=== PATIENT | male | born 1965 | race Caucasian/White ===

== ENCOUNTER 2019-07-04 06:00 | Outpatient (RCR) | payer OTHER, SELFPAY | END 2019-08-03 00:01 | LOC: SPT 06:00 | PROVIDERS: Family Provider Family Medicine; Visit Provider Specialist | DX: M70.72 Other bursitis of hip, left hip (principal); M70.71 Other bursitis of hip, right hip | CPT/HCPCS: 97110 ×2; 97164 ==

== ENCOUNTER 2019-08-04 13:17 | Outpatient (RCR) | payer OTHER, SELFPAY | END 2019-09-03 23:59 | disposition home or self-care (01) | LOC: SPT 13:17 | PROVIDERS: Family Provider Family Medicine; PCP Family Medicine; Visit Provider Specialist | DX: M70.61 Trochanteric bursitis, right hip (principal); M70.62 Trochanteric bursitis, left hip; G35 Multiple sclerosis | CPT/HCPCS: 97110; 97140 ==

== ENCOUNTER 2019-09-04 06:00 | Outpatient (RCR) | payer OTHER, MEDICARE, MEDICAID, SELFPAY | END 2019-10-02 23:59 | disposition home or self-care (01) | LOC: SPT 06:00 | PROVIDERS: Family Provider Family Medicine; PCP Family Medicine; Visit Provider Specialist | DX: M70.61 Trochanteric bursitis, right hip (principal); M70.62 Trochanteric bursitis, left hip; G35 Multiple sclerosis | CPT/HCPCS: 97110; 97530 ==

== ENCOUNTER → 2019-09-06 07:46 | Outpatient (BNVA) | payer OTHER, MEDICARE, SELFPAY | PROVIDERS: Family Provider Family Medicine; PCP Family Medicine; Visit Provider Specialist | DX: G35 Multiple sclerosis (principal) | CPT/HCPCS: 36415; 96374; 96375; 96413; 96415; 99213; J1200; J2350; J2930; J7040 ==

== ENCOUNTER 2019-10-03 06:00 | Outpatient (RCR) | payer OTHER, MEDICARE, MEDICAID, SELFPAY | END 2019-11-02 23:59 | disposition home or self-care (01) | LOC: SPT 06:00 | PROVIDERS: Family Provider Family Medicine; PCP Family Medicine; Visit Provider Specialist | DX: M70.61 Trochanteric bursitis, right hip (principal); M70.62 Trochanteric bursitis, left hip; G35 Multiple sclerosis | CPT/HCPCS: 97110 ==

== ENCOUNTER 2020-02-23 08:13 | Outpatient (CLI) | payer MEDICARE, MEDICAID, SELFPAY ==
[2020-02-23] MEDS: acetaminophen 500 mg Tablet 1000 MG PO (08:30)
[2020-02-23] MEDS: diphenhydrAMINE 50 mg/mL SDV 1mL 25 MG IVP (08:30)
== END 2020-02-23 08:14 | disposition home or self-care (01) ==
LOC: NSACUTE 08:13
PROVIDERS: Family Provider Family Medicine; PCP Family Medicine; Visit Provider Specialist
DX: G35 Multiple sclerosis (principal)
CPT/HCPCS: 96375; 99214; J1200; J2350; J2930; J7040

== ENCOUNTER 2020-05-21 10:05 | Emergency (ER) | payer OTHER, MEDICAID, SELFPAY ==
[2020-05-21 10:20] VITALS: BP 124/83; PULSE 68; RESP 17; TEMP 36.5; O2SAT 99; BMI 24.7
--- NOTE | 2020-05-21 10:53 | W.ED.BACK ---
HPI - Back Pain/Injury General: Chief Complaint: Back Pain/Injury Stated Complaint: Back Pain Time Seen by Provider: 05/21/20 10:43 History of Present Illness: HPI Narrative: Complains of pain that radiates from the center of the spine upper lumbar down to the hip area buttocks of the left side been going on a couple days history of MS denies any injury denies any other problems no problems urinating bowels working fine MD elicited complaint: back pain Pertinent past history: prior back pain Onset (ago): day(s) Timing: constant and progressively worsening Severity: moderate Similar Symptoms Previously: Yes Quality: burning and sharp Location: lumbar spine and left flank Radiation: buttocks Exacerbating factors: movement, sitting upright and walking Relieving factors: immobilization Context: unknown Associated symptoms: Reports no associated symptoms; Deny abdominal pain, chills, fever(s), nausea or vomiting Review of Systems Const: Denies: fever(s), chills or body aches Eyes: Denies: change in vision or blurry vision ENMT: Denies: throat pain or nasal congestion Card: Denies: chest pain or dyspnea on exertion Resp: Denies: dyspnea, productive cough or non-productive cough GI: Denies: abdominal pain, nausea or vomiting : Denies: difficulty urinating Musc: Reports: extremity pain Skin/Breast: Denies: rash Neuro: Denies: headache(s) Psych: Denies: anxiety or depression Joseph/Lymph: Denies: easy bruising PFSH ED PFSH: Family History Father Cancer Colon Brother Cancer Colon Social History Smoking and tobacco status: former smoker History of recent travel: No Physical Exam Const: COMMON NORMALS: no acute distress Chest: COMMONS NORMALS: normal inspection of the chest Resp: COMMON NORMALS: normal respiratory effort Back/Pelvis: LUMBAR SPINE/LOWER BACK: Yes normal to inspection, Yes pain with ROM, Yes paraspinal muscle tenderness, No paraspinal muscle spasm and Yes straight leg raise positive left (Tenderness to left buttock area) Course Vital Signs: Vital signs: Vital Signs Temperature 97.7 F 05/21/20 10:20 Pulse Rate 73 05/21/20 11:09 Respiratory Rate 18 05/21/20 11:09 Blood Pressure 107/80 05/21/20 11:09 Pulse Oximetry 99 05/21/20 11:09 Discharge Plan Discharge Patient Disposition: Home Clinical Impression: Sciatica Qualifiers: Laterality: left Qualified Code(s): M54.32 - Sciatica, left side Condition: Stable Prescriptions: New hydrocodone-acetaminophen 10-325 mg tablet 1 tab PO Q8H PRN (Reason: pain) Qty: 10 RF: 0 prednisone 20 mg tablet 60 mg PO DAILY Qty: 9 RF: 0 No Action zolpidem [Ambien] 10 mg tablet 10 mg PO BEDTIME RF: 0 aspirin [Adult Aspirin Regimen] 81 mg tablet,delayed release (DR/EC) 81 mg PO DAILY RF: 0 hydrocodone-acetaminophen [[place]] 10-325 mg tablet 1 tab PO Q6H PRN (Reason: Pain) RF: 0 Ocrevus 30 mg/mL solution 30 mg IVP Q6M RF: 0 prednisone 10 mg tablet 10 mg PO DAILY PRN (Reason: joint pain) RF: 0 alprazolam [Xanax] 0.25 mg tablet 0.25 mg PO DAILY PRN (Reason: Anxiety) RF: 0 cholecalciferol (vitamin D3) 125 mcg (5,000 unit) capsule 5,000 unit PO DAILY RF: 0 dalfampridine [Ampyra] 10 mg tablet extended release 12 hr 10 mg PO Q12H Qty: 180 RF: 3 baclofen 20 mg tablet 20 mg PO TID 90 Days Qty: 270 RF: 1 famotidine 20 mg tablet 20 mg PO BID RF: 0 Discharge Orders: Discharge Order (Routine); Ordered 05/21/20 Ordered By: Kye Andrade Referrals: Bony Contreras MD [Primary Care Provider] - Discharge Diet: Usual diet Patient Instructions: Sciatica (ED) Activity Restrictions/Additional Instructions: Follow-up with medical provider as directed. Take medications as prescribed. Return to the ER or your medical provider if condition worsens. Please read and understand discharge instructions. If any questions ask please. Follow-up Dr. Momin no significant improvement limit lifting to nothing more than 10 pounds for next 3 to 4 weeks Discharge Date/Time: 05/21/20 11:09 Coding Level of Care Code ED Oracle Reports Developer for Chg Fwd Exam Expanded Problem Focused
[2020-05-21] MEDS: HYDROcodone-acetaminophen 10-325 mg Tablet 1 TAB PO (11:05)
[2020-05-21] MEDS: methylPREDNISolone (DEPO) 80 MG/ML INJ 1 mL IM (11:06)
[2020-05-21 11:09] VITALS: BP 107/80; PULSE 73; RESP 18; O2SAT 99
== END 2020-05-21 11:09 | disposition home or self-care (01) ==
PROVIDERS: Emergency Provider Nurse Practitioner Family; Family Provider Family Medicine; PCP Family Medicine
DX: M54.32 Sciatica, left side (principal); Z79.82 Long term (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 of aspirin; Z87.891 Personal history of nicotine dependence
CPT/HCPCS: 12345; 96372; 99281; 99283; J1040

== ENCOUNTER 2020-06-13 08:19 | Outpatient (CLI) | payer OTHER, SELFPAY ==
--- NOTE | 2020-06-13 08:55 | MR_ITS ---
WS: [id number] MRI LUMBAR SPINE NONCONTRAST TECHNIQUE: Sagittal T1, T2 and STIR imaging. Axial T1 and T2 imaging. CLINICAL INFORMATION: LBP COMPARISON: MRI 7 FINDINGS: Mild lumbar curve. No acute compression. Disc bulging worse at L3-4. No acute compression fractures. No high-grade central canal stenosis. Disc space narrowing L3-4 has progressed since the prior examin ation. L1-L2: Mild annular bulging with slight effacement of the ventral thecal sac. Narrowing of the left s ubarticular recess. Mild facet arthropathy. Foramen are patent. L2-L3: Mild disc bulging with slight narrowing of the left subarticular recess. Mild facet arthropath y. Mild left and no significant right foraminal narrowing. Spinal canal is patent. L3-L4: Slight retrolisthesis L3 on L4. Left subarticular disc protrusion impinges the traversing left L4 nerve root in the subarticular recess. Mild central canal stenosis. Additional smaller right suba rticular protrusion impinges the traversing right L4 nerve root. Mild left greater than right proxima l foraminal narrowing. Moderate facet arthropathy. L4-L5: Mild disc bulging eccentric to the right with moderate right foraminal narrowing. Left foramen and spinal canal are patent. Moderate facet arthropathy. L5-S1: Mild disc bulging with osteophytic ridging eccentric to the right. Mild right and no significa nt left foraminal narrowing. Mild facet arthropathy.. Visualized pelvic bony structures: Normal. Paravertebral soft tissues: Normal. MR/MR lumbar spine wo con* [id number] IMPRESSION: 1. Mild lumbar curve. No acute compression. No high-grade central canal stenos is. 2. Disc space narrowing L3-4 has progressed since 2015. 3. Bilateral left greater than right subarticular disc protrusions L3-4 imping es the traversing left greater than right L4 nerve roots. Mild central canal st enosis. 4. Mild left greater than right L3-4 foraminal narrowing. 5. Mild right L4-5 foraminal narrowing. 6. Mild right L5-S1 foraminal narrowing.
== END 2020-06-13 08:20 | disposition home or self-care (01) ==
LOC: RADWPI 08:23
PROVIDERS: PCP Family Medicine; Visit Provider Emergency Medicine Emergency Medical Services
DX: M51.26 Other intervertebral disc displacement, lumbar region (principal); M48.061 Spinal stenosis, lumbar region without neurogenic claudication
CPT/HCPCS: 72148

== ENCOUNTER 2020-08-23 07:57 | Outpatient (CLI) | payer MEDICARE, MEDICAID, SELFPAY ==
[2020-08-23] MEDS: acetaminophen 500 mg Tablet 1000 MG PO (09:11)
[2020-08-23] MEDS: diphenhydrAMINE 50 mg/mL SDV 1mL 25 MG IVP (11:07)
== END 2020-08-23 07:58 | disposition home or self-care (01) ==
PROVIDERS: PCP Family Medicine; Visit Provider Specialist
DX: G35 Multiple sclerosis (principal); Z87.891 Personal history of nicotine dependence
CPT/HCPCS: 96365; 96366; 96375; 99213; J1200; J2350; J2930; J7040

== ENCOUNTER 2021-02-12 08:00 | Outpatient (CLI) | payer MEDICARE, MEDICAID, SELFPAY ==
[2021-02-12] MEDS: acetaminophen 500 mg Tablet 1000 MG PO (08:53)
[2021-02-12] MEDS: diphenhydrAMINE 50 mg/mL SDV 1mL 25 MG IVP (08:54)
== END 2021-02-12 08:01 | disposition home or self-care (01) ==
LOC: NSACUTE 08:11
PROVIDERS: PCP Family Medicine; Visit Provider Specialist
DX: G35 Multiple sclerosis (principal); R20.0 Anesthesia of skin; R20.2 Paresthesia of skin
CPT/HCPCS: 96365; 96366; 96375; 99214; J1200; J2350; J2930; J7040

== ENCOUNTER → 2021-04-10 12:18 | Outpatient (BNVA) | payer OTHER, SELFPAY | PROVIDERS: PCP Family Medicine; Referring Provider Specialist; Visit Provider Specialist | DX: G35 Multiple sclerosis (principal); M48.061 Spinal stenosis, lumbar region without neurogenic claudication | CPT/HCPCS: 99215 ==

== ENCOUNTER → 2021-04-25 14:56 | Outpatient (BNVA) | payer OTHER, SELFPAY | PROVIDERS: PCP Family Medicine; Referring Provider Specialist; Visit Provider Specialist | DX: G56.21 Lesion of ulnar nerve, right upper limb (principal) | CPT/HCPCS: 95908 ==

== ENCOUNTER 2021-05-11 12:49 | Outpatient (CLI) | payer OTHER, SELFPAY ==
--- NOTE | 2021-05-11 12:55 | MR_ITS ---
WS: [id number] MRI CERVICAL SPINE NONCONTRAST AND CONTRAST TECHNIQUE: Sagittal T1, T2 and STIR imaging. Axial T2, gradient, and fiesta imaging. Post gadolinium imaging was obtained. CLINICAL INFORMATION: G35 - Multiple sclerosis COMPARISON: March 04, 2018 FINDINGS: Straightening with slight reversal the normal cervical lordosis. Chronic demyelinating plaques in the cervical cord at the foramen magnum, and C5-6 unchanged since 2018. No abnormal gadolinium enhanceme nt. No active demyelinating lesions. No significant cord atrophy. C2-C3: Normal. C3-C4: Disc osteophyte complex with endplate ridging. Moderate right and mild left bony foraminal romulo rowing. Mild facet arthropathy. C4-C5: No significant disc bulging. Mild facet arthropathy. Spinal canal and foramen are patent. C5-C6: Mild disc bulging and osteophytic ridging. Mild/moderate left and no significant right foramin al narrowing. Mild facet arthropathy. Spinal canal is patent. C6-C7: Shallow central disc protrusion. Slight effacement of ventral thecal sac. Mild left and no sig nificant right foraminal narrowing. Moderate facet arthropathy. Spinal canal is patent. C7-T1: Grade 1 anterolisthesis with osteophytic ridging. Mild left bony foraminal narrowing. Spinal c anal is patent. Visualized brain stem structures: Normal. Prevertebral soft tissues: Normal. MR/MR cervical spine wo/w [id number] IMPRESSION: 1. Straightening of the normal cervical lordosis. No high-grade central canal stenosis. 2. Chronic demyelinating plaques in the cervical cord at the Foramen Magnum an d eccentric left C5-C6 unchanged since 2017. 3. No abnormal gadolinium enhancement. No enhancing demyelinating plaques. No evidence of active disease. 4. No significant cord atrophy. 5. Mild spondylitic changes described above.
[2021-05-11] MEDS: gadobenate dimeglumine 20 mL vial IV (13:40)
== END 2021-05-11 12:50 | disposition home or self-care (01) ==
LOC: RADSHAW 12:51
PROVIDERS: PCP Family Medicine; Visit Provider Specialist
DX: G35 Multiple sclerosis (principal)
CPT/HCPCS: 72156; A9577

== ENCOUNTER → 2021-05-24 16:00 | Outpatient (BNVA) | payer OTHER, SELFPAY | PROVIDERS: PCP Family Medicine; Referring Provider Nurse Practitioner Family; Visit Provider Orthopaedic Surgery | DX: M48.061 Spinal stenosis, lumbar region without neurogenic claudication (principal); M41.86 Other forms of scoliosis, lumbar region; M43.16 Spondylolisthesis, lumbar region | CPT/HCPCS: 72110 ==

== ENCOUNTER → 2021-05-28 08:55 | Outpatient (BNVA) | payer OTHER, SELFPAY | PROVIDERS: PCP Family Medicine; Visit Provider Specialist | DX: M54.81 Occipital neuralgia (principal); G35 Multiple sclerosis | CPT/HCPCS: 64405; 64450; 99214; J1030; J3490 ==

== ENCOUNTER → 2021-06-18 08:48 | Outpatient (BNVA) | payer OTHER, SELFPAY | PROVIDERS: PCP Family Medicine; Visit Provider Orthopaedic Surgery | DX: Z20.822 Contact with and (suspected) exposure to COVID-19 (principal); M48.061 Spinal stenosis, lumbar region without neurogenic claudication | CPT/HCPCS: 87635 ==

== ENCOUNTER 2021-06-22 05:46 | Day surgery (SDC) | payer OTHER, SELFPAY ==
[2021-06-15 09:53] VITALS: BMI 24.7
--- NOTE | 2021-06-15 10:15 | ANES.PREANE2 ---
Pre-Anesthetic Assessment Pre-Anesthetic Assessment: Height/Weight: Height 1.78 m Weight 78.018 kg Preop Diagnosis: Lumbar stenosis with neurogenic claudication Proposed Procedure: Operation Date: 06/22/21 07:00 Proposed Procedures p Lumbar Spine Decompression L3/4 L4/5 06005 31160 M48.062(Not Applicable) - Tima Choudhary DO Familial anesthetic complications: None Social: Social History: No alcohol and No tobacco Comment: former smoker Exam: Pre-Anes Outpt Exam: alert, oriented x 3, clear to auscultation bilaterally and regular rate & rhythm Airway: Cervical ROM: WNL MP: 1 Dentition: False GI: GI: GERD Neuropsych: Comments: multiple sclerosis (primary slow progressing) - On ocrelizumab Anesthetic Plan: ASA status: 3 Other: patient informed of risk of MS exacerbation w/ anesthesia Risk of > 500 ml blood loss (7ml/kg in children): No PFSH Anesthesia PFSH: Family History Father Cancer Colon Brother Cancer Colon Social History (Updated 06/15/21 @ 09:48 by Cinthia Velez) Smoking and tobacco status: former smoker Alcohol intake: never History of recent travel: No Data Anesthesia Cardiac Studies: No Data to Display
[2021-06-15 10:23] LABS: Basophils # 0.1 10^3/uL (0.0-0.1); Basophils % 0.8 %; Eosinophils # 0.1 10^3/uL (0.0-0.8); Eosinophils % 2.3 %; Hematocrit 42.2 % (42.0-52.0); Hemoglobin 13.7 g/dL (11.7-16.6); Lymphocytes # 1.1 10^3/uL (0.8-4.8); Lymphocytes % 17.7 %; Mean Corpuscular HGB Conc 32.5 g/dL (30.0-36.0); Mean Corpuscular Volume 92.3 fl (80-94); Mean Platelet Volume 9.6 fL (7.4-10.4); Monocytes # 0.5 10^3/uL (0.2-0.9); Monocytes % 7.6 %; Neutrophils # 4.38 10^3/uL (1.8-7.7); Neutrophils % 71.3 %; Nucleated Red Blood Cells % 0 %; Platelet Count 354 10^3/cmm (130-400); Red Blood Count 4.57 10^6/uL (4.1-5.3); Red Cell Distribution Width 13.2 % (12.1-15.1); White Blood Count 6.2 10^3/uL (4.0-10.0)
[2021-06-22] VITALS (11 sets, daily range): BP systolic 111–121; BP diastolic 74–84; PULSE 71–90; RESP 12–18; TEMP 36.2–36.9; O2SAT 95–100
--- NOTE | 2021-06-22 | SCC_ITS ---
Procedure Done: 1. Bilateral L3/4 laminectomy with bilateral partial facetectomy 2. Bilateral L4/5 laminectomy with bilateral partial facetectomy 23.1 seconds of fluoroscopic guidance, for a cumulative dose of 5.37 mGy, was provided to Dr. Choudhary by the radiology department. C-arm images of the lumbar spine were saved for the patient's permanent record. [facility]
--- NOTE | 2021-06-22 | XR_ITS ---
WS: [id number] C-ARM RADIOGRAPHS LUMBAR SPINE; 4 IMAGES HISTORY: decompression COMPARISON: 05/24/2021 Intraoperative imaging during decompression. There are markers at both the L3-4 and L4-5 level. XR/XR lumbar spine 1V [id number] IMPRESSION: Intraoperative imaging during spinal decompression.
[2021-06-22] MEDS: sodium chloride 0.9% 1,000 ML 30 ML IV (06:25)
--- NOTE | 2021-06-22 06:25 | W.PM.OPSUD ---
Surgery/Procedure H&P Update DATE OF PROCEDURE: June 22, 2021 DATE H&P PERFORMED: 05/24/21 H&P UPDATE INFORMATION: I have reviewed H&P completed within last 30 days, I have examined patient prior to procedure and No changes to prior documentation PREOP DIAGNOSIS: Lumbar stenosis with neurogenic claudication PLANNED PROCEDURE: Operation Date: 06/22/21 07:00 Proposed Procedures p Lumbar Spine Decompression L3/4 L4/5 87575 12202 M48.062 TO STAND ON LEFT SIDE(Not Applicable) - Tima Choudhary DO
--- NOTE | 2021-06-22 08:16 | P.ANESUD_ITS ---
Pre-Anesthetic Update Pre-Anesthetic Assessment: Date of Surgery/Procedure: 06/22/21 Preop Deb gnosis: Lumbar stenosis with neurogenic claudication Proposed Procedure: Operation Date: 06/22/21 07:00 Proposed Procedures p Lumbar Spine Decompression L3/4 L4/5 01584 [id number] M48.062 TO STAND ON LEFT SIDE(Not Applicable) - Tima Choudhary, DO Any changes to Pre-Anesthetic Assessment?: No Last Intake: Intake Last Liquid Date 06/21/21 Last Liquid Time 22:00 Last Solid Date 06/21/21 Last Solid Time 22:00 Vitals: Temperature 98.4 F 06/22/21 06:03 Temperature Source Temporal Artery S can 06/22/21 06:03 Pulse Rate 71 06/22/21 06:03 Respiratory Rate 18 06/22/21 06:03 Blood Pressure 111/81 06/22/21 06:03 Blood Pressure Katherine n 91 06/22/21 06:03 Pulse Oximetry 100 06/22/21 06:03 Oxygen Delivery Me thod 06/22/21 06:04 Exam: Pre-Anes Outpt Exam: alert, oriented x 3, clear to auscultation bilaterally and regular rate & rhythm Cardiac Studies: No Data to Display
[2021-06-22] MEDS: fentaNYL 50 mcg/mL INJ 2mL IVP ×2 (08:34→08:41)
--- NOTE | 2021-06-22 08:38 | PM.OP ---
Operative Report Date of procedure: June 22, 2021 Pre-op Diagnosis: Lumbar stenosis with neurogenic claudication Post-op diagnosis: same Procedure Done: 1. Bilateral L3/4 laminectomy with bilateral partial facetectomy 2. Bilateral L4/5 laminectomy with bilateral partial facetectomy Surgeon: Tima Choudhary Anesthesia: General Estimated blood loss (mL): 5 Condition: stable Procedure: 1. Bilateral L3/4 laminectomy with bilateral partial facetectomy 2. Bilateral L4/5 laminectomy with bilateral partial facetectomy Patient is brought to the operative suite. After undergoing anesthesia they are placed in the prone position. All areas of impingement are well padded. Patient is then prepped and draped in the normal sterile fashion. A skin incision is made over the L4/5 level. This is confirmed under c-arm guidance. A series of dilators are passed and the tubular retractor is docked on the L4 lamina. A bovie is used to clear the soft tissue off the lamina and the L 4/5 facet joint. A high speed nadine is then used to perform the laminectomy and take down the medial aspect of the L 4/5 facet joint. A kerrison rongeure was then used to take down the remaining lamina and smooth the edged of the laminectomy up to the point where the ligamentum flavum attaches. Attention was then brought to the medial aspect of the facet joint. The remaining medial aspect of the superior and inferior aspect of the facet joint were taken down with the kerrison from the pedicle of L4 to L 5. The facet joint had significant hypertrophy. Attention was then brought to the Ligamentum Flavum. The ligament was taken down from the lamina of L4 to L5 and out medially to the remaining facet joint. The ligament was thick. The dura was then exposed. The dura was in good repair. The L4 nerve was then traced with a curette out the L4/5 foramen and found to be adequately decompressed. The L5 nerve was traced with a curette around the L5 pedicle. The lateral recess was opened with a kerrison helping to further decompress the L5 nerve. The tubular retractor was then tilted to the contralateral side. The bovie was used to take down the soft tissue on the spinous process. The high speed nadine was used to take down the spinous process and then the contralateral lamina of L4. The kerrison rongeur was used to take down the remaining lamina to the point where the ligamentum flavum attached and the ligamentum flavum was taken down from L4 to L5. The kerrison rongeur was then used to reach across and take down the medial aspect of the contralateral L4/5 facet joint.The currete was used to trace the contralateral L4 nerve out the L4/5 foramen to make sure it was decompressed adequatesly and the L5 was traced around the L5 pedicle. The lateral recess was opened further with the kerrison to ensure the L5 is adequately decompressed. Wound is then irrigated copiously with saline and surgiflo is used to stop any bleeding. The tubular retractor is removed and A skin incision is made over the L3/4 level. This is confirmed under c-arm guidance. A series of dilators are passed and the tubular retractor is docked on the L3 lamina. A bovie is used to clear the soft tissue off the lamina and the L 3/4 facet joint. A high speed nadine is then used to perform the laminectomy and take down the medial aspect of the L 3/4 facet joint. A kerrison rongeure was then used to take down the remaining lamina and smooth the edged of the laminectomy up to the point where the ligamentum flavum attaches. Attention was then brought to the medial aspect of the facet joint. The remaining medial aspect of the superior and inferior aspect of the facet joint were taken down with the kerrison from the pedicle of L3 to L 4. The facet joint had significant hypertrophy. Attention was then brought to the Ligamentum Flavum. The ligament was taken down from the lamina of L3 to L4 and out medially to the remaining facet joint. The ligament was thick. The dura was then exposed. The dura was in good repair. The L3 nerve was then traced with a curette out the L3/4 foramen and found to be adequately decompressed. The L4 nerve was traced with a curette around the L4 pedicle. The lateral recess was opened with a kerrison helping to further decompress the L4 nerve. The tubular retractor was then tilted to the contralateral side. The bovie was used to take down the soft tissue on the spinous process. The high speed nadine was used to take down the spinous process and then the contralateral lamina of L3. The kerrison rongeur was used to take down the remaining lamina to the point where the ligamentum flavum attached and the ligamentum flavum was taken down from L3 to L4. The kerrison rongeur was then used to reach across and take down the medial aspect of the contralateral L3/4 facet joint.The currete was used to trace the contralateral L3 nerve out the L3/4 foramen to make sure it was decompressed adequatesly and the L4 was traced around the L4 pedicle. The lateral recess was opened further with the kerrison to ensure the L4 is adequately decompressed. Wound is then irrigated copiously with saline and surgiflo is used to stop any bleeding. The tubular retractor is removed and the wound is closed with vicryl and monocryl suture. Glue is then used to protect the wound. A sterile dressing is then placed. Patient was then placed in the supine position and transferred to the PACU in stable condition.
--- NOTE | 2021-06-22 08:59 | SUR.PHASEI ---
0857 PT AWAKE ALERT MOVES BILAT TOES TO COMMAND WITH RT FOOT WEAKER, PT STATES THIS IS NORMAL FOR HIM PT C/O OF PAIN AND PRESSURE EARLIER TO LOWER BACK SEE MEDS GIVEN PT STATES PAIN IS BETTER AND WANTS TO CONTINUES WITH PO PAIN MED IN OPS , HANDOFF AT BEDSIDE TO NEGAR MARTINEZ.
[2021-06-22] MEDS: HYDROcodone-acetaminophen 10-325 mg Tablet 1 TAB PO (09:47)
--- NOTE | 2021-06-22 14:03 | ANE.PACU2 ---
Inpatient post-anesthesia follow up: Airway intact: Yes Vital signs: Temperature 98 F Pulse Rate 78 Respiratory Rate 18 Blood Pressure 121/84 Pulse Oximetry 96 Oxygen Delivery Me thod Room Air Oxygen Flow Rate Fraction of Inspir ed Oxygen Hydration adequate: Yes Nausea and vomiting: No Pain level: 2 Mental status: Baseline
== END 2021-06-22 09:55 | disposition home or self-care (01) ==
PROVIDERS: Anesthesiology; PCP Family Medicine; Visit Provider Orthopaedic Surgery
PROC: (CPT 63005; principal; 2021-06-22 07:00)
DX: M48.062 Spinal stenosis, lumbar region with neurogenic claudication (principal); Z87.891 Personal history of nicotine dependence; K21.9 Gastro-esophageal reflux disease without esophagitis; G35 Multiple sclerosis; Z79.82 Long term (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 of aspirin
CPT/HCPCS: 63047; 63048; 72020; 76000; 85025; 96365; J0690; J1100; J2405; J2704; J2710; J3010; J3490; J7030

== ENCOUNTER 2021-06-25 09:32 | Observation (INO) | payer OTHER, MEDICARE, SELFPAY ==
[2021-06-25] VITALS (8 sets, daily range): BP systolic 110–134; BP diastolic 75–95; PULSE 75–104; RESP 16–20; TEMP 36.7–37.1; O2SAT 90–94; BMI 24.8; BMI 24.4
--- NOTE | 2021-06-25 09:41 | W.ED.GENADLT ---
HPI - General Adult General: Chief complaint: Back Pain/Injury Stated complaint: LEFT HIP PAIN POST SPINAL SURGERY 3 DAYS AGO Time Seen by Provider: 06/25/21 09:37 History of Present Illness: HPI narrative: 55-year-old male presents emergency room complaining left hip pain. 3 days ago patient underwent back surgery. Patient had a bilateral L3-4, L4-5 laminectomy with partial cystectomy. Postoperatively he has begun to develop left hip pain. He was having neurogenic claudication prior to surgery. Patient reported pain radiating into both legs bilaterally left worse than the right. Over the last 2 days he has had increasing left hip pain buttock and proximal posterior thigh pain. He also has noted difficulty emptying his bladder. Prior to surgery he would have 1-2 episodes of micturition per night. Now he is feeling like he can empty his bladder a little bit but never gets it fully empty. He denies any dysuria urgency or frequency. He denies any trauma or fall since his surgery. He has been using hydrocodone 10/325 1 p.o. every 6 hours as needed Onset (ago): day(s) (6) Location: chest Radiation: non-radiation Severity: mild Pain Consistency: intermittent Relieving factors: none Exacerbating factors: none Associated symptoms: Deny chest pain, confusion, cough, diaphoresis, decreased appetite, dyspnea, fevers/chills, headache(s), malaise, nausea, rash, palpitations, seizures, short of breath, syncope, vomiting or weakness Review of Systems Const: Denies: malaise or diaphoresis ENMT: Denies: throat pain, ear or mastoid pain, nasal discharge or nasal congestion Card: Denies: chest pain, palpitations or syncope Resp: Denies: dyspnea GI: Denies: nausea or vomiting : Denies: flank pain, dysuria, urinary frequency or urinary urgency Skin/Breast: Denies: rash Neuro: Denies: headache(s) or confusion PFSH ED PFSH: Family History Father Cancer Colon Brother Cancer Colon Social History (Updated 06/15/21 @ 09:48 by Cinthia Velez) Smoking and tobacco status: former smoker Alcohol intake: never History of recent travel: No Physical Exam Const: COMMON NORMALS: no acute distress GENERAL APPEARANCE: cooperative and comfortable ORIENTATION/CONSCIOUSNESS: Yes awake, Yes oriented to person, Yes oriented to place and Yes oriented to time HENMT: COMMON NORMALS: normocephalic, atraumatic and hearing grossly normal bilaterally HEAD & SCALP: normocephalic and atraumatic Neck/C-Spine: COMMON NORMALS: no JVD Resp: COMMON NORMALS: normal respiratory effort, No retractions, No use of accessory muscles and clear to auscultation bilaterally AUSCULTATION: clear to auscultation bilaterally Cardio: COMMON NORMALS: no JVD, regular rate, regular rhythm and No murmurs present (Cardio) RATE: regular rate RHYTHM: regular rhythm GI: COMMON NORMALS: Soft to palpation and No hepatosplenomegaly present AUSCULTATION: Yes normoactive bowel sounds PALPATION: Yes Soft to palpation, No Tenderness to palpation present (GI), No Guarding due to palpation present (GI) and Yes No hepatosplenomegaly present Extremity: COMMON NORMALS: normal to inspection, capillary refill normal, no clubbing, cyanosis or edema, no calf tenderness and no pedal edema OTHER: Deep tendon reflexes +2/4 at the left patellar tendon difficult to elicit on the right however patient states that not unusual he has significant loss of function in the right leg that predated his back issues related to his MS. Neuro: SENSORIUM/ORIENTATION: Yes oriented to person, Yes oriented to place and Yes oriented to time Skin: COMMON NORMALS: no rashes or lesions noted GENERAL SKIN EXAM: no rashes or lesions noted Course Vital Signs: Vital signs: Vital Signs Temperature 98.8 F 06/25/21 09:35 Pulse Rate 75 06/25/21 13:19 Respiratory Rate 16 06/25/21 13:19 Blood Pressure 134/84 06/25/21 13:19 Pulse Oximetry 92 06/25/21 13:19 MDM - General Adult MDM Narrative: Medical decision making narrative: After multiple medications for pain and attempts to try to get the patient ambulated became obvious is not can be able to go home. At this point because of his MS and is previously known loss of function in his right leg along with a severe pain with postlaminectomy syndrome in his left leg. Level of function. In addition that he has acute urinary retention. We will go ahead and put him on observation now discussed with hospitalist. Lab Data: Labs: Lab Results 06/25/21 06/25/21 06/25/21 09:47 09:47 13:20 WBC 8.8 10^3/uL 10^3/ uL (4.0-10.0) RBC 3.81 10^6/uL L 10 ^6/uL (4.1-5.3) Hgb 11.4 g/dL L g/dL (11.7-16.6) Hct 34.3 % L % (42.0-52.0) MCV 90.0 fl fl (80-94) MCH 29.9 pg pg (28.0-34.0) MCHC 33.2 g/dL g/dL (30.0-36.0) RDW 13.2 % % (12.1-15.1) Plt Count 295 10^3/cmm 10^3 /cmm (130-400) MPV 9.9 fL fL (7.4-10.4) Neut % (Auto) 74.1 % % Lymph % (Auto) 13.9 % % [place] % (Auto) 8.9 % % Eos % (Auto) 1.9 % % Baso % (Auto) 0.6 % % Neut # (Auto) 6.50 10^3/uL 10^3 /uL (1.8-7.7) Lymph # (Auto) 1.2 10^3/uL 10^3/ uL (0.8-4.8) Valencia # (Auto) 0.8 10^3/uL 10^3/ uL (0.2-0.9) Eos # (Auto) 0.2 10^3/uL 10^3/ uL (0.0-0.8) Baso # (Auto) 0.1 10^3/uL 10^3/ uL (0.0-0.1) Nucleated RBC % (a uto) 0 % % Nucleated RBCs # 0.0 /100WBC /100W BC Sodium 140 mmol/L mmol/L (136-145) Potassium 4.0 mmol/L mmol/L (3.5-5.1) Chloride 101 mmol/L mmol/L (98-107) Carbon Dioxide 29 mmol/L mmol/L (22-29) Anion Gap 14.0 (5-19) BUN 8 mg/dL mg/dL (6-20) Creatinine 0.8 mg/dL mg/dL (0.7-1.2) GFR Calculation 100.7 mL/min mL/m in (90-130) Glucose 95 mg/dL mg/dL (65-115) Calculated Osmolal ity 288 mOsm/kg mOsm/ kg (285-295) Calcium 8.4 mg/dL L mg/dL (8.5-10.5) Urine Color Straw (Yellow) Urine Appearance Clear (CLEAR) Urine pH 5 (5-7) Ur Specific Gravit y 1.010 (1.005-1.030) Urine Protein Neg (Negative) Urine Glucose (UA) Norm (Normal) Urine Ketones Negative (Negative) Urine Blood 2+ H (Negative) Urine Nitrate Negative (Negative) Urine Bilirubin Neg (Negative) Urine Urobilinogen Norm mg/dL mg/dL (Negative) Ur Leukocyte Raquel ase Negative (Negative) Urine RBC 0-4 /hpf H /hpf (0-2) Urine WBC None /hpf /hpf (0-5) Ur Squamous Epith Cells 5-10 /hpf H /hpf (0-5) Amorphous Sediment Not Reportable Urine Bacteria Trace /hpf /hpf (NONE) Discharge Plan Discharge Patient Disposition: Home Clinical Impression: Post laminectomy syndrome, Multiple sclerosis, Acute urinary retention Condition: Stable Discharge Diet: Usual diet Discharge Activity: Resume usual activity Coding Level of Care Code ED Front Counter Attendant for Valentina Fwd Exam Comprehensive
[2021-06-25] MEDS: fentaNYL 50 mcg/mL INJ 2mL 100 MCG IVP (09:54)
[2021-06-25 10:10] LABS: Basophils # 0.1 10^3/uL (0.0-0.1); Basophils % 0.6 %; Eosinophils # 0.2 10^3/uL (0.0-0.8); Eosinophils % 1.9 %; Hematocrit 34.3 % (42.0-52.0); Hemoglobin 11.4 g/dL (11.7-16.6); Lymphocytes # 1.2 10^3/uL (0.8-4.8); Lymphocytes % 13.9 %; Mean Corpuscular HGB Conc 33.2 g/dL (30.0-36.0); Mean Corpuscular Hemoglobin 29.9 pg (28.0-34.0); Mean Platelet Volume 9.9 fL (7.4-10.4); Monocytes # 0.8 10^3/uL (0.2-0.9); Monocytes % 8.9 %; Neutrophils % 74.1 %; Nucleated Red Blood Cells % 0 %; Platelet Count 295 10^3/cmm (130-400); Red Blood Count 3.81 10^6/uL (4.1-5.3); Red Cell Distribution Width 13.2 % (12.1-15.1); White Blood Count 8.8 10^3/uL (4.0-10.0)
[2021-06-25] MEDS: dexamethasone 10 mg/mL INJ IVP (10:33)
[2021-06-25] MEDS: orphenadrine 30 mg/mL Inj 2 mL 60 MG IVP (10:33)
[2021-06-25 10:46] LABS: Blood Urea Nitrogen 8 mg/dL (6-20); Calcium 8.4 mg/dL (8.5-10.5); Carbon Dioxide 29 mmol/L (22-29); Chloride 101 mmol/L (98-107); Glomerular Filtration Rate 100.7 mL/min (90-130); Glucose 95 mg/dL (65-115); Osmolality Calculated 288 mOsm/kg (285-295); Sodium 140 mmol/L (136-145)
[2021-06-25] MEDS: morphine 4 mg/mL SDV 1 mL IVP ×2 (10:46→13:03)
--- NOTE | 2021-06-25 10:47 | PC.NURSE ---
Pt assisted to standing, but unable to urinate at this time.
--- NOTE | 2021-06-25 11:23 | PC.PHAR ---
pt states he takes care of his own medications-pt states he dced his doxycycline hyclate 100mg bid on 06/18/21 rx filled on 05/28/21 30d/s-pt states he gets a ocrevus injection every 6 months [facility] states they havent filled that for the pt
[2021-06-25 14:00] LABS: Glucose Urine UA Norm (Normal); Ketones Urine Negative (Negative); Protein Urine Neg (Negative); Urine Appearance Clear (CLEAR); Urine Color Straw (Yellow); pH Urine 5 (5-7)
[2021-06-25 14:01] LABS: Add Urine Microscopic? YES; Bilirubin Urine Neg (Negative); Blood Urine 2+ (Negative); Leukocyte Esterase Urine Negative (Negative); Nitrate Urine Negative (Negative); Urobilinogen Urine Norm (Negative)
[2021-06-25 14:02] LABS: Add Urine Culture? No; Bacteria Urine TRACE /hpf; RBC Urine 0-4 /hpf (0-2)
--- NOTE | 2021-06-25 16:00 | P.HP_ITS ---
Providers/Chief Complaint Admitting Physician: Adriana Gasca MD Primary Care Provider: Bony Contreras MD Chief Complaint: LEFT HIP PAIN POST SPINAL SURGERY 3 DAYS AGO History of Present Illness Bharat Arthur is a 55 year old male with history of multiple sclerosis and recent laminectomy L3-L5 with Dr. Choudhary presented to the hospital for pain in his back that is radiating down his left leg after the surgery. He stated that one of his other main complaints is being unable to urinate. At first it was a few hours at a time but lately for the whole day he was unable to urinate and decided to come to the hospital. He states he lives at home with his daughter was 16 years old and having her take care of each other. He denies having any numbness tingling in his legs. He has not lost control of his bowels. He has not had a bowel movement since the surgery. He states that other than this he has no other active medical issues at this time. Denies shortness of breath, abdominal pain, chest pain, diarrhea.He does complain of left hip pain. He states the pain does radiate to both legs but the left is worse than the right. He has been using hydrocodone 10 for pain. He states mainly the pain is controlled but it wears off quickly and is requesting for pain medication at this time. Denies having a fever or cough. ED course: Blood pressure 134/84, respiratory 16, pulse rate 75, temperature 98.8, pulse ox 92%. Patient did get multiple pain medications in the ER namely fentanyl, morphine 4 mg x 2 and the attempt to get him to walk at this evident that the patient cannot be sent home. ER has suspicion of postlaminectomy syndrome. Patient also has acute urinary retention. Vicente catheter was placed. Dr. Choudhary was called for consult. Patient will be admitted to hospital service. Patient did get one-time dose of Decadron 10 mg. Review of Systems General: Reports: 10 or more systems reviewed and unremarkable except in HPI and below Medications/Allergies Home Medications Medication Instructions Recorded Confirmed Last Taken Type alprazolam 0.25 mg tablet 0.25 mg PO BEDTIME PRN 09/06/19 06/25/21 06/25/21 History aspirin 81 mg tablet,delayed 81 mg PO DAILY 09/06/19 06/25/21 06/21/21 History release ocrelizumab 30 mg/mL intravenous 30 mg IV .EVERY 6 MONTHS 09/06/19 06/25/21 06/25/21 History solution prednisone 10 mg tablet 10 mg PO DAILY PRN tab 09/06/19 06/25/21 06/01/21 History zolpidem 10 mg tablet 10 mg PO BEDTIME tab 09/06/19 06/25/21 06/24/21 History cholecalciferol (vitamin D3) 125 5,000 unit PO DAILY 02/23/20 06/25/21 06/21/21 History mcg (5,000 unit) capsule famotidine 20 mg PO BID 05/21/20 06/25/21 06/22/21 History dalfampridine 10 mg 10 mg PO Q12H #180 tab 04/10/21 06/25/21 06/25/21 06:00 Rx tablet,extended release,12 hr baclofen 40 mg PO TID 06/15/21 06/25/21 06/25/21 06:00 History hydrocodone-acetaminophen 1 tab PO Q4H PRN 7 Days #40 tab 06/22/21 06/25/21 Unknown Rx acetaminophen [Tylenol Ex Str 1,000 mg PO Q4H PRN 06/25/21 06/25/21 Unknown History Rapid Release] hydrocodone-acetaminophen 1 tab PO QID PRN 06/25/21 06/25/21 06/25/21 07:00 History ibuprofen [Advil] 600 mg PO Q4H PRN 06/25/21 06/25/21 Unknown History prednisone 20 mg PO BID 7 Days #15 tab 06/25/21 Unknown Rx tamsulosin 0.4 mg PO DAILY #30 cap 06/25/21 Unknown Rx Allergies Allergy/AdvReac Type Severity Reaction Status Date / Time No Known Drug Allergies Allergy Unknown Verified 06/25/21 17:00 PFSH Acute PFSH: Family History Father Cancer Colon Brother Cancer Colon Social History (Updated 06/15/21 @ 09:48 by Cinthia Velez) Smoking and tobacco status: former smoker Alcohol intake: never History of recent travel: No Vitals/I&O/Wt Last Vital Signs Temp 98.8 F 06/25/21 09:35 Pulse 75 06/25/21 13:19 Resp 16 06/25/21 13:19 BP 134/84 06/25/21 13:19 Pulse Ox 92 06/25/21 13:19 Weight last 48 hrs Weight 78.471 kg Physical Exam Narrative: EXAM NARRATIVE: General: Alert oriented x3, patient seen sitting up in bed eating pretzels. HEENT: Normocephalic, atraumatic, EOMI, breathing normally on room air. Normal respiratory effort. Cardio: Regular rate rhythm, normal S1-S2, no murmurs rubs gallops, Respiratory: Good bilateral air entry, no wheezes no rhonchi appreciated GI: Abdomen soft, nontender, nondistended, bowel sounds + Behavior: Appropriate and cooperative Extremities: Pulses 2+, no edema no cyanosis noted lower extremities. Strength decreased in bilateral lower extremities right worse than left. Able to lift left leg off the bed about 2 inches and dropped right down, unable to lift right leg at all. Straight leg raise bilateral lower extremity is positive. Sensation intact 5 out of 5 upper and lower extremities. Upper extremity strength 5 out of 5 bilaterally. Range of motion restricted at the back due to pain. Vicente catheter in place. Gait not tested due to lower extremity weakness. Urinary Catheter Management^: Vicente: Cath Placed During This Visit: yes Urinary Catheter Date of Insertion: 06/25/21 Urinary Catheter Time of Insertion: 13:29 Data : 06/26/21 05:48 06/26/21 05:48 A&P Assessment and plan (1) Post laminectomy syndrome: Status: Acute (2) Acute urinary retention: Status: Acute (3) Lumbar stenosis with neurogenic claudication: Status: Acute (4) Multiple sclerosis: Status: Acute Additional A&P Information Patient is status post L2-L5 laminectomy with Dr. Choudhary 4 days ago. He has developed acute urinary retention. Vicente catheter has been placed. Decadron 10 mg x 1 given in the ER. We will start him on Decadron 4 mg IV every [address] Choudhary. Will await further recommendations. Physical therapy, Occupational Therapy, Case management referral ?We will do pain management and pain control. We will start patient on lactulose for constipation. #Multiple sclerosis: Stable at this time. 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
[2021-06-25] MEDS: enoxaparin 40 mg/0.4 mL Syringe SUBCUT (17:42)
[2021-06-25] MEDS: famotidine 20 mg Tablet PO (17:43)
[2021-06-25] MEDS: dexamethasone 4 mg/mL INJ IVP ×2 (17:43→23:22)
[2021-06-25] MEDS: lactulose oral liq 20 gm/30 mL UDC PO (17:43)
[2021-06-25] MEDS: baclofen 10 mg Tablet 40 MG PO (22:11)
[2021-06-25] MEDS: zolpidem 5 mg Tablet 10 MG PO (22:11)
[2021-06-25] MEDS: morphine 4 mg/mL SDV 1 mL 2 MG IVP (22:19)
[2021-06-26] VITALS (8 sets, daily range): BP systolic 100–123; BP diastolic 68–83; PULSE 76–118; RESP 16–18; TEMP 36.6–37.1; O2SAT 94–99
[2021-06-26] MEDS: morphine 4 mg/mL SDV 1 mL 2 MG IVP ×3 (03:51→19:01)
[2021-06-26] MEDS: dexamethasone 4 mg/mL INJ IVP ×3 (06:13→18:26)
[2021-06-26 06:35] LABS: Basophils % 0.1 %; Hematocrit 36.5 % (42.0-52.0); Hemoglobin 12.1 g/dL (11.7-16.6); Lymphocytes # 0.6 10^3/uL (0.8-4.8); Mean Corpuscular HGB Conc 33.2 g/dL (30.0-36.0); Mean Corpuscular Hemoglobin 29.4 pg (28.0-34.0); Mean Corpuscular Volume 88.8 fl (80-94); Mean Platelet Volume 9.9 fL (7.4-10.4); Monocytes # 0.4 10^3/uL (0.2-0.9); Monocytes % 3.9 %; Neutrophils # 9.85 10^3/uL (1.8-7.7); Neutrophils % 90.4 %; Nucleated Red Blood Cells % 0 %; Platelet Count 356 10^3/cmm (130-400); Red Blood Count 4.11 10^6/uL (4.1-5.3); Red Cell Distribution Width 12.6 % (12.1-15.1); White Blood Count 10.9 10^3/uL (4.0-10.0)
--- NOTE | 2021-06-26 06:46 | XRR_ITS ---
PROCEDURE INFORMATION: Exam: XR Left Hip Exam date and time: 06/26/2021 6:46 AM Age: 55 years old Clinical indication: Hip pain; Left hip; Prior surgery; Patient HX: Had lumbar decompression; Since then has C/O left groin pain, at rest or standing. ; Additional info: Left hip pain TECHNIQUE: Imaging protocol: XR Left hip. Views: 2 or 3 views hip with pelvis when performed. COMPARISON: OT XR lumbar spine 1V [id number] 06/22/2021 8:27 AM FINDINGS: Bones/joints: Limited delineation of the hip joint on the lateral view. No fracture or dislocation. Medial left hip joint space narrowing. Mild sclerosis superior left acetabulum. Soft tissues: Unremarkable. XR/XR hip LT 2-3V wo/w pel* [id number] IMPRESSION: 1. Medial left hip joint space narrowing. 2. Minor degenerative changes superior left acetabulum. Radiation Dose CTDIVOL = (mGy): DLP = (mGy-cm)
[2021-06-26 06:50] LABS: Alanine Aminotransferase 21 U/L (0-41); Albumin Level 3.8 g/dL (3.5-5.2); Alkaline Phosphatase 64 IU/L (40-130); Anion Gap 16.4 (5-19); Aspartate Amino Transferase 29 U/L (0-40); Blood Urea Nitrogen 14 mg/dL (6-20); Calcium 9.4 mg/dL (8.5-10.5); Carbon Dioxide 29 mmol/L (22-29); Chloride 98 mmol/L (98-107); Glomerular Filtration Rate 117.5 mL/min (90-130); Glucose 138 mg/dL (65-115); Magnesium 1.9 mg/dL (1.7-2.3); Osmolality Calculated 291 mOsm/kg (285-295); Phosphorus 3.7 mg/dL (2.5-4.5); Potassium 4.4 mmol/L (3.5-5.1); Sodium 139 mmol/L (136-145); Total Bilirubin 0.2 mg/dL (0.15-1.2); Total Protein 6.8 g/dL (6.6-8.7)
--- NOTE | 2021-06-26 06:56 | PM.CONSULT ---
Documented by User: SOPHIE Gracia 06/26/21 07:04 Providers/Reason For Consult Consulting Physician/Specialty*: Orthopedics Reason for Consult*: Left Hip Pain Attending Physician: Adriana Gasca MD Primary Care Provider: Bony Contreras MD History of Present Illness History of Present Illness Bharat Arthur is a 55 year old male presents presents back to the hospital following an L3-5 decompression. He was discharged home without any problems. Denies any new injuries since he has been home. Although he reports increased left groin pain over the last 24 to 48 hours without any falls or reported injuries. He denies any fever chills drainage from his incisional site in his lumbar region. He has been treated by Dr. Colunga in the past for left greater trochanteric bursitis. Upon evaluation in room 266 with no family present he reports left groin pain. His pain is worse with standing any movement or twisting of the left hip. He has some pain that travels down the thigh but he states this pain is much different than prior to surgery. This pain he did not have prior to surgery. He denies any pain that travels into his left foot is no strength loss in his left leg. Pain is sharp and stabbing when he is standing or going from a sitting to a standing position has no pain when he is at rest. Review of Systems General: Reports: 10 or more systems reviewed and unremarkable except in HPI and below Const: Denies: malaise or diaphoresis ENMT: Denies: throat pain, ear or mastoid pain, nasal discharge or nasal congestion Card: Denies: chest pain, palpitations or syncope Resp: Denies: dyspnea GI: Denies: nausea or vomiting : Denies: flank pain, dysuria, urinary frequency or urinary urgency Skin/Breast: Denies: rash Neuro: Denies: headache(s) or confusion Meds/Allergies Home Medications and Allergies Home Medications Medication Instructions Recorded Confirmed Last Taken Type alprazolam 0.25 mg tablet 0.25 mg PO BEDTIME PRN 09/06/19 06/25/21 06/25/21 History aspirin 81 mg tablet,delayed 81 mg PO DAILY 09/06/19 06/25/21 06/21/21 History release ocrelizumab 30 mg/mL intravenous 30 mg IV .EVERY 6 MONTHS 09/06/19 06/25/21 06/25/21 History solution prednisone 10 mg tablet 10 mg PO DAILY PRN tab 09/06/19 06/25/21 06/01/21 History zolpidem 10 mg tablet 10 mg PO BEDTIME tab 09/06/19 06/25/21 06/24/21 History cholecalciferol (vitamin D3) 125 5,000 unit PO DAILY 02/23/20 06/25/21 06/21/21 History mcg (5,000 unit) capsule famotidine 20 mg PO BID 05/21/20 06/25/21 06/22/21 History dalfampridine 10 mg 10 mg PO Q12H #180 tab 04/10/21 06/25/21 06/25/21 06:00 Rx tablet,extended release,12 hr baclofen 40 mg PO TID 06/15/21 06/25/21 06/25/21 06:00 History hydrocodone-acetaminophen 1 tab PO Q4H PRN 7 Days #40 tab 06/22/21 06/25/21 Unknown Rx acetaminophen [Tylenol Ex Str 1,000 mg PO Q4H PRN 06/25/21 06/25/21 Unknown History Rapid Release] hydrocodone-acetaminophen 1 tab PO QID PRN 06/25/21 06/25/21 06/25/21 07:00 History ibuprofen [Advil] 600 mg PO Q4H PRN 06/25/21 06/25/21 Unknown History prednisone 20 mg PO BID 7 Days #15 tab 06/25/21 Unknown Rx tamsulosin 0.4 mg PO DAILY #30 cap 06/25/21 Unknown Rx Allergies Allergy/AdvReac Type Severity Reaction Status Date / Time No Known Drug Allergies Allergy Unknown Verified 06/25/21 17:00 Current Medications Current Medications Generic Name Dose Route Start Last Admin Trade Name Freq PRN Reason Stop Dose Admin Baclofen 40 mg 06/25/21 21:00 06/25/21 22:11 Baclofen 10 Mg Tablet PO 40 mg QID KEVIN Administration Dexamethasone 4 mg 06/25/21 16:42 06/26/21 06:13 Dexamethasone 4 Mg/Ml Inj IVP 4 mg Q6H KEVIN Administration Enoxaparin Sodium 40 mg 06/25/21 16:42 06/25/21 17:42 Enoxaparin 40 Mg/0.4 Ml Syringe SUBCUT 40 mg Q24H KEVIN Administration Famotidine 20 mg 06/25/21 18:00 06/25/21 17:43 Famotidine 20 Mg Tablet PO 20 mg BID KEVIN Administration Lactulose 20 gm 06/25/21 18:00 06/25/21 17:43 Lactulose Oral Liq 20 Gm/30 Ml Udc PO 20 gm BID KEVIN Administration Protocol Morphine Sulfate 2 mg 06/25/21 16:42 06/26/21 03:51 Morphine 4 Mg/Ml Sdv 1 Ml IVP 2 mg Q4H PRN Administration SEVERE PAIN Non-Formulary Medication 10 mg 06/25/21 16:42 06/26/21 06:13 Dalfampridine [Ampyra] PO 10 mg Q12H KEVIN Administration Zolpidem Tartrate 10 mg 06/25/21 21:00 06/25/21 22:11 Zolpidem 5 Mg Tablet PO 10 mg BEDTIME KEVIN Administration PFSH Acute PFSH: Family History Father Cancer Colon Brother Cancer Colon Social History (Updated 06/15/21 @ 09:48 by Cinthia Velez) Smoking and tobacco status: former smoker Alcohol intake: never History of recent travel: No Dietary Habits: Current diet type/program: regular Vitals/I&O/Wt Last Vital Signs Temp 98.8 F 06/26/21 04:00 Pulse 93 06/26/21 04:00 Resp 18 06/26/21 04:00 BP 116/78 06/26/21 04:00 Pulse Ox 97 06/26/21 04:00 06/25/21 06/25/21 06/26/21 14:59 22:59 06:59 Intake Total 120 / 120 Output Total 525 / 525 Balance 120 / 120 -525 / -405 Weight last 48 hrs Weight 170 lb 8 oz Weight 173 lb Physical Exam Narrative: EXAM NARRATIVE: He is alert oriented x3 has good general appearance normal normal affect. Incision is healing nicely. There is no apparent drainage redness or erythema. He has normal station to light touch down both lower extremities. He has a mildly positive logroll on the left negative on the right. He has no palpable pain over the left greater trochanteric region. Has some mild numbness over the anterior lateral left thigh. He is neurovascular intact in both lower extremities can dorsiflex and plantarflex wiggle all digits pulses are 2+ dorsalis pedis posterior tibial region. He has no calf tenderness bilaterally. Resp: COMMON NORMALS: normal respiratory effort Cardio: COMMON NORMALS: regular rate and regular rhythm RATE: regular rate RHYTHM: regular rhythm GI: COMMON NORMALS: Soft to palpation PALPATION: Yes Soft to palpation : COMMON NORMALS: Yes no CVA tenderness BLADDER/KIDNEY EXAM: Yes no CVA tenderness Back/Pelvis: COMMON NORMALS: no CVA tenderness Psych: COMMON NORMALS: cooperative Urinary Catheter Management^: Vicente: Cath Placed During This Visit: yes Reason for Continuing Indwelling Catheter: Acute Urinary Retention or Obstruction Urinary Catheter Date of Insertion: 06/25/21 Urinary Catheter Time of Insertion: 13:29 A&P Assessment and plan (1) Left hip pain: I will obtain an AP. Continue to mobilize as tolerated with physical therapy.Disscussed with Dr. Choudhary the course of treatment and agreed with above stated plan. 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 Exam Detailed Diagnoses Left hip pain M25.552 Status post lumbar laminectomy Z98.890 Documented by User: Tima Choudhary DO 06/26/21 11:21 Meds/Allergies Home Medications and Allergies Home Medications Medication Instructions Recorded Confirmed Last Taken Type alprazolam 0.25 mg tablet 0.25 mg PO BEDTIME PRN 09/06/19 06/25/21 06/25/21 History aspirin 81 mg tablet,delayed 81 mg PO DAILY 09/06/19 06/25/21 06/21/21 History release ocrelizumab 30 mg/mL intravenous 30 mg IV .EVERY 6 MONTHS 09/06/19 06/25/21 06/25/21 History solution prednisone 10 mg tablet 10 mg PO DAILY PRN tab 09/06/19 06/25/21 06/01/21 History zolpidem 10 mg tablet 10 mg PO BEDTIME tab 09/06/19 06/25/21 06/24/21 History cholecalciferol (vitamin D3) 125 5,000 unit PO DAILY 02/23/20 06/25/21 06/21/21 History mcg (5,000 unit) capsule famotidine 20 mg PO BID 05/21/20 06/25/21 06/22/21 History dalfampridine 10 mg 10 mg PO Q12H #180 tab 04/10/21 06/25/21 06/25/21 06:00 Rx tablet,extended release,12 hr baclofen 40 mg PO TID 06/15/21 06/25/21 06/25/21 06:00 History hydrocodone-acetaminophen 1 tab PO Q4H PRN 7 Days #40 tab 06/22/21 06/25/21 Unknown Rx acetaminophen [Tylenol Ex Str 1,000 mg PO Q4H PRN 06/25/21 06/25/21 Unknown History Rapid Release] hydrocodone-acetaminophen 1 tab PO QID PRN 06/25/21 06/25/21 06/25/21 07:00 History ibuprofen [Advil] 600 mg PO Q4H PRN 06/25/21 06/25/21 Unknown History prednisone 20 mg PO BID 7 Days #15 tab 06/25/21 Unknown Rx tamsulosin 0.4 mg PO DAILY #30 cap 06/25/21 Unknown Rx Allergies Allergy/AdvReac Type Severity Reaction Status Date / Time No Known Drug Allergies Allergy Unknown Verified 06/25/21 17:00 PFSH Acute PFSH: Family History Father Cancer Colon Brother Cancer Colon Social History (Updated 06/15/21 @ 09:48 by Cinthia Velez) Smoking and tobacco status: former smoker Alcohol intake: never History of recent travel: No Physical Exam Urinary Catheter Management^: Vicente: Cath Placed During This Visit: no A&P Assessment and plan (1) Status post lumbar laminectomy: pt has anterior thigh pain. H/o MS, retained urine. pt seen agree with above. 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
[2021-06-26] MEDS: cholecalciferol (vitamin D3) 5,000 unit Tablet 5000 UNIT PO (09:43)
[2021-06-26] MEDS: baclofen 10 mg Tablet 40 MG PO ×4 (09:43→22:37)
[2021-06-26] MEDS: aspirin 81 mg EC Tablet PO (09:43)
[2021-06-26] MEDS: famotidine 20 mg Tablet PO ×2 (09:43→18:26)
[2021-06-26] MEDS: ketorolac 30 mg/mL INJ IVP ×3 (10:34→22:38)
--- NOTE | 2021-06-26 15:14 | P.PN_ITS ---
Subjective Subjective: Interval history: Seen this morning. Patient appears well today. He stated that he was able to get up and go to the bathroom with some assistance. This is an improvement compared to admission. He says his pain is also better controlled with the morphine IV. H he went for hip x-ray this morning. Results are pending. Vitals/I&O/Wt Last Vital Signs Temp 97.8 F 06/26/21 11:02 Pulse 91 06/26/21 11:02 Resp 16 06/26/21 13:01 BP 100/68 06/26/21 11:02 Pulse Ox 94 06/26/21 13:01 06/26/21 06/26/21 06/26/21 06:59 14:59 22:59 Intake Total 480 / 480 Output Total 525 / 525 Balance -525 / -405 480 / 480 Weight last 48 hrs Weight 77.337 kg Weight 78.471 kg Physical Exam Narrative: EXAM NARRATIVE: General: Alert oriented x3, patient seen sitting up in bed appearing comfortable. Cardio: Regular rate rhythm, normal S1-S2, Respiratory: Good bilateral air entry, no wheezes no rhonchi appreciated GI: Abdomen soft, nontender, nondistended, bowel sounds + Behavior: Appropriate and cooperative Extremities: Pulses 2+, no edema no cyanosis noted lower extremities. Strength decreased in bilateral lower extremities right worse than left. Able to lift both legs off the bed today about 2 to 3 inches for a few seconds. This is improved compared to admission. Sensation intact 5 out of 5 upper and lower extremities. Upper extremity strength 5 out of 5 bilaterally. Range of motion restricted at the back due to pain. Vicente catheter in place. Gait not tested due to lower extremity weakness. Urinary Catheter Management^: Vicente: Cath Placed During This Visit: yes Reason for Continuing Indwelling Catheter: Acute Urinary Retention or Obstruction Urinary Catheter Date of Insertion: 06/25/21 Urinary Catheter Time of Insertion: 13:29 Data : 06/26/21 05:48 06/26/21 05:48 A&P Assessment and plan (1) Post laminectomy syndrome: Status: Acute (2) Acute urinary retention: Status: Acute (3) Lumbar stenosis with neurogenic claudication: Status: Acute (4) Multiple sclerosis: Status: Acute Additional A&P Information Patient is status post L2-L5 laminectomy with Dr. Choudhary 4 days ago. He has developed acute urinary retention. Vicente catheter has been placed. Decadron 10 mg x 1 given in the ER. Continue Decadron 4 mg IV every [address] Choudhary. Will await further recommendations. Physical therapy, Occupational Therapy, Case management referral ?We will do pain management and pain control. We will start patient on lactulose for constipation. ?Hip x-ray ordered by orthopedic surgery team. Will await results and coordinate care with their team. Will await recommendations. #Multiple sclerosis: Stable at this time. DVT prophylaxis: Heparin Full code Regular diet Attestations Medical Necessity Statement*: Greater than 24-hour stay. 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
[2021-06-26] MEDS: enoxaparin 40 mg/0.4 mL Syringe SUBCUT (16:48)
--- NOTE | 2021-06-26 17:02 | PC.PT ---
Patient refused PT evaluation, at this time, 1634, states Dr. Bruno wants him to stay in bed, showed the patient Dr. Bruno/Lucille BARRIOS, progress note from today stating to mobilize patient with physical therapy but patient still refuses stating he will talk to Dr. Bruno about this tomorrow. Will hold patient, until patient's discussion with physician.
[2021-06-26] MEDS: zolpidem 5 mg Tablet 10 MG PO (22:37)
[2021-06-27] VITALS (8 sets, daily range): BP systolic 99–121; BP diastolic 64–83; PULSE 66–87; RESP 16–18; TEMP 36.6–36.8; O2SAT 93–98
[2021-06-27] MEDS: morphine 4 mg/mL SDV 1 mL 2 MG IVP ×3 (00:26→11:13)
[2021-06-27] MEDS: ketorolac 30 mg/mL INJ IVP (05:25)
[2021-06-27 06:26] LABS: Basophils % 0.1 %; Eosinophils % 0.1 %; Hematocrit 35.3 % (42.0-52.0); Hemoglobin 11.6 g/dL (11.7-16.6); Lymphocytes # 0.8 10^3/uL (0.8-4.8); Lymphocytes % 5.1 %; Mean Corpuscular HGB Conc 32.9 g/dL (30.0-36.0); Mean Corpuscular Hemoglobin 29.3 pg (28.0-34.0); Mean Corpuscular Volume 89.1 fl (80-94); Mean Platelet Volume 10.2 fL (7.4-10.4); Monocytes # 0.7 10^3/uL (0.2-0.9); Monocytes % 4.7 %; Neutrophils # 13.65 10^3/uL (1.8-7.7); Neutrophils % 89.5 %; Nucleated Red Blood Cells % 0 %; Platelet Count 390 10^3/cmm (130-400); Red Blood Count 3.96 10^6/uL (4.1-5.3); Red Cell Distribution Width 12.8 % (12.1-15.1); White Blood Count 15.2 10^3/uL (4.0-10.0)
--- NOTE | 2021-06-27 06:46 | P.PN_ITS ---
Documented by User: SOPHIE Gracia 06/27/21 06:48 Subjective Subjective: Interval history: Left hip symptoms have improved. Vitals/I&O/Wt Last Vital Signs Temp 97.8 F 06/27/21 04:00 Pulse 70 06/27/21 04:00 Resp 18 06/27/21 04:00 BP 104/68 06/27/21 04:00 Pulse Ox 93 06/27/21 04:00 06/26/21 06/26/21 06/27/21 14:59 22:59 06:59 Intake Total 480 / 480 Output Total 1200 / 1200 Balance 480 / 480 -1200 / -720 Weight last 48 hrs Weight 170 lb 8 oz Weight 173 lb Physical Exam Narrative: EXAM NARRATIVE: Patient presents alert and oriented x3 with a good general appearance normal normal affect. Normal coordination normal stability. Mild tenderness around the incisional site with the incision appear to be healing nicely. No signs of erythema or drainage. No signs of infection. Pat ient denies any fevers or chills. 5/5 motor strength both lower extremities with negative straight leg raise bilaterally. Calves are supple no medial thigh tenderness. Pulses are 2+ at the dorsalis pedis and posterior tibial region. Good capillary refill throughout normal sensation light touch both lower extremities. Urinary Catheter Management^: Vicente: Cath Placed During This Visit: yes Reason for Continuing Indwelling Catheter: Acute Urinary Retention or Obstruction Urinary Catheter Date of Insertion: 06/25/21 Urinary Catheter Time of Insertion: 13:29 Data : 06/27/21 05:45 06/27/21 05:45 A&P Assessment and plan (1) Status post lumbar laminectomy: Okay from orthopedic standpoint to discharge home we will see him back in the office in 1 week's time for wound check and further evaluation. He will continue walking program be cautious with bending lifting or twisting. 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
[2021-06-27 06:48] LABS: Anion Gap 15.1 (5-19); Blood Urea Nitrogen 27 mg/dL (6-20); Calcium 8.9 mg/dL (8.5-10.5); Carbon Dioxide 29 mmol/L (22-29); Chloride 99 mmol/L (98-107); Glomerular Filtration Rate 87.9 mL/min (90-130); Glucose 118 mg/dL (65-115); Magnesium 1.8 mg/dL (1.7-2.3); Osmolality Calculated 294 mOsm/kg (285-295); Potassium 4.1 mmol/L (3.5-5.1); Sodium 139 mmol/L (136-145)
[2021-06-27] MEDS: baclofen 10 mg Tablet 40 MG PO ×2 (07:35→12:16)
[2021-06-27] MEDS: lactulose oral liq 20 gm/30 mL UDC PO (07:35)
[2021-06-27] MEDS: famotidine 20 mg Tablet PO (07:35)
[2021-06-27] MEDS: cholecalciferol (vitamin D3) 5,000 unit Tablet 5000 UNIT PO (07:36)
[2021-06-27] MEDS: aspirin 81 mg EC Tablet PO (07:36)
--- NOTE | 2021-06-27 10:44 | PC.OT ---
PATIENT IS BEING DISCHARGED LATER TODAY, D/C OT EVAL ORDER. SPOKE WITH PHYSICAL THERAPY, PATIENT IS PERFORMING TRANSFERS AND MOBILITY WITH [facility] USING [facility]. PLEASE SEND NEW ORDER IF MEDICAL STATUS CHANGES AND OT ORDER IS APPROPRIATE.
--- NOTE | 2021-06-27 12:29 | PM.DCS ---
Discharge Providers Date of Admission: 06/25/21 15:05 Date of Discharge: June 27, 2021 Attending Provider at Admission: Adriana Gasca MD Attending Provider at Discharge: Adriana Gasca MD Primary Care Provider: Bony Contreras MD Diagnoses at Discharge Discharge Diagnosis (1) Status post lumbar laminectomy: Status: Acute Reason for Visit Reason for Visit: LEFT HIP PAIN POST SPINAL SURGERY 3 DAYS AGO Hospital Course Hospital Course Bharat Arthur is a 55 year old male with history of multiple sclerosis and recent laminectomy L3-L5 with Dr. Choudhary presented to the hospital for pain in his back that is radiating down his left leg after the surgery. He stated that one of his other main complaints is being unable to urinate. At first it was a few hours at a time but lately for the whole day he was unable to urinate and decided to come to the hospital. He states he lives at home with his daughter was 16 years old and having her take care of each other. He denies having any numbness tingling in his legs. He has not lost control of his bowels. He has not had a bowel movement since the surgery. He states that other than this he has no other active medical issues at this time. Denies shortness of breath, abdominal pain, chest pain, diarrhea.He does complain of left hip pain. He states the pain does radiate to both legs but the left is worse than the right. He has been using hydrocodone 10 for pain. He states mainly the pain is controlled but it wears off quickly and is requesting for pain medication at this time. Denies having a fever or cough. ED course: Blood pressure 134/84, respiratory 16, pulse rate 75, temperature 98.8, pulse ox 92%. Patient did get multiple pain medications in the ER namely fentanyl, morphine 4 mg x 2 and the attempt to get him to walk at this evident that the patient cannot be sent home. ER has suspicion of postlaminectomy syndrome. Patient also has acute urinary retention. Vicente catheter was placed. Dr. Choudhary was called for consult. Patient will be admitted to hospital service. Patient did get one-time dose of Decadron 10 mg. Course Patient status post laminectomy. He was given Decadron IV every 6 hours which was later discontinued. He was seen by orthopedic surgery team. No evidence of any hip pathology. Patient's urinary retention has also resolved. Vicente was removed and urine retention has resolved he is able to void on his own. Postvoid residual 100 cc. Patient will follow up with orthopedic surgery outpatient. He was also given a walker and a cane today. Patient would like to go home and feels a lot better. He is able to walk around. Physical Exam Narrative: EXAM NARRATIVE: General: Alert oriented x3, patient seen sitting up in bed appearing comfortable. Cardio: Regular rate rhythm, normal S1-S2, Respiratory: Good bilateral air entry, no wheezes no rhonchi appreciated GI: Abdomen soft, nontender, nondistended, bowel sounds + Behavior: Appropriate and cooperative Extremities: Pulses 2+, no edema no cyanosis noted lower extremities. Strength decreased in bilateral lower extremities but much improved compared to admission. He is able to walk with a walker now with assistance. Sensation intact 5 out of 5 upper and lower extremities. Upper extremity strength 5 out of 5 bilaterally. Urinary Catheter Management^: Vicente: Cath Placed During This Visit: yes, but has since been removed by the nurse Reason for Continuing Indwelling Catheter: Decision to DC Catheter Urinary Catheter Date of Insertion: 06/25/21 Urinary Catheter Time of Insertion: 13:29 Date Urinary Catheter Removed: 06/27/21 Time Urinary Catheter Discontinued: 10:51 Discharge Data Data Completed and Pending: Completed Studies During Hospitalization Category Date Time Status XR hip LT 2-3V wo /w pel* [id number] Rout ine Exams 06/26/21 06:46 Completed Labs from last 24 hours 06/27/21 06/27/21 05:45 05:45 WBC 15.2 H RBC 3.96 L Hgb 11.6 L Hct 35.3 L MCV 89.1 MCH 29.3 MCHC 32.9 RDW 12.8 Plt Count 390 MPV 10.2 Neut % (Auto) 89.5 Lymph % (Auto) 5.1 [place] % (Auto) 4.7 Eos % (Auto) 0.1 Baso % (Auto) 0.1 Neut # (Auto) 13.65 H Lymph # (Auto) 0.8 [place] # (Auto) 0.7 Eos # (Auto) 0.0 Baso # (Auto) 0.0 Nucleated RBC % (a uto) 0 Nucleated RBCs # 0.0 Sodium 139 Potassium 4.1 Chloride 99 Carbon Dioxide 29 Anion Gap 15.1 BUN 27 H Creatinine 0.9 GFR Calculation 87.9 L Glucose 118 H Calculated Osmolal ity 294 Calcium 8.9 Magnesium 1.8 Vitals: Last Vital Signs Temp 98.1 F 06/27/21 11:26 Pulse 69 06/27/21 11:26 Resp 18 06/27/21 11:26 BP 113/78 06/27/21 11:26 Pulse Ox 98 06/27/21 11:26 Discharge Plan Discharge Patient Disposition: Home Condition: Stable Prescriptions: New tamsulosin 0.4 mg capsule 0.4 mg PO DAILY Qty: 30 RF: 0 Continued zolpidem [Ambien] 10 mg tablet 10 mg PO BEDTIME RF: 0 aspirin [Adult Aspirin Regimen] 81 mg tablet,delayed release (DR/EC) 81 mg PO DAILY RF: 0 Ocrevus 30 mg/mL solution 30 mg IV .EVERY 6 MONTHS RF: 0 prednisone 10 mg tablet 10 mg PO DAILY PRN (Reason: joint pain) RF: 0 alprazolam [Xanax] 0.25 mg tablet 0.25 mg PO BEDTIME PRN (Reason: Anxiety) RF: 0 cholecalciferol (vitamin D3) 125 mcg (5,000 unit) capsule 5,000 unit PO DAILY RF: 0 dalfampridine [Ampyra] 10 mg tablet extended release 12 hr 10 mg PO Q12H Qty: 180 RF: 2 baclofen 20 mg tablet 40 mg PO TID RF: 0 hydrocodone-acetaminophen 10-325 mg tablet 1 tab PO Q4H PRN (Reason: pain) 7 Days Qty: 40 RF: 0 famotidine 20 mg tablet 20 mg PO BID RF: 0 hydrocodone-acetaminophen 10-325 mg tablet 1 tab PO QID PRN (Reason: Pain) RF: 0 acetaminophen 500 mg Tablet 1,000 mg PO Q4H PRN (Reason: Pain) RF: 0 Advil 200 mg Tablet 600 mg PO Q4H PRN (Reason: Pain) RF: 0 Discharge Orders: Discharge Order (Routine); Ordered 06/27/21 Ordered By: Adriana Gasca Referrals: Tima Choudhary DO [Physician] - 07/10/21 1:45 pm Rambo Downing MD [Physician] - 1 week (They will contact you to schedule an appointment due to being a new patient.) Bony Contreras MD [Primary Care Provider] - 07/11/21 2:30 pm Discharge Diet: Usual diet Discharge Activity: Resume usual activity Patient Instructions: Tamsulosin (By mouth), Back Pain (GEN), Opioid Safety Activity Restrictions/Additional Instructions: search engine marketing manager will make arrangements for you to follow-up with Dr. Valencia-up with Dr. Choudhary as previously scheduled. Discharge Attestations Time Spent in Discharge Care*: less than 30 min Quality Metrics Clinical Quality Measures During this hospital stay, did patient experience: None Coding Level of Care Code Acute Chg FW DC note Diagnoses Status post lumbar laminectomy Z98.890
--- NOTE | 2021-06-27 15:03 | PC.NURSE ---
PVR was 130cc. Dr. Gasca notified.
== END 2021-06-27 17:25 | disposition home or self-care (01) ==
LOC: ER 15:54 → MEDSURG 16:25
PROVIDERS: Admitting Provider Internal Medicine; Emergency Provider Family Medicine; PCP Family Medicine; Visit Provider Internal Medicine
DX: M96.1 Postlaminectomy syndrome, not elsewhere classified (principal); R33.8 Other retention of urine; M48.062 Spinal stenosis, lumbar region with neurogenic claudication; G35 Multiple sclerosis; Z98.890 Other specified postprocedural states; Z79.82 Long term (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 of aspirin; Z87.891 Personal history of nicotine dependence
CPT/HCPCS: 36415; 51702; 51798; 73502; 80048; 80053; 81001; 83735; 84100; 85025; 96372; 96374; 96375; 96376; 97161; 99285; G0378; J1100; J1650; J1885; J2270; J2360; J3010

== ENCOUNTER 2021-08-07 | Outpatient (CLI) | payer OTHER, SELFPAY | END 2021-08-07 00:01 | disposition home or self-care (01) | LOC: ONCMED 12-12 12:52 | PROVIDERS: PCP Family Medicine; Referring Provider Specialist; Visit Provider Specialist | DX: G35 Multiple sclerosis (principal); Z87.891 Personal history of nicotine dependence | CPT/HCPCS: 99213; 99214 ==

== ENCOUNTER → 2021-08-23 13:20 | Outpatient (BNVA) | payer OTHER, SELFPAY | PROVIDERS: PCP Family Medicine; Visit Provider Urology | DX: R33.9 Retention of urine, unspecified (principal); Z12.5 Encounter for screening for malignant neoplasm of prostate; Z80.42 Family history of malignant neoplasm of prostate | CPT/HCPCS: 81003; G0103 ==

== ENCOUNTER 2021-10-08 10:45 | Emergency (ER) | payer OTHER, MEDICARE, SELFPAY ==
[2021-10-08 11:01] VITALS: PULSE 66; RESP 16; O2SAT 96; BMI 24.4
--- NOTE | 2021-10-08 11:17 | ED_ITS ---
HPI - General Adult General: Chief complaint: General Medical Stated complaint: L side rib pain Time Seen by Provider: 10/08/21 11:07 History of Present Illness: Patient is a 55-year-old male who comes to the ED with left rib pain. For little over 2 weeks now patient has had this left rib pain. He denies any injury or trauma to cause pain. He states the pain has improved some over the last 2 weeks. Pain described as achy and pain worsens with any torso movement, especially when leaning to the left or twisting to the left. He describes occasionally feeling a popping sensation when leaning to the left. Associated symptoms: Deny chest pain, dyspnea, headache(s), nausea, rash, palpitations or vomiting Review of Systems Const: Denies: fever(s), chills or fatigue Eyes: Denies: change in vision or eye discomfort ENMT: Denies: throat pain, odynophagia, nasal discharge or nasal congestion Card: Denies: chest pain, palpitations, edema, swelling of feet/ankles, dyspnea on exertion or orthopnea Resp: Denies: dyspnea, productive cough or non-productive cough GI: Denies: abdominal pain, nausea, vomiting, diarrhea, constipation or hematochezia : Denies: flank pain, difficulty urinating, dysuria or hematuria Musc: Reports: other (left rib pain); Denies: neck pain, back pain or extremity swelling Skin/Breast: Denies: rash or new lesions Neuro: Denies: headache(s), numbness in extremities or weakness in extremities PFS ED PFSH: Medical History Urinary retention Family History Father Cancer Colon Brother Cancer Colon Social History Smoking and tobacco status: former smoker Alcohol intake: never Marital status: Current occupational status: disabled History of recent travel: No Physical Exam Const: COMMON NORMALS: no acute distress, patient oriented x3, healthy appearing and alert GENERAL APPEARANCE: cooperative and comfortable HENMT: COMMON NORMALS: normocephalic HEAD & SCALP: normocephalic MOUTH: Normal oral and palatal mucosa present THROAT: posterior oropharynx normal and uvula midline Neck/C-Spine: COMMON NORMALS: supple GENERAL: Yes normal visual inspection Chest: CHEST: Yes tenderness rib left mid-axillary line involving the 8th rib and involving the 9th rib Resp: COMMON NORMALS: normal respiratory effort, No retractions, No use of accessory muscles and clear to auscultation bilaterally AUSCULTATION: clear to auscultation bilaterally Cardio: COMMON NORMALS: regular rate, regular rhythm, S1 normal heart sound present, S2 normal heart sound present, No gallops present (Cardio), No clicks present (Cardio), No murmurs present (Cardio) and Peripheral pulses 2+ throughout RATE: regular rate RHYTHM: regular rhythm HEART SOUNDS: S1 normal heart sound present and S2 normal heart sound present PERIPHERAL PULSES: Peripheral pulses 2+ throughout GI: COMMON NORMALS: Normal to inspection, nondistended, normoactive bowel sounds present, Soft to palpation, non-tender and no masses PALPATION: Yes Soft to palpation : COMMON NORMALS: Yes no CVA tenderness BLADDER/KIDNEY EXAM: Yes no CVA tenderness Back/Pelvis: COMMON NORMALS: no CVA tenderness Extremity: COMMON NORMALS: normal to inspection Neuro: COMMON NORMALS: patient oriented x3 and moves all extremities SENSORIUM/ORIENTATION: Yes alert Skin: GENERAL SKIN EXAM: dry skin Course Vital Signs: Vital signs: Vital Signs Pulse Rate 66 10/08/21 11:01 Respiratory Rate 16 10/08/21 11:01 Pulse Oximetry 96 10/08/21 11:01 [facility] - General Adult Medical Decision Making Patient is a 55-year-old male that comes to the ED with left rib pain. Patient denies any trauma or injury to cause pain. Rib pain started approximately 2 weeks ago. Vital stable. Exam of patient shows some left lower rib tenderness, rest of exam is benign. X-ray of left ribs showed no acute fractures or findings. Patient diagnosed with left rib pain and discharged home. Patient already has narcotic pain meds at home and is under contract with the provider. Patient told to follow-up with PCP in 7 to 10 days for reevaluation. Return to ED precautions given. Patient understood and agree with plan. Lab Data Radiology Impressions Ribs X-Ray 10/08/21 11:21 IMPRESSION: 1. No acute cardiopulmonary process. 2. No acute osseous pathology. Discharge Plan Discharge Patient Disposition: Home Clinical Impression: Rib pain on left side Condition: Stable Prescriptions: No Action zolpidem [Ambien] 10 mg tablet 10 mg PO BEDTIME 0RF aspirin [Adult Aspirin Regimen] 81 mg tablet,delayed release (DR/EC) 81 mg PO DAILY 0RF prednisone 10 mg tablet 10 mg PO DAILY PRN (Reason: joint pain) 0RF alprazolam [Xanax] 0.25 mg tablet 0.25 mg PO BEDTIME PRN (Reason: Anxiety) 0RF cholecalciferol (vitamin D3) 125 mcg (5,000 unit) capsule 5,000 unit PO DAILY 0RF tamsulosin 0.4 mg capsule 0.4 mg PO DAILY Qty: 30 6RF dalfampridine [Ampyra] 10 mg tablet extended release 12 hr 10 mg PO Q12H Qty: 180 2RF baclofen 20 mg tablet 40 mg PO TID 0RF famotidine 20 mg tablet 20 mg PO BID 0RF hydrocodone-acetaminophen 10-325 mg tablet 1 tab PO QID PRN (Reason: Pain) 0RF acetaminophen 500 mg Tablet 1,000 mg PO Q4H PRN (Reason: Pain) 0RF Advil 200 mg Tablet 600 mg PO Q4H PRN (Reason: Pain) 0RF Discharge Orders: Discharge ED (Routine); Ordered 10/08/21 Ordered By: Abhijit Milton Referrals: Bony Contreras MD [Primary Care Provider] - Discharge Diet: Regular Discharge Activity: Increase activity as tolerated Activity Restrictions/Additional Instructions: Follow-up with medical provider as directed in the next 7 to 10 days for ree valuation. Continue taking all home meds as previously prescribed. Return to the ER or your medical provider if condition worsens. Please read and understand discharge instructions. Thank you for choosing [facility] for your healthcare needs today. Please realize this is an emergency room and that we are providing you with a medical screening exam and this may not be complete and all inclusive of all the testing and or work up that you may need to determine your ailment or severity of your illness. It is very important that you follow up as instructed or that you return to the Emergency Department should you have concerns or if your condition changes or worsens in any way. Coding Level of Care Code ED Driver Service Technician for Valentina Fwd Exam Comprehensive
--- NOTE | 2021-10-08 11:21 | XRR_ITS ---
PROCEDURE INFORMATION: Exam: XR Left Ribs with PA Chest Exam date and time: 10/08/2021 11:21 AM Age: 55 years old Clinical indication: Chest wall pain; Left; Prior surgery; Surgery type: Back; Patient HX: --lt sided posterior rib pedroza x 2 weeks; Additional info: Left rib pain TECHNIQUE: Imaging protocol: XR Left ribs with PA chest. Views: 3 views Total images: 3 COMPARISON: CR Chest 2 views* [id number] 11/05/2014 10:02 AM FINDINGS: Lungs: Benign granulomatous disease of the lung is noted. Pleural spaces: Unremarkable. No pleural effusion. No pneumothorax. Heart/Mediastinum: Unremarkable. No cardiomegaly. Diaphragm: There is nonspecific elevation of the right hemidiaphragm. Bones/joints: No acute fracture nor subluxation. No osseous erosion nor periosteal reaction. XR/XR ribs LT mn 3V w CXR1V [id number] IMPRESSION: 1. No acute cardiopulmonary process. 2. No acute osseous pathology.
== END 2021-10-08 12:28 | disposition home or self-care (01) ==
PROVIDERS: Emergency Provider Physician Assistant; PCP Family Medicine
DX: R07.81 Pleurodynia (principal); Z79.82 Long term (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 of aspirin
CPT/HCPCS: 71101; 99282

== ENCOUNTER 2021-10-31 14:28 | Outpatient (CLI) | payer OTHER, SELFPAY ==
--- NOTE | 2021-10-31 14:44 | CT_ITS ---
WS: [id number] CT CHEST TECHNIQUE: Contrast enhanced CT of the chest with coronal and sagittal reformatted images. CLINICAL INFORMATION: NODULE LEFT LOWER RIB AREA COMPARISON: None. DLP: 816.[address] scans at [facility] use at least one of these dose optimization techniques: automated e xposure control; mA and/or kV adjustment per patient size (includes targeted exams where dose is matc hed to clinical indication); or iterative reconstruction. FINDINGS: Moderate chronic emphysematous changes. No acute pulmonary infiltrates. No focal pneumonia or pleural fluid. A few calcified granulomas. Slight atelectasis RIGHT lower lobe. A few hazy subpleural opacit ies in RIGHT lower lobe the largest measuring 6 mm Normal caliber thoracic aorta. Proximal main pulmonary arteries are normal. No axillary lymphadenopat hy. Adrenal glands are normal. Tiny LEFT renal cyst measuring 6 mm. Small esophageal hiatal hernia. Tiny nondisplaced fracture LEFT 11th rib posteriorly and laterally. Small amount of cortical irregularity. This is likely subacute to chronic. LEFT ribs are otherwise normal in appearance. Normal RIGHT ribs. CT/CT chest w con* [id number] IMPRESSION: 1. No acute pulmonary infiltrates. Mild chronic emphysematous changes. 2. Slight atelectasis in the lung bases with a few small subpleural hazy opaci ties in RIGHT lower lobe likely inflammatory. The largest measures 6 mm. This c an be followed up in 6 months to confirm resolution. 3. No mediastinal or hilar lymphadenopathy. 4. Small esophageal hiatal hernia. 5. Tiny nondisplaced fracture LEFT 11th rib posteriorly and laterally. Small a mount of cortical irregularity. This is likely subacute to chronic. LEFT ribs a re otherwise normal in appearance.
[2021-10-31] MEDS: iohexol 350 mg/mL 100 mL Btl IV (15:17)
== END 2021-10-31 14:29 | disposition home or self-care (01) ==
LOC: RAD 14:30
PROVIDERS: PCP Family Medicine; Visit Provider Emergency Medicine Emergency Medical Services
DX: R91.1 Solitary pulmonary nodule (principal); J98.11 Atelectasis; K44.9 Diaphragmatic hernia without obstruction or gangrene; S22.32XA Fracture of one rib, left side, initial encounter for closed fracture; X58.XXXA Exposure to other specified factors, initial encounter
CPT/HCPCS: 71260

== ENCOUNTER → 2021-12-20 08:27 | Outpatient (BNVA) | payer OTHER, SELFPAY | PROVIDERS: PCP Family Medicine; Referring Provider Emergency Medicine Emergency Medical Services; Visit Provider Podiatrist Foot & Ankle Surgery | DX: L60.0 Ingrowing nail (principal) | CPT/HCPCS: 11750 ==

== ENCOUNTER 2022-01-14 07:30 | Day surgery (SDC) | payer OTHER, SELFPAY ==
[2022-01-10 09:41] VITALS: BMI 25.5
[2022-01-14 07:49] VITALS: BP 117/84; PULSE 97; RESP 18; TEMP 36.4; O2SAT 97
--- NOTE | 2022-01-14 07:55 | P.HP_ITS ---
Same Day Surgery H&P Indication for Procedure/HPI DATE OF PROCEDURE: January 14, 2022 CHIEF COMPLAINT/INDICATIONFOR SURGICAL PROCEDURE: Dysphagia and anemia PREOP DIAGNOSIS: Anemia. Dysphagia. PLANNED PROCEDURE: Operation Date: 01/14/22 09:00 Proposed Procedures p EGD and Colonoscopy [id number],80521,D64.9,R13.10(Not Applicable) - Ramiro Arroyo MD s Colonoscopy(Not Applicable) - Ramiro Arroyo MD Medications/Allergies* Home Medications Medication Instructions Recorded Confirmed Type alprazolam 0.25 mg tablet (Xanax) 0.25 mg PO BEDTIME PRN 09/06/19 01/10/22 History prednisone 10 mg tablet 10 mg PO DAILY PRN tab 09/06/19 01/10/22 History zolpidem 10 mg tablet (Ambien) 10 mg PO BEDTIME tab 09/06/19 01/10/22 History baclofen 20 mg tablet 40 mg PO TID 06/15/21 01/10/22 History acetaminophen 500 mg tablet 1,000 mg PO Q4H PRN 06/25/21 01/10/22 History hydrocodone 10 mg-acetaminophen 1 tab PO QID PRN 06/25/21 01/10/22 History 325 mg tablet ibuprofen 200 mg tablet (Advil) 600 mg PO Q4H PRN 06/25/21 01/10/22 History pantoprazole 40 mg tablet,delayed 40 mg PO DAILY 12/12/21 01/10/22 History release Allergies/Adverse Reactions Allergy/AdvReac Type Severity Reaction Status Date / Time acetaminophen Allergy Unknown ADR-Nausea Verified 01/10/22 09:38 [From Tylenol PM] diphenhydramine Allergy Unknown ADR-Nausea Verified 01/10/22 09:38 [From Tylenol PM] Pertinent History/Comorbid Conditions* Medical History (Updated 12/25/21 @ 15:35 by Ramiro Arroyo MD) Urinary retention Family History (Updated 09/06/19 @ 08:01 by Krystal Duque LPN) Cancer Father Colon Brother Colon Social History Smoking and tobacco status: never smoked Alcohol intake: never Marital status: Current occupational status: disabled History of recent travel: No Pertinent Exam Findings alert, oriented x 3, clear to auscultation bilaterally, regular rate & rhythm, operative site marked and procedure specific exam findings Recommendations Surgery/Procedure today Coding Level of Care Code Acute Florist Helper for Chg Fwd
[2022-01-14] MEDS: sodium chloride 0.9% 1,000 ML 30 ML IV (08:05)
--- NOTE | 2022-01-14 08:34 | ANES.PREANE2 ---
Pre-Anesthetic Assessment Height/Weight: Height 1.78 m Weight 80.739 kg Temp Pulse Resp BP Pulse Ox 97.6 F 97 18 117/84 97 01/14/22 07:49 01/14/22 07:49 01/14/22 07:49 01/14/22 07:49 01/14/22 07:49 Preop Diagnosis: Anemia. Dysphagia. Operation Date: 01/14/22 09:00 Proposed Procedures p EGD and Colonoscopy 41847,75233,D64.9,R13.10(Not Applicable) - Ramiro Arroyo MD s Colonoscopy(Not Applicable) - Ramiro Arroyo MD Familial anesthetic complications: none Was Beta Kim taken within 24 hours: N/A Was Clonidine taken within 24 hours: N/A Last intake: Intake Last Liquid Date 01/13/22 Last Liquid Time 22:00 Last Solid Date 01/13/22 Last Solid Time 01:00 Social No alcohol and No tobacco Exam alert, oriented x 3, clear to auscultation bilaterally and regular rate & rhythm Airway Submandibular: within normal limits Cervical ROM: within normal limits Mallampati: Class II Dentition: false CV/HEM Anemia Metabolic Chronic steroids Neuropsych Neuropathy MS Anesthetic Plan ASA status: 3 Anesthesia: MAC Medications/Allergies Home Medications Medication Instructions Recorded Confirmed Last Taken Type alprazolam 0.25 mg tablet (Xanax) 0.25 mg PO BEDTIME PRN 09/06/19 01/14/22 01/11/22 History prednisone 10 mg tablet 10 mg PO DAILY PRN tab 09/06/19 01/14/22 01/11/22 History zolpidem 10 mg tablet (Ambien) 10 mg PO BEDTIME tab 09/06/19 01/14/22 01/12/22 History dalfampridine 10 mg 10 mg PO Q12H #180 tab 04/10/21 01/14/22 01/13/22 Rx tablet,extended release,12 hr (Ampyra) baclofen 20 mg tablet 40 mg PO TID 06/15/21 01/14/22 01/13/22 History acetaminophen 500 mg tablet 1,000 mg PO Q4H PRN 06/25/21 01/14/22 01/13/22 History hydrocodone 10 mg-acetaminophen 1 tab PO QID PRN 06/25/21 01/14/22 01/13/22 History 325 mg tablet ibuprofen 200 mg tablet (Advil) 600 mg PO Q4H PRN 06/25/21 01/14/22 01/11/22 History pantoprazole 40 mg tablet,delayed 40 mg PO DAILY 12/12/21 01/14/22 01/13/22 History release Allergies Allergy/AdvReac Type Severity Reaction Status Date / Time acetaminophen Allergy Unknown ADR-Nausea Verified 01/10/22 09:38 [From Tylenol PM] diphenhydramine Allergy Unknown ADR-Nausea Verified 01/10/22 09:38 [From Tylenol PM] Current Medications Generic Name Dose Route Start Last Admin Trade Name Freq PRN Reason Stop Dose Admin Sodium Chloride 1,000 mls @ 30 mls/hr 01/14/22 07:45 01/14/22 08:05 Sodium Chloride 0.9% IV 30 mls/hr .Q24H KEVIN Administration PFSH Anesthesia Medical History Urinary retention Family History Father Cancer Colon Brother Cancer Colon Social History Smoking and tobacco status: never smoked Alcohol intake: never Marital status: Current occupational status: disabled History of recent travel: No Data Anesthesia Cardiac Studies: No Data to Display
[2022-01-14 09:49] VITALS: BP 74/74; PULSE 85; RESP 16; TEMP 36.7; O2SAT 93
[2022-01-14 10:04] VITALS: BP 102/76; PULSE 85; RESP 16; O2SAT 96
[2022-01-14 10:10] VITALS: BP 102/79; PULSE 83; RESP 16; O2SAT 100
--- NOTE | 2022-01-14 13:51 | ANE.PACU2 ---
Inpatient post-anesthesia follow up: Airway intact: Yes Vital signs: Temperature 98.1 F Pulse Rate 83 Respiratory Rate 16 Blood Pressure 102/79 Pulse Oximetry 100 Oxygen Delivery Me thod Room Air Oxygen Flow Rate 3 Fraction of Inspir ed Oxygen Hydration adequate: Yes Nausea and vomiting: No Pain level: 1 Mental status: Baseline
[2022-01-15 13:50] LABS: H. Pylori / CLO Test Negative
== END 2022-01-14 10:37 | disposition home or self-care (01) ==
PROVIDERS: PCP Family Medicine; Visit Provider Internal Medicine
PROC: 0DJ08ZZ Inspection of Upper Intestinal Tract, Via Natural or Artificial Opening Endoscopic (ICD-10-PCS; CPT 43235; principal; 2022-01-14 09:00)
PROC: 0DJD8ZZ Inspection of Lower Intestinal Tract, Via Natural or Artificial Opening Endoscopic (ICD-10-PCS; CPT 45378; 2022-01-14 09:00)
DX: D64.9 Anemia, unspecified (principal); R13.10 Dysphagia, unspecified; K44.9 Diaphragmatic hernia without obstruction or gangrene; K29.70 Gastritis, unspecified, without bleeding; Z79.52 Long term (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 of systemic steroids
CPT/HCPCS: 43239; 45380; 87077; J2704; J7030

== ENCOUNTER 2022-02-21 09:06 | Outpatient (CLI) | payer OTHER, SELFPAY ==
[2022-02-21 09:34] VITALS: BP 116/79; PULSE 73; RESP 18; TEMP 36.4; O2SAT 98
--- NOTE | 2022-02-21 09:46 | PC.PHAR ---
Kye Rae discussed allergies/adr's with patient, he said has tried to get others to remove apap and diphen from profile before with limited success. he claims took a tylenol pm one time that resulted in bloating but has success with them since. removed by this pharmacist after having nurse confirm a second time the patients request.
[2022-02-21] MEDS: acetaminophen 500 mg Tablet 1000 MG PO (10:09)
[2022-02-21] MEDS: sodium chloride 0.9% 250 ML 50 ML IV (10:09)
[2022-02-21] MEDS: diphenhydrAMINE 50 mg/mL SDV 1mL 25 MG IVP (10:11)
[2022-02-21 10:48] VITALS: BP 116/82; PULSE 64; RESP 18; TEMP 36.4; O2SAT 99
[2022-02-21 11:21] VITALS: BP 103/72; PULSE 56; RESP 18; TEMP 36.5; O2SAT 97
[2022-02-21 11:49] VITALS: BP 109/72; PULSE 63; RESP 18; TEMP 36.3; O2SAT 99
== END 2022-02-21 09:07 | disposition home or self-care (01) ==
PROVIDERS: PCP Family Medicine; Referring Provider Specialist; Visit Provider Specialist
DX: R51.9 Headache, unspecified (principal); Z86.16 Personal history of COVID-19; G35 Multiple sclerosis
CPT/HCPCS: 96365; 96375; 99213; 99214; J1200; J2350; J2930; J7050

== ENCOUNTER 2022-03-07 09:46 | Outpatient (CLI) | payer OTHER, SELFPAY ==
[2022-03-07 10:15] VITALS: BP 111/76; PULSE 76; RESP 18; TEMP 36.6; O2SAT 99
[2022-03-07] MEDS: sodium chloride 0.9% 250 ML 50 ML IV (10:42)
[2022-03-07] MEDS: acetaminophen 500 mg Tablet 1000 MG PO (10:43)
[2022-03-07] MEDS: diphenhydrAMINE 50 mg/mL SDV 1mL 25 MG IV (10:44)
[2022-03-07 11:32] VITALS: BP 99/63; PULSE 69; RESP 18; TEMP 36.6; O2SAT 98
[2022-03-07 12:13] VITALS: BP 101/70; PULSE 66; RESP 18; TEMP 36.4; O2SAT 99
[2022-03-07 12:28] VITALS: BP 117/82; PULSE 68; RESP 18; TEMP 36.3; O2SAT 99
== END 2022-03-07 09:47 | disposition home or self-care (01) ==
PROVIDERS: PCP Family Medicine; Referring Provider Specialist; Visit Provider Specialist
DX: G35 Multiple sclerosis (principal)
CPT/HCPCS: 96365; 96375; J1200; J2350; J2930; J7050

== ENCOUNTER 2022-04-03 02:33 | Observation (INO) | payer OTHER, MEDICARE, SELFPAY ==
[2022-04-03] VITALS (38 sets, daily range): BP systolic 81–128; BP diastolic 58–76; PULSE 62–136; RESP 12–31; TEMP 36.1–37.6; O2SAT 91–98; BMI 24.7; BMI 24.9
--- NOTE | 2022-04-03 02:41 | ECG_ITS ---
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 Measurements Intervals [place] Rate: 134 P: 44 LA: 165 QRS: 4 QRSD: 97 T: 50 QT: 374 QTc: 560 Interpretive Statements SINUS TACHYCARDIA NONSPECIFIC ST & T-WAVE ABNORMALITY No previous ECG available for comparison Electronically Signed On 04-03-2022 16:22:48 CDT by Natividad Cannon M.D. [id number]
--- NOTE | 2022-04-03 02:41 | XRR_ITS ---
PROCEDURE INFORMATION: Exam: XR Chest Exam date and time: 04/03/2022 2:46 AM Age: 56 years old Clinical indication: Patient HX: Fever with general weakness. History of ms. ; Additional info: Vance TECHNIQUE: Imaging protocol: Radiologic exam of the chest. Views: 1 view. COMPARISON: CT chest w con* [id number] 10/31/2021 3:03 PM FINDINGS: Lungs: Mild nonspecific bilateral pulmonary opacities, right greater than left, most consistent with pneumonia. Pleural spaces: Unremarkable. No pleural effusion. No pneumothorax. Heart/Mediastinum: Unremarkable. No cardiomegaly. Bones/joints: Unremarkable. XR/XR chest 1V portable [id number] IMPRESSION: Mild nonspecific bilateral pulmonary opacities, right greater than left, most consistent with pneumonia.
--- NOTE | 2022-04-03 02:44 | W.ED.GENADLT ---
HPI - General Adult General: Chief complaint: General Medical Stated complaint: MS FLARE UP Time Seen by Provider: 04/03/22 02:35 Source: EMS Mode of arrival: EMS Limitations: no limitations History of Present Illness: 56-year-old male has extensive history of multiple sclerosis states over the last 2 weeks he has been having some increasing weakness he states her last 2 days he has been feeling extremely shaky has been having a hard time walking feels like he has an MS flare. States he has had some body aches as well he does have a low-grade fever here along with tachycardia. He states that tonight when he tried to go to the bathroom he states that he was so shaky unsteady that he could not walk he states he has chronic low back pain that is improved in route with fentanyl with EMS but states he feels very weak. Denies any headache denies any chest pain. he has had a slight cough and dyspnea Associated symptoms: Reports malaise; Deny chest pain, dyspnea, headache(s), nausea, rash or vomiting Review of Systems Const: Reports: fever(s), chills, fatigue and malaise Eyes: Denies: blurry vision or eye discomfort ENMT: Denies: throat pain or dental pain Card: Denies: chest pain Resp: Denies: dyspnea GI: Denies: abdominal pain, nausea, vomiting or diarrhea : Denies: dysuria Musc: Reports: back pain Skin/Breast: Denies: rash Neuro: Denies: headache(s) Psych: Denies: depression Joseph/Lymph: Denies: easy bruising All/Imm: Denies: urticaria PFSH ED PFSH: Medical History Urinary retention Family History Father Cancer Colon Brother Cancer Colon Social History Smoking and tobacco status: never smoked Alcohol intake: never Marital status: Current occupational status: disabled History of recent travel: No Physical Exam Const: COMMON NORMALS: patient oriented x3 GENERAL APPEARANCE: ill appearing HENMT: COMMON NORMALS: normocephalic and atraumatic HEAD & SCALP: normocephalic and atraumatic Eye: COMMON NORMALS: Equal, round and reactive pupils present and EOMs intact bilaterally PUPIL: Yes Equal, round and reactive pupils present Neck/C-Spine: COMMON NORMALS: full ROM and supple Chest: COMMONS NORMALS: normal inspection of the chest and normal palpation of entire chest wall Resp: COMMON NORMALS: normal respiratory effort, No retractions and No use of accessory muscles AUSCULTATION: crackles Cardio: COMMON NORMALS: regular rhythm and No murmurs present (Cardio) RATE: tachycardic RHYTHM: regular rhythm GI: COMMON NORMALS: Normal to inspection, nondistended, normoactive bowel sounds present, Soft to palpation, non-tender and no masses PALPATION: Yes Soft to palpation Extremity: COMMON NORMALS: normal to inspection and full ROM Neuro: COMMON NORMALS: patient oriented x3, moves all extremities and no focal motor deficits Psych: COMMON NORMALS: mental status grossly normal, Normal thought process present and cooperative THOUGHT PROCESS: Normal thought process present Skin: COMMON NORMALS: no rashes or lesions noted and no wounds GENERAL SKIN EXAM: no rashes or lesions noted Course Vital Signs: Vital signs: Vital Signs Temperature 99.7 F H 04/03/22 02:38 Pulse Rate 133 H 04/03/22 03:11 Respiratory Rate 25 H 04/03/22 03:11 Blood Pressure 101/71 04/03/22 03:11 Pulse Oximetry 98 04/03/22 02:38 Oxygen Delivery Me thod 04/03/22 02:38 [facility] - General Adult Medical Decision Making Patient presents here with generalized weakness history of multiple sclerosis he was febrile he does have pneumonia on his x-ray he has tachycardia here is improving with IV fluids patient is not able to walk due to his weakness spoke to hospitalist will admit at this time patient already on IV antibiotics. Lab Data : 04/03/22 02:37 04/03/22 02:37 Radiology Impressions Chest X-Ray 04/03/22 02:41 IMPRESSION: Mild nonspecific bilateral pulmonary opacities, right greater than left, most consistent with pneumonia. Laboratory Results WBC 12.6 10^3/uL (4.0-10.0) H 04/03/22 02:37 RBC 4.27 10^6/uL (4.1-5.3) 04/03/22 02:37 Hgb 13.0 g/dL (11.7-16.6) 04/03/22 02:37 Hct 39.6 % (42.0-52.0) L 04/03/22 02:37 MCV 92.7 fl (80-94) 04/03/22 02:37 MCH 30.4 pg (28.0-34.0) 04/03/22 02:37 MCHC 32.8 g/dL (30.0-36.0) 04/03/22 02:37 RDW 13.2 % (12.1-15.1) 04/03/22 02:37 Plt Count 302 10^3/cmm (130-400) 04/03/22 02:37 MPV 9.5 fL (7.4-10.4) 04/03/22 02:37 Neut % (Auto) 88.7 % 04/03/22 02:37 Lymph % (Auto) 6.9 % 04/03/22 02:37 [place] % (Auto) 2.2 % 04/03/22 02:37 Eos % (Auto) 1.4 % 04/03/22 02:37 Baso % (Auto) 0.5 % 04/03/22 02:37 Neut # (Auto) 11.19 10^3/uL (1.8-7.7) H 04/03/22 02:37 Lymph # (Auto) 0.9 10^3/uL (0.8-4.8) 04/03/22 02:37 [place] # (Auto) 0.3 10^3/uL (0.2-0.9) 04/03/22 02:37 Eos # (Auto) 0.2 10^3/uL (0.0-0.8) 04/03/22 02:37 Baso # (Auto) 0.1 10^3/uL (0.0-0.1) 04/03/22 02:37 Nucleated RBC % (auto) 0 % 04/03/22 02:37 Nucleated RBCs # 0.0 /100WBC 04/03/22 02:37 Sodium 138 mmol/L (136-145) 04/03/22 02:37 Potassium 4.1 mmol/L (3.5-5.1) 04/03/22 02:37 Chloride 99 mmol/L (98-107) 04/03/22 02:37 Carbon Dioxide 28 mmol/L (22-29) 04/03/22 02:37 Anion Gap 15.1 (5-19) 04/03/22 02:37 BUN 17 mg/dL (6-20) 04/03/22 02:37 Creatinine 0.9 mg/dL (0.7-1.2) 04/03/22 02:37 GFR Calculation 87.6 mL/min (90-130) L 04/03/22 02:37 Glucose 100 mg/dL (65-115) 04/03/22 02:37 Calculated Osmolality 288 mOsm/kg (285-295) 04/03/22 02:37 Lactate 1.6 mmol/L (0.5-2.2) 04/03/22 02:37 Calcium 9.3 mg/dL (8.5-10.5) 04/03/22 02:37 Total Bilirubin 0.3 mg/dL (0.15-1.2) 04/03/22 02:37 AST 18 U/L (0-40) 04/03/22 02:37 ALT 15 U/L (0-41) 04/03/22 02:37 Alkaline Phosphatase 76 U/L (40-130) 04/03/22 02:37 Troponin T Baseline 8 ng/L (0-15) 04/03/22 02:37 NT-Pro-B Natriuret Pep 79 pg/mL (0-125) 04/03/22 02:37 Total Protein 6.5 g/dL (6.6-8.7) L 04/03/22 02:37 Albumin 3.9 g/dL (3.5-5.2) 04/03/22 02:37 Globulin 2.6 g/dL (1.3-4.6) 04/03/22 02:37 SARS-CoV-2 Ag (Rapid) Negative (Negative) 04/03/22 02:50 EKG Data EKG 1: I personally reviewed and interpreted this EKG as follows: EKG interpretation date: 04/03/22 EKG interpretation time: 02:48 Interpretation: Sinus tachycardia heart rate [address] or T wave abnormalities QRS 97 QTc 453 Computer generated interpretation: Chest X-Ray 04/03/22 02:41 IMPRESSION: Mild nonspecific bilateral pulmonary opacities, right greater than left, most consistent with pneumonia. Discharge Plan Discharge Patient Disposition: Admitted As Inpatient Admit Provider: Juan Daniel Bridges Clinical Impression: Pneumonia, Weakness, Multiple sclerosis Condition: Stable Coding Level of Care Code ED Wafer Production Lead Worker for Chg Fwd Exam Comprehensive
[2022-04-03] MEDS: acetaminophen 325 mg Tablet 650 MG PO (02:49)
[2022-04-03 02:50] LABS: Basophils # 0.1 10^3/uL (0.0-0.1); Basophils % 0.5 %; Eosinophils # 0.2 10^3/uL (0.0-0.8); Eosinophils % 1.4 %; Hematocrit 39.6 % (42.0-52.0); Lymphocytes # 0.9 10^3/uL (0.8-4.8); Lymphocytes % 6.9 %; Mean Corpuscular HGB Conc 32.8 g/dL (30.0-36.0); Mean Corpuscular Hemoglobin 30.4 pg (28.0-34.0); Mean Corpuscular Volume 92.7 fl (80-94); Mean Platelet Volume 9.5 fL (7.4-10.4); Monocytes # 0.3 10^3/uL (0.2-0.9); Monocytes % 2.2 %; Neutrophils # 11.19 10^3/uL (1.8-7.7); Neutrophils % 88.7 %; Nucleated Red Blood Cells % 0 %; Platelet Count 302 10^3/cmm (130-400); Red Blood Count 4.27 10^6/uL (4.1-5.3); Red Cell Distribution Width 13.2 % (12.1-15.1); White Blood Count 12.6 10^3/uL (4.0-10.0)
[2022-04-03 03:13] LABS: Alanine Aminotransferase 15 U/L (0-41); Albumin Level 3.9 g/dL (3.5-5.2); Alkaline Phosphatase 76 U/L (40-130); Anion Gap 15.1 (5-19); Aspartate Amino Transferase 18 U/L (0-40); Blood Urea Nitrogen 17 mg/dL (6-20); Calcium 9.3 mg/dL (8.5-10.5); Carbon Dioxide 28 mmol/L (22-29); Chloride 99 mmol/L (98-107); Globulin 2.6 g/dL (1.3-4.6); Glomerular Filtration Rate 87.6 mL/min (90-130); Glucose 100 mg/dL (65-115); Lactate (Lactic Acid level) 1.6 mmol/L (0.5-2.2); Osmolality Calculated 288 mOsm/kg (285-295); Potassium 4.1 mmol/L (3.5-5.1); Sodium 138 mmol/L (136-145); Total Bilirubin 0.3 mg/dL (0.15-1.2); Total Protein 6.5 g/dL (6.6-8.7)
[2022-04-03 03:14] LABS: Troponin(5th) Baseline 8 ng/L (0-15)
[2022-04-03 03:15] LABS: SARS Covid-2 Antigen Negative (Negative)
[2022-04-03] MEDS: cefTRIAXone 1,000 MG in sodium chloride 0.9% (plus) 50 ML 100 MG IV (03:20)
[2022-04-03] MEDS: sodium chloride 0.9% 1,000 ML 999 ML IV (03:20)
[2022-04-03 03:45] LABS: NT Pro B Type Natriuretic Pept 79 pg/mL (0-125)
[2022-04-03] MEDS: azithromycin 500 MG in sodium chloride 0.9% 250 ML 250 MG IV (03:50)
--- NOTE | 2022-04-03 04:13 | PC.NURSE ---
Received report from Lizette from ED
--- NOTE | 2022-04-03 04:43 | P.HP_ITS ---
Providers/Chief Complaint Admitting Physician: Juan Daniel Bridges MD Primary Care Provider: Bony Contreras MD Chief Complaint: MS FLARE UP History of Present Illness Bharat Arthur is a 56 year old male who has a history of multiple sclerosis, lives alone, non-smoker, presented to hospital for generalized weakness. Patient is stating that normally he is able to take care of his daily activities on his own but in the last few days especially within 24 hours he has noticed significant weakness of his legs, he has not noticed any strokelike features however because of severe weakness his legs started shaking that is why he decided to come to the hospital today. No recent fever, diarrhea, chest pain. He is endorsing dehydration related to poor p.o. intake no recent vom iting or diarrhea. Does not take steroids on daily basis. For his multiple sclerosis he takes baclofen dalfampridine In the ER he was diagnosed with pneumonia, at this point he is requiring 2 L which is new oxygen requirement He is tachycardic I will request D-dimer Patient is stating that he was diagnosed with a spot on his lungs and physicians have told him that there is nothing to be done at this point, he was diagnosed with left 11th rib fracture CT chest 10/31 IMPRESSION: ? 1.? No acute pulmonary infiltrates. Mild chronic emphysematous changes. 2.? Slight atelectasis in the lung bases with a few small subpleural hazy opacities in RIGHT lower lobe likely inflammatory. The largest measures 6 mm. This can be followed up in 6 months to confirm resolution. 3.? No mediastinal or hilar lymphadenopathy. 4.? Small esophageal hiatal hernia. 5.? Tiny nondisplaced fracture LEFT 11th rib posteriorly and laterally. Small amount of cortical irregularity. This is likely subacute to chronic. LEFT ribs are otherwise normal in appearance. ? Review of Systems Const: Reports: chills, body aches and fatigue Eyes: Denies: change in vision ENMT: Denies: throat pain Card: Denies: chest pain Resp: Denies: dyspnea GI: Denies: abdominal pain : Denies: flank pain Musc: Denies: neck pain Skin/Breast: Denies: rash Neuro: Denies: headache(s) Psych: Reports: anxiety Endo: Denies: polyuria Joseph/Lymph: Denies: easy bruising All/Imm: Denies: urticaria Medications/Allergies Home Medications Medication Instructions Recorded Confirmed Last Taken Type alprazolam 0.25 mg tablet (Xanax) 0.25 mg PO BEDTIME PRN Anxiety 09/06/19 02/21/22 01/11/22 History prednisone 10 mg tablet 10 mg PO DAILY PRN joint pain 09/06/19 02/21/22 01/11/22 History zolpidem 10 mg tablet (Ambien) 10 mg PO BEDTIME 09/06/19 02/21/22 01/12/22 History baclofen 20 mg tablet 40 mg PO TID 06/15/21 02/21/22 01/13/22 History acetaminophen 500 mg tablet 1,000 mg PO Q4H PRN Pain 06/25/21 02/21/22 01/13/22 History hydrocodone 10 mg-acetaminophen 1 tab PO QID PRN Pain 06/25/21 02/21/22 01/13/22 History 325 mg tablet ibuprofen 200 mg tablet (Advil) 600 mg PO Q4H PRN Pain 06/25/21 02/21/22 01/11/22 History pantoprazole 40 mg tablet,delayed 40 mg PO DAILY 12/12/21 02/21/22 01/13/22 History release dalfampridine 10 mg 10 mg PO Q12H #180 tabs 01/21/22 02/21/22 Unknown Rx tablet,extended release,12 hr (Ampyra) Allergies Allergy/AdvReac Type Severity Reaction Status Date / Time No Known Drug Allergies Allergy Unknown Verified 02/21/22 09:50 PFSH Acute PFSH: Medical History Dysphagia Encounter for postoperative care Family history of prostate cancer Father, Arron Lumbar stenosis Multiple sclerosis Occipital neuralgia of right side Onychodystrophy Ulnar neuropathy at elbow of right upper extremity Urinary retention Surgical History S/P matrixectomy of toe Status post lumbar laminectomy Family History Father Cancer Colon Brother Cancer Colon Social History Smoking and tobacco status: never smoked Alcohol intake: never Marital status: Current occupational status: disabled History of recent travel: No Vitals/I&O/Wt Last Vital Signs Temp 99.7 F H 04/03/22 02:38 Pulse 126 H 04/03/22 04:14 Resp 21 H 04/03/22 04:14 BP 103/74 04/03/22 04:14 Pulse Ox 98 04/03/22 02:38 O2 Del Method 04/03/22 02:38 04/02/22 04/02/22 04/03/22 14:59 22:59 06:59 Intake Total 1050 / 1050 Balance 1050 / 1050 Weight last 48 hrs Weight 78.018 kg Physical Exam Narrative: Very pleasant cooperative male EOMI, PERRLA Awake and alert Clinical looks dehydrated Currently on 2 L nasal cannula S1, S2 Lungs are clear to auscultation Abdomen soft EOMI, PERRLA Sitting comfortably in his bed Data : 04/03/22 02:37 04/03/22 02:37 Micro: Microbiology 04/03/22 03:03 Blood Culture - Preliminary Blood SPECIMEN COLLECTED 04/03/22 03:01 Blood Culture - Preliminary Blood SPECIMEN COLLECTED A&P Assessment and plan (1) Pneumonia: Status: Acute (2) Weakness: Status: Acute Plan Community-acquired pneumonia Acute hypoxia Currently on 2 L Hypoxia tachycardia Rule out PE Check D-dimer Will request CTA chest Multiple sclerosis Generalized weakness I do not think we need MRI head at this point I would continue his baclofen No need of steroids Signs of dehydration present Given fluid bolus Start normal saline Patient is full code Cardiac diet DVT prophylaxis on board Patient lives alone Attestations Medical Necessity Statement*: Anticipating discharge within 48 hours will need management evaluation for pneumonia and dehydration Time Spent in Patient Care: 40 Coding Level of Care Code Acute Explosive Operator for Valentina Fwd Diagnoses Pneumonia J18.9 Weakness R53.1
--- NOTE | 2022-04-03 04:48 | ECG_ITS ---
[facility] Test Date: 2022-04-03 Pat Name: Bharat Arthru Department: Room: [facility] Gender: Male Fingerer: : 1965 Requested By: Chicho Jurado Order Number: [id number] Emilie MD: Natividad Cannon M.D. Measurements Intervals [place] Rate: 122 P: 56 SD: 168 QRS: 6 QRSD: 88 T: 52 QT: 304 QTc: 435 Interpretive Statements SINUS TACHYCARDIA POSSIBLE RIGHT VENTRICULAR CONDUCTION DELAY [RSR (QR) IN V1/V2] Compared to ECG 04/03/2022 02:48:09 T-wave abnormality no longer present Electronically Signed On 04-03-2022 16:37:54 CDT by Natividad Cannon M.D. [id number]
[2022-04-03 05:06] LABS: Troponin 5 2HR 10.76 ng/L (0-15)
--- NOTE | 2022-04-03 05:17 | PC.NURSE ---
Patient able to independently sit on side of bed with no support, with minimal assistance he can move both legs out of bed and sit up. Patient currently trying to urinate but unable to provide sample at this time.
--- NOTE | 2022-04-03 05:26 | PC.NURSE ---
Ok to talk to patient's niece, Cece Qiu per patient. Contact [phone].
[2022-04-03 05:40] LABS: Troponin 5 2HR Delta 2.76 ABS# (0-10)
[2022-04-03 05:53] LABS: Adenovirus Not Detected (NOT DETECT); Chlamydia Pneumoniae Not Detected (NOT DETECT); Coronavirus 229E,HKU1,NL63,OC4 Not Detected (NOT DETECT); Human Metapneumovirus Not Detected (NOT DETECT); Human Rhinovirus/Enterovirus Not Detected (NOT DETECT); Influenza A Not Detected (NOT DETECT); Influenza A H1 Not Detected (NOT DETECT); Influenza A H1-2009 Not Detected (NOT DETECT); Influenza A H3 Not Detected (NOT DETECT); Influenza B Not Detected (NOT DETECT); Mycoplasma Pneumoniae Not Detected (NOT DETECT); Parainfluenza Virus Type 1 Not Detected (NOT DETECT); Parainfluenza Virus Type 2 Not Detected (NOT DETECT); Parainfluenza Virus Type 3 Not Detected (NOT DETECT); Parainfluenza Virus Type 4 Not Detected (NOT DETECT); Respiratory Syncytial Virus A Not Detected (NOT DETECT); Respiratory Syncytial Virus B Not Detected (NOT DETECT); SARS-COV-2 Not Detected (NOT DETECT)
--- NOTE | 2022-04-03 06:55 | CT_ITS ---
WS: [id number] CT CHEST ANGIOGRAPHY WITH REFORMATS HISTORY: Hypoxia, tachycardia TECHNIQUE: Contiguous axial images are obtained through the chest during arterial injection of intrav enous contrast. Images are reconstructed to evaluate the pulmonary arteries. MIP imaging also reviewe d. All CT scans at [facility] use at least one of these dose optimization techniques: automat ed exposure control; mA and/or kV adjustment per patient size (includes targeted exams where dose is matched to clinical indication); or iterative reconstruction. CONTRAST: Omnipaque 350; 82 mL IV. DLP: 399.45 mGy.cm COMPARISON: 10/31/2021 Adequate opacification of the pulmonary emboli. No central or proximal filling defects. Pulmonary art karina size is normal. No RIGHT heart strain. Extensive patchy opacifications and groundglass attenuation involving a large portion of the RIGHT mihcel ng. Unilateral process. The LEFT lung is clear. This is probably due to pneumonia/pneumonitis. There is also extensive bronchial wall thickening beginning at the hilum and extending into the proximal br onchovascular tree, greatest in the RIGHT lower lobe. RIGHT hilar enlarged lymph node measures 13 mm. Small amount of peribronchial thickening at the LEFT hilum. No adrenal abnormality. The visualized liver is negative. Normal size heart. Fine no destructive rib lesions. The spine is negative. CT/CT angio chest PE protcl [id number] IMPRESSION: 1. No pulmonary emboli. 2. Extensive patchy opacifications and groundglass attenuation throughout the RIGHT lung. Unilateral process. This is probably pneumonitis and pneumonia. 3. Extensive bronchovascular soft tissue thickening beginning at the RIGHT hil um and extending greatest into the RIGHT lower lobe. Consistent with acute bron chiolitis. 4. No RIGHT heart strain. 5. Reactive RIGHT hilar lymph node at 13 mm.
[2022-04-03 07:22] LABS: Procalcitonin 1.32 ng/mL (0-0.5)
[2022-04-03 07:27] LABS: D Dimer 0.62 ug/mIFEU (0-0.59)
[2022-04-03] MEDS: morphine IR 15 mg Tablet PO ×2 (08:08→14:48)
[2022-04-03] MEDS: baclofen 10 mg Tablet 40 MG PO ×3 (08:08→21:29)
[2022-04-03] MEDS: sennosides-docusate Tablet 1 TAB PO (08:10)
[2022-04-03] MEDS: enoxaparin 40 mg/0.4 mL Syringe SUBCUT (08:10)
[2022-04-03] MEDS: lactated ringers 1,000 ML 999 ML IV (08:11)
--- NOTE | 2022-04-03 08:26 | PC.PHAR ---
pt states he takes care of his own medications-pt states he is no longer taking amitriptyline 25mg hs filled 02/25/22 30d/s or flomax 0.4mg daily filled 10/19/21 90d/s-
[2022-04-03 09:09] LABS: Troponin 5 6HR 9.82 ng/L (0-15)
[2022-04-03 09:17] LABS: Urine Color Yellow (Yellow)
[2022-04-03 09:18] LABS: Add Urine Microscopic? YES; Bilirubin Urine Neg (Negative); Blood Urine 2+ (Negative); Glucose Urine UA Norm (Normal); Ketones Urine Negative (Negative); Leukocyte Esterase Urine Negative (Negative); Nitrate Urine Negative (Negative); Protein Urine Neg (Negative); Specific Gravity, Urine 1.005 (1.005-1.030); Urine Appearance Clear (CLEAR); Urobilinogen Urine Norm (Negative); pH Urine 5 (5-7)
[2022-04-03] MEDS: sodium chloride 0.9% 1,000 ML 75 ML IV (09:23)
--- NOTE | 2022-04-03 09:25 | PC.NURSE ---
Notified Dr. Gasca of patient's c/o headache and request for Excedrin.
[2022-04-03 09:27] LABS: Troponin 5 6HR Delta 1.82 ng/L (0-12)
[2022-04-03 09:30] LABS: Add Urine Culture? No; Squamous Epithelial Cell Urine 0-4 /hpf (0-5)
--- NOTE | 2022-04-03 10:32 | ECG_ITS ---
[facility] Test Date: 2022-04-03 Pat Name: Bharat Arthur Department: Room: ICU01 Gender: Male Communications Professional: : 1965 Requested By: Chicho Jurado Order Number: [id number] Emilie MD: Natividad Cannon M.D. Measurements Intervals [place] Rate: 92 P: 44 PA: 180 QRS: -7 QRSD: 92 T: 21 QT: 324 QTc: 401 Interpretive Statements SINUS RHYTHM POSSIBLE LEFT ATRIAL ENLARGEMENT [-0.1mV P-WAVE IN V1/V2] LOW QRS VOLTAGE IN PRECORDIAL LEADS [QRS DEFLECTION < 1.0 mV IN CHEST LEADS] POSSIBLE RIGHT VENTRICULAR CONDUCTION DELAY [RSR (QR) IN V1/V2] Compared to ECG 04/03/2022 04:48:52 Low QRS voltage now present Sinus tachycardia no longer present Electronically Signed On 04-03-2022 16:31:20 CDT by Natividad Cannon M.D. [id number]
[2022-04-03] MEDS: acetaminophen 500 mg Tablet PO (10:37)
[2022-04-03] MEDS: iohexol 350 mg/mL 100 mL Btl IV (10:58)
[2022-04-03] MEDS: ibuprofen 600 mg Tablet PO (12:34)
--- NOTE | 2022-04-03 20:15 | PC.NURSE ---
Transfer Patient transferred to [place] [address] via wheelchair, all vitals stable at time of transfer. All patient belongings placed bedside, receiving nurse in room. Patient medications placed in medication bin.
[2022-04-03] MEDS: zolpidem 5 mg Tablet 10 MG PO (21:45)
[2022-04-04] VITALS (12 sets, daily range): BP systolic 90–151; BP diastolic 57–97; PULSE 74–103; RESP 15–22; TEMP 36.8–37.1; O2SAT 86–95
--- NOTE | 2022-04-04 | FL_ITS ---
WS: [id number] Exam: FL barium swallow modifd [id number] Date/Time of Exam: 04/04/2022 2:52 PM Reason For Exam: Oropharyngeal dysphagia Fluoroscopy time: 1min [id number] minutes # of spot films: 0 Modified barium swallow is performed in conjunction with the speech therapy department. The patient tolerated thin liquid, nectar consistency, pudding consistency and solid barium mixture f oodstuffs without aspiration or penetration. Swallowing function at the level of the oropharynx was n ormal. The patient ingested a barium pill without difficulty or complication. FL/FL barium swallow modifd [id number] IMPRESSION: 1. Unremarkable modified barium swallow exam. A separate report of findings and recommendations will follow from the speech t herapy service.
[2022-04-04] MEDS: sodium chloride 0.9% 1,000 ML 75 ML IV (02:18)
[2022-04-04] MEDS: cefTRIAXone 1,000 MG in sodium chloride 0.9% (plus) 50 ML 100 MG IV (04:42)
[2022-04-04 04:59] LABS: Basophils % 0.3 %; Eosinophils # 0.2 10^3/uL (0.0-0.8); Eosinophils % 1.5 %; Hematocrit 34.9 % (42.0-52.0); Hemoglobin 11.3 g/dL (11.7-16.6); Lymphocytes # 0.7 10^3/uL (0.8-4.8); Lymphocytes % 6.1 %; Mean Corpuscular HGB Conc 32.4 g/dL (30.0-36.0); Mean Corpuscular Hemoglobin 30.1 pg (28.0-34.0); Mean Corpuscular Volume 92.8 fl (80-94); Mean Platelet Volume 9.7 fL (7.4-10.4); Monocytes # 0.6 10^3/uL (0.2-0.9); Monocytes % 5.1 %; Neutrophils # 10.56 10^3/uL (1.8-7.7); Neutrophils % 86.6 %; Nucleated Red Blood Cells % 0 %; Platelet Count 265 10^3/cmm (130-400); Red Blood Count 3.76 10^6/uL (4.1-5.3); Red Cell Distribution Width 13.4 % (12.1-15.1); White Blood Count 12.2 10^3/uL (4.0-10.0)
[2022-04-04] MEDS: ibuprofen 600 mg Tablet PO ×3 (05:10→15:27)
[2022-04-04] MEDS: morphine IR 15 mg Tablet PO ×2 (05:10→12:03)
[2022-04-04 05:32] LABS: Blood Urea Nitrogen 10 mg/dL (6-20); C Reactive Protein 184.6 mg/L (0.0-4.9); Calcium 8.9 mg/dL (8.5-10.5); Carbon Dioxide 26 mmol/L (22-29); Chloride 102 mmol/L (98-107); Glomerular Filtration Rate 117.1 mL/min (90-130); Glucose 92 mg/dL (65-115); Magnesium 1.7 mg/dL (1.7-2.3); Osmolality Calculated 285 mOsm/kg (285-295); Phosphorus 2.7 mg/dL (2.5-4.5); Sodium 138 mmol/L (136-145)
[2022-04-04 06:03] LABS: Anion Gap 14.2 (5-19); Potassium 4.2 mmol/L (3.5-5.1)
[2022-04-04] MEDS: enoxaparin 40 mg/0.4 mL Syringe SUBCUT (07:37)
[2022-04-04] MEDS: sennosides-docusate Tablet 1 TAB PO (07:38)
[2022-04-04] MEDS: baclofen 10 mg Tablet 40 MG PO ×2 (07:39→15:27)
[2022-04-04] MEDS: azithromycin 250 mg Tablet 500 MG PO (07:39)
--- NOTE | 2022-04-04 07:50 | PM.PN ---
Subjective Subjective: Seen this morning. Patient feels better and back to baseline. He would like to go home today. He is scheduled for barium swallow this afternoon. Vitals/I&O/Wt Last Vital Signs Temp 98.5 F 04/04/22 07:44 Pulse 91 04/04/22 07:48 Resp 16 04/04/22 07:48 BP 92/60 04/04/22 07:44 Pulse Ox 92 04/04/22 07:48 O2 Del Method 04/04/22 07:48 O2 Flow Rate 1 04/03/22 10:34 04/03/22 04/04/22 04/04/22 22:59 06:59 14:59 Intake Total 1680 / 1680 240 / 1920 Output Total 400 / 1450 Balance 1280 / 230 240 / 470 Weight last 48 hrs Weight 78.698 kg Weight 78.018 kg Physical Exam Narrative: Very pleasant cooperative male EOMI, PERRLA Awake and alert Clinical looks dehydrated Currently on 2 L nasal cannula S1, S2 Lungs are clear to auscultation Abdomen soft EOMI, PERRLA Sitting comfortably in his bed Data : 04/04/22 04:45 04/04/22 04:45 Micro: Microbiology 04/03/22 03:03 Blood Culture - Preliminary Blood NEGATIVE TO DATE 04/03/22 03:01 Blood Culture - Preliminary Blood NEGATIVE TO DATE 04/03/22 09:30 MRSA Culture - Final Nose A&P Assessment and plan (1) Pneumonia: Status: Acute (2) Weakness: Status: Acute Plan Community-acquired pneumonia Acute hypoxia Currently on 2 L Hypoxia tachycardia Continue ceftriaxone azithromycin. CT ruled out PE. Multiple sclerosis Generalized weakness I do not think we need MRI head at this point I would continue his baclofen No need of steroids Signs of dehydration present at admission Euvolemic today. Dysphagia Has had EGD and colonoscopy in recent past. Will do modified barium swallow today Patient is full code Cardiac diet DVT prophylaxis on board Patient lives alone Patient may be able to discharge home after barium swallow results today. Home health will be set up for him as well. Attestations Medical Necessity Statement*: Possible discharge today after barium swallow. Coding Level of Care Code Acute Dyeing Machine Feeder for Chg Fwd Diagnoses Pneumonia J18.9 Weakness R53.1
--- NOTE | 2022-04-04 10:50 | PC.CHAP ---
Pastoral Care Encounter/Spiritual Assessment Type of Contact [] Declined brand ambassador promotional model visit [] Patient/Family/Request visit [] Outpatient visit [] Follow-up visit [] Physician referral [] Code/Alert [x] Routine visit [] Staff referral [] Actively dying [] Patient sleeping [] Family support [] [] Out of room [] Palliative care [] [x] Receiving care in room [] Pre-surgical visit [] Trauma [] Long length of stay [] ICU visit [] Other: Relational/Emotional Strength [x] Patient feels connected with others/family/visitors/staff [] Distress [] Loneliness/isolation [] Abandonment Spirituality of Patient [x] Person of Shelia [] Attends Moravian of their Shelia [x] Believes in Prayer [] Reads Bible or Cheondoism materials [] There are Spiritual issues to be addressed Wrapper Sheeter Interventions [x] Prayer [x] Active listening [x] Non-anxious presence [x] Spiritual/emotional support [] Crisis/trauma care [x] Spiritual counseling [] Bereavement support [] Provided bereavement packet [] Provided Bible/devotional materials [] Provided toy/stuffed animal, coloring book to patient or family member [] Provided Communion [] Anointing/[place] [] Salvation [x] Completed spiritual assessment [] Other: Impact on Illness or Injury [] Angry [] Fearful [x] Anxious [] Often cries [] Exhaustion [] Unable to work [] Unable to attend christianity [] Unable to walk/stand [] Unable to read [] Unable to drive [] Unable to eat/drink [] Unable to sleep [] Unable to be with family [] Patient intubated [] Other: Summary punmonia feeling better has a posstive attitude well be going home soon Time spent with patient 10 mins
[2022-04-04] MEDS: acetaminophen 500 mg Tablet PO (12:03)
--- NOTE | 2022-04-04 16:12 | P.DS_ITS ---
Discharge Providers Date of Admission: 04/03/22 06:52 Date of Discharge: April 04, 2022 Attending Provider at Admission: Juan Daniel Bridges MD Attending Provider at Discharge: Adriana Gasca MD Primary Care Provider: Bony Contreras MD Diagnoses at Discharge Discharge Diagnosis (1) Pneumonia: Status: Acute (2) Weakness: Status: Resolved Reason for Visit Reason for Visit: MS FLARE UP Brief History: Bharat Arthur is a 56 year old male who has a history of multiple sclerosis, lives alone, non-smoker, presented to hospital for generalized weakness.? Patient is stating that normally he is able to take care of his daily activities on his own but in the last few days especially within 24 hours he has noticed significant weakness of his legs, he has not noticed any strokelike features however because of severe weakness his legs started shaking that is why he decided to come to the hospital today.? No recent fever, diarrhea, chest pain.? He is endorsing dehydration related to poor p.o. intake no recent vomiting or diarrhea.? Does not take steroids on daily basis. For his multiple sclerosis he takes baclofen dalfampridine In the ER he was diagnosed with pneumonia, at this point he is requiring 2 L which is new oxygen requirement He is tachycardic I will request D-dimer Patient is stating that he was diagnosed with a spot on his lungs and physicians have told him that there is nothing to be done at this point, he was diagnosed w ith left 11th rib fracture CT chest 10/31 IMPRESSION: ? 1.? No acute pulmonary infiltrates. Mild chronic emphysematous changes. 2.? Slight atelectasis in the lung bases with a few small subpleural hazy opacities in RIGHT lower lobe likely inflammatory. The largest measures 6 mm. This can be followed up in 6 months to confirm resolution. 3.? No mediastinal or hilar lymphadenopathy. 4.? Small esophageal hiatal hernia. 5.? Tiny nondisplaced fracture LEFT 11th rib posteriorly and laterally. Small amount of cortical irregularity. This is likely subacute to chronic. LEFT ribs are otherwise normal in appearance. ? Hospital Course Hospital Course Patient was admitted for community-acquired pneumonia. He was on 2 L oxygen. He was placed on ceftriaxone and azithromycin during his hospital stay. Steroids were not added. His lower extremity weakness also improved. Patient did complain of some dysphagia. He had an EGD colonoscopy in recent past. Modified barium swallow did not show any acute pathology. Patient felt really well next day and was discharged home in stable condition on Augmentin for 10 d ays. Urinalysis negative, COVID-negative, troponins negative. D-dimer was slightly elevated CTA was done which was negative for PE. Manager Discovery also reviewed imaging and advised to treat with antibiotics for now. Patient discharged home. Vitals stable. Patient back to baseline. Home health has been set up. Physical Exam Narrative: Very pleasant cooperative male GREGORY TODD Awake and alert Clinical looks dehydrated Currently on 2 L nasal cannula S1, S2 Lungs are clear to auscultation Abdomen soft EOMARIBEL CARPIORLUZ Sitting comfortably in his bed Discharge Data Studies Completed and Pending Completed Studies During Hospitalization Category Date Time Status CTA PE [CT angio chest PE protcl [id number]] Routine Cat Scan 04/03/22 06:55 Completed [place] barium swallow modifd [id number] Routine Exams 04/04/22 Completed XR chest 1V portable [id number] Stat Exams 04/03/22 02:41 Completed Pending at discharge Category Date Time Status Blood Culture Stat Lab 04/03/22 03:03 Results Respiratory Viral Panel PCR Stat Lab 04/03/22 11:35 Received Radiology Impressions Chest X-Ray 04/03/22 02:41 IMPRESSION: Mild nonspecific bilateral pulmonary opacities, right greater than left, most consistent with pneumonia. Chest CTA 04/03/22 06:55 IMPRESSION: 1. No pulmonary emboli. 2. Extensive patchy opacifications and groundglass attenuation throughout the RIGHT lung. Unilateral process. This is probably pneumonitis and pneumonia. 3. Extensive bronchovascular soft tissue thickening beginning at the RIGHT hilum and extending greatest into the RIGHT lower lobe. Consistent with acute bronchiolitis. 4. No RIGHT heart strain. 5. Reactive RIGHT hilar lymph node at 13 mm. Modified Barium Swallow 04/04/22 00:00 IMPRESSION: 1. Unremarkable modified barium swallow exam. A separate report of findings and recommendations will follow from the speech therapy service. Laboratory Results WBC 12.2 10^3/uL (4.0-10.0) H 04/04/22 04:45 RBC 3.76 10^6/uL (4.1-5.3) L 04/04/22 04:45 Hgb 11.3 g/dL (11.7-16.6) L 04/04/22 04:45 Hct 34.9 % (42.0-52.0) L 04/04/22 04:45 MCV 92.8 fl (80-94) 04/04/22 04:45 MCH 30.1 pg (28.0-34.0) 04/04/22 04:45 MCHC 32.4 g/dL (30.0-36.0) 04/04/22 04:45 RDW 13.4 % (12.1-15.1) 04/04/22 04:45 Plt Count 265 10^3/cmm (130-400) 04/04/22 04:45 MPV 9.7 fL (7.4-10.4) 04/04/22 04:45 Neut % (Auto) 86.6 % 04/04/22 04:45 Lymph % (Auto) 6.1 % 04/04/22 04:45 [place] % (Auto) 5.1 % 04/04/22 04:45 Eos % (Auto) 1.5 % 04/04/22 04:45 Baso % (Auto) 0.3 % 04/04/22 04:45 Neut # (Auto) 10.56 10^3/uL (1.8-7.7) H 04/04/22 04:45 Lymph # (Auto) 0.7 10^3/uL (0.8-4.8) L 04/04/22 04:45 [place] # (Auto) 0.6 10^3/uL (0.2-0.9) 04/04/22 04:45 Eos # (Auto) 0.2 10^3/uL (0.0-0.8) 04/04/22 04:45 Baso # (Auto) 0.0 10^3/uL (0.0-0.1) 04/04/22 04:45 Nucleated RBC % (auto) 0 % 04/04/22 04:45 Nucleated RBCs # 0.0 /100WBC 04/04/22 04:45 D-Dimer 0.62 ug/mIFEU (0-0.59) H 04/03/22 02:37 Sodium 138 mmol/L (136-145) 04/04/22 04:45 Potassium 4.2 mmol/L (3.5-5.1) 04/04/22 04:45 Chloride 102 mmol/L (98-107) 04/04/22 04:45 Carbon Dioxide 26 mmol/L (22-29) 04/04/22 04:45 Anion Gap 14.2 (5-19) 04/04/22 04:45 BUN 10 mg/dL (6-20) 04/04/22 04:45 Creatinine 0.7 mg/dL (0.7-1.2) 04/04/22 04:45 GFR Calculation 117.1 mL/min (90-130) 04/04/22 04:45 Glucose 92 mg/dL (65-115) 04/04/22 04:45 Calculated Osmolality 285 mOsm/kg (285-295) 04/04/22 04:45 Lactate 1.6 mmol/L (0.5-2.2) 04/03/22 02:37 Calcium 8.9 mg/dL (8.5-10.5) 04/04/22 04:45 Phosphorus 2.7 mg/dL (2.5-4.5) 04/04/22 04:45 Magnesium 1.7 mg/dL (1.7-2.3) 04/04/22 04:45 Total Bilirubin 0.3 mg/dL (0.15-1.2) 04/03/22 02:37 AST 18 U/L (0-40) 04/03/22 02:37 ALT 15 U/L (0-41) 04/03/22 02:37 Alkaline Phosphatase 76 U/L (40-130) 04/03/22 02:37 Troponin T Baseline 8 ng/L (0-15) 04/03/22 02:37 Troponin T 120 Minute 10.76 ng/L (0-15) 04/03/22 04:39 Delta Troponin T 2.76 ABS# (0-10) 04/03/22 04:39 Troponin T Hi Sens 6Hr 9.82 ng/L (0-15) 04/03/22 08:44 Troponin T Hi Sens 6Hr Delta 1.82 ng/L (0-12) 04/03/22 08:44 C-Reactive Protein 184.6 mg/L (0.0-4.9) H 04/04/22 04:45 NT-Pro-B Natriuret Pep 79 pg/mL (0-125) 04/03/22 02:37 Total Protein 6.5 g/dL (6.6-8.7) L 04/03/22 02:37 Albumin 3.9 g/dL (3.5-5.2) 04/03/22 02:37 Globulin 2.6 g/dL (1.3-4.6) 04/03/22 02:37 Procalcitonin 1.32 ng/mL (0-0.5) H 04/03/22 02:37 Urine Color Yellow (Yellow) 04/03/22 08:35 Urine Appearance Clear (CLEAR) 04/03/22 08:35 Urine pH 5 (5-7) 04/03/22 08:35 Ur Specific [place] 1.005 (1.005-1.030) 04/03/22 08:35 Urine Protein Neg (Negative) 04/03/22 08:35 Urine Glucose (UA) Norm (Normal) 04/03/22 08:35 Urine Ketones Negative (Negative) 04/03/22 08:35 Urine Blood 2+ (Negative) H 04/03/22 08:35 Urine Nitrate Negative (Negative) 04/03/22 08:35 Urine Bilirubin Neg (Negative) 04/03/22 08:35 Urine Urobilinogen Norm mg/dL (Negative) 04/03/22 08:35 Ur Leukocyte Esterase Negative (Negative) 04/03/22 08:35 Urine RBC None /hpf (0-2) 04/03/22 08:35 Urine WBC None /hpf (0-5) 04/03/22 08:35 Ur Squamous Epith Cells 0-4 /hpf (0-5) H 04/03/22 08:35 Amorphous Sediment Not Reportable 04/03/22 08:35 Urine Bacteria None /hpf (NONE) 04/03/22 08:35 Coronavirus 229E (PCR) Not detected (NOT DETECT) 04/03/22 04:07 SARS-CoV-2 (PCR) Not detected (NOT DETECT) 04/03/22 04:07 SARS-CoV-2 Ag (Rapid) Negative (Negative) 04/03/22 02:50 Vitals Last Vital Signs Temp 98.4 F 04/04/22 11:29 Pulse 86 04/04/22 11:29 Resp 16 04/04/22 12:03 BP 90/59 04/04/22 11:29 Pulse Ox 95 04/04/22 11:29 O2 Del Method 04/04/22 11:29 O2 Flow Rate 1 04/04/22 08:00 Discharge Plan Discharge Patient Disposition: Home Health Service Condition: Stable Prescriptions: New amoxicillin-pot clavulanate 875-125 mg tablet 1 tab PO BID 10 Days Qty: 20 0RF Continued zolpidem [Ambien] 10 mg tablet 10 mg PO BEDTIME prednisone 10 mg tablet 10 mg PO DAILY PRN (Reason: joint pain) alprazolam [Xanax] 0.25 mg tablet 0.25 mg PO BID PRN (Reason: Anxiety) pantoprazole 40 mg tablet,delayed release (DR/EC) 40 mg PO QAM dalfampridine [Ampyra] 10 mg tablet extended release 12 hr 10 mg PO Q12H Qty: 180 3RF baclofen 20 mg tablet 40 mg PO TID hydrocodone-acetaminophen 10-325 mg tablet 1 tab PO Q4H MDD 4 tabs PRN (Reason: Pain) acetaminophen 500 mg Tablet 1,000 mg PO Q4H PRN (Reason: Pain) ibuprofen [Advil] 200 mg Tablet 600 mg PO Q4H PRN (Reason: Pain) Vitamin D3 125 mcg (5,000 unit) Tablet See Rx Instructions .ROUTE .COMPLEX Rx Instructions: 5,000 unit orally on mon,tu,wed,,and fri Discharge Orders: Discharge Order (Routine); Ordered 04/04/22 Ordered By: Adriana Gasca Referrals: [facility] [Outside] Bony Contreras MD [Primary Care Provider] - 04/15/22 2:30 pm Discharge Diet: Soft Mechanical Discharge Activity: Resume usual activity and As per PT/OT instructions Patient Instructions: Opioid Safety Activity Restrictions/Additional Instructions: Patient return to the ER if you experience worsening shortness of breath, fever, cough, change in sputum color. Also return if lower extremity weakness has worsened. Discharge Attestations Time Spent in Discharge Care*: less than 30 min Quality Metrics Clinical Quality Measures [ No reported AMI, CVA or VTE this stay] Coding Level of Care Code Acute Chg FW DC note Diagnoses Pneumonia J18.9 Weakness R53.1
[2022-04-10 02:12] LABS: Adenovirus Not Detected (Not Detected); Human Metapneumovirus Not Detected (Not Detected); Human Parainflu Virus 1 Not Detected (Not Detected); Human Parainflu Virus 2 Not Detected (Not Detected); Human Parainflu Virus 3 Not Detected (Not Detected); Human Rsv A Not Detected (Not Detected); Influenza A Not Detected (Not Detected); Influenza B Not Detected (Not Detected); Rhinovirus/Enterovirus Not Detected (Not Detected)
== END 2022-04-04 17:15 | disposition home health service (06) ==
LOC: ER 03:06 → ICU 03:44 → MEDSURG 20:16
PROVIDERS: Admitting Provider Internal Medicine; Emergency Provider Emergency Medicine; PCP Family Medicine; Visit Provider Internal Medicine
DX: J18.9 Pneumonia, unspecified organism (principal); R53.1 Weakness; R09.02 Hypoxemia; R00.0 Tachycardia, unspecified; E86.0 Dehydration; R13.10 Dysphagia, unspecified; G35 Multiple sclerosis
CPT/HCPCS: 36415; 71045; 71275; 74230; 80048; 80053; 81001; 83605; 83735; 83880; 84100; 84145; 84484; 85025; 85378; 86140; 87040; 87426; 87633; 87635; 87641; 92610; 92611; 93005; 96365; 96366; 96367; 96372; 97161; 99285; G0378; J0456; J0696; J1650; J7030; J7050; Q0144; Q9967

== ENCOUNTER 2022-09-05 09:37 | Outpatient (CLI) | payer OTHER, SELFPAY ==
[2022-09-05 09:26] VITALS: BP 111/76; PULSE 77; RESP 18; TEMP 36.8; O2SAT 96
[2022-09-05] MEDS: acetaminophen 500 mg Tablet 1000 MG PO (10:08)
[2022-09-05] MEDS: sodium chloride 0.9% 250 ML 50 ML IV (10:08)
[2022-09-05] MEDS: diphenhydrAMINE 50 mg/mL SDV 1mL 25 MG IVP (10:10)
[2022-09-05 10:48] VITALS: BP 102/69; PULSE 64; RESP 18; TEMP 36.4; O2SAT 96
[2022-09-05 11:20] VITALS: BP 99/68; PULSE 63; RESP 16; TEMP 36.6; O2SAT 95
[2022-09-05 13:08] VITALS: BP 105/70; PULSE 82; RESP 18; TEMP 36.8; O2SAT 97
== END 2022-09-05 09:38 | disposition home or self-care (01) ==
PROVIDERS: PCP Family Medicine; Visit Provider Specialist
DX: G35 Multiple sclerosis (principal); G43.711 Chronic migraine without aura, intractable, with status migrainosus
CPT/HCPCS: 96365; 96366; 96375; 99215; A4222; J1200; J2350; J2930; J7040; J7050

== ENCOUNTER 2022-10-14 08:22 | Outpatient (CLI) | payer OTHER, SELFPAY ==
--- NOTE | 2022-10-14 08:45 | MR_ITS ---
WS: [id number] MRI HEAD WITH CONTRAST TECHNIQUE: Sagittal T1, T2 axial, T2 axial FLAIR, axial susceptibility weighted imaging, axial diffus ion weighted images, and coronal T2 images were obtained. Pre and post-T1 axial and post T1 coronal i mages. ADC and FSPGR images. CLINICAL INFORMATION: G43.711 - Chronic migraine without aura, intractable, wit... COMPARISON: MRI 2018 FINDINGS: No evidence of restricted diffusion to suggest acute ischemia. Ventricular system and basal cisterns are patent. Stable mild patchy T2 hyperintense lesions in the supratentorial white matter in a perica llosal distribution is stable. No evidence of disease progression. No enhancing lesions to indicate a ctive disease. Mild to moderate parenchymal volume loss appears progressed compared to previous. No s ignificant T1 hypointense lesion load. No hemosiderin on susceptibly weighted images. No abnormal gadolinium enhancement. No evidence of enhancing intracranial active disease. Normal dura l venous sinuses. No significant callosal atrophy. MR/MR head wo/w con [id number] IMPRESSION: 1. Stable mild patchy T2 hyperintense lesions in the supratentorial white veto er in a pericallosal distribution. No significant changes compared to previous. 2. No enhancing lesions to indicate active disease. 3. Mild to moderate parenchymal volume loss appears progressed. 4. No significant T1 hypointense lesion load. 5. No significant callosal atrophy. 6. No other significant findings.
--- NOTE | 2022-10-14 09:30 | MR_ITS ---
WS: [id number] MRI CERVICAL SPINE NONCONTRAST AND CONTRAST TECHNIQUE: Sagittal T1, T2 and STIR imaging. Axial T2, gradient, and fiesta imaging. Post contrast im aging was obtained CLINICAL INFORMATION: G35 - Multiple sclerosis COMPARISON: MRI May 11, 2021 FINDINGS: Straightening with slight reversal of the normal cervical lordosis. Chronic demyelinating plaques in the cervical cord at the foramen magnum and C5-6 unchanged since 2017 and 2020. No active demyelinati ng lesions. No significant cord atrophy. Slight retrolisthesis C3 on C4. C2-C3: Normal. C3-C4: Disc osteophyte complex with endplate ridging. Moderate RIGHT and mild LEFT bony foraminal romulo rowing. Mild facet arthropathy. C4-C5: Moderate facet arthropathy. Spinal canal and foramen are patent. C5-C6: Chronic demyelinating plaque in the LEFT eccentric cord unchanged from previous. Mild to moder ate LEFT and mild RIGHT bony foraminal narrowing. Mild facet arthropathy. C6-C7: Shallow central disc protrusion. Slight effacement of ventral thecal sac. Mild bilateral bony foraminal narrowing. C7-T1: Mild LEFT and no significant RIGHT bony foraminal narrowing. Spinal canal is patent. Slight an terolisthesis C7 on T1. This is unchanged since 2020 Visualized brain stem structures: Normal. Prevertebral soft tissues: Normal. MR/MR cervical spine wo/w [id number] IMPRESSION: 1. Chronic demyelinating plaques in the cervical cord at the Foramen Magnum an d eccentric to the left C5- C6 unchanged since 2017 and 2020. 2. No abnormal gadolinium enhancement. No enhancing demyelinating plaques. No evidence of active disease. 3. No significant cord atrophy. 4. Mild spondylitic changes described above.
--- NOTE | 2022-10-14 10:15 | MR_ITS ---
WS: [id number] MRI THORACIC SPINE WITH CONTRAST TECHNIQUE: Sagittal T1, T2 and STIR imaging. Axial T2 imaging. Post gadolinium imaging was obtained. CLINICAL INFORMATION: G35 - Multiple sclerosis COMPARISON: 2007 FINDINGS: Mild thoracic curve. No acute compression. No high-grade central canal stenosis. Cord signal is arnel l. No significant cord atrophy. No suspicious demyelinating lesions in the thoracic cord. No enhancin g lesions to indicate active disease. No other suspicious findings. Adrenal glands are normal. Small esophageal hiatal hernia. MR/MR thoracic spine wo/w [id number] IMPRESSION: 1. No suspicious lesions in the thoracic cord 2. No significant cord atrophy. 3. No significant central canal stenosis. 4. Small esophageal hiatal hernia.
[2022-10-14] MEDS: gadobenate dimeglumine 20 mL vial IV (10:43)
--- NOTE | 2022-10-14 11:00 | MR_ITS ---
WS: [id number] MRI LUMBAR SPINE WITH CONTRAST TECHNIQUE: Sagittal T1, T2 and STIR imaging. Axial T1 and T2 imaging. Post gadolinium imaging was obt ained. CLINICAL INFORMATION: G35 - Multiple sclerosis COMPARISON: MRI 2020 FINDINGS: Mild lumbar curve. No acute compression. No enhancing demyelinating lesions in the lower thoracic cor d. No abnormal gadolinium enhancement. Disc space narrowing L3-L4 has progressed compared to previous . Disc bulging worse at L2-L3 and L3-L4. L1-L2: Mild annular bulging. Narrowing of the LEFT subarticular recess. Mild facet arthropathy. Spina l canal is patent. L2-L3: Mild disc bulging with narrowing of the LEFT subarticular recess. Moderate facet arthropathy. Mild LEFT foraminal narrowing. L3-L4: Mild disc bulging with narrowing of the LEFT greater than RIGHT subarticular recess. This is s imilar to previous. Impingement on traversing LEFT L4 nerve root. Moderate LEFT and mild RIGHT forami nal narrowing. Moderate facet arthropathy. Prior LEFT hemilaminectomy. L4-L5: Mild annular bulging. Mild RIGHT and no significant LEFT foraminal narrowing. Prior LEFT hemil aminectomy. Spinal canal is patent. Moderate facet arthropathy. L5-S1: Mild annular bulging with slight contact of the traversing RIGHT S1 nerve root. Mild RIGHT and no significant LEFT foraminal narrowing. Moderate facet arthropathy. Small RIGHT renal cyst. MR/MR lumbar spine wo/w con [id number] IMPRESSION: 1. Mild lumbar curve. No acute compression. No high-grade central canal stenos is. 2. Progressed disc desiccation L3-L4 with persistent narrowing of the LEFT gre ater than RIGHT subarticular recess. 3. Narrowing of the LEFT subarticular recess L2-L3. 4. Disc bulging L5-S1 slightly contacts the traversing RIGHT S1 nerve root unc hanged. 5. Mild to moderate LEFT L2-L3, LEFT L3-L4, and RIGHT L5-S1 foraminal narrowin g. 6. Moderate facet arthropathy L3-L5.
== END 2022-10-14 08:23 | disposition home or self-care (01) ==
PROVIDERS: PCP Family Medicine; Visit Provider Specialist
DX: G35 Multiple sclerosis (principal); G43.711 Chronic migraine without aura, intractable, with status migrainosus; M47.896 Other spondylosis, lumbar region; N28.1 Cyst of kidney, acquired; M48.061 Spinal stenosis, lumbar region without neurogenic claudication; M48.07 Spinal stenosis, lumbosacral region; M51.27 Other intervertebral disc displacement, lumbosacral region; K44.9 Diaphragmatic hernia without obstruction or gangrene
CPT/HCPCS: 70553; 72156; 72157; 72158; A9577

== ENCOUNTER → 2022-10-17 08:27 | Outpatient (BNVA) | payer OTHER, SELFPAY | PROVIDERS: PCP Emergency Medicine Emergency Medical Services; Referring Provider Anesthesiology Pain Medicine; Visit Provider Orthopaedic Surgery | DX: M47.816 Spondylosis without myelopathy or radiculopathy, lumbar region (principal) | CPT/HCPCS: 72110; 99214 ==

== ENCOUNTER 2022-11-06 09:09 | Day surgery (SDC) | payer OTHER, SELFPAY ==
[2022-10-30 11:03] VITALS: BMI 25.8
--- NOTE | 2022-10-30 13:44 | ANES.PREANE2 ---
Pre-Anesthetic Assessment Height/Weight: Height 1.78 m Weight 81.647 kg Preop Diagnosis: Anemia. Dysphagia. Operation Date: 11/06/22 09:30 Proposed Procedures p Spinal Cord Stimulator Placement: 47245,03953,M54.9(Not Applicable) - Tima Choudhary, Familial anesthetic complications: none Was Beta Kim taken within 24 hours: N/A Was Clonidine taken within 24 hours: N/A Social No alcohol and No tobacco Exam alert, oriented x 3, clear to auscultation bilaterally and regular rate & rhythm Airway Submandibular: within normal limits Cervical ROM: within normal limits Mallampati: Class II Dentition: false CV/HEM Anemia urinary retention GI Gastroesophageal Reflux Disease Musc/skel Lower Back Pain and Osteoarthritis/DJD Neuropsych Anxiety, Depression, Headache and Neuropathy MS Anesthetic Plan ASA status: 3 Anesthesia: General Medications/Allergies Home Medications Medication Instructions Recorded Confirmed Last Taken Type alprazolam 0.25 mg tablet (Xanax) 0.25 mg PO BID PRN Anxiety 09/06/19 10/30/22 10/29/22 20:00 History prednisone 10 mg tablet 10 mg PO DAILY PRN joint pain 09/06/19 10/30/22 10/23/22 History zolpidem 10 mg tablet (Ambien) 10 mg PO BEDTIME 09/06/19 10/30/22 10/29/22 20:00 History acetaminophen 500 mg tablet 1,000 mg PO Q4H PRN Pain 06/25/21 10/30/22 10/30/22 07:00 History hydrocodone 10 mg-acetaminophen 1 tab PO Q4H PRN Pain 06/25/21 10/30/22 10/30/22 History 325 mg tablet ibuprofen 200 mg tablet (Advil) 600 mg PO Q4H PRN Pain 06/25/21 10/30/22 10/29/22 History pantoprazole 40 mg tablet,delayed 40 mg PO QAM 12/12/21 10/30/22 10/30/22 History release cholecalciferol (vitamin D3) 125 See Rx Instructions .Route .COMPLEX 04/03/22 10/30/22 10/30/22 History mcg (5,000 unit) tablet (Vitamin D3) ketoconazole 2 % shampoo 1 applic topical ONCE #120 mL 08/22/22 10/30/22 Unknown Rx ketoconazole 2 % topical cream 1 applic topical BID #30 grams 08/22/22 10/30/22 10/29/22 Rx prochlorperazine maleate 5 mg 5 tab PO DIRECTED PRN Nausea 08/22/22 10/30/22 10/23/22 History tablet baclofen 20 mg tablet See Rx Instructions .Route 09/05/22 10/30/22 10/30/22 Rx .COMPLEX #540 tabs dalfampridine 10 mg 10 mg PO Q12H #180 tabs 09/05/22 10/30/22 10/30/22 Rx tablet,extended release,12 hr (Ampyra) ketoconazole 2 % shampoo 1 applic topical Q14D 09/05/22 10/30/22 10/27/22 History ketoconazole 2 % topical cream 1 applic topical DAILY 09/05/22 10/30/22 10/29/22 History galcanezumab-gnlm 120 mg/mL 120 mg SUBCUT .Monthly Migraine #1 09/17/22 10/30/22 10/02/22 Rx subcutaneous pen injector mL (Emgality Pen) galcanezumab-gnlm 120 mg/mL 240 mg (2 mL) SUBCUT ONCE Migraine 09/17/22 10/30/22 10/02/22 Rx subcutaneous pen injector #2 mL (Emgality Pen) Allergies Allergy/AdvReac Type Severity Reaction Status Date / Time No Known Drug Allergies Allergy Unknown Verified 10/17/22 08:13 [facility] Anesthesia Medical History Dysphagia Encounter for postoperative care Family history of prostate cancer Father, Arron Lumbar stenosis Multiple sclerosis Occipital neuralgia of right side Onychodystrophy Ulnar neuropathy at elbow of right upper extremity Urinary retention Surgical History S/P matrixectomy of toe Status post lumbar laminectomy Family History Father Cancer Colon Brother Cancer Colon Social History Smoking and tobacco status: never smoked Alcohol intake: never Marital status: Current occupational status: disabled Data Anesthesia Cardiac Studies: No Data to Display
[2022-11-06] VITALS (7 sets, daily range): BP systolic 112–127; BP diastolic 74–89; PULSE 73–87; RESP 13–20; TEMP 36.1–36.4; O2SAT 95–100
[2022-11-06] MEDS: sodium chloride 0.9% 1,000 ML 30 ML IV (09:30)
--- NOTE | 2022-11-06 09:58 | P.ANESUD_ITS ---
Pre-Anesthetic Update Pre-Anesthetic Assessment: Date of Surgery/Procedure: 11/06/22 Preop Deb gnosis: Chronic pain syndrome Proposed Procedure: Operation Date: 11/06/22 11:05 Proposed Procedures p Spinal Cord Stimulator Placement: 10725,68038,M54.9(Not Applicable) - Tima Choudhary, DO Any changes to Pre-Anesthetic Assessment?: No Last Intake: Intake Last Liquid Date 11/05/22 Last Liquid Time 06:00 Last Solid Date 11/05/22 Last Solid Time 22:00 Vitals: Temperature 97.5 F L 11/06/22 09:26 Temperature Source Temporal Artery S can 11/06/22 09:26 Pulse Rate 73 11/06/22 09:26 Pulse Rhythm 11/06/22 09:46 Pulse Strength 3+ Normal 11/06/22 09:46 Respiratory Rate 18 11/06/22 09:26 Blood Pressure 127/81 11/06/22 09:26 Blood Pressure Katherine n 96 11/06/22 09:26 Pulse Oximetry 99 11/06/22 09:26 Oxygen Delivery Me thod 11/06/22 09:46 Exam: Pre-Anes Outpt Exam: alert, oriented x 3, clear to auscultation bilaterally and regular rate & rhythm Cardiac Studies: No Data to Display
[2022-11-06] MEDS: HYDROmorphone 1 mg/mL INJ 1 mL 0.5 MG IVP ×2 (10:50→13:52)
--- NOTE | 2022-11-06 11:17 | W.PM.OPSUD ---
Surgery/Procedure H&P Update DATE OF PROCEDURE: November 06, 2022 DATE H&P PERFORMED: 10/17/22 H&P UPDATE INFORMATION: I have reviewed H&P completed within last 30 days, I have examined patient prior to procedure and No changes to prior documentation PREOP DIAGNOSIS: Chronic pain syndrome PLANNED PROCEDURE: Operation Date: 11/06/22 11:05 Proposed Procedures p Spinal Cord Stimulator Placement: [id number],57546,M54.9(Not Applicable) - Tima Choudhary DO
[2022-11-06] MEDS: ceFAZolin 2,000 MG in sodium chloride 0.9% (plus) 50 ML 100 MG IV (11:45)
[2022-11-06] MEDS: vancomycin 1,000 MG SDV 1000 MG XX (12:32)
[2022-11-06] MEDS: lidocaine-epi 1% 20 mL INJ INJECTION (12:32)
--- NOTE | 2022-11-06 12:55 | XR_ITS ---
WS: [id number] XR lumbar spine 1V [id number] REASON FOR EXAM: or pics FINDINGS: Dorsal column stimulator placed in the posteriorly in the midline of the thoracic spinal canal at T11 /T10. Terminal electrode appears in proper position. XR/XR lumbar spine 1V [id number] IMPRESSION: Dorsal column stimulator placement as above.
--- NOTE | 2022-11-06 13:28 | PM.OP ---
Operative Report Date of procedure: November 06, 2022 Pre-op diagnosis: Preop Diagnosis Chronic pain syndrome Post-op diagnosis: same Procedure done: 1. placement of Neurostimulator 2. Placement of battery generator for neurostimulator Surgeon: Tima Choudhary Byproducts Pump Operator: Oscar Adkins Byproducts Pump Operator: The surgical scheduler, Oscar Adkins, RONNIE was needed for his expertise under the microscope. He was important and necessary throughout the procedure to complete in a safe and timely manner. He assisted with patient positioning prepping and draping tissue retraction suctioning of the operative field protection of the dural sac and tissue closure Estimated blood loss (mL): 25 Procedure: 1. placement of Neurostimulator 2. Placement of battery generator for neurostimulator Patient was brought to the operative suite after undergoing anesthesia was placed in prone position. All areas impingement well-padded. Patient was prepped and draped in a sterile fashion. Skin incision was made over the T10-11 level. Retractors placed subperiosteal dissection was made out to the transverse processes of T10 and T11. Laminectomy was performed at T10-11 space. The high-speed bur was used to drill down on the lamina and the rongeur was used to take down part of the spinous process and curved curettes and Kerrisons were used to remove part laminectomy. The ligament plate was removed from T10-T11. The dura was identified. The trial plastic was slid up unhindered. And then the paddle was slid up to the T9-10 disc space the tip of the paddle stopped at T9. This confirmed on C arm in both AP and lateral fluoroscopy. The wires were then sutured to the spinous process of T11. Next tension was brought to placing the battery. Skin incision made over the left flank. The Bovie was used to undermine skin and the fat to make a pocket for the battery. The trial battery was inserted felt to be good then the wire passer was passed from the battery pouch to the location of the previous laminectomy at T10-11 the wires were passed from the T10-11 down under the skin to the battery pouch. The battery was brought in and wires were put into the battery battery was placed in the wound and trialed felt to be that all wires were working 100%. The wire was coiled up and the battery was placed onto the pocket and onto the wires. Wounds were then closed with 0 Vicryl 2-0 Vicryl and Monocryl suture. Sterile dressings were applied and patient was transferred to the PACU in stable condition.
--- NOTE | 2022-11-06 13:57 | ANE.PACU2 ---
Inpatient post-anesthesia follow up: Airway intact: Yes Vital signs: Temperature 97.0 F Pulse Rate 85 Respiratory Rate 13 Blood Pressure 126/83 Pulse Oximetry 97 Oxygen Delivery Me thod Room Air Oxygen Flow Rate 6 Fraction of Inspir ed Oxygen Hydration adequate: Yes Nausea and vomiting: No Pain level: 1 Mental status: Baseline
[2022-11-06] MEDS: HYDROcodone-acetaminophen 10-325 mg Tablet 2 TAB PO (14:09)
[2022-11-06] MEDS: ketorolac 30 mg/mL INJ IVP (14:09)
[2022-11-06] MEDS: baclofen 10 mg Tablet 40 MG PO (14:10)
[2022-11-06] MEDS: cyclobenzaprine 10 mg Tablet PO (15:10)
--- NOTE | 2022-11-06 15:28 | PC.NURSE ---
PTs pain clinic requested that he did not recieve any more norco due to the amount of tylenol he is currently taking. I spoke with Dr. Choudhary and he said he would send over an order for Oxycodone in the morning as he was already out of the facility. He also gave the verbal order to call in a short term dose of flexeril for the patient due to his muscle spasms from the surgery. Pt's pain clinic has been notified of this.
== END 2022-11-06 15:23 | disposition home or self-care (01) ==
PROVIDERS: PCP Emergency Medicine Emergency Medical Services; Visit Provider Orthopaedic Surgery
PROC: (CPT 63685; principal; 2022-11-06 10:55)
DX: M54.9 Dorsalgia, unspecified (principal); G89.29 Other chronic pain; D64.9 Anemia, unspecified; K21.9 Gastro-esophageal reflux disease without esophagitis; R33.9 Retention of urine, unspecified; G35 Multiple sclerosis; R51.9 Headache, unspecified; G62.9 Polyneuropathy, unspecified; Z79.891 Long term (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 of 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
CPT/HCPCS: 63655; 63685; 72020; 76000; C1778; C1820; J0690; J1100; J1170; J1885; J2250; J2405; J2704; J3010; J3370; J3490; J7030

== ENCOUNTER → 2022-11-21 10:36 | Outpatient (BNVA) | payer OTHER, SELFPAY | PROVIDERS: PCP Emergency Medicine Emergency Medical Services; Visit Provider Physician Assistant | DX: Z98.890 Other specified postprocedural states (principal) | CPT/HCPCS: 99024 ==

== ENCOUNTER → 2022-12-16 07:52 | Outpatient (BNVA) | payer OTHER, SELFPAY | PROVIDERS: PCP Emergency Medicine Emergency Medical Services; Visit Provider Specialist | DX: G43.711 Chronic migraine without aura, intractable, with status migrainosus (principal); G35 Multiple sclerosis; Z96.82 Presence of neurostimulator | CPT/HCPCS: 99215 ==

== ENCOUNTER → 2023-02-17 08:04 | Outpatient (BNVA) | payer OTHER, SELFPAY | PROVIDERS: PCP Emergency Medicine Emergency Medical Services; Visit Provider Nurse Practitioner Family | DX: L21.8 Other seborrheic dermatitis (principal); L57.8 Other skin changes due to chronic exposure to nonionizing radiation; L82.1 Other seborrheic keratosis | CPT/HCPCS: 99214 ==

== ENCOUNTER 2023-03-06 09:26 | Oncology outpatient (recurring) (ONCR) | payer OTHER, SELFPAY ==
[2023-03-06] MEDS: sodium chloride 0.9% 250 ML 35 ML IV (09:25)
[2023-03-06] MEDS: acetaminophen 500 mg Tablet 1000 MG PO (09:27)
[2023-03-06] MEDS: diphenhydrAMINE 50 mg/mL SDV 1mL 25 MG IVP (09:28)
--- OUTSIDE RECORDS SUMMARY | 2023-03-06 09:28 | XMS_ITS | Patient Health Record ---
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 Role Phone Bony Contreras MD Primary Care Provider Santosh Bender MD, Yogesh Unavailable [phone] [place] Unavailable Unavailable ALLERGIES Allergen (clinical drug ingredient) Drug/Non Drug Allergy documented on EMR Reaction Allergy Type Onset Date Status acetaminophen / diphenhydramine Tylenol PM bloating Drug Allergy Active RESULTS Component Value Reference Range Notes Urine tox screen / MS if ind icated Reviewed date:02/13/2023 11:52:50 AM Interpretation:Consistent Performing Lab: Notes/Report: Consistent Urine tox screen / MS if ind icated Reviewed date:06/25/2022 01:27:04 PM Interpretation: Performing Lab: Notes/Report: REASON FOR REFERRAL Diagnosis 1 Vertebrogenic low ba ck pain (M54.51) Referring Provider First Name [place] Wilberto ff Referring Provider Last Name ME Referred Organization [facility] Referred Provider Yogesh Bender Referred Address [address] [place], [place],[id number] Referred Provider Specialty Pain Managem ent Referral Priority Routine Reason Evaluation for possi ble placement of DCS / IPG system Diagnosis 1 Spinal stenosis, lum bar region with neurogenic claudication (M48.062) Referral Organization [facility] Referring Provider First Name Yogesh Referring Provider Last Name Yulia Referring Provider Speciality Pain Manag ement Referred Provider Tima Choudhary Referred Provider Specialty Orthopedic S urgery General Notes Jessica Healy, SENIOR JAVA PROGRAMMER 0 10/01/2022 01:11:26 PM > RFS completed for signature.Jm Allison M 10/01/2022 01:45:17 PM > RFS faxed to ME for approval. , Luz Maria Sharp 10/07/2022 09:52:50 AM > Referral faxed with Aron BARNES Brenda 10/22/2022 03:03:40 PM > Spke with Yasmin at Dr. Choudhary's office - patient was seen on 10/17/22, Jessica Healy FNP 01/18/2023 02:02:27 PM > Request for Health Information-Referral Follow-up faxed. Referral Priority Urgent Referral Appointment Date 10/17/2022 Diagnosis 1 Spinal stenosis, lum bar region with neurogenic claudication (M48.062) Referring Provider First Name David ritter Referring Provider Last Name ME Referred Organization [facility] Referred Provider Yogesh Bender Referred Address [address] [place] [id number], Referred Provider Specialty Pain Managem ent Referral Priority Routine MEDICATIONS Medication SIG (Take, Route, Frequency, Duration) Notes Start Date End Date Status ondansetron 4 mg 1 tab(s) orally ever y 8 hours 04/15/2022 Active acetaminophen-hydrocodon e 325 mg-10 mg 1-2 tabs po orally Q4-6H prn pain (max 6/day; hold within 4H of planned sleep) for 30 day(s) Do not fill prior to 03/23/23. ICD-10: G89.29 02/13/2023 Active cyclobenzaprine 10 mg 1 tab orally every 8 hours Active dalfampridine 10 mg 1 tab orally every 1 2 hours Active ketoconazole topical 2% 1 earlene applied topically once a day for 14 day(s) Active fluocinonide topical 0.05% 1 earlene applied topically 3 times a day, as needed Active baclofen 20 mg 2 tabs orally 3 time s a day Active acetaminophen-hydrocodon e 325 mg-10 mg 1-2 tabs po orally Q4-6H prn pain (max 6/day; hold within 4H of planned sleep) for 30 day(s) Do not fill prior to 02/21/23. ICD-10: G89.29 02/13/2023 Active cetirizine 10 mg 1 tab orally once a day as needed Active Aspercreme with Lidocaine 4% 1 earlene applied topically 3 times a day, as needed Active Vitamin D3 5000 intl units as directed orally once a day Active aspirin 81 mg 1 tab orally once a day Active zolpidem 10 mg 1 tab orally once a day (at bedtime) Active tamsulosin 0.4 mg 1 cap(s) orally once a day for 30 day(s) Active sulfacetamide sodium-sulfur topical 10%-5% 1 earlene applied topically 2 times a day for 30 day(s) Active ALPRAZolam 0.25 mg 1 tab orally twice a day Active terbinafine 250 mg 1 tab orally once a day Active prochlorperazine 5 mg 1 tab(s) orally 3 times a day Active Ocrevus 300 mg/10 mL as directed intravenously every 6 months Active pantoprazole 40 mg 1 tab orally once a day Active predniSONE 10 mg 1 tab orally once a day as needed for facial eczema Active acetaminophen-hydrocodon e 325 mg-10 mg 1-2 tabs po orally Q4-6H prn pain (max 6/day; hold within 4H of planned sleep) for 30 day(s) Do not fill prior to 04/22/23. ICD-10: G89.29 02/13/2023 Active nystatin topical 910617 units/g 1 earlene applied topically 3 times a day, as needed Active SOCIAL HISTORY Tobacco Use: Social History Observation Description Date Details (start date - stop date) Former Smoker NA - NA Sex Assigned At : Social History Observation Description Sex Assigned At Male alcohol Question Answer Notes Did you have a drink contain ing alcohol in the past year? Yes How often did you have a dri nk containing alcohol in the past year? Monthly or less (1 point) How many drinks did you have on a typical day when you were drinking in the past year? 1 or 2 (0 points) How often did you have six o r more drinks on one occasion in the past year? Never (0 points) Points 1 Interpretation Negative Tobacco use: Question Answer Notes : former smoker When did you stop smoking? 2013 PROBLEMS Problem Type ICD Code Onset Dates Problem Status W/U Status Risk SNOMED Code Notes Problem Sacroiliitis, not elsewhere classified (M46.1) Active confirmed Solitary sacroiliitis (317709966) Problem Low back pain (M54.5) Active confirmed Low back pain (779821506) Problem Spondylosis without myelopathy or radiculopathy, lumbar region (M47.816) Active confirmed Lumbosacral spondylosis without myelopathy (29983370) six lumbar-appear ing vertebrae have been appreciated via fluoroscopy (for TRANSCRIPT CLERK and [employer]PSC nomenclature purposes for block and RFA procedures, the inferior most is designated as L5). 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) Active confirmed High risk drug monitoring status (550099941) Problem Other specified anxiety disorders (F41.8) Active confirmed Anxiety disorde r (947389166) Problem Hypersomnia, unspecified (G47.10) Active confirmed Hypersomnia (80342109) Problem Other sleep disorders (G47.8) Active confirmed Sleep disorder (28672856) Problem Other chronic pain (G89.29) Active confirmed Chronic pain (39051960) Problem Pain in unspecified hip (M25.559) Active confirmed Arthralgia of t he pelvic region and thigh (869570150) Problem Spondylolisthesi s, lumbar region (M43.16) Active confirmed Acquired spondylolisthesis (524169133) Problem Intervertebral disc disorders with radiculopathy, lumbar region (M51.16) Active confirmed Radiculopathy d ue to lumbar intervertebral disc disorder (279268589116482) Problem Postlaminectomy syndrome, not elsewhere classified (M96.1) Active confirmed Post-laminectom y syndrome (62257700) Problem Other penitentiary (current) drug therapy (Z79.899) Active confirmed Long-term curre nt use of drug therapy (826257840) Problem Spinal stenosis, lumbar region with neurogenic claudication (M48.062) Active confirmed Neurogenic claudication (511234439) Problem Vertebrogenic low back pain (M54.51) Active confirmed Pain in lumbar spine (813024559) Encounters Encounter Location Date Provider Diagnosis [facility] [address] [place], [place] [id number] 03/12/2022 Yogesh Bender Sacroiliitis, not elsewhere classified M46.1 ; Other specified anxiety disorders F41.8 ; Spondylosis without myelopathy or radiculopathy, lumbar region M47.816 ; Spinal stenosis, lumbar region with neurogenic claudication M48.062 ; Vertebrogenic low back pain M54.51 ; Pain in unspecified hip M25.559 ; Intervertebral disc disorders with radiculopathy, lumbar region M51.16 ; Spondylolisthesis, lumbar region M43.16 ; Hypersomnia, unspecified G47.10 and [facility] (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 of 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 Z79.891 [facility] [address] [place] [id number] 03/13/2022 Yogesh Bender Sacroiliitis, not elsewhere classified M46.1 and Other specified anxiety disorders F41.8 [facility] [address] [place], [place] [id number] 03/27/2022 Yogesh Bender [facility] [address] [place], [place] [id number] 04/15/2022 Yogesh Bender Sacroiliitis, not elsewhere classified M46.1 ; Other specified anxiety disorders F41.8 ; Spondylosis without myelopathy or radiculopathy, lumbar region M47.816 ; Spinal stenosis, lumbar region with neurogenic claudication M48.062 ; Vertebrogenic low back pain M54.51 ; Pain in unspecified hip M25.559 ; Intervertebral disc disorders with radiculopathy, lumbar region M51.16 ; Spondylolisthesis, lumbar region M43.16 ; Hypersomnia, unspecified G47.10 and M[facility] (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 of 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 Z79.891 [facility] [address] [place] [phone] 04/22/2022 Yogesh Bender Spondylosis without myelopathy or radiculopathy, lumbar region M47.816 ; Sacroiliitis, not elsewhere classified M46.1 and Other specified anxiety disorders F41.8 [facility] [address] [place], [place] [id number] 05/06/2022 Yogesh Bender Other specified anxi ety disorders F41.8 ; Spondylosis without myelopathy or radiculopathy, lumbar region M47.816 ; Sacroiliitis, not elsewhere classified M46.1 ; Spinal stenosis, lumbar region with neurogenic claudication M48.062 ; Vertebrogenic low back pain M54.51 ; Pain in unspecified hip M25.559 ; Intervertebral disc disorders with radiculopathy, lumbar region M51.16 ; Spondylolisthesis, lumbar region M43.16 ; Hypersomnia, unspecified G47.10 and 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 Z79.891 [facility] [address] [place] [id number] 05/15/2022 Yogesh Bender Spondylosis without myelopathy or radiculopathy, lumbar region M47.816 and Other specified anxiety disorders F41.8 [facility] [address] [place], [place] [id number] 05/16/2022 Yogesh Bender Other specified anxi ety disorders F41.8 and Spondylosis without myelopathy or radiculopathy, lumbar region M47.816 [facility] [address] [place] [id number] 05/20/2022 Yogesh Bender Spondylosis without myelopathy or radiculopathy, lumbar region M47.816 and Other specified anxiety disorders F41.8 [facility] [address] [place], [place] [id number] 06/03/2022 Yogesh Bender [facility] [address] [place] [id number] 06/25/2022 Yogesh Bender Spinal stenosis, lum bar region with neurogenic claudication M48.062 ; Spondylosis without myelopathy or radiculopathy, lumbar region M47.816 ; Sacroiliitis, not elsewhere classified M46.1 ; Vertebrogenic low back pain M54.51 ; Pain in unspecified hip M25.559 ; Intervertebral disc disorders with radiculopathy, lumbar region M51.16 ; Spondylolisthesis, lumbar region M43.16 ; Hypersomnia, unspecified G47.10 and 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 Z79.891 [facility] [address] [place], [place] [id number] 07/22/2022 Yogesh Bender [facility] [address] [place], [place] [id number] 08/06/2022 Yogesh Bender [facility] [address] [place], [place] [id number] 08/15/2022 Yogesh Bender Spondylosis without myelopathy or radiculopathy, lumbar region M47.816 ; Vertebrogenic low back pain M54.51 ; Sacroiliitis, not elsewhere classified M46.1 ; Spinal stenosis, lumbar region with neurogenic claudication M48.062 ; Pain in unspecified hip M25.559 ; Intervertebral disc disorders with radiculopathy, lumbar region M51.16 ; Spondylolisthesis, lumbar region M43.16 ; Hypersomnia, unspecified G47.10 and M[facility] (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 of 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 Z79.891 [facility] [address] [place], [place] [id number] 08/22/2022 Yogesh Bender [facility] [address] [place], [place] [id number] 09/04/2022 Yogesh Bender Spinal stenosis, lum bar region with neurogenic claudication M48.062 ; Other specified anxiety disorders F41.8 ; Postlaminectomy syndrome, not elsewhere classified M96.1 ; Vertebrogenic low back pain M54.51 ; Spondylosis without myelopathy or radiculopathy, lumbar region M47.816 ; Sacroiliitis, not elsewhere classified M46.1 ; Pain in unspecified hip M25.559 ; Intervertebral disc disorders with radiculopathy, lumbar region M51.16 ; Spondylolisthesis, lumbar region M43.16 ; Hypersomnia, unspecified G47.10 and MCC (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 of 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 Z79.891 [facility] [address] [address] 09/16/2022 Yogesh Bender Spinal stenosis, lum bar region with neurogenic claudication M48.062 ; Other specified anxiety disorders F41.8 ; Postlaminectomy syndrome, not elsewhere classified M96.1 ; Vertebrogenic low back pain M54.51 ; Spondylosis without myelopathy or radiculopathy, lumbar region M47.816 ; Sacroiliitis, not elsewhere classified M46.1 ; Pain in unspecified hip M25.559 ; Intervertebral disc disorders with radiculopathy, lumbar region M51.16 and Spondylolisthesis, lumbar region M43.16 [facility] [address] [place], [place] [id number] 09/19/2022 Yogesh Bender Spinal stenosis, lum bar region with neurogenic claudication M48.062 ; Postlaminectomy syndrome, not elsewhere classified M96.1 ; Vertebrogenic low back pain M54.51 ; Spondylosis without myelopathy or radiculopathy, lumbar region M47.816 ; Sacroiliitis, not elsewhere classified M46.1 ; Pain in unspecified hip M25.559 ; Intervertebral disc disorders with radiculopathy, lumbar region M51.16 ; Spondylolisthesis, lumbar region M43.16 ; Hypersomnia, unspecified G47.10 and MCC (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 of 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 Z79.891 [facility] [address] [id number] 11/06/2022 Yogesh Bender [facility] [address] [id number] 11/21/2022 Yogesh Bender Spinal stenosis, lum bar region with neurogenic claudication M48.062 ; Postlaminectomy syndrome, not elsewhere classified M96.1 ; Vertebrogenic low back pain M54.51 ; Spondylosis without myelopathy or radiculopathy, lumbar region M47.816 ; Sacroiliitis, not elsewhere classified M46.1 ; Pain in unspecified hip M25.559 ; Intervertebral disc disorders with radiculopathy, lumbar region M51.16 ; Spondylolisthesis, lumbar region M43.16 ; Hypersomnia, unspecified G47.10 and 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 Z79.891 [facility] [address] [id number] 02/13/2023 Yogesh Bender Spondylosis without myelopathy or radiculopathy, lumbar region M47.816 ; Other specified anxiety disorders F41.8 ; Other chronic pain G89.29 ; Spinal stenosis, lumbar region with neurogenic claudication M48.062 ; Vertebrogenic low back pain M54.51 ; Sacroiliitis, not elsewhere classified M46.1 and MCC (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 of 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 Z79.891 ASSESSMENTS Encounter Date Diagnosis Assessment Notes Treatment Notes Treatment Clinical Notes 05/06/2022 Spondylosis without myelopathy or radiculopathy, lumbar region (ICD-10 - M47.816) six lumbar-appearing vertebrae have been appreciated via fluoroscopy (for TRANSCRIPT CLERK and [employer]PSC nomenclature purposes for block and RFA procedures, the inferior most is designated as L5). Lumbar RFA procedures with history of efficacy appreciated by patient. The most recent, right low to mid lumbar, resulted in good benefit for ~ 6 months and that benefit has now waned. Patient had experienced left low lumbar axial pain improvement postoperatively and patient reported that benefit has waned. Plan bilateral L4 medial branch, bilateral L5 dorsal ramus diagnostic blocks; possible RFA if diagnostic blocks appreciated. Risks, benefits, and alternatives reviewed with patient. Questions answered to the patient's reported satisfaction. Preparation for procedure reviewed with patient; printed instructions declined 05/06/2022 Other specified anxiety disorders (ICD-10 - F41.8) Plan moderate IV sedation as needed with midazolam and / or fentanyl 11/21/2022 Postlaminectomy syndrome, not elsewhere classified (ICD-10 - M96.1) 11/21/2022 Spinal stenosis, lumbar region with neurogenic claudication (ICD-10 - M48.062) Referral back to Dr. Choudhary resulted in DCS system (with IPG) placement. Patient to start programming options in the coming days 02/13/2023 Other specified anxiety disorders (ICD-10 - F41.8) Plan moderate IV sedation as needed wtih midazolam and / or fentanyl 02/13/2023 Spondylosis without myelopathy or radiculopathy, lumbar region (ICD-10 - M47.816) six lumbar-appearing vertebrae have been appreciated via fluoroscopy (for TRANSCRIPT CLERK and WPSC nomenclature purposes for block and RFA procedures, the inferior most is designated as L5). Lumbar RFA procedures with history of repeated efficacy appreciated by patient. The benefit from the most recent procedure had since waned. Plan bilateral L4 medial branch, bilateral L5 dorsal ramus diagnostic blocks; possible RFA if diagnostic blocks appreciated. Risks, benefits, and alternatives reviewed with patient. Questions answered to the patient's reported satisfaction. Preparation for procedure reviewed with patient; printed instructions declined 09/19/2022 Postlaminectomy syndrome, not elsewhere classified (ICD-10 - M96.1) 09/19/2022 Spinal stenosis, lumbar region with neurogenic claudication (ICD-10 - M48.062) Written and AV information regarding DCS trial / placement given to patient at 04/05/21 visit and again at the 10/01/21 visit. Patient had reviewed the information. Patient underwent lumbar spine surgery by Dr. Choudhary on 06/22/21. Post-operative follow up completed per prior patient report. Patient had stated that he received some minimal improvement following the surgery. Patient previously stated that Dr. Choudhary had approved resumption of minimally invasive interventional spine treatment post the surgery that he had performed. Had previously recommended patient follow up with Dr. Choudhary regarding the pain above the surgical site as well as in relation to possible DCS therapy. DCS trial with efficacy appreciated by patient. Plan referral back to Dr. Choudhary for evaluation for possible DCS system (with IPG) placement. Patient has been counseled on the signs and symptoms of a potential DCS trial related infection. Patient has verbalized understanding to urgently seek treatment if such an infection were to be suspected. 09/16/2022 Other specified anxiety disorders (ICD-10 - F41.8) Plan monitored anesthesia care 09/16/2022 Spinal stenosis, lumbar region with neurogenic claudication (ICD-10 - M48.062) Written and AV information regarding DCS trial / placement given to patient at 04/05/21 visit and again at the 10/01/21 visit. Patient has reviewed the information. Patient underwent lumbar spine surgery by Dr. Choudhary on 06/22/21. Post-operative follow up completed per prior patient report. Patient has stated that he received some minimal improvement following the surgery. Patient previously stated that Dr. Choudhary has approved resumption of minimally invasive interventional spine treatment post the surgery that he had performed. Have previously recommended patient follow up with Dr. Choudhary regarding the pain above the surgical site as well as in relation to possible DCS therapy. Patient decided at 09/04/22 visit that he would like to trial the DCS technology. Plan DCS trial. Risks, benefits, and alternatives previously reviewed with patient. Questions answered to the patient's reported satisfaction. Preparation for procedure noted to be adequate 09/04/2022 Other specified anxiety disorders (ICD-10 - F41.8) Plan monitored anesthesia care 09/04/2022 Spinal stenosis, lumbar region with neurogenic claudication (ICD-10 - M48.062) Written and AV information regarding DCS trial / placement given to patient at 04/05/21 visit and again at the 10/01/21 visit. Patient has reviewed the information. Patient underwent lumbar spine surgery by Dr. Choudhary on 06/22/21. Post-operative follow up completed per prior patient report. Patient has stated that he received some minimal improvement following the surgery. Patient previously stated that Dr. Choudhary has approved resumption of minimally invasive interventional spine treatment post the surgery that he had performed. Have previously recommended patient follow up with Dr. Choudhary regarding the pain above the surgical site as well as in relation to possible DCS therapy. Patient decided at today's visit (09/04/22) that he would like to trial the DCS technology. Plan DCS trial. Risks, benefits, and alternatives reviewed with patient. Questions answered to the patient's reported satisfaction. Preparation for procedure reviewed with patient; printed instructions declined 08/15/2022 Spondylosis without myelopathy or radiculopathy, lumbar region (ICD-10 - M47.816) six lumbar-appearing vertebrae have been appreciated via fluoroscopy (for TRANSCRIPT CLERK and WPSC nomenclature purposes for block and RFA procedures, the inferior most is designated as L5). Lumbar RFA procedures with history of efficacy appreciated by patient. 08/15/2022 Vertebrogenic low back pain (ICD-10 - M54.51) Chronic axial lumbosacral spine pain. Chronic lower extremity pain consistent with neuropathic pain / radiculopathy. Prior conservative treatment by patient as noted, below. Prior surgical treatment as noted, below. Prion minimally invasive interventional spine treatment via this provider as noted, below. Oral opioid medication use with history of benefit. Plan to continue medication management 06/25/2022 Spinal stenosis, lumbar region with neurogenic claudication (ICD-10 - M48.062) Written and AV information regarding DCS trial / placement given to patient at 04/05/21 visit and again at the 10/01/21 visit. Patient underwent lumbar spine surgery by Dr. Choudhary on 06/22/21. Post-operative follow up completed per patient report. Patient has stated that Dr. Choudhary has approved resumption of minimally invasive interventional spine treatment post the surgery that he performed. Have recommended patient follow up with Dr. Choudhary regarding the pain above the surgical site as well as in relation to possible DCS therapy 05/20/2022 Spondylosis without myelopathy or radiculopathy, lumbar region (ICD-10 - M47.816) Plan bilateral lumbar RFA of L4 medial branch and L5 dorsal ramus 05/16/2022 Other specified anxiety disorders (ICD-10 - F41.8) Plan monitored anesthesia care 05/15/2022 Spondylosis without myelopathy or radiculopathy, lumbar region (ICD-10 - M47.816) Plan lumbar diagnostic blocks: bilateral L4 medial branch, bilateral L5 dorsal ramus 05/15/2022 Other specified anxiety disorders (ICD-10 - F41.8) Plan moderate IV sedation with midazolam and/or fentanyl 04/22/2022 Sacroiliitis, not elsewhere classified (ICD-10 - M46.1) 04/22/2022 Spondylosis without myelopathy or radiculopathy, lumbar region (ICD-10 - M47.816) Plan bilateral sacral denervation with radiofrequency lesioning of the lateral branches of S1, S2, and S3, plus the bilateral L5 dorsal rami 04/15/2022 Sacroiliitis, not elsewhere classified (ICD-10 - M46.1) Bilateral SI joint injections with diagnostic efficacy appreciated, however no steroid benefit reported by patient. Plan bilateral lateral branch RFAs of S1, S2, and S3. Prior bilateral low lumbar RFAs completed > 6 months ago with efficacy appreciated that has now waned. Will need to also address the bilateral L5 dorsal rami contributions to the sacral denervation procedure. Risks, benefits, and alternatives reviewed with patient. Questions answered to the patient's reported satisfaction. Preparation for procedure reviewed with patient; printed instructions declined 04/15/2022 Other specified anxiety disorders (ICD-10 - F41.8) Plan monitored anesthesia care 03/13/2022 Sacroiliitis, not elsewhere classified (ICD-10 - M46.1) Plan bilateral SI joint local anesthetic / steroid injection 03/13/2022 Other specified anxiety disorders (ICD-10 - F41.8) Plan moderate IV sedation with midazolam and/or fentanyl 03/12/2022 Sacroiliitis, not elsewhere classified (ICD-10 - M46.1) Plan bilateral SI joint steroid / local anesthetic injection. Consider sacral denervation procedure via RFA if diagnostic block without lasting steroid efficacy noted. Risks, benefits, and alternatives reviewed with patient. Questions answered to the patient's reported satisfaction. 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 Lumbar RFA procedures with history of efficacy appreciated by patient. The most recent, right low to mid lumbar, resulted in good benefit. Patient had experienced left low lumbar axial pain improvement postoperatively 04/15/2022 Spondylosis without myelopathy or radiculopathy, lumbar region (ICD-10 - M47.816) six lumbar-appearing vertebrae have been appreciated via fluoroscopy (for TRANSCRIPT CLERK and [employer] nomenclature purposes for block and RFA procedures, the inferior most is designated as L5). Lumbar RFA procedures with history of efficacy appreciated by patient. The most recent, right low to mid lumbar, resulted in good benefit. Patient had experienced left low lumbar axial pain improvement postoperatively and patient has intimated that this benefit is waning 04/22/2022 Other specified anxiety disorders (ICD-10 - F41.8) Plan monitored anesthesia care 05/20/2022 Other specified anxiety disorders (ICD-10 - F41.8) Plan monitored anesthesia care 05/16/2022 Spondylosis without myelopathy or radiculopathy, lumbar region (ICD-10 - M47.816) six lumbar-appearing vertebrae have been appreciated via fluoroscopy (for TRANSCRIPT CLERK and [employer] nomenclature purposes for block and RFA procedures, the inferior most is designated as L5). Bilateral L4 medial branch, bilateral L5 dorsal ramus diagnostic blocks completed with a 100% reduction in pain noted. Plan RFA since diagnostic blocks appreciated. Risks, benefits, and alternatives reviewed with patient at prior office visit. Questions answered to the patient's reported satisfaction. Preparation for procedure reviewed with patient by phone 06/25/2022 Sacroiliitis, not elsewhere classified (ICD-10 - M46.1) Bilateral SI joint injections with history of diagnostic efficacy appreciated, however, no steroid benefit was reported by patient. Subsequent bilateral sacral RFA procedure with efficacy appreciated for sacral axial pain, however, no benefit for low lumbar pain noted 06/25/2022 Spondylosis without myelopathy or radiculopathy, lumbar region (ICD-10 - M47.816) six lumbar-appearing vertebrae have been appreciated via fluoroscopy (for TRANSCRIPT CLERK and [employer] nomenclature purposes for block and RFA procedures, the inferior most is designated as L5). Lumbar RFA procedures with history of efficacy appreciated by patient. 09/04/2022 Postlaminectomy syndrome, not elsewhere classified (ICD-10 - M96.1) 08/15/2022 Sacroiliitis, not elsewhere classified (ICD-10 - M46.1) Bilateral SI joint injections with history of diagnostic efficacy appreciated, however, no steroid benefit was reported by patient. Subsequent bilateral sacral RFA procedure with efficacy appreciated for sacral axial pain, however, no benefit for low lumbar pain or lower extremity pain noted 09/16/2022 Postlaminectomy syndrome, not elsewhere classified (ICD-10 - M96.1) 09/19/2022 Vertebrogenic low back pain (ICD-10 - M54.51) Chronic axial lumbosacral spine pain. History of lower extremity pain consistent with neuropathic pain / radiculopathy. Patient has recently complained of rare episodic bilateral posterior lower exteremity pain (he mentioned two episdoes of severe posterior lower extremity pain in the recent past). He has complained of lower extremity weakness. Prior surgery may have improved the radicular pain. Prior conservative treatment by patient as noted, below. Prior surgical treatment as noted. Prion minimally invasive interventional spine treatment via this provider as noted, below. Oral opioid medication use with history of benefit. Plan to continue medication management 02/13/2023 Other chronic pain (ICD-10 - G89.29) Patient reports that taking his pain medication allows him to care for family members. Plan to continue oral opioid medication management 11/21/2022 Vertebrogenic low back pain (ICD-10 - M54.51) Chronic axial lumbosacral spine pain. History of lower extremity pain consistent with neuropathic pain / radiculopathy. Patient has recently complained of rare episodic bilateral posterior lower exteremity pain (he mentioned two episdoes of severe posterior lower extremity pain in the recent past). He has complained of lower extremity weakness. Prior surgery may have improved the radicular pain. Prior conservative treatment by patient as noted, below. Prior surgical treatment as noted. Prion minimally invasive interventional spine treatment via this provider as noted, below. Oral opioid medication use with history of benefit. Plan to continue medication management 05/06/2022 Sacroiliitis, not elsewhere classified (ICD-10 - M46.1) Bilateral SI joint injections with history of diagnostic efficacy appreciated, however, no steroid benefit was reported by patient. Subsequent bilateral sacral RFA procedure with efficacy appreciated for sacral axial pain, however, no benefit for low lumbar pain noted 05/06/2022 Spinal stenosis, lumbar region with neurogenic claudication (ICD-10 - M48.062) Written and AV information regarding DCS trial / placement given to patient at 04/05/21 visit and again at the 10/01/21 visit. Patient underwent lumbar spine surgery by Dr. Choudhary on 06/22/21. Post-operative follow up completed per patient report. Patient has stated that Dr. Choudhary has approved resumption of minimally invasive interventional spine treatment post the surgery that he performed. Have recommended patient follow up with Dr. Choudhary regarding the pain above the surgical site as well as in relation to possible DCS therapy 11/21/2022 Spondylosis without myelopathy or radiculopathy, lumbar region (ICD-10 - M47.816) six lumbar-appearing vertebrae have been appreciated via fluoroscopy (for TRANSCRIPT CLERK and [employer] nomenclature purposes for block and RFA procedures, the inferior most is designated as L5). Lumbar RFA procedures with history of repeated efficacy appreciated by patient. The benefit from the most recent procedure had waned 02/13/2023 Spinal stenosis, lumbar region with neurogenic claudication (ICD-10 - M48.062) Patient reports some benefit with use of DCS system. Most recent programming ~ 5 weeks ago; two programming sessions since implanted. 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 Lumbar RFA procedures with history of repeated efficacy appreciated by patient. The benefit from the most recent procedure had waned 09/16/2022 Vertebrogenic low back pain (ICD-10 - M54.51) Chronic axial lumbosacral spine pain. History of lower extremity pain consistent with neuropathic pain / radiculopathy. Patient has recently complained of rare episodic bilateral posterior lower exteremity pain (he mentioned two episdoes of severe posterior lower extremity pain in the recent past). He has complained of lower extremity weakness. Prior surgery may have improved the radicular pain. Prior conservative treatment by patient as noted, below. Prior surgical treatment as noted, below. Prion minimally invasive interventional spine treatment via this provider as noted, below. Oral opioid medication use with history of benefit. Plan to continue medication management 09/04/2022 Vertebrogenic low back pain (ICD-10 - M54.51) Chronic axial lumbosacral spine pain. History of lower extremity pain consistent with neuropathic pain / radiculopathy. Patient has recently complained of rare episodic bilateral posterior lower exteremity pain (he mentioned two episdoes of severe posterior lower extremity pain in the recent past). He has complained of lower extremity weakness. Prior surgery may have improved the radicular pain. Prior conservative treatment by patient as noted, below. Prior surgical treatment as noted, below. Prion minimally invasive interventional spine treatment via this provider as noted, below. Oral opioid medication use with history of benefit. Plan to continue medication management 06/25/2022 Vertebrogenic low back pain (ICD-10 - M54.51) 08/15/2022 Spinal stenosis, lumbar region with neurogenic claudication (ICD-10 - M48.062) Written and AV information regarding DCS trial / placement given to patient at 04/05/21 visit and again at the 10/01/21 visit. Patient underwent lumbar spine surgery by Dr. Choudhary on 06/22/21. Post-operative follow up completed per prior patient report. Patient previously stated that Dr. Choudhary has approved resumption of minimally invasive interventional spine treatment post the surgery that he performed. Have recommended patient follow up with Dr. Choudhary regarding the pain above the surgical site as well as in relation to possible DCS therapy 04/15/2022 Spinal stenosis, lumbar region with neurogenic claudication (ICD-10 - M48.062) Written and AV information regarding DCS trial / placement given to patient at 04/05/21 visit and again at the 10/01/21 visit. Patient underwent lumbar spine surgery by Dr. Choudhary on 06/22/21. Post-operative follow up completed per patient report. Patient has stated that Dr. Choudhary has approved resumption of minimally invasive interventional spine treatment post the surgery that he performed. Have recommended patient follow up with Dr. Choudhary regarding the pain above the surgical site as well as in relation to possible DCS therapy 03/12/2022 Spinal stenosis, lumbar region with neurogenic claudication (ICD-10 - M48.062) Written and AV information regarding DCS trial / placement given to patient at 04/05/21 visit and again at the 10/01/21 visit. Patient underwent lumbar spine surgery by Dr. Choudhary on 06/22/21. Post-operative follow up completed per patient report. Patient has stated that Dr. Choudhary has approved resumption of minimally invasive interventional spine treatment post the surgery that he performed. Have recommended patient follow up with Dr. Choudhary regarding the pain above the surgical site as well as in relation to possible DCS therapy 03/12/2022 Vertebrogenic low back pain (ICD-10 - M54.51) 04/15/2022 Vertebrogenic low back pain (ICD-10 - M54.51) 06/25/2022 Pain in unspecified hip (ICD-10 - M25.559) 11/02/18 x-ray report revealed normal hips. Patient has reported of bursitis diagnosis via Dr. Larkin. Hip steroid injections via Dr. Larkin with history of no efficacy as per patient report. Hip pain may be component of iliopsoas myofascial pain syndrome that may be secondary to lumbosacral spondylosis (improvement of this condition may occur post a succesful RFA procedure) 08/15/2022 Pain in unspecified hip (ICD-10 - M25.559) 11/02/18 x-ray report revealed normal hips. Patient has reported of bursitis diagnosis via Dr. Larkin. Hip steroid injections via Dr. Larkin with history of no efficacy as per patient report. Hip pain may be component of iliopsoas myofascial pain syndrome that may be secondary to lumbosacral spondylosis (improvement of this condition may occur post a succesful RFA procedure) 09/04/2022 Spondylosis without myelopathy or radiculopathy, lumbar region (ICD-10 - M47.816) six lumbar-appearing vertebrae have been appreciated via fluoroscopy (for TRANSCRIPT CLERK and [employer] nomenclature purposes for block and RFA procedures, the inferior most is designated as L5). Lumbar RFA procedures with history of efficacy appreciated by patient. The benefit from the most recent procedure is waning 09/16/2022 Spondylosis without myelopathy or radiculopathy, lumbar region (ICD-10 - M47.816) six lumbar-appearing vertebrae have been appreciated via fluoroscopy (for TRANSCRIPT CLERK and [employer] nomenclature purposes for block and RFA procedures, the inferior most is designated as L5). Lumbar RFA procedures with history of efficacy appreciated by patient. The benefit from the most recent procedure has waned 02/13/2023 Vertebrogenic low back pain (ICD-10 - M54.51) Chronic axial lumbosacral spine pain 09/19/2022 Sacroiliitis, not elsewhere classified (ICD-10 - M46.1) Bilateral SI joint injections with history of diagnostic efficacy appreciated, however, no steroid benefit was reported by patient. Subsequent bilateral sacral RFA procedure with efficacy appreciated for sacral axial pain, however, no benefit for low lumbar pain or lower extremity pain noted. The sacral benefits had since waned 05/06/2022 Vertebrogenic low back pain (ICD-10 - M54.51) 11/21/2022 Sacroiliitis, not elsewhere classified (ICD-10 - M46.1) Bilateral SI joint injections with history of diagnostic efficacy appreciated, however, no steroid benefit was reported by patient. Subsequent bilateral sacral RFA procedure with efficacy appreciated for sacral axial pain, however, no benefit for low lumbar pain or lower extremity pain noted. The sacral benefits had since waned 11/21/2022 Pain in unspecified hip (ICD-10 - M25.559) 11/02/18 x-ray report revealed normal hips. Patient has reported of bursitis diagnosis via Dr. Larkin. Hip steroid injections via Dr. Larkin with history of no efficacy as per patient report. Hip pain may be component of iliopsoas myofascial pain syndrome that may be secondary to lumbosacral spondylosis 05/06/2022 Pain in unspecified hip (ICD-10 - M25.559) 11/02/18 x-ray report revealed normal hips. Patient has reported of bursitis diagnosis via Dr. Larkin. Hip steroid injections via Dr. Larkin with history of no efficacy as per patient report. Hip pain may be component of iliopsoas myofascial pain syndrome that may be secondary to lumbosacral spondylosis (improvement of this condition may occur post a succesful RFA procedure) 02/13/2023 Sacroiliitis, not elsewhere classified (ICD-10 - M46.1) Bilateral SI joint injections with history of diagnostic efficacy appreciated, however, no steroid benefit was reported by patient. Subsequent bilateral sacral RFA procedure with efficacy appreciated for sacral axial pain, however, no benefit for low lumbar pain or lower extremity pain noted. The sacral benefits had reportedly since waned, however, no sacral tenderness noted on 02/13/23 exam 09/19/2022 Pain in unspecified hip (ICD-10 - M25.559) 11/02/18 x-ray report revealed normal hips. Patient has reported of bursitis diagnosis via Dr. Larkin. Hip steroid injections via Dr. Larkin with history of no efficacy as per patient report. Hip pain may be component of iliopsoas myofascial pain syndrome that may be secondary to lumbosacral spondylosis 09/16/2022 Sacroiliitis, not elsewhere classified (ICD-10 - M46.1) Bilateral SI joint injections with history of diagnostic efficacy appreciated, however, no steroid benefit was reported by patient. Subsequent bilateral sacral RFA procedure with efficacy appreciated for sacral axial pain, however, no benefit for low lumbar pain or lower extremity pain noted. The sacral benefits have since waned 09/04/2022 Sacroiliitis, not elsewhere classified (ICD-10 - M46.1) Bilateral SI joint injections with history of diagnostic efficacy appreciated, however, no steroid benefit was reported by patient. Subsequent bilateral sacral RFA procedure with efficacy appreciated for sacral axial pain, however, no benefit for low lumbar pain or lower extremity pain noted. The sacral benefits have started to wane (more so on the right) 08/15/2022 Intervertebral disc disorders with radiculopathy, lumbar region (ICD-10 - M51.16) Remote L5-S1 OSKAR (in 2007) with history of uncertain efficacy (patient was lost to follow up) 04/15/2022 Pain in unspecified hip (ICD-10 - M25.559) 11/02/18 x-ray report revealed normal hips. Patient has reported of bursitis diagnosis via Dr. Larkin. Hip steroid injections via Dr. Larkin with history of no efficacy as per patient report. Hip pain may be component of iliopsoas myofascial pain syndrome that may be secondary to lumbosacral spondylosis (improvement of this condition may occur post a succesful RFA procedure) 06/25/2022 Intervertebral disc disorders with radiculopathy, lumbar region (ICD-10 - M51.16) L5-S1 OSKAR in 2007 with uncertain efficacy (patient was lost to follow up) 03/12/2022 Pain in unspecified hip (ICD-10 - M25.559) 11/02/18 x-ray report revealed normal hips. Patient has reported of bursitis diagnosis via Dr. Larkin. Hip steroid injections via Dr. Larkin with history of no efficacy as per patient report. Hip pain may be component of iliopsoas myofascial pain syndrome that may be secondary to lumbosacral spondylosis (improvement of this condition may occur post a succesful RFA procedure) 03/12/2022 Intervertebral disc disorders with radiculopathy, lumbar region (ICD-10 - M51.16) L5-S1 OSKAR in 2007 with uncertain efficacy (patient was lost to follow up) 04/15/2022 Intervertebral disc disorders with radiculopathy, lumbar region (ICD-10 - M51.16) L5-S1 OSKAR in 2007 with uncertain efficacy (patient was lost to follow up) 06/25/2022 Spondylolisthesis, lumbar region (ICD-10 - M43.16) Noted at the L3-L4 level on the 06/13/20 MRI report. Mild retrolisthesis L2 on L3 and L3 on L4 as per 07/05/20 x-ray report 08/15/2022 Spondylolisthesis, lumbar region (ICD-10 - M43.16) Noted at the L3-L4 level on the 06/13/20 MRI report. Mild retrolisthesis L2 on L3 and L3 on L4 as per 07/05/20 x-ray report 09/04/2022 Pain in unspecified hip (ICD-10 - M25.559) 11/02/18 x-ray report revealed normal hips. Patient has reported of bursitis diagnosis via Dr. Larkin. Hip steroid injections via Dr. Larkin with history of no efficacy as per patient report. Hip pain may be component of iliopsoas myofascial pain syndrome that may be secondary to lumbosacral spondylosis (improvement of this condition may occur post a succesful RFA procedure) 09/16/2022 Pain in unspecified hip (ICD-10 - M25.559) 11/02/18 x-ray report revealed normal hips. Patient has reported of bursitis diagnosis via Dr. Larkin. Hip steroid injections via Dr. Larkin with history of no efficacy as per patient report. 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) Plan urine toxicology screen today to monitor compliance regarding use of prescribed hydrocodone and for the presence of any unprescribed or illicit drugs 05/06/2022 Intervertebral disc disorders with radiculopathy, lumbar region (ICD-10 - M51.16) L5-S1 OSKAR in 2007 with uncertain efficacy (patient was lost to follow up) 11/21/2022 Intervertebral disc disorders with radiculopathy, lumbar region (ICD-10 - M51.16) Remote L5-S1 OSKAR (in 2007) with history of uncertain efficacy (patient was lost to follow up) 11/21/2022 Spondylolisthesis, lumbar region (ICD-10 - M43.16) Noted at the L3-L4 level on the 06/13/20 MRI report. Mild retrolisthesis L2 on L3 and L3 on L4 as per 07/05/20 x-ray report 05/06/2022 Spondylolisthesis, lumbar region (ICD-10 - M43.16) Noted at the L3-L4 level on the 06/13/20 MRI report. Mild retrolisthesis L2 on L3 and L3 on L4 as per 07/05/20 x-ray report 09/19/2022 Spondylolisthesis, lumbar region (ICD-10 - M43.16) Noted at the L3-L4 level on the 06/13/20 MRI report. Mild retrolisthesis L2 on L3 and L3 on L4 as per 07/05/20 x-ray report 09/16/2022 Intervertebral disc disorders with radiculopathy, lumbar region (ICD-10 - M51.16) Remote L5-S1 OSKAR (in 2007) with history of uncertain efficacy (patient was lost to follow up) 08/15/2022 Hypersomnia, unspecified (ICD-10 - G47.10) Had recommended and planned a sleep [facility] ([facility] however, patient has since deferred on getting the study. Will be happy to order the study if / when it is desired by patient. Plan to restrict opioid usage in relation to sleep: patient has verbalized understanding of reasoning to hold short-acting opioids within four hours of planned sleep - he has intimated that he may utilize medication at bedtime despite the risks. Patient has been counseled on the risks of sleep apnea (if present), with or without opioid and / or other sedative usage and the patient verbalized understanding and acceptance of the increased risk (sleep apnea, respiratory depression, ) with opioid and / or sedative substance usage. Patient has been counseled that synergistic risk occurs with concomitant opioid (such as hydrocodone) and sedative (such as alprazolam and Ambien) usage (see CDC recommendations, below). Patient has been counseled to hold opioid and / or sedative substances prior to planned sleep or dangerous activities and patient verbalized understanding that noncompliance would be at patient's increased risk 09/04/2022 Intervertebral disc disorders with radiculopathy, lumbar region (ICD-10 - M51.16) Remote L5-S1 OSKAR (in 2007) with history of uncertain efficacy (patient was lost to follow up) 06/25/2022 Hypersomnia, unspecified (ICD-10 - G47.10) Had recommended and planned a sleep study (was [facility]), however, patient has since deferred on getting the study. Will be happy to order the study if / when it is desired by patient. Plan to restrict opioid usage in relation to sleep: patient has verbalized understanding of reasoning to hold short-acting opioids within four hours of planned sleep - he has intimated that he may utilize medication at bedtime despite the risks. Patient has been counseled on the risks of sleep apnea (if present), with or without opioid and / or other sedative usage and the patient verbalized understanding and acceptance of the increased risk (sleep apnea, respiratory depression, ) with opioid and / or sedative substance usage. Patient has been counseled that synergistic risk occurs with concomitant opioid (such as hydrocodone) and sedative (such as alprazolam and Ambien) usage (see CDC recommendations, below). Patient has been counseled to hold opioid and / or sedative substances prior to planned sleep or dangerous activities and patient verbalized understanding that noncompliance would be at patient's increased risk 04/15/2022 Spondylolisthesis, lumbar region (ICD-10 - M43.16) Noted at the L3-L4 level on the 06/13/20 MRI report. Mild retrolisthesis L2 on L3 and L3 on L4 as per 07/05/20 x-ray report 03/12/2022 Spondylolisthesis, lumbar region (ICD-10 - M43.16) Noted at the L3-L4 level on the 06/13/20 MRI report. Mild retrolisthesis L2 on L3 and L3 on L4 as per 07/05/20 x-ray report 03/12/2022 Hypersomnia, unspecified (ICD-10 - G47.10) Had recommended and planned a sleep study (was [facility]), however, patient has since deferred on getting the study. Will be happy to order the study if / when it is desired by patient. Plan to restrict opioid usage in relation to sleep: patient has verbalized understanding of reasoning to hold short-acting opioids within four hours of planned sleep - he has intimated that he may utilize medication at bedtime despite the risks. Patient has been counseled on the risks of sleep apnea (if present), with or without opioid and / or other sedative usage and the patient verbalized understanding and acceptance of the increased risk (sleep apnea, respiratory depression, ) with opioid and / or sedative substance usage. Patient has been counseled that synergistic risk occurs with concomitant opioid (such as hydrocodone) and sedative (such as alprazolam and Ambien) usage (see CDC recommendations, below). Patient has been counseled to hold opioid and / or sedative substances prior to planned sleep or dangerous activities and patient verbalized understanding that noncompliance would be at patient's increased risk 04/15/2022 Hypersomnia, unspecified (ICD-10 - G47.10) Had recommended and planned a [facility] however, patient has since deferred on getting the study. Will be happy to order the study if / when it is desired by patient. Plan to restrict opioid usage in relation to sleep: patient has verbalized understanding of reasoning to hold short-acting opioids within four hours of planned sleep - he has intimated that he may utilize medication at bedtime despite the risks. Patient has been counseled on the risks of sleep apnea (if present), with or without opioid and / or other sedative usage and the patient verbalized understanding and acceptance of the increased risk (sleep apnea, respiratory depression, ) with opioid and / or sedative substance usage. Patient has been counseled that synergistic risk occurs with concomitant opioid (such as hydrocodone) and sedative (such as alprazolam and Ambien) usage (see CDC recommendations, below). Patient has been counseled to hold opioid and / or sedative substances prior to planned sleep or dangerous activities and patient verbalized understanding that noncompliance would be at patient's increased risk 08/15/2022 [facility] (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 of 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 (ICD-10 - Z79.891) Patient has a total daily MED of 50. This places the patient in the [facility] moderate risk category for total daily opioid usage (not to be confused with the separate potential significant risk in regards to possible sleep apnea, above). Have recommended patient taper daily doses to the lowest number of daily doses that provide effective analgesia. Patient has received the Opioid Analgesic [facility] Patient Counseling Guide. Patient has had opportunity to read the Guide and ask questions pertaining to the Guide. Patient has received information regarding CDC recommendations related to concomitant opioid and sedative usage. Recommended patient taper off of alprazolam and discontinue Ambien. Patient has been advised on 07/11/20 that due to the Federal Government concerns and actions, any suspected patient misuse, abuse, or diversion of controlled substances (i.e. opioids/narcotics/pa in killers) WILL result in dissolution of treatment from this clinic. Patients adhering to the concepts contained within the patient's Treatment Agreement will be protected from such termination of care. Patient was given a copy of the Treatment Agreement, signed by patient on 07/04/20. Patient signed an opioid consent form on 07/11/20. Patient has refused offer of a Narcan nasal spray prescription. 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 This places the patient in the [facility] moderate risk category for total daily opioid usage (not to be confused with the separate potential significant risk in regards to possible sleep apnea, above). Have recommended patient taper daily doses to the lowest number of daily doses that provide effective analgesia. Patient has received the Opioid Analgesic [facility] Patient Counseling Guide. Patient has had opportunity to read the Guide and ask questions pertaining to the Guide. Patient has received information regarding CDC recommendations related to concomitant opioid and sedative usage. Recommended patient taper off of alprazolam and discontinue Ambien. Patient has been advised on 07/11/20 that due to the Federal Government concerns and actions, any suspected patient misuse, abuse, or diversion of controlled substances (i.e. opioids/narcotics/pa in killers) WILL result in dissolution of treatment from this clinic. Patients adhering to the concepts contained within the patient's Treatment Agreement will be protected from such termination of care. Patient was given a copy of the Treatment Agreement, signed by patient on 07/04/20. Patient signed an opioid consent form on 07/11/20. Patient has refused offer of a Narcan nasal spray prescription. Opioid Risk Tool score is 4 - moderate risk. Urine Tox screen today; random screens per protocol 09/16/2022 Spondylolisthesis, lumbar region (ICD-10 - M43.16) Noted at the L3-L4 level on the 06/13/20 MRI report. Mild retrolisthesis L2 on L3 and L3 on L4 as per 07/05/20 x-ray report 09/04/2022 Spondylolisthesis, lumbar region (ICD-10 - M43.16) Noted at the L3-L4 level on the 06/13/20 MRI report. Mild retrolisthesis L2 on L3 and L3 on L4 as per 07/05/20 x-ray report 09/19/2022 Hypersomnia, unspecified (ICD-10 - G47.10) Had recommended and planned a sleep study ([facility] however, patient had since deferred on getting the study. Will be happy to order the study if / when it is desired by patient. Plan to restrict opioid usage in relation to sleep: patient has verbalized understanding of reasoning to hold short-acting opioids within four hours of planned sleep - he has intimated that he may utilize medication at bedtime despite the risks. Patient has been counseled on the risks of sleep apnea (if present), with or without opioid and / or other sedative usage and the patient verbalized understanding and acceptance of the increased risk (sleep apnea, respiratory depression, ) with opioid and / or sedative substance usage. Patient has been counseled that synergistic risk occurs with concomitant opioid (such as hydrocodone) and sedative (such as alprazolam and Ambien) usage (see CDC recommendations, below). Patient has been counseled to hold opioid and / or sedative substances prior to planned sleep or dangerous activities and patient verbalized understanding that noncompliance would be at patient's increased risk 05/06/2022 Hypersomnia, unspecified (ICD-10 - G47.10) Had recommended and planned a sleep study ([facility]), however, patient has since deferred on getting the study. Will be happy to order the study if / when it is desired by patient. Plan to restrict opioid usage in relation to sleep: patient has verbalized understanding of reasoning to hold short-acting opioids within four hours of planned sleep - he has intimated that he may utilize medication at bedtime despite the risks. Patient has been counseled on the risks of sleep apnea (if present), with or without opioid and / or other sedative usage and the patient verbalized understanding and acceptance of the increased risk (sleep apnea, respiratory depression, ) with opioid and / or sedative substance usage. Patient has been counseled that synergistic risk occurs with concomitant opioid (such as hydrocodone) and sedative (such as alprazolam and Ambien) usage (see CDC recommendations, below). Patient has been counseled to hold opioid and / or sedative substances prior to planned sleep or dangerous activities and patient verbalized understanding that noncompliance would be at patient's increased risk 11/21/2022 Hypersomnia, unspecified (ICD-10 - G47.10) Had recommended and planned a sleep study (was approved by the [place]), however, patient had since deferred on getting the study. Will be happy to order the study if / when it is desired by patient. Plan to restrict opioid usage in relation to sleep: patient has verbalized understanding of reasoning to hold short-acting opioids within four hours of planned sleep - he has intimated that he may utilize medication at bedtime despite the risks. Patient has been counseled on the risks of sleep apnea (if present), with or without opioid and / or other sedative usage and the patient verbalized understanding and acceptance of the increased risk (sleep apnea, respiratory depression, ) with opioid and / or sedative substance usage. Patient has been counseled that synergistic risk occurs with concomitant opioid (such as hydrocodone) and sedative (such as alprazolam and Ambien) usage (see CDC recommendations, below). 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 This places the patient in the [facility] moderate risk category for total daily opioid usage (not to be confused with the separate potential significant risk in regards to possible sleep apnea, above). Have recommended patient taper daily doses to the lowest number of daily doses that provide effective analgesia. Patient has received the Opioid Analgesic [facility] Patient Counseling Guide. Patient has had opportunity to read the Guide and ask questions pertaining to the Guide. Patient has received information regarding CDC recommendations related to concomitant opioid and sedative usage. Recommended patient taper off of alprazolam and discontinue Ambien. Patient has been advised on 07/11/20 that due to the Federal Government concerns and actions, any suspected patient misuse, abuse, or diversion of controlled substances (i.e. opioids/narcotics/pa in killers) WILL result in dissolution of treatment from this clinic. Patients adhering to the concepts contained within the patient's Treatment Agreement will be protected from such termination of care. Patient was given a copy of the Treatment Agreement, signed by patient on 07/04/20. Patient signed an opioid consent form on 07/11/20. Patient has refused offer of a Narcan nasal spray prescription. Opioid Risk Tool score is 4 - moderate risk 05/06/2022 [facility] (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 of 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 (ICD-10 - Z79.891) Patient has a total daily MED of 40. This places the patient in the [facility] moderate risk category for total daily opioid usage (not to be confused with the separate potential significant risk in regards to possible sleep apnea, above). Have recommended patient taper daily doses to the lowest number of daily doses that provide effective analgesia. Patient has received the Opioid Analgesic [facility] Patient Counseling Guide. Patient has had opportunity to read the Guide and ask questions pertaining to the Guide. Patient has received information regarding CDC recommendations related to concomitant opioid and sedative usage. Recommended patient taper off of alprazolam and discontinue Ambien. Patient has been advised on 07/11/20 that due to the Federal Government concerns and actions, any suspected patient misuse, abuse, or diversion of controlled substances (i.e. opioids/narcotics/pa in killers) WILL result in dissolution of treatment from this clinic. Patients adhering to the concepts contained within the patient's Treatment Agreement will be protected from such termination of care. Patient was given a copy of the Treatment Agreement, signed by patient on 07/04/20. Patient signed an opioid consent form on 07/11/20. Patient has refused offer of a Narcan nasal spray prescription. Opioid Risk Tool score is 4 - moderate risk 09/19/2022 [facility] (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 of 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 (ICD-10 - Z79.891) Patient has a total daily MED of 60. This places the patient in the [facility] moderate risk category for total daily opioid usage (not to be confused with the separate potential significant risk in regards to possible sleep apnea, above). Have recommended patient taper daily doses to the lowest number of daily doses that provide effective analgesia. Patient has received the Opioid Analgesic [facility]S Patient Counseling Guide. Patient has had opportunity to read the Guide and ask questions pertaining to the Guide. Patient has received information regarding CDC recommendations related to concomitant opioid and sedative usage. Recommended patient taper off of alprazolam and discontinue Ambien. Patient has been advised on 07/11/20 that due to the [facility] concerns and actions, any suspected patient misuse, abuse, or diversion of controlled substances (i.e. opioids/narcotics/pa in killers) WILL result in dissolution of treatment from this clinic. Patients adhering to the concepts contained within the patient's Treatment Agreement will be protected from such termination of care. Patient was given a copy of the Treatment Agreement, signed by patient on 07/04/20. Patient signed an opioid consent form on 07/11/20. Patient has refused offer of a Narcan nasal spray prescription. Opioid Risk Tool score is 4 - moderate risk 09/04/2022 Hypersomnia, unspecified (ICD-10 - G47.10) Had recommended and planned a [facility] however, patient has since deferred on getting the study. Will be happy to order the study if / when it is desired by patient. Plan to restrict opioid usage in relation to sleep: patient has verbalized understanding of reasoning to hold short-acting opioids within four hours of planned sleep - he has intimated that he may utilize medication at bedtime despite the risks. Patient has been counseled on the risks of sleep apnea (if present), with or without opioid and / or other sedative usage and the patient verbalized understanding and acceptance of the increased risk (sleep apnea, respiratory depression, ) with opioid and / or sedative substance usage. Patient has been counseled that synergistic risk occurs with concomitant opioid (such as hydrocodone) and sedative (such as alprazolam and Ambien) usage (see CDC recommendations, below). Patient has been counseled to hold opioid and / or sedative substances prior to planned sleep or dangerous activities and patient verbalized understanding that noncompliance would be at patient's increased risk 04/15/2022 [facility] (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 of 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 (ICD-10 - Z79.891) Patient has a total daily MED of 40. This places the patient in the [facility] moderate risk category for total daily opioid usage (not to be confused with the separate potential significant risk in regards to possible sleep apnea, above). Have recommended patient taper daily doses to the lowest number of daily doses that provide effective analgesia. Patient has received the Opioid Analgesic REMS Patient Counseling Guide. Patient has had opportunity to read the Guide and ask questions pertaining to the Guide. Patient has received information regarding CDC recommendations related to concomitant opioid and sedative usage. Recommended patient taper off of alprazolam and discontinue Ambien. Patient has been advised on 07/11/20 that due to the Federal Government concerns and actions, any suspected patient misuse, abuse, or diversion of controlled substances (i.e. opioids/narcotics/pa in killers) WILL result in dissolution of treatment from this clinic. Patients adhering to the concepts contained within the patient's Treatment Agreement will be protected from such termination of care. Patient was given a copy of the Treatment Agreement, signed by patient on 07/04/20. Patient signed an opioid consent form on 07/11/20. Patient has refused offer of a Narcan nasal spray prescription. Opioid Risk Tool score is 4 - moderate risk 03/12/2022 [facility] (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 of 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 (ICD-10 - Z79.891) Patient has a total daily MED of 40. This places the patient in the [facility] moderate risk category for total daily opioid usage (not to be confused with the separate potential significant risk in regards to possible sleep apnea, above). Have recommended patient taper daily doses to the lowest number of daily doses that provide effective analgesia. Patient has received the Opioid Analgesic REMS Patient Counseling Guide. Patient has had opportunity to read the Guide and ask questions pertaining to the Guide. Patient has received information regarding CDC recommendations related to concomitant opioid and sedative usage. Recommended patient taper off of alprazolam and discontinue Ambien. Patient has been advised on 07/11/20 that due to the [facility] concerns and actions, any suspected patient misuse, abuse, or diversion of controlled substances (i.e. opioids/narcotics/pa in killers) WILL result in dissolution of treatment from this clinic. Patients adhering to the concepts contained within the patient's Treatment Agreement will be protected from such termination of care. Patient was given a copy of the Treatment Agreement, signed by patient on 07/04/20. Patient signed an opioid consent form on 07/11/20. Patient has refused offer of a Narcan nasal spray prescription. Opioid Risk Tool score is 4 - moderate risk 09/04/2022 [facility] (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 of 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 (ICD-10 - Z79.891) Patient has a total daily MED of 60. This places the patient in the [facility] moderate risk category for total daily opioid usage (not to be confused with the separate potential significant risk in regards to possible sleep apnea, above). Have recommended patient taper daily doses to the lowest number of daily doses that provide effective analgesia. Patient has received the Opioid Analgesic REMS Patient Counseling Guide. Patient has had opportunity to read the Guide and ask questions pertaining to the Guide. Patient has received information regarding CDC recommendations related to concomitant opioid and sedative usage. Recommended patient taper off of alprazolam and discontinue Ambien. Patient has been advised on 07/11/20 that due to the [facility] concerns and actions, any suspected patient misuse, abuse, or diversion of controlled substances (i.e. opioids/narcotics/pa in killers) WILL result in dissolution of treatment from this clinic. Patients adhering to the concepts contained within the patient's Treatment Agreement will be protected from such termination of care. Patient was given a copy of the Treatment Agreement, signed by patient on 07/04/20. Patient signed an opioid consent form on 07/11/20. Patient has refused offer of a Narcan nasal spray prescription. Opioid Risk Tool score is 4 - moderate risk 09/16/2022 Other Start cefazolin (per weight based guidelines), IV x 1 prior to procedure 09/19/2022 Other 04/15/2022 Other 05/06/2022 Other 09/04/2022 Other 06/25/2022 Other Plan gabapentin trial to assist with BLE symptoms 11/21/2022 Other 08/15/2022 Other Continue Zonegr an trial to assist with BLE symptoms 03/12/2022 Other 02/13/2023 Other 05/16/2022 Other PLAN OF TREATMENT Next Appt Details Provider Name:Yogesh odonnell, 03/10/2023 07:50:00 AM, [address] , [place], [address], Provider Name:Yogesh odonnell, 03/11/2023 01:00:00 PM, [address] [facility] [place], [place], [id number], Provider Name:Yogesh odonnell, 03/13/2023 01:00:00 PM, [address] [place], [place], [id number], Provider Name:Yogesh odonnell, 03/24/2023 12:00:00 PM, [address] [place], [address], Provider Name:Yogesh odonnell, 05/15/2023 09:10:00 AM, [address] [place], [place], [id number], Insurance Providers Payer Name Payer Address Payer Phone Subscriber Number Group Number Insured Name Patient Relationship to Insured Coverage Start Date Coverage End Date [employer] [address] [place] [address] [id number] Cooper espositoBharat Self - patient is the insured MEDICAL (GENERAL) HISTORY Medical History History ICD Code Chronic pain Low back pain Lumbar spondylosis, disc disease and pos t-laminectomy syndrome Radicular low back pain Sciatica Sacroiliitis Pain in bilateral hips, bursitis Multiple sclerosis Anxiety GERD Presumed anemia ('low RBC count') Surgical History Surgery Date(Month/Year) Colonoscopy (tubular adenoma), performed by Dr. Dimas, 01/29/19 L3-4, L4-5 laminectomies, performed at [facility] by Dr. Choudhary, 06/22/21 Removal of ingrown toenail, performed by Dr. Reyes, 12/20/21 Dorsal column / spinal cord stimulator system placement, performed at [facility] by Dr. Tima Choudhary 11/2022 Hospitalization History Reason Date(Month/Year) Pain control after lumbar spine surgery, treated at [facility], 06/25/21 - 06/27/21 Pneumonia, treated at [facility], 04/10/22- 04/25
[2023-03-06] MEDS: methylPREDNISolone sod succ 125 mg SDV IVP (09:31)
[2023-03-06] MEDS: ocrelizumab 600 MG in sodium chloride 0.9% 500 ML 100 MG IV (09:36)
[2023-03-06 09:57] VITALS: BP 103/69; PULSE 69; RESP 18; TEMP 36.6; O2SAT 95
[2023-03-06 10:05] VITALS: BP 103/69; PULSE 69; RESP 18; TEMP 36.6; O2SAT 95
[2023-03-06 10:13] VITALS: BP 107/69; PULSE 62; RESP 18; TEMP 36.6; O2SAT 95
[2023-03-06 10:28] VITALS: BP 106/70; PULSE 62; RESP 18; TEMP 36.1; O2SAT 97
[2023-03-06 11:35] VITALS: BP 130/73; PULSE 68; RESP 18; TEMP 36.7; O2SAT 98
[2023-03-06 11:45] VITALS: BP 130/73; PULSE 68; RESP 18; TEMP 36.7; O2SAT 98
== END 2023-03-06 23:59 | disposition home or self-care (01) ==
PROVIDERS: PCP Emergency Medicine Emergency Medical Services; Visit Provider Specialist
DX: G35 Multiple sclerosis (principal)
CPT/HCPCS: 96375; 96413; 96415; 99214; J1200; J2350; J2930; J7040; J7050

== ENCOUNTER → 2023-04-15 08:19 | Outpatient (BNVA) | payer OTHER, SELFPAY | PROVIDERS: PCP Emergency Medicine Emergency Medical Services; Referring Provider Emergency Medicine Emergency Medical Services; Visit Provider Physician Assistant | DX: G56.23 Lesion of ulnar nerve, bilateral upper limbs (principal); M21.371 Foot drop, right foot; M47.819 Spondylosis without myelopathy or radiculopathy, site unspecified; M54.2 Cervicalgia | CPT/HCPCS: 72050; 99214 ==

== ENCOUNTER → 2023-06-03 07:22 | Outpatient (BNVA) | payer OTHER, SELFPAY | PROVIDERS: PCP Emergency Medicine Emergency Medical Services; Referring Provider Physician Assistant; Visit Provider Specialist | DX: G56.23 Lesion of ulnar nerve, bilateral upper limbs (principal); G35 Multiple sclerosis; G43.711 Chronic migraine without aura, intractable, with status migrainosus | CPT/HCPCS: 95885; 95912; 95913; 99213; 99214 ==

== ENCOUNTER → 2023-07-03 13:43 | Outpatient (BNVA) | payer OTHER, SELFPAY | PROVIDERS: PCP Emergency Medicine Emergency Medical Services; Visit Provider Orthopaedic Surgery | DX: M48.061 Spinal stenosis, lumbar region without neurogenic claudication (principal); M54.9 Dorsalgia, unspecified | CPT/HCPCS: 72072; 72100; 99214 ==

== ENCOUNTER → 2023-07-07 13:50 | Outpatient (BNVA) | payer OTHER, SELFPAY | PROVIDERS: PCP Emergency Medicine Emergency Medical Services; Visit Provider Podiatrist Foot & Ankle Surgery | DX: M72.2 Plantar fascial fibromatosis | CPT/HCPCS: 73630; 99213 ==

== ENCOUNTER → 2023-07-18 10:45 | Outpatient (BNVA) | payer OTHER, SELFPAY | PROVIDERS: PCP Emergency Medicine Emergency Medical Services; Visit Provider Family Medicine | DX: Z01.818 Encounter for other preprocedural examination (principal) | CPT/HCPCS: 80053; 85025 ==

== ENCOUNTER → 2023-07-24 08:25 | Outpatient (BNVA) | payer OTHER, SELFPAY | PROVIDERS: PCP Emergency Medicine Emergency Medical Services; Visit Provider Specialist | DX: G43.711 Chronic migraine without aura, intractable, with status migrainosus (principal); G56.22 Lesion of ulnar nerve, left upper limb; G35 Multiple sclerosis | CPT/HCPCS: 64615; 95911; 99212; J0585 ==

== ENCOUNTER 2023-07-25 09:14 | Day surgery (SDC) | payer OTHER, SELFPAY ==
[2023-07-25] VITALS (11 sets, daily range): BP systolic 101–124; BP diastolic 64–83; PULSE 78–112; RESP 10–18; TEMP 36.1–36.6; O2SAT 94–100
--- NOTE | 2023-07-25 | XR_ITS ---
WS: [id number] RADIOGRAPHS SPINE; 5 IMAGES HISTORY: SCS removal , OR pic COMPARISON: None available. Intraoperative imaging during spinal cord stimulator removal. On the imaging submitted no spinal cord stimulator wires are identified. IMPRESSION: Intraoperative imaging during spinal cord stimulator removal.
[2023-07-25] MEDS: sodium chloride 0.9% 1,000 ML 30 ML IV (09:37)
--- NOTE | 2023-07-25 09:40 | W.PM.OPSUD ---
Surgery/Procedure H&P Update DATE OF PROCEDURE: July 25, 2023 DATE H&P PERFORMED: 07/18/23 H&P UPDATE INFORMATION: I have reviewed H&P completed within last 30 days, I have examined patient prior to procedure and No changes to prior documentation PREOP DIAGNOSIS: Failed Spinal Cord Stimulator PLANNED PROCEDURE: Operation Date: 07/25/23 11:45 Proposed Procedures p Stimulator Removal Neuro Stimulator Removal/ and paddles(Not Applicable) - Tima Choudhary DO
[2023-07-25] MEDS: HYDROmorphone 1 mg/mL INJ 1 mL 0.5 MG IVP (10:45)
--- NOTE | 2023-07-25 10:45 | ANES.PREANE2 ---
Pre-Anesthetic Assessment Height/Weight: Height 1.78 m Weight 80.286 kg Temp Pulse Resp BP Pulse Ox O2 Del Method 97.7 F 78 18 113/75 98 Room Air 07/25/23 09:18 07/25/23 09:18 07/25/23 09:18 07/25/23 09:18 07/25/23 09:18 07/25/23 09:33 Preop Diagnosis: Failed Spinal Cord Stimulator Operation Date: 07/25/23 11:45 Proposed Procedures p Stimulator Removal Neuro Stimulator Removal/ and paddles(Not Applicable) - Tima Choudhary DO Last intake: Intake Last Liquid Date 07/24/23 Last Liquid Time 22:30 Last Solid Date 07/24/23 Last Solid Time 22:30 Last Intake: 23:00 Social quit 10 yrs ago pack(s) per day Exam alert, oriented x 3, clear to auscultation bilaterally and regular rate & rhythm Airway Submandibular: within normal limits Cervical ROM: within normal limits Mallampati: Class I Dentition: full History/ROS No significant history except as noted Pulmonary None reported CV/HEM None reported None reported Hepatic None reported GI None reported Metabolic None reported Musc/skel Lower Back Pain Neuropsych None reported Anesthetic Plan ASA status: 2 Anesthesia: Anesthesia Evaluation and General Risk of > 500 ml blood loss (7ml/kg in children): No Medications/Allergies Home Medications Medication Instructions Recorded Confirmed Last Taken Type alprazolam 0.25 mg tablet (Xanax) 0.25 mg PO BID PRN Anxiety 09/06/19 07/24/23 07/25/23 History prednisone 10 mg tablet 10 mg PO DAILY PRN joint pain 09/06/19 07/24/23 07/10/23 History zolpidem 10 mg tablet (Ambien) 10 mg PO BEDTIME 09/06/19 07/24/23 07/24/23 History hydrocodone 10 mg-acetaminophen 1 tab PO Q4H PRN Pain 06/25/21 07/24/23 07/25/23 History 325 mg tablet ibuprofen 200 mg tablet (Advil) 600 mg PO Q4H PRN Pain 06/25/21 07/24/23 11/03/22 History pantoprazole 40 mg tablet,delayed 40 mg PO QAM 12/12/21 07/24/23 07/25/23 History release cholecalciferol (vitamin D3) 125 See Rx Instructions .Route .COMPLEX 04/03/22 07/24/23 07/20/23 History mcg (5,000 unit) tablet (Vitamin D3) ketoconazole 2 % topical cream 1 applic topical BID #30 grams 08/22/22 07/25/23 07/24/23 Rx prochlorperazine maleate 5 mg 5 tab PO DIRECTED PRN Nausea 08/22/22 07/24/23 07/25/23 History tablet dalfampridine 10 mg 10 mg PO Q12H #180 tabs 09/05/22 07/24/23 07/25/23 Rx tablet,extended release,12 hr (Ampyra) ketoconazole 2 % shampoo 1 applic topical Q14D 09/05/22 07/24/23 07/17/23 History ketoconazole 2 % topical cream 1 applic topical DAILY 09/05/22 07/24/23 07/24/23 History galcanezumab-gnlm 120 mg/mL See Rx Instructions .Route 06/23/23 07/24/23 06/13/23 Rx subcutaneous pen injector .COMPLEX #3 mL (Emgality Pen) baclofen 20 mg tablet 40 mg PO TID 07/24/23 07/24/23 07/25/23 History Allergies Allergy/AdvReac Type Severity Reaction Status Date / Time No Known Drug Allergies Allergy Unknown Verified 07/25/23 09:21 Current Medications Generic Name Dose Route Start Last Admin Trade Name Freq PRN Reason Stop Dose Admin Hydromorphone HCl 0.5 mg 07/25/23 09:18 07/25/23 10:45 Hydromorphone 1 Mg/Ml Inj 1 Ml IVP 0.5 mg ONCE PRN Administration For preop pain/anxiety Sodium Chloride 1,000 mls @ 30 mls/hr 07/25/23 09:30 07/25/23 09:37 Sodium Chloride 0.9% IV 07/26/23 09:29 30 mls/hr .Q24H KEVIN Administration PFSH Anesthesia Medical History Dysphagia Encounter for postoperative care Family history of prostate cancer Father, Arron Urinary retention Occipital neuralgia of right side Ulnar neuropathy at elbow of right upper extremity Lumbar stenosis Onychodystrophy Multiple sclerosis Surgical History Status post lumbar laminectomy S/P matrixectomy of toe Family History Father Cancer Colon Brother Cancer Colon Social History Smoking and tobacco/nicotine status: never used tobacco/nicotine Alcohol intake: never Substance/Drug Use: never Marital status: Current occupational status: disabled Data Anesthesia Cardiac Studies: No Data to Display
[2023-07-25] MEDS: ceFAZolin 2,000 MG in sodium chloride 0.9% (plus) 50 ML 100 MG IV (12:02)
[2023-07-25] MEDS: lidocaine-epi 2% 20 mL INJ INJECTION (12:40)
[2023-07-25] MEDS: vancomycin 1,000 MG SDV 1000 MG XX (12:42)
--- NOTE | 2023-07-25 13:08 | PM.OP ---
Operative Report Date of procedure: July 25, 2023 Pre-op diagnosis: Malfunctioning neurostimulator Post-op diagnosis: same Procedure done: 1. Removal of battery for neurostimulator 2. Removal of neurostimulator paddle Surgeon: Tima Choudhary DO Historical Records Administrator: Oscar Adkins Historical Records Administrator: The operating room surgical technologist, Oscar Adkins, RONNIE was needed for his expertise under the microscope. He was important and necessary throughout the procedure to complete in a safe and timely manner. He assisted with patient positioning prepping and draping tissue retraction suctioning of the operative field protection of the dural sac and tissue closure Estimated blood loss (mL): 20 Procedure: 1. Removal of battery for neurostimulator 2. Removal of neurostimulator paddle Please read the operative suite after undergoing anesthesia is placed in the prone position. All his impingement well-padded. Patient is prepped draped muscle fashion. Skin incision is made over the battery. The battery was identified dissected out along the wires and removed. Next tension was brought to the neurostimulator paddle skin incision made using previous skin incision. Dissection was down midline found the wires then traced the wires down to the laminectomy defect that was used to place the paddle. Curved curettes and Kerrison rongeurs used to free up scar tissue and bone and then the neurostimulator paddle was then removed. Wounds were then irrigated and closed with Vicryl and Monocryl suture. Sterile dressings were applied patient transferred the PACU in stable condition.
[2023-07-25] MEDS: oxyCODONE 5 mg IR Tab/Cap 10 MG PO (13:34)
--- NOTE | 2023-07-25 14:03 | ANE.PACU2 ---
Inpatient post-anesthesia follow up: Airway intact: Yes Vital signs: Temperature 97.5 F Pulse Rate 99 Respiratory Rate 16 Blood Pressure 123/79 Pulse Oximetry 95 Oxygen Delivery Me thod Room Air Oxygen Flow Rate 6 Fraction of Inspir ed Oxygen Hydration adequate: Yes Nausea and vomiting: No Pain level: 2 Mental status: Baseline
== END 2023-07-25 14:01 | disposition home or self-care (01) ==
PROVIDERS: Family Provider Family Medicine; PCP Emergency Medicine Emergency Medical Services; Visit Provider Orthopaedic Surgery
PROC: (CPT 63662; principal; 2023-07-25 11:45)
DX: T85.113A Breakdown (mechanical) of implanted electronic neurostimulator, generator, initial encounter (principal); T85.112A Breakdown (mechanical) of implanted electronic neurostimulator of spinal cord electrode (lead), initial encounter; Z87.891 Personal history of nicotine dependence; G35 Multiple sclerosis; Y82.8 Other medical devices associated with adverse incidents
CPT/HCPCS: 63662; 63688; 72020; 76000; J0690; J1100; J1170; J2250; J2371; J2405; J2704; J2710; J3010; J3370; J3490; J7030

== ENCOUNTER 2023-08-02 09:24 | Inpatient (IN) | payer OTHER, SELFPAY ==
[2023-08-02 09:25] VITALS: BP 100/74; PULSE 121; RESP 16; TEMP 37; O2SAT 95
--- NOTE | 2023-08-02 09:40 | ED_ITS ---
HPI - Weakness 2 General: Chief complaint: Weakness Stated complaint: WEAKNESS Time Seen by Provider: 08/02/23 09:40 Source: patient Mode of arrival: EMS History of Present Illness: 57-year-old male presents to the emergen cy room with complaints of generalized weakness. He had a neurostimulator removed recently and he has some back pain as well he has a known history of multiple sclerosis. He has been having some diarrhea shortness of breath myalgias he took a COVID test at home it was out of date. It was positive at home. Complaint: generalized weakness Onset (ago): day(s) Duration: constant Location: generalized Relieving factors: none Exacerbating factors: none Associated symptoms: Denies chest pain, chills, confusion, melena, decreased appetite, diaphoresis, dysuria, easy bruising, fever(s), headache(s), myalgias, nausea, rash, short of breath, syncope or vomiting Review of Systems 2 Const: Denies: fever(s), chills or diaphoresis Card: Denies: chest pain or syncope Resp: Denies: dyspnea GI: Denies: abdominal pain, nausea, vomiting or melena : Denies: dysuria, urinary frequency or urinary urgency Musc: Denies: neck pain or back pain Skin/Breast: Denies: rash Neuro: Denies: headache(s) or confusion Joseph/Lymph: Denies: easy bruising PFSH ED 2 PFSH: Medical History Dysphagia Encounter for postoperative care Family history of prostate cancer Father, Arron Urinary retention Occipital neuralgia of right side Ulnar neuropathy at elbow of right upper extremity Lumbar stenosis Onychodystrophy Multiple sclerosis Surgical History Status post lumbar laminectomy S/P matrixectomy of toe Family History Father Cancer Colon Brother Cancer Colon Social History Smoking and tobacco/nicotine status: never used tobacco/nicotine Alcohol intake: never Substance/Drug Use: never Marital status: Current occupational status: disabled Physical Exam 2 Const: GENERAL APPEARANCE: cooperative and comfortable O RIENTATION/CONSCIOUSNESS: Yes awake, Yes oriented to person, Yes oriented to place and Yes oriented to time HENMT: COMMON NORMALS: normocephalic, atraumatic and hearing grossly normal bilaterally HEAD & SCALP: normocephalic and atraumatic Resp: COMMON NORMALS: normal respiratory effort, No retractions and No use of accessory muscles AUSCULTATION: crackles and wheezes Cardio: COMMON NORMALS: regular rhythm and No murmurs present (Cardio) R ATE: tachycardic RHYTHM: regular rhythm GI: COMMON NORMALS: Soft to palpation and No hepatosplenomegaly present A USCULTATION: Yes normoactive bowel sounds PALPATION: Yes Soft to palpation, No Tenderness to palpation present (GI), No Guarding due to palpation present (GI) and Yes No hepatosplenomegaly present Extremity: COMMON NORMALS: normal to inspection, capillary refill normal, no clubbing, cyanosis or edema, no calf tenderness and no pedal edema Neuro: SENSORIUM/ORIENTATION: Yes oriented to person, Yes oriented to place and Yes oriented to time Skin: COMMON NORMALS: no rashes or lesions noted GENERAL SKIN EXAM: no rashes or lesions noted Course 2 Vital Signs: Vital signs: Vital Signs Temperature 98.6 F 08/02/23 09:25 Pulse Rate 121 H 08/02/23 09:25 Respiratory Rate 18 08/02/23 11:03 Blood Pressure 100/74 08/02/23 09:25 Pulse Oximetry 95 08/02/23 09:25 Oxygen Delivery Me thod Room Air 08/02/23 09:25 MDM - Weakness Medical Decision Making CT of the back shows a seroma but no signs of infection white count markedly elevated COVID is positive. Start dexamethasone and remdesivir concerned because of his underlying MS already showing signs of exacerbation he may have a more difficult cord discussed with hospitalist will admit Medical Records I reviewed the patient's medical records. Lab Data I reviewed the patient's lab results. 08/02/23 09:47 08/02/23 09:47 Radiology Impressions Chest X-Ray 08/02/23 09:41 IMPRESSION: No acute findings. Lumbar Spine CT 08/02/23 10:04 IMPRESSION: 1. No sign of discitis or osteomyelitis. 2. Mixed density subcutaneous fluid collection in the lower left flank. Probable seroma or resolving hematoma related to explantation of neurostimulator. Abscess cannot be excluded. 3. Partially imaged fluid collection surrounding the T11 spinous process. Possible seroma or abscess. 4. Bilateral nonobstructive nephrolithiasis. Chest CTA 08/02/23 11:51 IMPRESSION: No evidence of pulmonary embolism. Multifocal ground-glass opacities likely infectious/inflammatory. Small hiatal hernia with severe gastroesophageal reflux. Laboratory Results WBC 19.36 10^3/uL (3.29-11.43) H 08/02/23 09:47 RBC 4.60 10^6/uL (3.85-5.65) 08/02/23 09:47 Hgb 13.40 g/dL (11.27-16.99) 08/02/23 09:47 Hct 41.7 % (37-53) 08/02/23 09:47 MCV 90.7 fl (82-101) 08/02/23 09:47 MCH 29.1 pg (27-33) 08/02/23 09:47 MCHC 32.1 g/dL (30-55) 08/02/23 09:47 RDW 13.6 % (12.1-15.1) 08/02/23 09:47 Plt Count 329 10^3/cmm (157-399) 08/02/23 09:47 MPV 9.4 fL (7.4-10.4) 08/02/23 09:47 Neut % (Auto) 91.4 % 08/02/23 09:47 Lymph % (Auto) 2.2 % 08/02/23 09:47 Simpson % (Auto) 5.2 % 08/02/23 09:47 Eos % (Auto) 0.1 % 08/02/23 09:47 Baso % (Auto) 0.4 % 08/02/23 09:47 Neut # (Auto) 17.70 10^3/uL (1.8-7.7) H 08/02/23 09:47 Lymph # (Auto) 0.4 10^3/uL (0.8-4.8) L 08/02/23 09:47 Simpson # (Auto) 1.0 10^3/uL (0.2-0.9) H 08/02/23 09:47 Eos # (Auto) 0.0 10^3/uL (0.0-0.8) 08/02/23 09:47 Baso # (Auto) 0.1 10^3/uL (0.0-0.1) 08/02/23 09:47 Nucleated RBC % (auto) 0 % 08/02/23 09:47 Nucleated RBCs # 0.0 /100WBC 08/02/23 09:47 D-Dimer 0.83 ug/mLFEU (0-0.59) H 08/02/23 09:47 Sodium 137 mmol/L (136-145) 08/02/23 09:47 Potassium 3.9 mmol/L (3.5-5.1) 08/02/23 09:47 Chloride 101 mmol/L (98-107) 08/02/23 09:47 Carbon Dioxide 25 mmol/L (22-29) 08/02/23 09:47 Anion Gap 14.9 (5-19) 08/02/23 09:47 BUN 12 mg/dL (6-20) 08/02/23 09:47 Creatinine 0.9 mg/dL (0.7-1.2) 08/02/23 09:47 GFR Calculation 87.3 mL/min (90-130) L 08/02/23 09:47 Glucose 119 mg/dL (65-115) H 08/02/23 09:47 Calculated Osmolality 285 mOsm/kg (285-295) 08/02/23 09:47 Lactic Acid 1.6 mmol/L (0.5-2.2) 08/02/23 09:47 Calcium 8.8 mg/dL (8.5-10.5) 08/02/23 09:47 Total Bilirubin 0.3 mg/dL (0.15-1.2) 08/02/23 09:47 AST 45 U/L (0-40) H 08/02/23 09:47 ALT 20 U/L (0-41) 08/02/23 09:47 Alkaline Phosphatase 85 U/L (40-130) 08/02/23 09:47 Troponin T Baseline 7 ng/L (0-15) 08/02/23 09:47 C-Reactive Protein 25.7 mg/L (0.0-4.9) H 08/02/23 09:47 Total Protein 6.7 g/dL (6.6-8.7) 08/02/23 09:47 Albumin 3.7 g/dL (3.5-5.2) 08/02/23 09:47 Globulin 3.0 g/dL (1.3-4.6) 08/02/23 09:47 Procalcitonin 2.77 ng/mL (0-0.5) H 08/02/23 09:47 Urine Color Yellow (Yellow) 08/02/23 10:12 Urine Appearance Clear (CLEAR) 08/02/23 10:12 Urine pH 5 (5-7) 08/02/23 10:12 Ur Specific [place] 1.015 (1.005-1.030) 08/02/23 10:12 Urine Protein Neg (Negative) 08/02/23 10:12 Urine Glucose (UA) Norm (Normal) 08/02/23 10:12 Urine Ketones Negative (Negative) 08/02/23 10:12 Urine Blood 2+ (Negative) H 08/02/23 10:12 Urine Nitrate Negative (Negative) 08/02/23 10:12 Urine Bilirubin Neg (Negative) 08/02/23 10:12 Urine Urobilinogen Norm mg/dL (Negative) 08/02/23 10:12 Ur Leukocyte Esterase Negative (Negative) 08/02/23 10:12 Urine RBC 5-10 /hpf (0-2) H 08/02/23 10:12 Urine WBC Rare /hpf (0-5) 08/02/23 10:12 Ur Squamous Epith Cells None /hpf (0-5) 08/02/23 10:12 Amorphous Sediment Not Reportable 08/02/23 10:12 Urine Bacteria 1+ /hpf (NONE) H 08/02/23 10:12 Urine Mucus 1+ /hpf 08/02/23 10:12 Coronavirus 229E (PCR) Not detected (NOT DETECT) 08/02/23 09:26 Influenza Type A Ag negative (Negative) 08/02/23 09:26 Influenza Type B Ag negative (Negative) 08/02/23 09:26 SARS-CoV-2 (PCR) Detected (NOT DETECT) A 08/02/23 09:26 All radiology interpretation(s) finalized by discharge Discharge Plan Discharge Patient Disposition: Admitted As Inpatient Admit Provider: Gucci Pisano Clinical Impression: COVID-19, Multiple sclerosis exacerbation Condition: Stable Coding Level of Care Code ED 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
--- NOTE | 2023-08-02 09:41 | ECG_ITS ---
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 Measurements Intervals [place] Rate: 120 P: 43 NM: 161 QRS: -10 QRSD: 90 T: -12 QT: 338 QTc: 479 Interpretive Statements SINUS TACHYCARDIA MINIMAL ST DEPRESSION [0.025+ mV ST DEPRESSION] Compared to ECG 04/03/2022 10:32:02 ST (T wave) deviation now present Sinus rhythm no longer present Electronically Signed On 08-02-2023 13:31:28 CHILD SPECIALIST by Hal Winston M.D. [id number]
--- NOTE | 2023-08-02 09:41 | XRR_ITS ---
PROCEDURE INFORMATION: Exam: XR Chest Exam date and time: 08/02/2023 10:09 AM Age: 57 years old Clinical indication: Dyspnea; Additional info: Dyspnea/cough TECHNIQUE: Imaging protocol: Radiologic exam of the chest. Views: 1 view. COMPARISON: CT angio chest PE protcl [id number] 04/03/2022 10:52 AM FINDINGS: Lungs: There is no consolidation. There is a calcified granuloma in the right lower lobe. Pleural spaces: There is no pleural effusion or pneumothorax. Heart/Mediastinum: Cardiomediastinal contours are unremarkable. Bones/joints: Healed right mid clavicle fracture. XR/XR chest 1V portable [id number] IMPRESSION: No acute findings.
[2023-08-02 09:55] LABS: Basophils # 0.1 10^3/uL (0.0-0.1); Basophils % 0.4 %; Eosinophils % 0.1 %; Hematocrit 41.7 % (37-53); Lymphocytes # 0.4 10^3/uL (0.8-4.8); Lymphocytes % 2.2 %; Mean Corpuscular HGB Conc 32.1 g/dL (30-55); Mean Corpuscular Hemoglobin 29.1 pg (27-33); Mean Corpuscular Volume 90.7 fl (82-101); Mean Platelet Volume 9.4 fL (7.4-10.4); Monocytes % 5.2 %; Neutrophils % 91.4 %; Nucleated Red Blood Cells % 0 %; Platelet Count 329 10^3/cmm (157-399); Red Cell Distribution Width 13.6 % (12.1-15.1); White Blood Count 19.36 10^3/uL (3.29-11.43)
--- NOTE | 2023-08-02 10:04 | CTR_ITS ---
PROCEDURE INFORMATION: Exam: CT Lumbar Spine With Contrast Exam date and time: 08/02/2023 10:38 AM Age: 57 years old Clinical indication: Low back pain; Prior surgery; Surgery date: Post-operative (0-2 days); Surgery type: Surgery 07/25 for simulator removal, ; additional info: Recent surgery - possible infection TECHNIQUE: Imaging protocol: Computed tomography of the lumbar spine with contrast. Radiation optimization: All CT scans at this facility use at least one of these dose optimization techniques: automated exposure control; mA and/or kV adjustment per patient size (includes targeted exams where dose is matched to clinical indication); or iterative reconstruction. Contrast material: OMNI 350; Contrast volume: 100 ml; Contrast route: INTRAVENOUS (IV); REPORTING DATA: Count of CT and Cardiac NM exams in prior 12 months: This patient has received 0 known CTs and 0 known cardiac nuclear medicine studies in the 12 months prior to the current study. COMPARISON: MR lumbar spine wo/w con [id number] 10/14/2022 9:01 AM RADIATION DOSE METRICS: Total DLP (mGy-cm): 765.93 FINDINGS: Bones/joints: Spinal alignment is normal. Vertebral body height is maintained. [id number] multilevel disc degeneration, greatest at L3-L4. Mild lower lumbar facet spondylosis. No acute fracture. No spinal canal stenosis. No bone erosion or destruction. The visible portion of the pelvis and sacrum is intact. Visible portions of the ribs are intact. Spinal cord: No pathologic enhancement of the distal spinal cord or nerve roots. Kidneys and ureters: Nonobstructive stones are seen in both kidneys. No hydronephrosis or dilation of the visible portions of the ureters. Vasculature: There is mild aortic atherosclerotic disease. Soft tissues: There is a partially imaged intermediate density fluid collection measuring approximately 2.4 x 1.5 cm surrounding the T11 spinous process. There is a 4.5 x 1.6 cm heterogeneous density thick-walled subcutaneous fluid collection in the lower left posterior paraspinous region. No edema in the anterior paraspinous soft tissues. CT/CT lumbar spine w con [id number] IMPRESSION: 1. No sign of discitis or osteomyelitis. 2. Mixed density subcutaneous fluid collection in the lower left flank. Probable seroma or resolving hematoma related to explantation of neurostimulator. Abscess cannot be excluded. 3. Partially imaged fluid collection surrounding the T11 spinous process. Possible seroma or abscess. 4. Bilateral nonobstructive nephrolithiasis.
[2023-08-02 10:19] LABS: Alanine Aminotransferase 20 U/L (0-41); Albumin Level 3.7 g/dL (3.5-5.2); Alkaline Phosphatase 85 U/L (40-130); Blood Urea Nitrogen 12 mg/dL (6-20); Calcium 8.8 mg/dL (8.5-10.5); Carbon Dioxide 25 mmol/L (22-29); Chloride 101 mmol/L (98-107); Glomerular Filtration Rate 87.3 mL/min (90-130); Glucose 119 mg/dL (65-115); Osmolality Calculated 285 mOsm/kg (285-295); Sodium 137 mmol/L (136-145); Total Bilirubin 0.3 mg/dL (0.15-1.2); Total Protein 6.7 g/dL (6.6-8.7)
[2023-08-02 10:32] LABS: Anion Gap 14.9 (5-19); Aspartate Amino Transferase 45 U/L (0-40); Potassium 3.9 mmol/L (3.5-5.1)
[2023-08-02 10:35] LABS: Add Urine Microscopic? YES; Bacteria Urine 1+ /hpf; Bilirubin Urine Neg (Negative); Blood Urine 2+ (Negative); Glucose Urine UA Norm (Normal); Ketones Urine Negative (Negative); Leukocyte Esterase Urine Negative (Negative); Mucus Urine 1+ /hpf; Nitrate Urine Negative (Negative); Protein Urine Neg (Negative); Specific Gravity, Urine 1.015 (1.005-1.030); Urine Appearance Clear (CLEAR); Urine Color Yellow (Yellow); Urobilinogen Urine Norm (Negative); WBC Urine RARE /hpf (0-5); pH Urine 5 (5-7)
[2023-08-02 10:36] LABS: Add Urine Culture? No
[2023-08-02] MEDS: iohexol 350 mg/mL 500 mL Btl (per mL) IV ×2 (10:47→13:11)
[2023-08-02 11:03] VITALS: RESP 18
[2023-08-02] MEDS: morphine 4 mg/mL SDV 1 mL IVP (11:03)
--- NOTE | 2023-08-02 11:51 | CTR_ITS ---
PROCEDURE INFORMATION: Exam: CTA Chest With Contrast Exam date and time: 08/02/2023 12:51 PM Age: 57 years old Clinical indication: Dyspnea; Prior surgery; Surgery date: Post-operative (0-2 days); Surgery type: Back; Additional info: Dyspnea tachycardia TECHNIQUE: Imaging protocol: Computed tomographic angiography of the chest with contrast. Exam focused on the arteries. 3D rendering (Not supervised by radiologist): MIP and/or 3D reconstructed images were created by the technologist. Radiation optimization: All CT scans at this facility use at least one of these dose optimization techniques: automated exposure control; mA and/or kV adjustment per patient size (includes targeted exams where dose is matched to clinical indication); or iterative reconstruction. Contrast material: OMNI 350; Contrast volume: 64 ml; Contrast route: INTRAVENOUS (IV); REPORTING DATA: Count of CT and Cardiac NM exams in prior 12 months: This patient has received 0 known CTs and 0 known cardiac nuclear medicine studies in the 12 months prior to the current study. COMPARISON: CT angio chest PE protcl [id number] 04/03/2022 10:52 AM RADIATION DOSE METRICS: Total DLP (mGy-cm): 388.92 FINDINGS: Pulmonary arteries: Suboptimal contrast bolus/timing. No central or proximal segmental pulmonary emboli. Aorta: No aortic aneurysm or dissection. Lungs: Multifocal ground-glass opacities worse in the right upper lobe. Pleural spaces: No pneumothorax. No pleural effusion. Heart: No pericardial effusion. Lymph nodes: No enlarged lymph nodes. Bones/joints: No acute findings. Soft tissues: Small hiatal hernia and severe gastroesophageal reflux. CT/CT angio chest PE protcl [id number] IMPRESSION: No evidence of pulmonary embolism. Multifocal ground-glass opacities likely infectious/inflammatory. Small hiatal hernia with severe gastroesophageal reflux.
[2023-08-02 12:12] LABS: Influenza A by IFA negative (Negative); Influenza B by IFA negative (Negative)
[2023-08-02 14:46] LABS: Adenovirus Not Detected (NOT DETECT); Chlamydia Pneumoniae Not Detected (NOT DETECT); Coronavirus 229E,HKU1,NL63,OC4 Not Detected (NOT DETECT); Human Metapneumovirus Not Detected (NOT DETECT); Human Rhinovirus/Enterovirus Not Detected (NOT DETECT); Influenza A Not Detected (NOT DETECT); Influenza A H1 Not Detected (NOT DETECT); Influenza A H1-2009 Not Detected (NOT DETECT); Influenza A H3 Not Detected (NOT DETECT); Influenza B Not Detected (NOT DETECT); Mycoplasma Pneumoniae Not Detected (NOT DETECT); Parainfluenza Virus Type 1 Not Detected (NOT DETECT); Parainfluenza Virus Type 2 Not Detected (NOT DETECT); Parainfluenza Virus Type 3 Not Detected (NOT DETECT); Parainfluenza Virus Type 4 Not Detected (NOT DETECT); Respiratory Syncytial Virus A Not Detected (NOT DETECT); Respiratory Syncytial Virus B Not Detected (NOT DETECT)
[2023-08-02 14:51] LABS: SARS-COV-2 Detected (NOT DETECT)
[2023-08-02] MEDS: dexamethasone 10 mg/mL INJ IVP (15:37)
--- NOTE | 2023-08-02 15:43 | P.HP_ITS ---
Providers/Chief Complaint 2 Primary Care Provider: Yogesh Crespo DO Chief Complaint: WEAKNESS History of Present Illness Bharat Arthur is a 57 year old male with a past medical history of multiple sclerosis, who presents [facility] due to fatigue, malaise, chills, shortness of breath. Patient tells me that with his MS, he has trouble with ambulating at baseline, but recently and for the last few days, he has been feeling increasingly weak, fatigued, malaise, body aches, chills, he did a couple home COVID test which were positive, no fevers, no cough, does have a sore throat, no diarrhea, recently had surgery for removal of battery of neurostimulator and removal of neurostimulator paddle Review of Systems 2 Const: Reports: chills, body aches, fatigue and malaise; Denies: fever(s) Eyes: Denies: change in vision Card: Denies: chest pain Resp: Reports: dyspnea; Denies: non-productive cough GI: Denies: abdominal pain, nausea, vomiting or diarrhea : Denies: flank pain or difficulty urinating Musc: Reports: muscle weakness Skin/Breast: Denies: rash Neuro: Denies: headache(s) Medications/Allergies Home Medications Medication Instructions Recorded Confirmed Last Taken Type alprazolam 0.25 mg tablet (Xanax) 0.25 mg PO BID PRN Anxiety 09/06/19 08/02/23 07/25/23 History zolpidem 10 mg tablet (Ambien) 10 mg PO BEDTIME 09/06/19 08/02/23 08/01/23 History hydrocodone 10 mg-acetaminophen 1 tab PO Q4H PRN Pain 06/25/21 08/02/23 07/25/23 History 325 mg tablet ibuprofen 200 mg tablet (Advil) 600 mg PO Q4H PRN Pain 06/25/21 08/02/23 11/03/22 History pantoprazole 40 mg tablet,delayed 40 mg PO BID 12/12/21 08/02/23 08/02/23 History release cholecalciferol (vitamin D3) 125 See Rx Instructions .Route .COMPLEX 04/03/22 08/02/23 08/02/23 History mcg (5,000 unit) tablet (Vitamin D3) prochlorperazine maleate 5 mg 5 tab PO DIRECTED PRN Nausea 08/22/22 08/02/23 07/25/23 History tablet dalfampridine 10 mg 10 mg PO Q12H #180 tabs 09/05/22 08/02/23 08/02/23 Rx tablet,extended release,12 hr (Ampyra) ketoconazole 2 % shampoo 1 applic topical Q14D 09/05/22 08/02/23 07/17/23 History ketoconazole 2 % topical cream 1 applic topical DAILY 09/05/22 08/02/23 07/24/23 History galcanezumab-gnlm 120 mg/mL See Rx Instructions .Route 06/23/23 08/02/23 06/13/23 Rx subcutaneous pen injector .COMPLEX #3 mL (Emgality Pen) baclofen 20 mg tablet 40 mg PO TID 07/24/23 08/02/23 08/02/23 History oxycodone 10 mg tablet 10 mg PO Q4H PRN Pain 08/02/23 08/02/23 Unknown History Allergies Allergy/AdvReac Type Severity Reaction Status Date / Time No Known Drug Allergies Allergy Unknown Verified 08/02/23 09:31 PFSH Acute 2 PFSH: Medical History Dysphagia Encounter for postoperative care Family history of prostate cancer Father, Arron Urinary retention Occipital neuralgia of right side Ulnar neuropathy at elbow of right upper extremity Lumbar stenosis Onychodystrophy Multiple sclerosis Surgical History Status post lumbar laminectomy S/P matrixectomy of toe Family History Father Cancer Colon Brother Cancer Colon Social History Smoking and tobacco/nicotine status: never used tobacco/nicotine Alcohol intake: never Substance/Drug Use: never Marital status: Current occupational status: disabled Vitals/I&O/Wt Last Vital Signs Temp 98.6 F 08/02/23 09:25 Pulse 121 H 08/02/23 09:25 Resp 18 08/02/23 11:03 BP 100/74 08/02/23 09:25 Pulse Ox 95 08/02/23 09:25 O2 Del Method Room Air 08/02/23 09:25 Weight last 48 hrs Weight 80.286 kg Physical Exam 2 Const: COMMON NORMALS: no acute distress and patient oriented x3 HENMT: COMMON NORMALS: normocephalic HEAD & SCALP: normocephalic Eye: COMMON NORMALS: Equal, round and reactive pupils present and EOMs intact bilaterally Neck/C-Spine: COMMON NORMALS: no JVD Lymph: LYMPHATIC: no lymphadenopathy noted Resp: COMMON NORMALS: normal respiratory effort, No retractions and No use of accessory muscles AUSCULTATION: wheezes Cardio: COMMON NORMALS: no JVD, regular rate, regular rhythm, S1 normal heart sound present and S2 normal heart sound present RATE: regular rate RHYTHM: regular rhythm HEART SOUNDS: S1 normal heart sound present and S2 normal heart sound present GI: COMMON NORMALS: Normal to inspection, nondistended, normoactive bowel sounds present, Soft to palpation and non-tender PALPATION: Yes Soft to palpation and Yes No hepatosplenomegaly present Extremity: COMMON NORMALS: no pedal edema NARRATIVE EXTREMITY EXAM: bilateral calf tenderness Neuro: COMMON NORMALS: patient oriented x3, CN's II-XII intact bilaterally and moves all extremities Psych: COMMON NORMALS: mental status grossly normal Data 08/02/23 09:47 08/02/23 09:47 A&P Assessment and plan (1) Pneumonia due to COVID-19 virus: (2) Pneumonia: Plan COVID-19 pneumonia, ? Plan, ? Decadron 6 mg IV push every 24 hours, ? Remdesivir 200 mg once, followed by 100 mg once daily, ? Doxycycline 100 mg IV push every 12 hours, ? DuoNeb?respiratory therapy eval, ? Monitor respiratory status closely? ? PT OT ? CT angiogram negative for PE, ? D-dimer, troponin series, ? Complaints of bilateral calf pain, venous ultrasound ?full code code ? Lovenox for DVT prophylaxis Attestations 2 Medical Necessity Statement*: Patient requires hospitalization, inpatient, greater than 2 midnights, for COVID-19 pneumonia Diagnoses Pneumonia due to COVID-19 virus U07.1; J12.82 Pneumonia J18.9
--- NOTE | 2023-08-02 15:43 | USR_ITS ---
PROCEDURE INFORMATION: Exam: US Duplex Lower Extremity Veins, Bilateral Exam date and time: 08/02/2023 6:15 PM Age: 57 years old Clinical indication: Edema, localized; Lower extremity, bilateral; Additional info: Swelling TECHNIQUE: Imaging protocol: Real-time duplex ultrasound of the bilateral extremities with 2-D gutierrez scale, color Doppler flow and spectral waveform analysis including responses to compression and other maneuvers (when performed) with image documentation. Complete exam focused on the lower extremity veins. COMPARISON: CR XR foot RT min 3V* [id number] 07/07/2023 1:54 PM FINDINGS: Veins: Patent without thrombus. Normal Doppler waveforms. Normal compressibility and/or augmentation response. US/[place] [id number] IMPRESSION: No evidence of deep vein thrombosis.
[2023-08-02 16:01] LABS: D Dimer 0.83 ug/mLFEU (0-0.59)
--- NOTE | 2023-08-02 16:08 | ECG_ITS ---
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 Measurements Intervals [place] Rate: 97 P: 52 [place]: 171 QRS: 0 QRSD: 93 T: 35 QT: 336 QTc: 428 Interpretive Statements SINUS RHYTHM POSSIBLE LEFT ATRIAL ENLARGEMENT [-0.1mV P-WAVE IN V1/V2] NONSPECIFIC T-WAVE ABNORMALITY Compared to ECG 08/02/2023 10:02:08 T-wave abnormality now present Sinus tachycardia no longer present ST (T wave) deviation no longer present Electronically Signed On 08-03-2023 10:21:08 [employer] by Hal Winston M.D. [email or web address]
[2023-08-02 16:16] LABS: Troponin(5th) Baseline 7 ng/L (0-15)
[2023-08-02 16:17] LABS: C Reactive Protein 25.7 mg/L (0.0-4.9); Lactic Sepsis W/Reflex 1.6 mmol/L (0.5-2.2)
[2023-08-02 16:25] LABS: Procalcitonin 2.77 ng/mL (0-0.5)
[2023-08-02] MEDS: remdesivir 200 MG in sodium chloride 0.9% (100 ml) 60 ML 100 MG IV (17:11)
[2023-08-02 18:25] LABS: Erythrocyte Sedimentation Rate 18 mm/hr (0-10)
[2023-08-02] MEDS: sodium chloride 0.9% 1,000 ML 75 ML IV (18:30)
[2023-08-02] MEDS: doxycycline 100 MG in sodium chloride 0.9% (plus) 100 ML IV (18:30)
[2023-08-02] MEDS: pantoprazole DR 40 mg Tablet PO (18:31)
[2023-08-02] MEDS: enoxaparin 40 mg/0.4 mL Syringe SUBCUT (18:31)
[2023-08-02 18:43] LABS: Thyroid Stimulating Hormone 0.93 uIU/mL (0.27-4.20)
[2023-08-02 19:28] VITALS: BP 103/71; PULSE 90; RESP 16; TEMP 37.1; O2SAT 92
[2023-08-02] MEDS: baclofen 10 mg Tablet 40 MG PO (20:45)
[2023-08-02] MEDS: HYDROcodone-acetaminophen 10-325 mg Tablet 1 TAB PO (20:47)
[2023-08-02 22:00] VITALS: PULSE 87
[2023-08-02] MEDS: zolpidem 5 mg Tablet 10 MG PO (22:00)
[2023-08-02 23:18] VITALS: PULSE 87; RESP 16; O2SAT 95
[2023-08-03] VITALS (12 sets, daily range): BP systolic 105–125; BP diastolic 64–77; PULSE 64–93; RESP 14–18; TEMP 36.6–36.9; O2SAT 93–97
[2023-08-03] MEDS: ALPRAZolam 0.5 mg Tablet 0.25 MG PO ×2 (00:22→22:36)
[2023-08-03 00:23] LABS: Troponin 5 2HR 7.32 ng/L (0-15)
[2023-08-03 00:45] LABS: Troponin 5 2HR Delta 0.32 ABS# (0-10)
[2023-08-03 03:00] LABS: Basophils % 0.1 %; Eosinophils % 0.1 %; Hematocrit 41.8 % (37-53); Lymphocytes # 0.4 10^3/uL (0.8-4.8); Mean Corpuscular HGB Conc 32.8 g/dL (30-55); Mean Corpuscular Hemoglobin 29.3 pg (27-33); Mean Corpuscular Volume 89.5 fl (82-101); Mean Platelet Volume 9.5 fL (7.4-10.4); Monocytes # 0.2 10^3/uL (0.2-0.9); Monocytes % 0.7 %; Neutrophils # 21.04 10^3/uL (1.8-7.7); Neutrophils % 96.1 %; Nucleated Red Blood Cells % 0 %; Platelet Count 354 10^3/cmm (157-399); Red Blood Count 4.67 10^6/uL (3.85-5.65); Red Cell Distribution Width 13.9 % (12.1-15.1)
[2023-08-03 03:21] LABS: Alanine Aminotransferase 24 U/L (0-41); Albumin Level 3.8 g/dL (3.5-5.2); Alkaline Phosphatase 90 U/L (40-130); Anion Gap 14.2 (5-19); Aspartate Amino Transferase 43 U/L (0-40); Blood Urea Nitrogen 14 mg/dL (6-20); Calcium 9.3 mg/dL (8.5-10.5); Carbon Dioxide 25 mmol/L (22-29); Chloride 101 mmol/L (98-107); Creatinine Clr Calc Pharmacy 111.5024; Globulin 3.2 g/dL (1.3-4.6); Glucose 140 mg/dL (65-115); Magnesium 1.9 mg/dL (1.7-2.3); Osmolality Calculated 285 mOsm/kg (285-295); Phosphorus 2.5 mg/dL (2.5-4.5); Potassium 4.2 mmol/L (3.5-5.1); Sodium 136 mmol/L (136-145); Total Bilirubin 0.3 mg/dL (0.15-1.2)
[2023-08-03 05:58] LABS: Troponin 5 6HR 6.66 ng/L (0-15)
[2023-08-03 06:02] LABS: Troponin 5 6HR Delta 0.34 ng/L (0-12)
[2023-08-03] MEDS: doxycycline 100 MG in sodium chloride 0.9% (plus) 100 ML IV ×2 (06:31→18:21)
[2023-08-03] MEDS: HYDROcodone-acetaminophen 10-325 mg Tablet 1 TAB PO (06:32)
[2023-08-03] MEDS: sodium chloride 0.9% 1,000 ML 75 ML IV (06:32)
--- OUTSIDE RECORDS SUMMARY | 2023-08-03 07:35 | XMS_ITS | Patient Health Record ---
Author Name Unknown Organization [facility] Address [address], [place] [id number] Care Team Providers Care Police Captain Name Role Phone Ben DUFF, Bony Primary Care Provider Santosh Bender MD, Yogesh Unavailable [phone] [place], Van Unavailable Unavailable Jessica Weinstein Unavailable [phone] ALLERGIES Allergen (clinical drug ingredient) Drug/Non Drug Allergy documented on EMR Reaction Allergy Type Onset Date Status acetaminophen / diphenhydramine Tylenol PM bloating Drug Allergy Active RESULTS Component Value Reference Range Notes Urine tox screen / MS if ind icated Reviewed date:02/13/2023 11:52:50 AM Interpretation:Consistent Performing Lab: Notes/Report: Consistent REASON FOR REFERRAL Reason Evaluation for possi ble placement of DCS / IPG system Diagnosis 1 Spinal stenosis, lum bar region with neurogenic claudication (M48.062) Referral Organization [facility] Referring Provider First Name Yogesh Referring Provider Last Name Yulia Referring Provider Speciality Pain Manag ement Referred Provider Tima Choudhary Referred Provider Specialty Orthopedic S urgery General Notes Jessica Healy FNP 0 10/01/2022 01:11:26 PM > RFS completed for signature., Fany Oneal 10/01/2022 01:45:17 PM > [facility] Aron Brenda 10/07/2022 09:52:50 AM > Referral faxed with Aron BARNES Brenda 10/22/2022 03:03:40 PM > Spke with Yasmin at Dr. Choudhary's office - patient was seen on 10/17/22, Jessica Healy, CHIEF PROJECTIONIST 01/18/2023 02:02:27 PM > Request for Health Information-Referral Follow-up faxed. Referral Priority Urgent Referral Appointment Date 10/17/2022 Diagnosis 1 Spinal stenosis, lum bar region with neurogenic claudication (M48.062) Referring Provider First Name Woodman Wilberto ff Referring Provider Last Name [place] Referred Organization [facility] Referred Provider Yogesh Bender Referred Address [address] [facility],[place], [place],[id number],[place] Referred Provider Specialty Pain Managem ent Referral Priority Routine Reason Evaluation for possi ble surgical intervention Diagnosis 1 Pain in left forearm (M79.632) Referral Organization [facility] Referring Provider First Name Yogesh Referring Provider Last Name Yulia Referring Provider Speciality Pain Manag ement Referred Provider Tima Choudhary Referred Provider Specialty Orthopedic S urgery General Notes Jessica Healy, CHIEF PROJECTIONIST 0 03/17/2023 03:36:18 PM > RFS completed for [email or web address] Allison M 03/18/2023 04:14:37 PM > faxed RFS to VTAron Brenda 04/08/2023 04:31:49 PM > referral faxedAron Brenda 04/28/2023 10:23:18 AM >Left message for someone to return my call at [facility] Aron Brenda 05/05/2023 02:36:13 PM > Patient had appt with Dr. Choudhary on 04/15/23 Referral Priority Routine Referral Appointment Date 04/15/2023 Diagnosis 1 Spinal stenosis, lum bar region with neurogenic claudication (M48.062) Referring Provider First Name Woodman Wilberto ff Referring Provider Last Name [place] Referred Organization [facility] Referred Provider Yogesh Bender Referred Address [address],[place], [id number],[place] Referred Provider Specialty Pain Managem ent Referral Priority Routine Reason Evaluation for possi ble removal of DSC/IPG system Diagnosis 1 Spinal stenosis, lum bar region with neurogenic claudication (M48.062) Referral Organization [facility], [facility] Referring Provider First Name Jessica Referring Provider Last Name Niraj Referring Provider Speciality Nurse Prac titioner Referred Provider Tima Choudhary Referred Provider Specialty Orthopedic S urgery General Notes Jessica Healy FNP 1 08/05/2022 05:21:40 PM > RFS completed; printed for signature.Aron Brenda 06/16/2023 11:43:02 AM > faxed referral, Luz Maria Sharp 06/23/2023 09:43:20 AM > Received fax stating that patient is having So1 work with [employer] and will call if he wants to schedule appoitnment with Dr. Choudhary - he is established patient. Referral Priority Routine Reason Evaluation of right foot (RLE weakness related to MS) Diagnosis 1 Weakness (R53.1) Referral Organization [facility] Referring Provider First Name Jessica Referring Provider Last Name Niraj Referring Provider Speciality Nurse Prac titioner Referred Provider Ryan Reyes Referred Provider Specialty Podiatry General Notes Jessica Healy FNP 1 08/05/2022 05:21:55 PM > RFS completed; printed for signature., Luz Maria Sharp 06/16/2023 11:41:22 AM > faxed referral to Dr. Reyes, Luz Maria Sharp 07/07/2023 10:27:49 AM > left message with Kandace with [facility] to see if patient has been scheduled, Luz Maria Sharp 07/07/2023 03:19:01 PM > Spoke with Prachi in [facility] Podiatry - patient was seen today. She will fax over notes when they are signed off on. Referral Priority Routine Referral Appointment Date 07/07/2023 MEDICATIONS Medication SIG (Take, Route, Frequency, Duration) Notes Start Date End Date Status terbinafine 250 mg 1 tab orally once a day Active Vitamin D3 5000 intl units as directed o rally once a day Active sulfacetamide sodium-sulfur topical 10%-5% 1 earlene applied topically 2 times a day for 30 day(s) Active tamsulosin 0.4 mg 1 cap(s) orally once a day for 30 day(s) Active zolpidem 10 mg 1 tab orally once a day (at bedtime) Active acetaminophen-hydrocodone 325 mg-10 mg 1-2 tabs orally Q4-6H prn pain (max 7/day; hold within 4H of planned sleep) Active Acetaminophen-Hydrocodone Bitartrate 325 mg-7.5 mg 1-2 tabs orally Q4-6H prn pain (max 9/day; hold within 4H of planned sleep) for 30 day(s) 04/29/2023 Active acetaminophen-hydrocodone 325 mg-10 mg 1-2 tabs orally Q4-6H prn pain (max 7/day; hold within 4H of planned sleep) Active ALPRAZolam 0.25 mg 1 tab orally twice a day Active acetaminophen-hydrocodone 325 mg-10 mg 1-2 tabs orally Q4-6H prn pain (max 7/day; hold within 4H of planned sleep) Active baclofen 20 mg 2 tabs orally 3 time s a day Active predniSONE 10 mg 1 tab orally once a day as needed for facial eczema Active prochlorperazine 5 mg 1 tab(s) orally 3 times a day Active Aspercreme with Lidocaine 4% 1 earlene appli ed topically 3 times a day, as needed Active aspirin 81 mg 1 tab orally once a day Active pantoprazole 40 mg 1 tab orally once a day Active fluocinonide topical 0.05% 1 earlene applied topically 3 times a day, as needed Active ketoconazole topical 2% 1 earlene applied to pically once a day for 14 day(s) Active dalfampridine 10 mg 1 tab orally every 1 2 hours Active fluconazole 200 mg 1 tab(s) orally once a day for 14 day(s) Active Ocrevus 300 mg/10 mL as directed intravenously every 6 months Active ondansetron 4 mg 1 tab(s) orally ever y 8 hours 04/15/2022 Active Narcan 4 mg/0.1 mL as directed intranas ally once 03/18/2023 Active nystatin topical 123322 units/g 1 earlene applied topically 3 times a day, as needed Active cetirizine 10 mg 1 tab orally once a day as needed Active SOCIAL HISTORY Tobacco Use: [...] former smoker When did you stop smoking? 2014 PROBLEMS Problem Type ICD Code Onset Dates Problem Status W/U Status Risk SNOMED Code Notes Problem Sacroiliitis, not elsewhere classified (M46.1) Active confirmed Solitary sacroiliitis (905809365) Problem Low back pain (M54.5) Active confirmed Low back pain (713055442) Problem Spondylosis without myelopathy or radiculopathy, lumbar region (M47.816) Active confirmed Lumbosacral spondylosis without myelopathy (80020091) six lumbar-appear ing vertebrae have been appreciated via fluoroscopy (for 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) Active confirmed High risk drug monitoring status (433235211) Problem Other specified anxiety disorders (F41.8) Active confirmed Anxiety disorde r (965933922) Problem Hypersomnia, unspecified (G47.10) Active confirmed Hypersomnia (23948163) Problem Other sleep disorders (G47.8) Active confirmed Sleep disorder (37618704) Problem Other chronic pain (G89.29) Active confirmed Chronic pain (05558144) Problem Pain in unspecified hip (M25.559) Active confirmed Arthralgia of t he pelvic region and thigh (287281331) Problem Spondylolisthesi s, lumbar region (M43.16) Active confirmed Acquired spondylolisthesis (443985520) Problem Intervertebral disc disorders with radiculopathy, lumbar region (M51.16) Active confirmed Radiculopathy d ue to lumbar intervertebral disc disorder (819643260102704) Problem Pain in left forearm (M79.632) Active confirmed Pain in limb (56225547) Problem Postlaminectomy syndrome, not elsewhere classified (M96.1) Active confirmed Post-laminectom y syndrome (03775733) Problem Weakness (R53.1) Active confirmed Weakn ess (60105938) 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) Active confirmed Long-term curre nt use of drug therapy (210309800) Problem Spinal stenosis, lumbar region with neurogenic claudication (M48.062) Active confirmed Neurogenic claudication (762307873) Problem Vertebrogenic low back pain (M54.51) Active confirmed Pain in lumbar spine (942195331) VITAL SIGNS Temperature 97.7 degrees Fahrenheit 06/05/2023 Blood pressure diastolic 79 mm Hg 11/21/2022 Oximetry 98 % 06/05/2023 Height 71 in 06/05/2023 Blood pressure systolic 127 mm Hg 11/21/2022 Weight 179.8 lbs 06/05/2023 BMI 25.07 kg/m2 06/05/2023 Encounters Encounter Location Date Provider Diagnosis [facility], [address] [id number] 08/06/2022 Yogesh Bender [facility], [address] [id number] 08/15/2022 Yogesh Bender Spondylosis without myelopathy or radiculopathy, lumbar region M47.816 ; Vertebrogenic low back pain M54.51 ; Sacroiliitis, not elsewhere classified M46.1 ; Spinal stenosis, lumbar region with neurogenic claudication M48.062 ; Pain in unspecified hip M25.559 ; Intervertebral disc disorders with radiculopathy, lumbar region M51.16 ; Spondylolisthesis, lumbar region M43.16 ; Hypersomnia, unspecified G47.10 and 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 Z79.891 [facility], [address] [id number] 08/22/2022 Yogesh Bender [facility], [address] [id number] 09/04/2022 Yogesh Bender Spinal stenosis, lum bar [...] region M43.16 ; Hypersomnia, unspecified G47.10 and 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 Z79.891 [facility] [address] [place] [address] 09/16/2022 Yogesh Bender Spinal stenosis, lum bar [...] Spondylolisthesis, lumbar region M43.16 [facility] [address] [place] [id number] 09/19/2022 Yogesh Bender Spinal stenosis, lum bar [...] region M43.16 ; Hypersomnia, unspecified G47.10 and 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 Z79.891 [facility] [address], [place] [id number] 11/06/2022 Yogesh Bender [facility], [address] [id number] 11/21/2022 Yogesh Bender Spinal stenosis, lum bar [...] region M43.16 ; Hypersomnia, unspecified G47.10 and 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 Z79.891 [facility] [address], [place] [id number] 02/13/2023 Yogesh Reeceradha Spondylosis without myelopathy or radiculopathy, lumbar region M47.816 ; Other specified anxiety disorders F41.8 ; Other chronic pain G89.29 ; Spinal stenosis, lumbar region with neurogenic claudication M48.062 ; Vertebrogenic low back pain M54.51 ; Sacroiliitis, not elsewhere classified M46.1 and 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 Z79.891 [facility] [address] [place] [id number] 03/10/2023 Yogesh Bender Spondylosis without myelopathy or radiculopathy, lumbar region M47.816 and Other specified anxiety disorders F41.8 [facility] [address], [place] [id number] 03/13/2023 Yogesh Bender Spondylosis without myelopathy or radiculopathy, lumbar region M47.816 ; Other specified anxiety disorders F41.8 ; Pain in left forearm M79.632 ; Other chronic pain G89.29 ; Spinal stenosis, lumbar region with neurogenic claudication M48.062 ; Vertebrogenic low back pain M54.51 and Sacroiliitis, not elsewhere classified M46.1 [facility] [address], [place] [id number] 03/17/2023 Yogesh Bender [facility] [address], [place] [id number] 03/24/2023 Yogesh Bender [facility] [address] [place] [id number] 03/31/2023 Yogesh Bender Spondylosis without myelopathy or radiculopathy, lumbar region M47.816 and Other specified anxiety disorders F41.8 [facility] [address], [place] [id number] 04/09/2023 Jessica Healy Other chronic pain G89.29 ; Vertebrogenic low back pain M54.51 ; Spondylosis without myelopathy or radiculopathy, lumbar region M47.816 ; Pain in left forearm M79.632 and Spinal stenosis, lumbar region with neurogenic claudication M48.062 [facility] [address] [place] [id number] 04/29/2023 Yogesh Bender Other chronic pain G89.29 ; Vertebrogenic low back pain M54.51 ; Spondylosis without myelopathy or radiculopathy, lumbar region M47.816 ; Pain in left forearm M79.632 and Spinal stenosis, lumbar region with neurogenic claudication M48.062 [facility] [address] [place] [id number] 05/13/2023 Yogesh Bender [facility] [address] [place] [id number] 05/27/2023 Jessica Healy Other chronic pain G89.29 ; Vertebrogenic low back pain M54.51 ; Spinal stenosis, lumbar region with neurogenic claudication M48.062 ; Weakness R53.1 ; Spondylosis without myelopathy or radiculopathy, lumbar region M47.816 and Pain in left forearm M79.632 [facility] [address], [place] [id number] 06/05/2023 Yogesh Bender Other chronic pain G89.29 ; Vertebrogenic low back pain M54.51 ; Spinal stenosis, lumbar region with neurogenic claudication M48.062 ; Weakness R53.1 ; Spondylosis without myelopathy or radiculopathy, lumbar region M47.816 and Pain in left forearm M79.632 [facility], [address] [id number] 07/09/2023 Yogesh Bender ASSESSMENTS Encounter Date Diagnosis Assessment Notes Treatment Notes Treatment Clinical Notes 08/15/2022 Spondylosis without myelopathy or radiculopathy, lumbar region (ICD-10 - M47.816) six lumbar-appearing vertebrae have been appreciated via fluoroscopy (for 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 Plan to continue medication management 09/04/2022 Other specified anxiety disorders (ICD-10 - [...] procedure reviewed with patient; printed instructions declined 09/16/2022 Other specified anxiety disorders (ICD-10 - [...] Preparation for procedure noted to be adequate 09/19/2022 Postlaminectomy syndrome, not elsewhere classified (ICD-10 [...] such an infection were to be suspected. 11/21/2022 Postlaminectomy syndrome, not elsewhere classified (ICD-10 - M96.1) 11/21/2022 Spinal stenosis, lumbar region with neurogenic claudication (ICD-10 - M48.062) Referral back to Dr. Choudhary resulted in DCS system (with IPG) placement. 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 and [employer] nomenclature purposes for block and [...] procedure reviewed with patient; printed instructions declined 02/13/2023 Other specified anxiety disorders (ICD-10 - F41.8) Plan moderate IV sedation as needed wtih midazolam and / or fentanyl 03/10/2023 Spondylosis without myelopathy or radiculopathy, lumbar region (ICD-10 - M47.816) Plan lumbar diagnostic blocks: bilateral L4 medial branch, bilateral L5 dorsal ramus 03/10/2023 Other specified anxiety disorders (ICD-10 - F41.8) Plan moderate IV sedation with midazolam and/or fentanyl 03/13/2023 Spondylosis without myelopathy or radiculopathy, lumbar region (ICD-10 - M47.816) six lumbar-appearing vertebrae have been appreciated via fluoroscopy (for 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 Lumbar RFA procedures with history of repeated efficacy appreciated by patient. The benefit from the most recent procedure had since waned. Bilateral L4 medial branch, bilateral L5 dorsal ramus diagnostic blocks completed with a 100% reduction in pain noted. Plan RFA since diagnostic blocks appreciated. Risks, benefits, and alternatives reviewed with patient. Questions answered to the patient's reported satisfaction. Preparation for procedure reviewed with patient; printed instructions declined 03/13/2023 Other specified anxiety disorders (ICD-10 - F41.8) Plan monitored anesthesia care 03/31/2023 Spondylosis without myelopathy or radiculopathy, lumbar region (ICD-10 - M47.816) Plan bilateral lumbar RFA of L4 medial branch and L5 dorsal ramus 04/09/2023 Other chronic pain (ICD-10 - G89.29) Patient reports that taking his pain medication allows him to be more active, however, he reports minimal benefit noted in his BLE symptoms. Plan to continue oral opioid medication management with opioid rotation 04/09/2023 Vertebrogenic low back pain (ICD-10 - M54.51) Chronic axial lumbosacral spine pain 04/29/2023 Other chronic pain (ICD-10 - G89.29) Patient reports that taking pain medication allows him to be more active, however, he reports minimal benefit with the morphine. Plan to continue oral opioid medication management with opioid rotation back to hydrocodone per patient preference ( shortage in this treatment area). 04/29/2023 Vertebrogenic low back pain (ICD-10 - M54.51) Chronic axial lumbosacral spine pain. 05/27/2023 Other chronic pain (ICD-10 - G89.29) Patient reports that taking pain medication allows him to care for his great niece and nephew 4 days a week. Plan to continue oral opioid medication management. 05/27/2023 Vertebrogenic low back pain (ICD-10 - M54.51) Chronic axial lumbosacral spine pain. 06/05/2023 Other chronic pain (ICD-10 - G89.29) Patient reports that taking pain medication allows him to better function. Plan to continue oral opioid medication management. 06/05/2023 Vertebrogenic low back pain (ICD-10 - M54.51) Chronic axial lumbosacral spine pain. Complete return of low lumbar pain noted post most recent low lumbar RFA procedure. Also noted is bilateral SI joint pain. History of benefit from prior sacral RFA procedure noted. Patient has been informed that he may pursue bilateral SI loint injections and possible repeat sacral RFA procedure. Sacral pain relief from such a procedure likely wound not help adjacent low lumbar pain. 06/05/2023 Spinal stenosis, lumbar region with neurogenic claudication (ICD-10 - M48.062) Patient has reported no benefit with use of DCS system. He has stated that he turned the device off. He reports contacting Jono with the [employer] and has a re-programming appointment scheduled in [address] Choudhary had recommended right transforaminal ESIs (see scanned office visit notes). Previoulsy encouraged patient to contact that office for referral to possibly the [facility] pain clinic. Patient informed that this provider is not willing to provide such a service. Patient states that [facility] 05/27/2023 Spinal stenosis, lumbar region with neurogenic claudication (ICD-10 - M48.062) Patient reports no benefit with use of DCS system. He stated that it is now not even on . He reports several attempts to contact the [employer] with no response from them. Patient would like a referral to have the system removed. Patient was seen at Dr. Choudhary's office and they recommended right transforaminal ESIs (see scanned office visit notes). Encouraged patient to contact that office for referral to possibly the [facility] pain clinic. Patient informed that this provider is not willing to provide such a service. 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 Bilateral L4 medial branch, bilateral L5 dorsal ramus RFA with some efficacy appreciated by patient thus far. 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 Bilateral L4 medial branch, bilateral L5 dorsal ramus RFA 9 days ago with no efficacy appreciated by patient thus far. Plan 2 week phone follow up as scheduled 03/13/2023 Pain in left forearm (ICD-10 - M79.632) Patient reports pain in the medial left forearm and continuous left 5th digit numbness for one month. Patient denies current neck pain. Patient desires referral to Dr. Choudhary for surgical opinion and possible treatment as Dr. Momin previously discussed such a referral with the patient. Plan referral to Dr. Choudhary 02/13/2023 Other chronic pain (ICD-10 - G89.29) [...] of benefit. Plan to continue medication management 09/19/2022 Vertebrogenic low back pain (ICD-10 - [...] of benefit. Plan to continue medication management 09/16/2022 Postlaminectomy syndrome, not elsewhere classified (ICD-10 - M96.1) 09/04/2022 Postlaminectomy syndrome, not elsewhere classified (ICD-10 - M96.1) 08/15/2022 Sacroiliitis, not elsewhere classified (ICD-10 - M46.1) Bilateral SI joint injections with history of diagnostic efficacy appreciated, however, no steroid benefit was reported by patient. Subsequent bilateral sacral RFA procedure with efficacy appreciated for sacral axial pain, however, no benefit for low lumbar pain or lower extremity pain noted 09/04/2022 Vertebrogenic low back pain (ICD-10 - [...] of benefit. Plan to continue medication management 08/15/2022 Spinal stenosis, lumbar region with neurogenic [...] as in relation to possible DCS therapy 09/16/2022 Vertebrogenic low back pain (ICD-10 - [...] of benefit. 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 Lumbar RFA procedures with history of repeated efficacy appreciated by patient. 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 Plan to continue oral opioid medication management 04/09/2023 Pain in left forearm (ICD-10 - M79.632) At prior office visit, patient reported pain in the medial left forearm and continuous left 5th digit numbness for one month. Patient denied current neck pain. Patient desired referral to Dr. Choudhary for surgical opinion and possible treatment as Dr. Momin previously discussed such a referral with the patient. Referral to Dr. Choudhary completed with visit scheduled for 04/15/23 04/29/2023 Pain in left forearm (ICD-10 - M79.632) At prior office visit, patient reported pain in the medial left forearm and continuous left 5th digit numbness. Patient denied neck pain. Patient desired referral to Dr. Choudhary for surgical opinion and possible treatment as Dr. Momin previously discussed such a referral with the patient. Referral to Dr. Choudhary completed. Patient reports of an order for NCS via Dr. Momin. Patient is going to go to that office to arrange the NCS 05/27/2023 Weakness (ICD-10 - R53.1) Patient requests a referral to Dr. Reyes regarding the effects of his MS (RLE weakness) on his right foot. 06/05/2023 Weakness (ICD-10 - R53.1) Patient reports an upcoming referral appointment with Dr. Reyes regarding his right foot. Patient states that he has a painful knot on the top of his right foot. Patient is also interested in Dr. Reyes's opinion on patient's right foot weakness. 06/05/2023 Spondylosis without myelopathy or radiculopathy, lumbar region (ICD-10 - M47.816) six lumbar-appearing vertebrae have been appreciated via fluoroscopy (for 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 Most recent bilateral L4 medial branch, bilateral L5 dorsal ramus RFA procedure with history of minimal benefit for several months as appreciated by patient and that benefit has now waned. Multiple prior lower lumbar RFA procedures with history of benefit as noted under Interventional treatment, below. 04/29/2023 Spinal stenosis, lumbar region with neurogenic claudication (ICD-10 - M48.062) Patient has reported some benefit with use of DCS system. Patient was seen at Dr. Choudhary's office and they recommended right transforaminal ESIs (see scanned office visit notes). Encouraged patient to contact that office for referral to possibly the [facility] pain clinic. Patient informed that this provider is not willing to provide such a service 05/27/2023 Spondylosis without myelopathy or radiculopathy, lumbar region (ICD-10 - M47.816) six lumbar-appearing vertebrae have been appreciated via fluoroscopy (for 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 Bilateral L4 medial branch, bilateral L5 dorsal ramus RFA procedure with history of minimal benefit appreciated by patient that benefit has been maintained as of 05/27/23. 04/09/2023 Spinal stenosis, lumbar region with neurogenic claudication (ICD-10 - M48.062) Patient has reported some benefit with use of DCS system. Reprogramming completed last month with plans for a second attempt if needed later this month 03/13/2023 Spinal stenosis, lumbar region with neurogenic claudication (ICD-10 - M48.062) Patient has reported some benefit with use of DCS system. Patient has appointment Friday with the company's regional management supervisor for reprogramming of the device 02/13/2023 Vertebrogenic low back pain (ICD-10 - [...] The sacral benefits had since waned 11/21/2022 Sacroiliitis, not elsewhere classified (ICD-10 - M46.1) Bilateral SI joint injections with history of diagnostic efficacy appreciated, however, no steroid benefit was reported by patient. Subsequent bilateral sacral RFA procedure with efficacy appreciated for sacral axial pain, however, no benefit for low lumbar pain or lower extremity pain noted. The sacral benefits had since waned 09/16/2022 Spondylosis without myelopathy or radiculopathy, lumbar region (ICD-10 - M47.816) six lumbar-appearing vertebrae have been appreciated via fluoroscopy (for 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 Lumbar RFA procedures with history of efficacy appreciated by patient. The benefit from the most recent procedure has waned 09/04/2022 Spondylosis without myelopathy or radiculopathy, lumbar region (ICD-10 - M47.816) six lumbar-appearing vertebrae have been appreciated via fluoroscopy (for 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 Lumbar RFA procedures with history of efficacy appreciated by patient. The benefit from the most recent procedure is waning 08/15/2022 Pain in unspecified hip (ICD-10 - [...] occur post a succesful RFA procedure) 09/04/2022 Sacroiliitis, not elsewhere classified (ICD-10 - [...] efficacy (patient was lost to follow up) 09/16/2022 Sacroiliitis, not elsewhere classified (ICD-10 - M46.1) Bilateral SI joint injections with history of diagnostic efficacy appreciated, however, no steroid benefit was reported by patient. Subsequent bilateral sacral RFA procedure with efficacy appreciated for sacral axial pain, however, no benefit for low lumbar pain or lower extremity pain noted. The sacral benefits have since waned 09/19/2022 Pain in unspecified hip (ICD-10 - M25.559) 11/02/18 x-ray report revealed normal hips. Patient has reported of bursitis diagnosis via Dr. Larkin. Hip steroid injections via Dr. Larkin with history of no efficacy as per patient report. Hip pain may be component of iliopsoas myofascial pain syndrome that may be secondary to lumbosacral spondylosis 11/21/2022 Pain in unspecified hip (ICD-10 - M25.559) 11/02/18 x-ray report revealed normal hips. Patient has reported of bursitis diagnosis via Dr. Larkin. Hip steroid injections via Dr. Larkin with history of no efficacy as per patient report. Hip pain may be component of iliopsoas myofascial pain syndrome that may be secondary to lumbosacral spondylosis 02/13/2023 Sacroiliitis, not elsewhere classified (ICD-10 - [...] no sacral tenderness noted on 02/13/23 exam 03/13/2023 Vertebrogenic low back pain (ICD-10 - M54.51) Chronic axial lumbosacral spine pain 06/05/2023 Pain in left forearm (ICD-10 - M79.632) At prior office visit, patient reported pain in the medial left forearm and continuous left 5th digit numbness. Patient denied neck pain. Patient desired referral to Dr. Choudhary for surgical opinion and possible treatment as Dr. Momin previously discussed such a referral with the patient in the past. Referral to Dr. Choudhary completed. Patient had reported of an order from Dr. Choudhary for NCS via Dr. Momin. Patient had stated plan to go to that office to arrange the NCS. Patient reports on 06/05/23 completion of nerve conduction studies and what sounded like EMG studies. Patient stated that Dr. Momin thinks the left upper extremity symptoms are due to left ulnar neuropathy at the elbow and right upper extremity symptoms are coming from the neck. 05/27/2023 Pain in left forearm (ICD-10 - M79.632) At prior office visit, patient reported pain in the medial left forearm and continuous left 5th digit numbness. Patient denied neck pain. Patient desired referral to Dr. Choudhary for surgical opinion and possible treatment as Dr. Momin previously discussed such a referral with the patient. Referral to Dr. Choudhary completed. Patient has reported of an order from Dr. Choudhary for NCS via Dr. Momin. Patient has stated plan to go to that office to arrange the NCS. 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) Plan urine toxicology screen today to monitor compliance regarding use of prescribed hydrocodone and for the presence of any unprescribed or illicit drugs 11/21/2022 Intervertebral disc disorders with radiculopathy, lumbar region (ICD-10 - M51.16) Remote L5-S1 OSKAR (in 2007) with history of uncertain efficacy (patient was lost to follow up) 09/19/2022 Intervertebral disc disorders with radiculopathy, lumbar region (ICD-10 - M51.16) Remote L5-S1 OSKAR (in 2007) with history of uncertain efficacy (patient was lost to follow up) 09/16/2022 Pain in unspecified hip (ICD-10 - [...] occur post a succesful RFA procedure) 09/04/2022 Pain in unspecified hip (ICD-10 - [...] occur post a succesful RFA procedure) 08/15/2022 Spondylolisthesis, lumbar region (ICD-10 - M43.16) Noted at the L3-L4 level on the 06/13/20 MRI report. Mild retrolisthesis L2 on L3 and L3 on L4 as per 07/05/20 x-ray report 09/04/2022 Intervertebral disc disorders with radiculopathy, lumbar [...] noncompliance would be at patient's increased risk 09/16/2022 Intervertebral disc disorders with radiculopathy, lumbar region (ICD-10 - M51.16) Remote L5-S1 OSKAR (in 2007) with history of uncertain efficacy (patient was lost to follow up) 09/19/2022 Spondylolisthesis, lumbar region (ICD-10 - M43.16) Noted at the L3-L4 level on the 06/13/20 MRI report. Mild retrolisthesis L2 on L3 and L3 on L4 as per 07/05/20 x-ray report 11/21/2022 Spondylolisthesis, lumbar region (ICD-10 - M43.16) Noted at the L3-L4 level on the 06/13/20 MRI report. Mild retrolisthesis L2 on L3 and L3 on L4 as per 07/05/20 x-ray report 11/21/2022 Hypersomnia, unspecified (ICD-10 - G47.10) Had [...] noncompliance would be at patient's increased risk 09/19/2022 Hypersomnia, unspecified (ICD-10 - G47.10) Had [...] noncompliance would be at patient's increased risk 09/16/2022 Spondylolisthesis, lumbar region (ICD-10 - M43.16) Noted at the L3-L4 level on the 06/13/20 MRI report. Mild retrolisthesis L2 on L3 and L3 on L4 as per 07/05/20 x-ray report 09/04/2022 Spondylolisthesis, lumbar region (ICD-10 - M43.16) Noted at the L3-L4 level on the 06/13/20 MRI report. 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 Patient has received information regarding 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 (ICD-10 - [...] on 07/11/20 that due to the [facility] [employer] concerns and actions, any suspected patient misuse, [...] x 1 prior to procedure 09/19/2022 Other 09/04/2022 Other 04/29/2023 Other 03/13/2023 Other 06/05/2023 Other 11/21/2022 Other 08/15/2022 Other Continue Zonegr an trial to assist with BLE symptoms 04/09/2023 Other 05/27/2023 Other 02/13/2023 Other PLAN OF TREATMENT Next Appt Details Provider Name:Yogesh Haji son, 08/19/2023 02:50:00 PM, [address], [place], [phone], Insurance Providers Payer Name Payer Address Payer Phone Subscriber Number Group Number Insured Name Patient Relationship to Insured Coverage Start Date Coverage End Date [employer] [address] [place] [address] [id number] Cooper vaibhavBharat Self - patient is the insured MEDICAL [...] [place], 01/29/19 L3-4, L4-5 laminectomies, performed at [facility] by Dr. Choudhary, 06/22/21 Removal of ingrown toenail, performed by Dr. Reyes, 12/20/21 Dorsal column / spinal cord stimulator system placement, performed at [facility] by Dr. Tima Choudhary, 11/2022 Hospitalization History Reason Date(Month/Year) Pain control after lumbar spine surgery, treated at [facility], 06/25/21 - 06/27/21 Pneumonia, treated at [facility], 04/10/22- 04/25
[2023-08-03] MEDS: baclofen 10 mg Tablet 40 MG PO ×3 (08:37→20:16)
[2023-08-03] MEDS: pantoprazole DR 40 mg Tablet PO ×2 (08:38→18:22)
[2023-08-03] MEDS: dexamethasone 10 mg/mL INJ 6 MG IVP (09:02)
[2023-08-03] MEDS: ondansetron 2 mg/ML SDV 2 mL 4 MG IVP (09:04)
[2023-08-03] MEDS: HYDROcodone-acetaminophen 10-325 mg Tablet PO ×3 (10:37→19:50)
--- NOTE | 2023-08-03 13:54 | P.PN_ITS ---
Subjective 2 Subjective: Patient was seen this morning, afebrile overnight, he tells me his weakness is improving, no fevers, chills, we discussed his lumbar CT scan findings, he had 2 areas of seroma versus abscess of his lumbar spine, and thoracic spine, he recently had a spinal stimulator removed, denies any back pain no headache, blurry vision, we discussed monitoring, discussing with Dr. Choudhary, but the ESR is within normal limits, likely favorable to be postoperative seroma after spinal stimulator removal but nonetheless we will discuss with Dr. Choudhary, monitor his symptoms closely, denies any urinary or bowel incontinence, no saddle apparent anesthesia Vitals/I&O/Wt Last Vital Signs Temp 98.0 F 08/03/23 12:00 Pulse 69 08/03/23 12:00 Resp 18 08/03/23 12:00 BP 125/76 08/03/23 12:00 Pulse Ox 93 08/03/23 12:00 O2 Del Method Room Air 08/03/23 12:00 08/02/23 08/03/23 08/03/23 22:59 06:59 14:59 Intake Total 200 / 200 902.5 / 1102.5 220 / 220 Output Total 1300 / 1300 500 / 1800 500 / 500 Balance -1100 / -1100 402.5 / -697.5 -280 / -280 Weight last 48 hrs Weight 83.489 kg Weight 81.647 kg Weight 80.286 kg Physical Exam 2 Const: COMMON NORMALS: no acute distress and patient oriented x3 Resp: COMMON NORMALS: normal respiratory effort, No retractions, No use of accessory muscles and clear to auscultation bilaterally AUSCULTATION: clear to auscultation bilaterally Cardio: COMMON NORMALS: regular rate, regular rhythm, S1 normal heart sound present and S2 normal heart sound present RATE: regular rate RHYTHM: r egular rhythm HEART SOUNDS: S1 normal heart sound present and S2 normal heart sound present GI: COMMON NORMALS: Normal to inspection, nondistended, normoactive bowel sounds present and non-tender Extremity: COMMON NORMALS: no pedal edema Neuro: COMMON NORMALS: patient oriented x3 Psych: COMMON NORMALS: mental status grossly normal Data 08/03/23 02:32 08/03/23 02:32 Micro: Microbiology 08/02/23 10:12 Bacterial Antigens - Final Urine,Voided A&P Assessment and plan (1) Pneumonia due to COVID-19 virus: (2) Pneumonia: Plan COVID-19 pneumonia, -CT angiogram showing multifocal groundglass opacities likely infectious/inflammatory ? Plan, ? Decadron 6 mg IV push every 24 hours, ? Remdesivir 200 mg once, followed by 100 mg once daily, ? Doxycycline 100 mg IV push every 12 hours, ? DuoNeb?respiratory therapy eval, ? Monitor respiratory status closely? ? PT OT ? CT angiogram negative for PE, ? Complaints of bilateral calf pain, venous ultrasound negative for DVT ?full code code ? Lovenox for DVT prophylaxis Recent history of spinal stimulator removal CT lumbar spine 1. No sign of discitis or osteomyelitis. 2. Mixed density subcutaneous fluid collection in the lower left flank. Probable seroma or resolving hematoma related to explantation of neurostimulator. Abscess cannot be excluded. 3. Partially imaged fluid collection surrounding the T11 spinous process. Possible seroma or abscess. -ESR 18 ? No urine incontinence, no bowel incontinence, no saddle or perianal anesthesia -Will discuss findings with Dr. Choudhary Attestations 2 Medical Necessity Statement*: Patient requires hospitalization for COVID-19 pneumonia Diagnoses Pneumonia due to COVID-19 virus U07.1; J12.82 Pneumonia J18.9
[2023-08-03] MEDS: remdesivir 100 MG in sodium chloride 0.9% (100 ml) 80 ML IV (17:05)
[2023-08-03] MEDS: HYDROmorphone 1 mg/mL INJ 1 mL 0.5 MG IVP (18:16)
[2023-08-03] MEDS: enoxaparin 40 mg/0.4 mL Syringe SUBCUT (18:21)
[2023-08-03] MEDS: zolpidem 5 mg Tablet 10 MG PO (22:36)
[2023-08-04] VITALS (12 sets, daily range): BP systolic 95–111; BP diastolic 66–75; PULSE 69–86; RESP 14–18; TEMP 36.4–36.7; O2SAT 91–96
[2023-08-04] MEDS: HYDROmorphone 1 mg/mL INJ 1 mL 0.5 MG IVP ×3 (02:34→23:10)
[2023-08-04 03:05] LABS: Basophils % 0.1 %; Eosinophils % 0.1 %; Hematocrit 35.1 % (37-53); Lymphocytes # 0.7 10^3/uL (0.8-4.8); Lymphocytes % 3.2 %; Mean Corpuscular HGB Conc 32.8 g/dL (30-55); Mean Corpuscular Hemoglobin 29.4 pg (27-33); Mean Corpuscular Volume 89.8 fl (82-101); Mean Platelet Volume 10.2 fL (7.4-10.4); Monocytes # 0.7 10^3/uL (0.2-0.9); Monocytes % 3.3 %; Neutrophils # 19.53 10^3/uL (1.8-7.7); Neutrophils % 92.5 %; Nucleated Red Blood Cells % 0 %; Platelet Count 266 10^3/cmm (157-399); Red Blood Count 3.91 10^6/uL (3.85-5.65); Red Cell Distribution Width 14.2 % (12.1-15.1); White Blood Count 21.12 10^3/uL (3.29-11.43)
[2023-08-04 03:23] LABS: Alanine Aminotransferase 16 U/L (0-41); Albumin Level 3.4 g/dL (3.5-5.2); Alkaline Phosphatase 73 U/L (40-130); Anion Gap 14.1 (5-19); Aspartate Amino Transferase 27 U/L (0-40); Blood Urea Nitrogen 16 mg/dL (6-20); Carbon Dioxide 25 mmol/L (22-29); Chloride 104 mmol/L (98-107); Globulin 2.7 g/dL (1.3-4.6); Glucose 132 mg/dL (65-115); Magnesium 1.7 mg/dL (1.7-2.3); Osmolality Calculated 291 mOsm/kg (285-295); Phosphorus 2.6 mg/dL (2.5-4.5); Potassium 4.1 mmol/L (3.5-5.1); Sodium 139 mmol/L (136-145); Total Bilirubin 0.2 mg/dL (0.15-1.2); Total Protein 6.1 g/dL (6.6-8.7)
[2023-08-04] MEDS: HYDROcodone-acetaminophen 10-325 mg Tablet PO ×2 (03:38→08:13)
[2023-08-04] MEDS: ALPRAZolam 0.5 mg Tablet 0.25 MG PO ×2 (03:39→22:25)
[2023-08-04] MEDS: doxycycline 100 MG in sodium chloride 0.9% (plus) 100 ML IV ×2 (07:15→18:13)
[2023-08-04] MEDS: baclofen 10 mg Tablet 40 MG PO ×3 (08:13→22:24)
[2023-08-04] MEDS: pantoprazole DR 40 mg Tablet PO ×2 (08:13→17:04)
[2023-08-04] MEDS: dexamethasone 10 mg/mL INJ 6 MG IVP (08:14)
--- NOTE | 2023-08-04 09:53 | PC.OT ---
Patient declined Occupational therapy. He pleasantly declines OT intervention. He stated that he has had 5-6 of these episodes with his MS and he recovers his independence without intervention. He appears to know his abilities and history of recovery. Occupational therapy evaluation witll not be attempted again unless further orders are received.
--- NOTE | 2023-08-04 10:56 | PC.SOCIAL ---
IMM Update Pg. 2 of IMM updated and reviewed with patient who verbalized understanding. Copy provided. Copy placed in chart.
--- NOTE | 2023-08-04 11:12 | PC.OT ---
Nursing notified OT that patient had changed his mind. Stated that he wanted a custodian blood bank.
[2023-08-04] MEDS: oxyCODONE 5 mg IR Tab/Cap 10 MG PO ×3 (12:19→22:25)
--- NOTE | 2023-08-04 14:12 | P.PN_ITS ---
Subjective 2 Subjective: Patient was seen this morning, denies any back pain, he tells me that his strength in bilateral lower extremities is improving, no fevers, no cough, he does tell me that the hydrocodone is not helping with his pain, he tells me he does a bit better with oxycodone Vitals/I&O/Wt Last Vital Signs Temp 98.0 F 08/04/23 11:41 Pulse 70 08/04/23 11:41 Resp 18 08/04/23 12:19 BP 111/75 08/04/23 11:41 Pulse Ox 95 08/04/23 11:41 O2 Del Method Room Air 08/04/23 11:41 08/03/23 08/04/23 08/04/23 22:59 06:59 14:59 Intake Total 1320 / 1660 280 / 280 Output Total 1625 / 2125 850 / 2975 Balance -305 / -465 -850 / -1315 280 / 280 Weight last 48 hrs Weight 83.489 kg Weight 81.647 kg Physical Exam 2 Const: COMMON NORMALS: no acute distress and patient oriented x3 Resp: COMMON NORMALS: normal respiratory effort, No retractions, No use of accessory muscles and clear to auscultation bilaterally AUSCULTATION: clear to auscultation bilaterally Cardio: COMMON NORMALS: regular rate, regular rhythm, S1 normal heart sound present and S2 normal heart sound present RATE: regular rate RHYTHM: r egular rhythm HEART SOUNDS: S1 normal heart sound present and S2 normal heart sound present GI: COMMON NORMALS: Normal to inspection, nondistended, normoactive bowel sounds present and non-tender Extremity: COMMON NORMALS: no pedal edema Neuro: COMMON NORMALS: patient oriented x3 Psych: COMMON NORMALS: mental status grossly normal Urinary Catheter Management: Vicente: Cath Placed During This Visit: yes, but has since been removed by the nurse Reason for Continuing Indwelling Catheter: Acute Urinary Retention or Obstruction Date Urinary Catheter Removed: 08/04/23 Time Urinary Catheter Discontinued: 10:01 Data 08/04/23 02:32 08/04/23 02:32 A&P Assessment and plan (1) Pneumonia due to COVID-19 virus: (2) Pneumonia: Plan COVID-19 pneumonia, -CT angiogram showing multifocal groundglass opacities likely infectious/inflammatory ? Plan, ? Decadron 6 mg IV push every 24 hours, ? Remdesivir 200 mg once, followed by 100 mg once daily, ? Doxycycline 100 mg IV push every 12 hours, ? DuoNeb?respiratory therapy eval, ? Monitor respiratory status closely? ? PT OT ? CT angiogram negative for PE, ? Complaints of bilateral calf pain, venous ultrasound negative for DVT ? Intractable pain, stop hydrocodone and switch to oxycodone ?full code code ? Lovenox for DVT prophylaxis Recent history of spinal stimulator removal of battery of neurostimulator, removal of neurostimulator paddle CT lumbar spine 1. No sign of discitis or osteomyelitis. 2. Mixed density subcutaneous fluid collection in the lower left flank. Probable seroma or resolving hematoma related to explantation of neurostimulator. Abscess cannot be excluded. 3. Partially imaged fluid collection surrounding the T11 spinous process. Possible seroma or abscess. -ESR 18 ? Awaiting blood cultures ? No urine incontinence, no bowel incontinence, no saddle or perianal anesthesia -Will discuss findings with Dr. Choudhary Attestations 2 Medical Necessity Statement*: Patient requires hospitalization for COVID-19 pneumonia, intractable pain Diagnoses Pneumonia due to COVID-19 virus U07.1; J12.82 Pneumonia J18.9
[2023-08-04] MEDS: remdesivir 100 MG in sodium chloride 0.9% (100 ml) 80 ML IV (17:04)
[2023-08-04] MEDS: enoxaparin 40 mg/0.4 mL Syringe SUBCUT (18:14)
[2023-08-04] MEDS: acetaminophen 325 mg Tablet 650 MG PO (22:24)
--- NOTE | 2023-08-04 22:56 | PC.NURSE ---
over the last several nights of care of patient, he has requested his bedtime meds be given after the scheduled time, sometimes to line up with pain medication availability and other nights simply d/t not being ready for bed. patient currently is not wanting his ambien at this time until iv access is obtained and iv dilaudid is administered before bed. other bedtime medications were given late as well per patient to be given with oral pain medication.
[2023-08-04] MEDS: zolpidem 5 mg Tablet 10 MG PO (23:13)
[2023-08-05 04:00] VITALS: BP 120/77; PULSE 78; RESP 17; TEMP 36.7; O2SAT 97
[2023-08-05] MEDS: doxycycline 100 MG in sodium chloride 0.9% (plus) 100 ML IV (06:34)
[2023-08-05 06:35] VITALS: RESP 17; O2SAT 97
[2023-08-05] MEDS: oxyCODONE 5 mg IR Tab/Cap 10 MG PO ×2 (06:35→12:29)
[2023-08-05] MEDS: acetaminophen 325 mg Tablet 650 MG PO (06:35)
[2023-08-05 07:00] LABS: Basophils % 0.1 %; Hematocrit 37.2 % (37-53); Lymphocytes # 1.3 10^3/uL (0.8-4.8); Lymphocytes % 7.9 %; Mean Corpuscular HGB Conc 33.1 g/dL (30-55); Mean Corpuscular Hemoglobin 29.8 pg (27-33); Mean Corpuscular Volume 90.1 fl (82-101); Monocytes # 0.7 10^3/uL (0.2-0.9); Monocytes % 4.6 %; Neutrophils # 13.98 10^3/uL (1.8-7.7); Neutrophils % 86.8 %; Nucleated Red Blood Cells % 0 %; Platelet Count 294 10^3/cmm (157-399); Red Blood Count 4.13 10^6/uL (3.85-5.65); White Blood Count 16.11 10^3/uL (3.29-11.43)
--- NOTE | 2023-08-05 07:00 | MR_ITS ---
WS: [id number] MRI THORACIC SPINE WITHOUT CONTRAST TECHNIQUE: Sagittal T1, T2 and STIR imaging. Axial T2 imaging. Noncontrast imaging obtained. CLINICAL INFORMATION: abscess vs seroma COMPARISON: MRI 10/14/2022 FINDINGS: Mild thoracic curve. Mild thoracic kyphosis. No acute compression fractures. Cord signal is normal. N o evidence of epidural abscess. Disc space heights and vertebral body heights are well-preserved. Adr enal glands are normal. Small to moderate esophageal hiatal hernia. Normal caliber descending thoraci c aorta. Recent postoperative changes in the lower thoracic spine posteriorly. IMPRESSION: No acute thoracic spine findings.
--- NOTE | 2023-08-05 07:00 | MR_ITS ---
WS: [id number] MRI LUMBAR SPINE NONCONTRAST TECHNIQUE: Sagittal T1, T2 and STIR imaging. Axial T1 and T2 imaging. CLINICAL INFORMATION: spinal abscess or seroma COMPARISON: MRI 10/14/2022 FINDINGS: Mild lumbar curve. No acute compression. Slight retrolisthesis L2 on L3 and L3 on L4. Disc space narr owing worse at L3-4. L1-L2: Mild annular bulging. Spinal canal and foramen are patent. L2-L3: Slight retrolisthesis. Mild annular bulging. Narrowing of the subarticular recess bilaterally LEFT greater than RIGHT. Mild facet arthropathy. Mild LEFT and no significant RIGHT foraminal narrowi ng. L3-L4: Slight retrolisthesis. Mild annular bulging with slight effacement of the ventral thecal sac. LEFT foraminal protrusion with mild to moderate LEFT and no significant RIGHT foraminal narrowing. Mi ld facet arthropathy. L4-L5: Mild annular bulging. Mild facet arthropathy. Mild RIGHT and no significant LEFT foraminal romulo rowing. Mild facet arthropathy. L5-S1: Mild annular bulging with slight impingement on the traversing RIGHT S1 nerve root. Mild RIGHT and no significant LEFT foraminal narrowing. Mild facet arthropathy. Visualized pelvic bony structures: Normal. Paravertebral soft tissues: Normal. Small bilateral renal cysts. IMPRESSION: 1. No evidence of spinal or epidural abscess. 2. No high-grade central canal stenosis. 3. Mild to moderate LEFT L3-4 foraminal narrowing with impingement of the exiting LEFT L3 nerve root appears unchanged. 4. No other significant changes compared to previous.
[2023-08-05 07:17] LABS: Alanine Aminotransferase 15 U/L (0-41); Albumin Level 3.5 g/dL (3.5-5.2); Alkaline Phosphatase 83 U/L (40-130); Aspartate Amino Transferase 21 U/L (0-40); Blood Urea Nitrogen 20 mg/dL (6-20); Calcium 9.4 mg/dL (8.5-10.5); Carbon Dioxide 28 mmol/L (22-29); Chloride 102 mmol/L (98-107); Globulin 2.7 g/dL (1.3-4.6); Glucose 99 mg/dL (65-115); Magnesium 1.8 mg/dL (1.7-2.3); Osmolality Calculated 293 mOsm/kg (285-295); Phosphorus 3.8 mg/dL (2.5-4.5); Sodium 140 mmol/L (136-145); Total Bilirubin 0.2 mg/dL (0.15-1.2); Total Protein 6.2 g/dL (6.6-8.7)
[2023-08-05 07:47] VITALS: BP 108/75; PULSE 72; RESP 15; TEMP 36.8; O2SAT 94
[2023-08-05 08:39] VITALS: PULSE 71; RESP 18; O2SAT 96
[2023-08-05 10:16] VITALS: RESP 18
[2023-08-05] MEDS: HYDROmorphone 1 mg/mL INJ 1 mL IVP (10:16)
--- NOTE | 2023-08-05 10:17 | PC.NURSE ---
pt request prn dilaudid pain, this nurse pulled dilaudid from pyxis. While in room Dr. Cárdenas was at bedside, whom gave verbal order to give 1mg dilaudid x1 dose before MRI. One time order was placed, medication administered per order. Called and spoke with Mikal, inpatient pharmacist. 0.5mg was already wasted in the pyxis so the one time order for dilaudid couldn't be returned to the PRN order. Dr. Christensenod in the room while 1mg dilaudid was adminstered. Puja Murphy RN witnessed waste of 0.5 mg left from original dose as well as pull and return of 2nd dose on new order.
[2023-08-05] MEDS: pantoprazole DR 40 mg Tablet PO (12:29)
[2023-08-05] MEDS: dexamethasone 10 mg/mL INJ 6 MG IVP (12:29)
[2023-08-05] MEDS: ALPRAZolam 0.5 mg Tablet 0.25 MG PO (12:30)
--- NOTE | 2023-08-05 12:31 | PM.DCS ---
Discharge Providers Date of Admission: 08/02/23 15:19 Date of Discharge: August 05, 2023 Attending Provider at Admission: Gucci Pisano MD Attending Provider at Discharge: Gucci Pisano MD Primary Care Provider: Yogesh Cerspo DO Diagnoses at Discharge Discharge Diagnosis (1) Pneumonia due to COVID-19 virus: Status: Acute (2) Pneumonia: Status: Acute Reason for Visit Reason for Visit: WEAKNESS Hospital Course Hospital Course Bharat Arthur is a 57 year old male with a past medical history of multiple sclerosis, who presents [facility] due to fatigue, malaise, chills, shortness of breath. Patient tells me that with his MS, he has trouble with ambulating at baseline, but recently and for the last few days, he has been feeling increasingly weak, fatigued, malaise, body aches, chills, he did a couple home COVID test which were positive, no fevers, no cough, does have a sore throat, no diarrhea, recently had surgery for removal of battery of neurostimulator and removal of neurostimulator paddle Patient was admitted [facility] for COVID-19 pneumonia, CT angiogram showed multifocal groundglass opacities, received Decadron, remdesivir, doxycycline, ultrasound negative for DVT, overall clinically proved to remain on room air, discharge instructions to continue to self isolate, social distance, facemask, hand wash completed treatment as inpatient Patient had a CT scan of his lumbar spine Recent history of spinal stimulator removal of battery of neurostimulator, removal of neurostimulator paddle CT lumbar spine 1. No sign of discitis or osteomyelitis. 2. Mixed density subcutaneous fluid collection in the lower left flank. Probable seroma or resolving hematoma related to explantation of neurostimulator. Abscess cannot be excluded. 3. Partially imaged fluid collection surrounding the T11 spinous process. Possible seroma or abscess. -ESR 18 mri spine ordered IMPRESSION: 1. No evidence of spinal or epidural abscess. 2. No high-grade central canal stenosis. 3. Mild to moderate LEFT L3-4 foraminal narrowing with impingement of the exiting LEFT L3 nerve root appears unchanged. 4. No other significant changes compared to previous. thoracic mri IMPRESSION: No acute thoracic spine findings -ambulating without significant symptomatolgy, no urine incontinence, no bowel continence, no saddle paresthesia, follow-up with Dr. Choudhary as outpatient Physical Exam Const: COMMON NORMALS: no acute distress and patient oriented x3 Resp: COMMON NORMALS: normal respiratory effort, No retractions, No use of accessory muscles and clear to auscultation bilaterally AUSCULTATION: clear to auscultation bilaterally Cardio: COMMON NORMALS: regular rate, regular rhythm, S1 normal heart sound present and S2 normal heart sound present RATE: regular rate RHYTHM: regular rhythm HEART SOUNDS: S1 normal heart sound present and S2 normal heart sound present GI: COMMON NORMALS: Normal to inspection, nondistended, normoactive bowel sounds present and non-tender Extremity: COMMON NORMALS: no pedal edema Neuro: COMMON NORMALS: patient oriented x3 Psych: COMMON NORMALS: mental status grossly normal Urinary Catheter Management: Vicente: Cath Placed During This Visit: yes, but has since been removed by the nurse Reason for Continuing Indwelling Catheter: Acute Urinary Retention or Obstruction Date Urinary Catheter Removed: 08/04/23 Time Urinary Catheter Discontinued: 10:01 Discharge Data Studies Completed and Pending Completed Studies During Hospitalization Category Date Time Status CT angio chest PE protcl [id number] Stat Cat Scan 08/02/23 11:[address] lumbar spine w con [id number] Stat Cat Scan 08/02/23 10:04 Completed XR chest 1V portable [id number] Stat Exams 08/02/23 09:41 Completed MR lumbar spine wo con* [id number] Routine MRI 08/05/23 07:00 Completed MR thoracic spin wo con* [id number] Routine MRI 08/05/23 07:00 [place] [id number] Stat Ultrasound 08/02/23 15:43 Completed Pending at discharge Category Date Time Status Blood Cultures ([facility]) Routine Lab 08/02/23 16:33 Received Blood Cultures ([facility]) Routine Lab 08/02/23 16:43 Received Radiology Impressions Chest X-Ray 08/02/23 09:41 IMPRESSION: No acute findings. Lumbar Spine CT 08/02/23 10:04 IMPRESSION: 1. No sign of discitis or osteomyelitis. 2. Mixed density subcutaneous fluid collection in the lower left flank. Probable seroma or resolving hematoma related to explantation of neurostimulator. Abscess cannot be excluded. 3. Partially imaged fluid collection surrounding the T11 spinous process. Possible seroma or abscess. 4. Bilateral nonobstructive nephrolithiasis. Chest CTA 08/02/23 11:51 IMPRESSION: No evidence of pulmonary embolism. Multifocal ground-glass opacities likely infectious/inflammatory. Small hiatal hernia with severe gastroesophageal reflux. Venous Duplex 08/02/23 15:43 IMPRESSION: No evidence of deep vein thrombosis. Laboratory Results WBC 16.11 10^3/uL (3.29-11.43) H 08/05/23 06:22 RBC 4.13 10^6/uL (3.85-5.65) 08/05/23 06:22 Hgb 12.30 g/dL (11.27-16.99) 08/05/23 06:22 Hct 37.2 % (37-53) 08/05/23 06:22 MCV 90.1 fl (82-101) 08/05/23 06:22 MCH 29.8 pg (27-33) 08/05/23 06:22 MCHC 33.1 g/dL (30-55) 08/05/23 06:22 RDW 14.0 % (12.1-15.1) 08/05/23 06:22 Plt Count 294 10^3/cmm (157-399) 08/05/23 06:22 MPV 10.0 fL (7.4-10.4) 08/05/23 06:22 Neut % (Auto) 86.8 % 08/05/23 06:22 Lymph % (Auto) 7.9 % 08/05/23 06:22 [place] % (Auto) 4.6 % 08/05/23 06:22 Eos % (Auto) 0.0 % 08/05/23 06:22 Baso % (Auto) 0.1 % 08/05/23 06:22 Neut # (Auto) 13.98 10^3/uL (1.8-7.7) H 08/05/23 06:22 Lymph # (Auto) 1.3 10^3/uL (0.8-4.8) 08/05/23 06:22 [place] # (Auto) 0.7 10^3/uL (0.2-0.9) 08/05/23 06:22 Eos # (Auto) 0.0 10^3/uL (0.0-0.8) 08/05/23 06:22 Baso # (Auto) 0.0 10^3/uL (0.0-0.1) 08/05/23 06:22 Nucleated RBC % (auto) 0 % 08/05/23 06:22 Nucleated RBCs # 0.0 /100WBC 08/05/23 06:22 ESR 18 mm/hr (0-10) H 08/02/23 09:47 D-Dimer 0.83 ug/mLFEU (0-0.59) H 08/02/23 09:47 Sodium 140 mmol/L (136-145) 08/05/23 06:22 Potassium 4.0 mmol/L (3.5-5.1) 08/05/23 06:22 Chloride 102 mmol/L (98-107) 08/05/23 06:22 Carbon Dioxide 28 mmol/L (22-29) 08/05/23 06:22 Anion Gap 14.0 (5-19) 08/05/23 06:22 BUN 20 mg/dL (6-20) 08/05/23 06:22 Creatinine 0.8 mg/dL (0.7-1.2) 08/05/23 06:22 GFR Calculation 100.0 mL/min (90-130) 08/05/23 06:22 Glucose 99 mg/dL (65-115) 08/05/23 06:22 Calculated Osmolality 293 mOsm/kg (285-295) 08/05/23 06:22 Lactic Acid 1.6 mmol/L (0.5-2.2) 08/02/23 09:47 Calcium 9.4 mg/dL (8.5-10.5) 08/05/23 06:22 Phosphorus 3.8 mg/dL (2.5-4.5) 08/05/23 06:22 Magnesium 1.8 mg/dL (1.7-2.3) 08/05/23 06:22 Total Bilirubin 0.2 mg/dL (0.15-1.2) 08/05/23 06:22 AST 21 U/L (0-40) 08/05/23 06:22 ALT 15 U/L (0-41) 08/05/23 06:22 Alkaline Phosphatase 83 U/L (40-130) 08/05/23 06:22 Troponin T Baseline 7 ng/L (0-15) 08/02/23 09:47 Troponin T 120 Minute 7.32 ng/L (0-15) 08/02/23 17:57 Delta Troponin T 0.32 ABS# (0-10) 08/02/23 17:57 Troponin T Hi Sens 6Hr 6.66 ng/L (0-15) 08/03/23 02:32 Troponin T Hi Sens 6Hr Delta 0.34 ng/L (0-12) 08/03/23 02:32 C-Reactive Protein 25.7 mg/L (0.0-4.9) H 08/02/23 09:47 Total Protein 6.2 g/dL (6.6-8.7) L 08/05/23 06:22 Albumin 3.5 g/dL (3.5-5.2) 08/05/23 06:22 Globulin 2.7 g/dL (1.3-4.6) 08/05/23 06:22 Procalcitonin 2.77 ng/mL (0-0.5) H 08/02/23 09:47 TSH 0.93 uIU/mL (0.27-4.20) 08/02/23 09:47 Urine Color Yellow (Yellow) 08/02/23 10:12 Urine Appearance Clear (CLEAR) 08/02/23 10:12 Urine pH 5 (5-7) 08/02/23 10:12 Ur Specific [place] 1.015 (1.005-1.030) 08/02/23 10:12 Urine Protein Neg (Negative) 08/02/23 10:12 Urine Glucose (UA) Norm (Normal) 08/02/23 10:12 Urine Ketones Negative (Negative) 08/02/23 10:12 Urine Blood 2+ (Negative) H 08/02/23 10:12 Urine Nitrate Negative (Negative) 08/02/23 10:12 Urine Bilirubin Neg (Negative) 08/02/23 10:12 Urine Urobilinogen Norm mg/dL (Negative) 08/02/23 10:12 Ur Leukocyte Esterase Negative (Negative) 08/02/23 10:12 Urine RBC 5-10 /hpf (0-2) H 08/02/23 10:12 Urine WBC Rare /hpf (0-5) 08/02/23 10:12 Ur Squamous Epith Cells None /hpf (0-5) 08/02/23 10:12 Amorphous Sediment Not Reportable 08/02/23 10:12 Urine Bacteria 1+ /hpf (NONE) H 08/02/23 10:12 Urine Mucus 1+ /hpf 08/02/23 10:12 Coronavirus 229E (PCR) Not detected (NOT DETECT) 08/02/23 09:26 Influenza Type A Ag negative (Negative) 08/02/23 09:26 Influenza Type B Ag negative (Negative) 08/02/23 09:26 SARS-CoV-2 (PCR) Detected (NOT DETECT) A 08/02/23 09:26 Vitals Last Vital Signs Temp 98.3 F 08/05/23 07:47 Pulse 71 08/05/23 08:39 Resp 18 08/05/23 10:16 BP 108/75 08/05/23 07:47 Pulse Ox 96 08/05/23 08:39 O2 Del Method Room Air 08/05/23 08:39 Discharge Plan Discharge Patient Disposition: Home Condition: Stable Prescriptions: New doxycycline hyclate 100 mg tablet 100 mg PO BID 3 Days Qty: 6 0RF Continued zolpidem [Ambien] 10 mg tablet 10 mg PO BEDTIME alprazolam [Xanax] 0.25 mg tablet 0.25 mg PO BID PRN (Reason: Anxiety) ketoconazole 2 % shampoo 1 applic topical Q14D ketoconazole 2 % cream 1 applic topical DAILY dalfampridine [Ampyra] 10 mg tablet extended release 12 hr 10 mg PO Q12H Qty: 180 3RF prochlorperazine maleate 5 mg tablet 5 tab PO DIRECTED PRN (Reason: Nausea) pantoprazole 40 mg tablet,delayed release (DR/EC) 40 mg PO BID Emgality Pen 120 mg/mL pen injector See Rx Instructions .ROUTE .COMPLEX Qty: 3 10RF Dose Instruction: INJECT THE CONTENTS OF 1 PEN UNDER THE SKIN ONE TIME MONTHLY FOR MIGRAINE DIRECTED Rx Instructions: INJECT THE CONTENTS OF 1 PEN UNDER THE SKIN ONE TIME MONTHLY FOR MIGRAINE DIRECTED hydrocodone-acetaminophen 10-325 mg tablet 1 tab PO Q4H MDD 7 tabs PRN (Reason: Pain) baclofen 20 mg tablet 40 mg PO TID oxycodone 10 mg tablet 10 mg PO Q4H PRN (Reason: Pain) cholecalciferol (vitamin D3) [Vitamin D3] 125 mcg (5,000 unit) Tablet See Rx Instructions .ROUTE .COMPLEX Rx Instructions: 5,000 unit orally on Sat and Sun Discontinued ibuprofen [Advil] 200 mg Tablet 600 mg PO Q4H PRN (Reason: Pain) Discharge Orders: Discharge Order (Routine); Ordered 08/05/23 Ordered By: Gucci Pisano Referrals: Yogesh Crespo DO [Primary Care Provider] - Discharge Diet: Cardiac Discharge Activity: Resume usual activity Patient Instructions: Opioid Safety Discharge Attestations Time Spent in Discharge Care*: greater than 30 min Quality Metrics Clinical Quality Measures [ No reported AMI, CVA or VTE this stay] Coding Level of Care Code 13387 Total time (in minutes) for Discharge: 45 Diagnoses Pneumonia due to COVID-19 virus U07.1; J12.82 Pneumonia J18.9
--- NOTE | 2023-08-05 13:44 | PC.NURSE ---
patient verbalized understanding of discharge instructions, home medications, and follow up appointments.
[2023-08-05 14:10] VITALS: RESP 18
== END 2023-08-05 14:12 | disposition home or self-care (01) | DRG 177 ==
LOC: ER 09:44 → MEDSURG 16:58
PROVIDERS: Admitting Provider Family Medicine; Emergency Provider Family Medicine; PCP Emergency Medicine Emergency Medical Services; Visit Provider Family Medicine
DX: U07.1 COVID-19 (principal); J12.82 Pneumonia due to coronavirus disease 2019; M96.842 Postprocedural seroma of a musculoskeletal structure following a musculoskeletal system procedure; G35 Multiple sclerosis; B95.8 Unspecified staphylococcus as the cause of diseases classified elsewhere
CPT/HCPCS: 36415; 51798; 71045; 71275; 72132; 72146; 72148; 80053; 81001; 83605; 83735; 84100; 84145; 84443; 84484; 85025; 85378; 85651; 86140; 86403; 87040; 87635; 87804; 92610; 93005; 93970; 96365; 96372; 96375; 97161; 97166; 99285; A9281; J0248; J1100; J1170; J1650; J2270; J2405; J3490; J7030; Q9967

== ENCOUNTER → 2023-08-07 08:43 | Outpatient (BNVA) | payer OTHER, SELFPAY | PROVIDERS: PCP Emergency Medicine Emergency Medical Services; Visit Provider Physician Assistant | DX: T85.192D Other mechanical complication of implanted electronic neurostimulator of spinal cord electrode (lead), subsequent encounter (principal); Y75.8 Miscellaneous neurological devices associated with adverse incidents, not elsewhere classified | CPT/HCPCS: 99024 ==

== ENCOUNTER 2023-08-08 15:23 | Inpatient (IN) | payer OTHER, SELFPAY ==
[2023-08-08] VITALS (10 sets, daily range): BP systolic 101–121; BP diastolic 71–89; PULSE 73–108; RESP 16–17; TEMP 36.6–36.9; O2SAT 93–97; BMI 24.3
--- NOTE | 2023-08-08 15:50 | XRR_ITS ---
PROCEDURE INFORMATION: Exam: XR Chest Exam date and time: 08/08/2023 4:01 PM Age: 57 years old Clinical indication: Cough and dyspnea; Additional info: Dyspnea/cough TECHNIQUE: Imaging protocol: Radiologic exam of the chest. Views: 1 view. COMPARISON: CT angio chest PE protcl [id number] 08/02/2023 12:51 PM FINDINGS: Lungs: Calcified granulomas right lung. Otherwise, unremarkable. Pleural spaces: Unremarkable. No pleural effusion. No pneumothorax. Heart/Mediastinum: Unremarkable. No cardiomegaly. Diaphragm: Mild elevation right hemidiaphragm. Bones/joints: Mild scoliosis with mild multilevel spondylosis. Old healed right clavicular fracture. XR/XR chest 1V portable [id number] IMPRESSION: No acute disease.
--- NOTE | 2023-08-08 15:59 | ED_ITS ---
HPI - General Adult 2 General: Chief complaint: General Medical Stated complaint: dr called to come back in Time Seen by Provider: 08/08/23 15:49 Source: patient Mode of arrival: ambulatory History of Present Illness: 57[facility]. Patient on August 02 and was admitted postop after spinal cord stimulator been removed there is a question of a seroma versus a possible abscess. Cultures were done 2 of 4 cultures came back with adam porras. Dr. Duvall to take care of the patient while he was an inpatient called the patient to have him return to the emergency room. He states he is feeling fine has not had any fever sweats or chills. Onset (ago): minute(s) Associated symptoms: Deny chest pain, confusion, cough, diaphoresis, decreased appetite, dyspnea, fevers/chills, headache(s), malaise, nausea, rash, palpitations, seizures, short of breath, syncope, vomiting or weakness Review of Systems 2 Const: Denies: fever(s), chills, malaise or diaphoresis Card: Denies: chest pain, palpitations or syncope Resp: Denies: dyspnea GI: Denies: abdominal pain, nausea or vomiting : Denies: dysuria, urinary frequency or urinary urgency Musc: Denies: neck pain or back pain Skin/Breast: Denies: rash Neuro: Denies: headache(s) or confusion PFSH ED 2 PFSH: Medical History Dysphagia Encounter for postoperative care Family history of prostate cancer Father, Arron Urinary retention Occipital neuralgia of right side Ulnar neuropathy at elbow of right upper extremity Lumbar stenosis Onychodystrophy Multiple sclerosis Surgical History Status post lumbar laminectomy S/P matrixectomy of toe Family History Father Cancer Colon Brother Cancer Colon Social History Smoking and tobacco/nicotine status: never used tobacco/nicotine Alcohol intake: never Substance/Drug Use: never Marital status: Current occupational status: disabled Physical Exam 2 Const: COMMON NORMALS: no acute distress GENERAL APPEARANCE: cooperative and comfortable ORIENTATION/CONSCIOUSNESS: Yes awake, Yes oriented to person, Yes oriented to place and Yes oriented to time HENMT: COMMON NORMALS: normocephalic, atraumatic and hearing grossly normal bilaterally HEAD & SCALP: normocephalic and atraumatic Resp: COMMON NORMALS: normal respiratory effort, No retractions, No use of accessory muscles and clear to auscultation bilaterally AUSCULTATION: clear to auscultation bilaterally Cardio: COMMON NORMALS: regular rate, regular rhythm and No murmurs present (Cardio) RATE: regular rate RHYTHM: regular rhythm GI: COMMON NORMALS: Soft to palpation and No hepatosplenomegaly present A USCULTATION: Yes normoactive bowel sounds PALPATION: Yes Soft to palpation, No Tenderness to palpation present (GI), No Guarding due to palpation present (GI) and Yes No hepatosplenomegaly present Extremity: COMMON NORMALS: normal to inspection, capillary refill normal, no clubbing, cyanosis or edema, no calf tenderness and no pedal edema Neuro: SENSORIUM/ORIENTATION: Yes oriented to person, Yes oriented to place and Yes oriented to time Skin: COMMON NORMALS: no rashes or lesions noted GENERAL SKIN EXAM: no rashes or lesions noted Course 2 Vital Signs: Vital signs: Vital Signs Temperature 97.8 F 08/08/23 15:36 Pulse Rate 85 08/08/23 16:47 Respiratory Rate 17 08/08/23 15:36 Blood Pressure 101/71 08/08/23 16:47 Pulse Oximetry 95 08/08/23 16:47 Oxygen Delivery Me thod Room Air 08/08/23 16:47 [facility] - General Adult Medical Decision Making Dr. Castañeda did contact the patient to return. He has seen the patient emergency room and will admit orders written. He started IV vancomycin. Medical Records I reviewed the patient's medical records. Lab Data I reviewed the patient's lab results. 08/08/23 16:14 08/08/23 16:14 Radiology Impressions Chest X-Ray 08/08/23 15:50 IMPRESSION: No acute disease. Laboratory Results WBC 8.56 10^3/uL (3.29-11.43) 08/08/23 16:14 RBC 4.56 10^6/uL (3.85-5.65) 08/08/23 16:14 Hgb 13.30 g/dL (11.27-16.99) 08/08/23 16:14 Hct 40.7 % (37-53) 08/08/23 16:14 MCV 89.3 fl (82-101) 08/08/23 16:14 MCH 29.2 pg (27-33) 08/08/23 16:14 MCHC 32.7 g/dL (30-55) 08/08/23 16:14 RDW 13.6 % (12.1-15.1) 08/08/23 16:14 Plt Count 337 10^3/cmm (157-399) 08/08/23 16:14 MPV 9.5 fL (7.4-10.4) 08/08/23 16:14 Neut % (Auto) 85.1 % 08/08/23 16:14 Lymph % (Auto) 5.0 % 08/08/23 16:14 [place] % (Auto) 5.8 % 08/08/23 16:14 Eos % (Auto) 0.1 % 08/08/23 16:14 Baso % (Auto) 0.4 % 08/08/23 16:14 Neut # (Auto) 7.28 10^3/uL (1.8-7.7) 08/08/23 16:14 Lymph # (Auto) 0.4 10^3/uL (0.8-4.8) L 08/08/23 16:14 [place] # (Auto) 0.5 10^3/uL (0.2-0.9) 08/08/23 16:14 Eos # (Auto) 0.0 10^3/uL (0.0-0.8) 08/08/23 16:14 Baso # (Auto) 0.0 10^3/uL (0.0-0.1) 08/08/23 16:14 Nucleated RBC % (auto) 0 % 08/08/23 16:14 Nucleated RBCs # 0.0 /100WBC 08/08/23 16:14 Sodium 137 mmol/L (136-145) 08/08/23 16:14 Potassium 4.0 mmol/L (3.5-5.1) 08/08/23 16:14 Chloride 100 mmol/L (98-107) 08/08/23 16:14 Carbon Dioxide 26 mmol/L (22-29) 08/08/23 16:14 Anion Gap 15.0 (5-19) 08/08/23 16:14 BUN 17 mg/dL (6-20) 08/08/23 16:14 Creatinine 0.9 mg/dL (0.7-1.2) 08/08/23 16:14 GFR Calculation 87.3 mL/min (90-130) L 08/08/23 16:14 Glucose 143 mg/dL (65-115) H 08/08/23 16:14 Calculated Osmolality 288 mOsm/kg (285-295) 08/08/23 16:14 Lactic Acid 3.1 mmol/L (0.5-2.2) H 08/08/23 16:14 Calcium 9.1 mg/dL (8.5-10.5) 08/08/23 16:14 Magnesium 2.0 mg/dL (1.7-2.3) 08/08/23 16:14 Total Bilirubin 0.3 mg/dL (0.15-1.2) 08/08/23 16:14 AST 19 U/L (0-40) 08/08/23 16:14 ALT 22 U/L (0-41) 08/08/23 16:14 Alkaline Phosphatase 82 U/L (40-130) 08/08/23 16:14 Total Protein 6.7 g/dL (6.6-8.7) 08/08/23 16:14 Albumin 3.8 g/dL (3.5-5.2) 08/08/23 16:14 Globulin 2.9 g/dL (1.3-4.6) 08/08/23 16:14 All radiology interpretation(s) finalized by discharge Discharge Plan Discharge Patient Disposition: Admitted As Inpatient Clinical Impression: Blood bacterial culture positive, Failed spinal cord stimulator, Staphylococcus epidermidis bacteremia Condition: Stable Prescriptions: No Action zolpidem [Ambien] 10 mg tablet 10 mg PO BEDTIME alprazolam [Xanax] 0.25 mg tablet 0.25 mg PO BID PRN (Reason: Anxiety) ketoconazole 2 % shampoo 1 applic topical Q14D ketoconazole 2 % cream 1 applic topical DAILY dalfampridine [Ampyra] 10 mg tablet extended release 12 hr 10 mg PO Q12H Qty: 180 3RF prochlorperazine maleate 5 mg tablet 5 tab PO DIRECTED PRN (Reason: Nausea) pantoprazole 40 mg tablet,delayed release (DR/EC) 40 mg PO BID Emgality Pen 120 mg/mL pen injector See Rx Instructions .ROUTE .COMPLEX Qty: 3 10RF Dose Instruction: INJECT THE CONTENTS OF 1 PEN UNDER THE SKIN ONE TIME MONTHLY FOR MIGRAINE DIRECTED Rx Instructions: INJECT THE CONTENTS OF 1 PEN UNDER THE SKIN ONE TIME MONTHLY FOR MIGRAINE DIRECTED hydrocodone-acetaminophen 10-325 mg tablet 1 tab PO Q4H MDD 7 tabs PRN (Reason: Pain) baclofen 20 mg tablet 40 mg PO TID oxycodone 10 mg tablet 10 mg PO Q4H PRN (Reason: Pain) cholecalciferol (vitamin D3) [Vitamin D3] 125 mcg (5,000 unit) Tablet See Rx Instructions .ROUTE .COMPLEX Rx Instructions: 5,000 unit orally on Sat and Sun Referrals: Yogesh Crespo DO [Primary Care Provider] - Coding Level of Care Code ED Terminal Operations Manager for Valentina Guevara
[2023-08-08 16:47] LABS: Basophils % 0.4 %; Eosinophils % 0.1 %; Hematocrit 40.7 % (37-53); Lymphocytes # 0.4 10^3/uL (0.8-4.8); Mean Corpuscular HGB Conc 32.7 g/dL (30-55); Mean Corpuscular Hemoglobin 29.2 pg (27-33); Mean Corpuscular Volume 89.3 fl (82-101); Mean Platelet Volume 9.5 fL (7.4-10.4); Monocytes # 0.5 10^3/uL (0.2-0.9); Monocytes % 5.8 %; Neutrophils # 7.28 10^3/uL (1.8-7.7); Neutrophils % 85.1 %; Nucleated Red Blood Cells % 0 %; Platelet Count 337 10^3/cmm (157-399); Red Blood Count 4.56 10^6/uL (3.85-5.65); Red Cell Distribution Width 13.6 % (12.1-15.1); White Blood Count 8.56 10^3/uL (3.29-11.43)
[2023-08-08 17:05] LABS: Lactic Sepsis W/Reflex 3.1 mmol/L (0.5-2.2)
[2023-08-08 17:06] LABS: Alanine Aminotransferase 22 U/L (0-41); Albumin Level 3.8 g/dL (3.5-5.2); Alkaline Phosphatase 82 U/L (40-130); Aspartate Amino Transferase 19 U/L (0-40); Blood Urea Nitrogen 17 mg/dL (6-20); Calcium 9.1 mg/dL (8.5-10.5); Carbon Dioxide 26 mmol/L (22-29); Chloride 100 mmol/L (98-107); Globulin 2.9 g/dL (1.3-4.6); Glomerular Filtration Rate 87.3 mL/min (90-130); Glucose 143 mg/dL (65-115); Osmolality Calculated 288 mOsm/kg (285-295); Sodium 137 mmol/L (136-145); Total Bilirubin 0.3 mg/dL (0.15-1.2); Total Protein 6.7 g/dL (6.6-8.7)
--- NOTE | 2023-08-08 17:11 | P.HP_ITS ---
Providers/Chief Complaint 2 Primary Care Provider: Yogesh Crespo DO Chief Complaint: dr called to come back in History of Present Illness Bhraat Arthur is a 57 year old male with a past medical history of multiple sclerosis, recent history of removal of neurostimulator and removal of neurostimulator paddle by Dr. Choudhary, recent history and admission for generalized weakness associate with COVID-19 pneumonia, requiring hospitalization remdesivir, who is called back to [facility] due to 2 out of 4 blood cultures positive for Staph epidermidis. Patient tells me that since getting home his weakness has improved but he continues to feel unwell no fevers, chills, no cough no neck pain, he has chronic lower extremity weakness but it is not slightly worse, he denies any other artificial heart rate he has had back surgery but no other artificial hardware in his body. Denies any dysuria, hematuria no episodes of fevers. Review of Systems 2 Const: Reports: fatigue and malaise; Denies: fever(s) or chills Card: Denies: chest pain GI: Denies: abdominal pain : Denies: flank pain Medications/Allergies Home Medications Medication Instructions Recorded Confirmed Last Taken Type alprazolam 0.25 mg tablet (Xanax) 0.25 mg PO BID PRN Anxiety 09/06/19 08/07/23 07/25/23 History zolpidem 10 mg tablet (Ambien) 10 mg PO BEDTIME 09/06/19 08/07/23 08/01/23 History hydrocodone 10 mg-acetaminophen 1 tab PO Q4H PRN Pain 06/25/21 08/07/23 07/25/23 History 325 mg tablet pantoprazole 40 mg tablet,delayed 40 mg PO BID 12/12/21 08/07/23 08/02/23 History release cholecalciferol (vitamin D3) 125 See Rx Instructions .Route .COMPLEX 04/03/22 08/07/23 08/02/23 History mcg (5,000 unit) tablet (Vitamin D3) prochlorperazine maleate 5 mg 5 tab PO DIRECTED PRN Nausea 08/22/22 08/07/23 07/25/23 History tablet dalfampridine 10 mg 10 mg PO Q12H #180 tabs 09/05/22 08/07/23 08/02/23 Rx tablet,extended release,12 hr (Ampyra) ketoconazole 2 % shampoo 1 applic topical Q14D 09/05/22 08/07/23 07/17/23 History ketoconazole 2 % topical cream 1 applic topical DAILY 09/05/22 08/07/23 07/24/23 History galcanezumab-gnlm 120 mg/mL See Rx Instructions .Route 06/23/23 08/07/23 06/13/23 Rx subcutaneous pen injector .COMPLEX #3 mL (Emgality Pen) baclofen 20 mg tablet 40 mg PO TID 07/24/23 08/07/23 08/02/23 History oxycodone 10 mg tablet 10 mg PO Q4H PRN Pain 08/02/23 08/07/23 Unknown History Allergies Allergy/AdvReac Type Severity Reaction Status Date / Time No Known Drug Allergies Allergy Unknown Verified 08/07/23 11:08 PFSH Acute 2 PFSH: Medical History Dysphagia Encounter for postoperative care Family history of prostate cancer Father, Arron Urinary retention Occipital neuralgia of right side Ulnar neuropathy at elbow of right upper extremity Lumbar stenosis Onychodystrophy Multiple sclerosis Surgical History Status post lumbar laminectomy S/P matrixectomy of toe Family History Father Cancer Colon Brother Cancer Colon Social History Smoking and tobacco/nicotine status: never used tobacco/nicotine Alcohol intake: never Substance/Drug Use: never Marital status: Current occupational status: disabled Vitals/I&O/Wt Last Vital Signs Temp 97.8 F 08/08/23 15:36 Pulse 85 08/08/23 16:47 Resp 17 08/08/23 15:36 BP 101/71 08/08/23 16:47 Pulse Ox 95 08/08/23 16:47 O2 Del Method Room Air 08/08/23 16:47 Weight last 48 hrs Weight 80.286 kg Physical Exam 2 Const: COMMON NORMALS: no acute distress and patient oriented x3 HENMT: COMMON NORMALS: normocephalic HEAD & SCALP: normocephalic Eye: COMMON NORMALS: Equal, round and reactive pupils present and EOMs intact bilaterally Neck/C-Spine: COMMON NORMALS: no JVD Lymph: LYMPHATIC: no lymphadenopathy noted Resp: COMMON NORMALS: normal respiratory effort, No retractions, No use of accessory muscles and clear to auscultation bilaterally AUSCULTATION: clear to auscultation bilaterally Cardio: COMMON NORMALS: regular rate, regular rhythm, S1 normal heart sound present and S2 normal heart sound present RATE: regular rate RHYTHM: r egular rhythm HEART SOUNDS: S1 normal heart sound present and S2 normal heart sound present GI: COMMON NORMALS: Normal to inspection, nondistended, normoactive bowel sounds present, Soft to palpation and non-tender Extremity: COMMON NORMALS: no pedal edema Neuro: COMMON NORMALS: patient oriented x3, CN's II-XII intact bilaterally, moves all extremities and no focal motor deficits Psych: COMMON NORMALS: mental status grossly normal Data 08/08/23 16:14 08/08/23 16:14 A&P Assessment and plan (1) Staphylococcus epidermidis bacteremia: (2) Failed spinal cord stimulator: Qualifiers: Encounter type: subsequent encounter Qualified Code(s): T85.192D - Other mechanical complication of implanted electronic neurostimulator of spinal cord electrode (lead), subsequent encounter Plan Staphylococcus epidermidis bacteremia ? Concerns for possible real infection versus contamination, next?2 out of 4 blood cultures positive, etc. sensitive to vancomycin, ? Patient did recently have a removval neurostimulator battery and removal of neurostimulator paddle -Lumbar spinal CT CT lumbar spine 1. No sign of discitis or osteomyelitis. 2. Mixed density subcutaneous fluid collection in the lower left flank. Probable seroma or resolving hematoma related to explantation of neurostimulator. Abscess cannot be excluded. 3. Partially imaged fluid collection surrounding the T11 spinous process. Possible seroma or abscess. -ESR 18 -mri spine ordered IMPRESSION: 1. No evidence of spinal or epidural abscess. 2. No high-grade central canal stenosis. 3. Mild to moderate LEFT L3-4 foraminal narrowing with impingement of the exiting LEFT L3 nerve root appears unchanged. 4. No other significant changes compared to previous. thoracic mri IMPRESSION: No acute thoracic spine findings ? Patient is immunocompromised with multiple sclerosis is on galcanezumab Plan -Admit to general medical floors -Repeat blood cultures -ESR, CRP, Pro-Anjel -Cardiac echo, ? Start vancomycin, -resume homed mediaction -will consider yemi based on clinical progress ?follow cultures -lovenox for dvt ppx -full code Attestations 2 Medical Necessity Statement*: Patient requires hospitalization, inpatient, greater than 2 minutes for Staph epidermidis bacteremia Diagnoses Staphylococcus epidermidis bacteremia R78.81; B95.7 Failure of spinal cord stimulator, subsequent encounter T85.192D Encounter type: subsequent encounter
[2023-08-08 17:45] LABS: Erythrocyte Sedimentation Rate 21 mm/hr (0-10)
[2023-08-08 18:23] LABS: Reflex Lactate Order REFLEX LACTIC ORDERD
[2023-08-08 19:43] LABS: Lactic Acid level (Lactate) 1.7 mmol/L (0.5-2.2)
--- OUTSIDE RECORDS SUMMARY | 2023-08-08 19:46 | XMS_ITS | Patient Health Record ---
Author Name Unknown Organization [facility] [employer] [employer] Address [address] [place], [place] [id number] Care Team Providers Care Trial Consultant Name Role Phone Ben DUFF, Bony Primary Care Provider Santosh Bender MD, Yogesh Unavailable [phone] [place], [place] Unavailable Unavailable Jessica Weinstein Unavailable [phone] ALLERGIES Allergen (clinical drug ingredient) Drug/Non Drug [...] neurogenic claudication (M48.062) Referral Organization [facility] Referring Provider First Name Yogesh Referring Provider [...] patient was seen on 10/17/22, Jessica Healy, [employer] COMPONENTS INSPECTOR 01/18/2023 02:02:27 PM > Request for Health Information-Referral Follow-up faxed. Referral Priority Urgent Referral Appointment Date 10/17/2022 Diagnosis 1 Spinal stenosis, lum bar region with neurogenic claudication (M48.062) Referring Provider First Name Closter Wilberto ff Referring Provider Last Name [place] Referred Organization [facility] Referred Provider Yogesh Bender Referred Address [address] [facility],[place], [place],[id number],[place] Referred Provider Specialty Pain Managem ent Referral Priority Routine Reason Evaluation for possi ble surgical intervention Diagnosis 1 Pain in left forearm (M79.632) Referral Organization [facility] Referring Provider First Name Yogesh Referring Provider Last Name Yulia Referring Provider Speciality Pain Manag ement Referred Provider Tima Choudhary Referred Provider Specialty Orthopedic S urgery General Notes Jessica Healy, AMM[employer]ITION COMPONENTS INSPECTOR 0 03/17/2023 03:36:18 PM > RFS completed for [email or web address] Allison M 03/18/2023 04:14:37 PM > faxed RFS to [place]Aron Brenda 04/08/2023 04:31:49 PM > referral faxedAron Brenda 04/28/2023 10:23:18 AM >Left message for someone to return my call at [facility] Aron Brenda 05/05/2023 02:36:13 PM > Patient had appt with Dr. Choudhary on 04/15/23 Referral Priority Routine Referral Appointment Date 04/15/2023 Diagnosis 1 Spinal stenosis, lum bar region with neurogenic claudication (M48.062) Referring Provider First Name Closter Wilberto ff Referring Provider Last Name [place] Referred Organization [facility] Referred Provider Yogesh Bender Referred Address [address],[place], [id number],[place] Referred Provider Specialty Pain Managem ent Referral Priority Routine Reason Evaluation for possi ble removal of DSC/IPG system Diagnosis 1 Spinal stenosis, lum bar region with neurogenic claudication (M48.062) Referral Organization [facility] [employer] Referring Provider First Name Jessica Referring Provider Last Name Niraj Referring Provider Speciality Nurse Prac titioner Referred Provider Tima Choudhary Referred Provider Specialty Orthopedic S urgery General Notes Jessica Healy FNP 1 08/05/2022 05:21:40 PM > RFS completed; printed for signature.Aron Brenda 06/16/2023 11:43:02 AM > faxed referral, Luz Maria Sharp 06/23/2023 09:43:20 AM > Received fax stating that patient is having [employer] work with [facility] and will call if he wants to schedule appoitnment with Dr. Choudhary - he is established patient. Referral Priority Routine Reason Evaluation of right foot (RLE weakness related to MS) Diagnosis 1 Weakness (R53.1) Referral Organization [facility] [facility] Referring Provider First Name Jessica Referring Provider Last Name Niraj Referring Provider Speciality Nurse Prac titioner Referred Provider Ryan Reyes Referred Provider Specialty Podiatry General Notes Jessica Healy FNP 1 08/05/2022 05:21:55 PM > RFS completed; printed for signature., Luz Maria Sharp 06/16/2023 11:41:22 AM > faxed referral to Dr. Reyes, Luz Maria Sharp 07/07/2023 10:27:49 AM > left message with Kandace with [facility] to see if patient has been scheduled, Luz Maria Sharp 07/07/2023 03:19:01 PM > Spoke with Prachi in [facility] Podiatry - patient was seen today. She [...] intranas ally once 03/18/2023 Active nystatin topical 225206 units/g 1 earlene applied topically 3 times [...] elsewhere classified (M46.1) Active confirmed Solitary sacroiliitis (100377045) Problem Low back pain (M54.5) Active confirmed Low back pain (907232994) Problem Spondylosis without myelopathy or radiculopathy, lumbar region (M47.816) Active confirmed Lumbosacral spondylosis without myelopathy (85135932) six lumbar-appear ing vertebrae have been appreciated via fluoroscopy (for SAW MAKER and WPSC nomenclature purposes for block and RFA procedures, the inferior most is designated as L5). Problem director of neurology (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 of 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 (Z79.891) Active confirmed High risk drug monitoring status (616916174) Problem Other specified anxiety disorders (F41.8) Active confirmed Anxiety disorde r (536662006) Problem Hypersomnia, unspecified (G47.10) Active confirmed Hypersomnia (19682011) Problem Other sleep disorders (G47.8) Active confirmed Sleep disorder (36466657) Problem Other chronic pain (G89.29) Active confirmed Chronic pain (01285263) Problem Pain in unspecified hip (M25.559) Active confirmed Arthralgia of t he pelvic region and thigh (622421837) Problem Spondylolisthesi s, lumbar region (M43.16) Active confirmed Acquired spondylolisthesis (377244290) Problem Intervertebral disc disorders with radiculopathy, lumbar region (M51.16) Active confirmed Radiculopathy d ue to lumbar intervertebral disc disorder (883342341241546) Problem Pain in left forearm (M79.632) Active confirmed Pain in limb (59614242) Problem Postlaminectomy syndrome, not elsewhere classified (M96.1) Active confirmed Post-laminectom y syndrome (15196140) Problem Weakness (R53.1) Active confirmed Weakn ess (22810452) Problem Other jail (current) drug therapy (Z79.899) Active confirmed Long-term curre nt use of drug therapy (138183519) Problem Spinal stenosis, lumbar region with neurogenic claudication (M48.062) Active confirmed Neurogenic claudication (640435324) Problem Vertebrogenic low back pain (M54.51) Active confirmed Pain in lumbar spine (243010355) VITAL SIGNS Temperature 97.7 degrees Fahrenheit 06/05/2023 Blood pressure diastolic 79 mm Hg 11/21/2022 Oximetry 98 % 06/05/2023 Height 71 in 06/05/2023 Blood pressure systolic 127 mm Hg 11/21/2022 Weight 179.8 lbs 06/05/2023 BMI 25.07 kg/m2 06/05/2023 Encounters Encounter Location Date Provider Diagnosis [facility] [address] [place] [id number] 08/15/2022 Yogesh Bender Spondylosis without myelopathy or radiculopathy, lumbar region M47.816 ; Vertebrogenic low back pain M54.51 ; Sacroiliitis, not elsewhere classified M46.1 ; Spinal stenosis, lumbar region with neurogenic claudication M48.062 ; Pain in unspecified hip M25.559 ; Intervertebral disc disorders with radiculopathy, lumbar region M51.16 ; Spondylolisthesis, lumbar region M43.16 ; Hypersomnia, unspecified G47.10 and director of neurology (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 of 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 Z79.891 [facility] [address] [place], [place] [id number] 08/22/2022 Yogesh Bender [facility] [address] [place] [id number] 09/04/2022 Yogesh Bender Spinal stenosis, lum bar [...] region M43.16 ; Hypersomnia, unspecified G47.10 and director of neurology (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 of 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 Z79.891 [facility] [address] [place] [address] 09/16/2022 Yogesh Bender Spinal stenosis, lum bar [...] Spondylolisthesis, lumbar region M43.16 [facility] [address] [place], [place] [id number] 09/19/2022 Yogesh Bender Spinal stenosis, lum bar [...] region M43.16 ; Hypersomnia, unspecified G47.10 and director of neurology (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 of 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 Z79.891 [facility] [address] [place], [place] [id number] 11/06/2022 Yogesh Bender [facility] [address] [place] [id number] 11/21/2022 Yogesh Bender Spinal stenosis, lum bar [...] region M43.16 ; Hypersomnia, unspecified G47.10 and snf (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 of 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 Z79.891 [facility] [address] [place], [place] [id number] 02/13/2023 Yogesh Bender Spondylosis without myelopathy or radiculopathy, lumbar region M47.816 ; Other specified anxiety disorders F41.8 ; Other chronic pain G89.29 ; Spinal stenosis, lumbar region with neurogenic claudication M48.062 ; Vertebrogenic low back pain M54.51 ; Sacroiliitis, not elsewhere classified M46.1 and director of neurology (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 of 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 Z79.891 [facility] [address] [place] [id number] 03/10/2023 Yogesh Bender Spondylosis without myelopathy or radiculopathy, lumbar region M47.816 and Other specified anxiety disorders F41.8 [facility] [address] [place], [place] [id number] 03/13/2023 Yogesh Bender Spondylosis without myelopathy or radiculopathy, lumbar region M47.816 ; Other specified anxiety disorders F41.8 ; Pain in left forearm M79.632 ; Other chronic pain G89.29 ; Spinal stenosis, lumbar region with neurogenic claudication M48.062 ; Vertebrogenic low back pain M54.51 and Sacroiliitis, not elsewhere classified M46.1 [facility] [address] [place], [place] [id number] 03/17/2023 Yogesh Bender [facility] [address] [place] [id number] 03/24/[address] [facility] [address] [place] [phone] 03/31/2023 Yogesh Bender Spondylosis without myelopathy or radiculopathy, lumbar region M47.816 and Other specified anxiety disorders F41.8 [facility] [address] [place] [id number] 04/09/2023 Jessica Healy Other chronic pain G89.29 ; Vertebrogenic low back pain M54.51 ; Spondylosis without myelopathy or radiculopathy, lumbar region M47.816 ; Pain in left forearm M79.632 and Spinal stenosis, lumbar region with neurogenic claudication M48.062 [facility] [address] [place], [place] [id number] 04/29/2023 Yogesh Bender Other chronic pain G89.29 ; Vertebrogenic low back pain M54.51 ; Spondylosis without myelopathy or radiculopathy, lumbar region M47.816 ; Pain in left forearm M79.632 and Spinal stenosis, lumbar region with neurogenic claudication M48.062 [facility] [address] [place] [id number] 05/13/2023 Yogesh Bender [facility] [address] [place] [id number] 05/27/2023 Jessica Healy Other chronic pain G89.29 ; Vertebrogenic low back pain M54.51 ; Spinal stenosis, lumbar region with neurogenic claudication M48.062 ; Weakness R53.1 ; Spondylosis without myelopathy or radiculopathy, lumbar region M47.816 and Pain in left forearm M79.632 [facility] [address] [place] [id number] 06/05/2023 Yogesh Bender Other chronic pain G89.29 ; Vertebrogenic low back pain M54.51 ; Spinal stenosis, lumbar region with neurogenic claudication M48.062 ; Weakness R53.1 ; Spondylosis without myelopathy or radiculopathy, lumbar region M47.816 and Pain in left forearm M79.632 [facility] [address] [place] [id number] 07/09/2023 Yogesh Bender [facility], [address] [id number] 08/05/2023 Yogesh Bender ASSESSMENTS Encounter Date Diagnosis Assessment Notes Treatment Notes Treatment Clinical Notes 08/15/2022 Spondylosis without myelopathy or radiculopathy, lumbar region (ICD-10 - M47.816) six lumbar-appearing vertebrae have been appreciated via fluoroscopy (for SAW MAKER and WPSC nomenclature purposes for block and [...] vertebrae have been appreciated via fluoroscopy (for SAW MAKER and WPSC nomenclature purposes for block and [...] vertebrae have been appreciated via fluoroscopy (for SAW MAKER and WPSC nomenclature purposes for block and [...] off. He reports contacting Jono with the [employer] and has a re-programming appointment scheduled in [address] Choudhary had recommended right transforaminal ESIs (see scanned office visit notes). Previoulsy encouraged patient to contact that office for referral to possibly the [facility] pain clinic. Patient informed that this provider [...] He reports several attempts to contact the [employer] Steel Analyst with no response from them. Patient would like a referral to have the system removed. Patient was seen at Dr. Choudhary's office and they recommended right transforaminal ESIs (see scanned office visit notes). Encouraged patient to contact that office for referral to possibly the [facility] pain clinic. Patient informed that this provider is not willing to provide such a service. 04/29/2023 Spondylosis without myelopathy or radiculopathy, lumbar region (ICD-10 - M47.816) six lumbar-appearing vertebrae have been appreciated via fluoroscopy (for SAW MAKER and WPSC nomenclature purposes for block and [...] vertebrae have been appreciated via fluoroscopy (for SAW MAKER and WPSC nomenclature purposes for block and [...] vertebrae have been appreciated via fluoroscopy (for SAW MAKER and WPSC nomenclature purposes for block and RFA procedures, the inferior most is designated as L5). Lumbar RFA procedures with history of repeated efficacy appreciated by patient. The benefit from the most recent procedure had waned 11/21/2022 Spondylosis without myelopathy or radiculopathy, lumbar region (ICD-10 - M47.816) six lumbar-appearing vertebrae have been appreciated via fluoroscopy (for SAW [employer]KER and WPSC nomenclature purposes for block and [...] recommended patient discuss with the company's regional warehouse supervisor 03/13/2023 Other chronic pain (ICD-10 - [...] vertebrae have been appreciated via fluoroscopy (for SAW MAKER and WPSC nomenclature purposes for block and [...] that office for referral to possibly the [facility] pain clinic. Patient informed that this provider is not willing to provide such a service 05/27/2023 Spondylosis without myelopathy or radiculopathy, lumbar region (ICD-10 - M47.816) six lumbar-appearing vertebrae have been appreciated via fluoroscopy (for SAW MAKER and WPSC nomenclature purposes for block and [...] has appointment Friday with the company's regional warehouse supervisor for reprogramming of the device 02/13/2023 [...] vertebrae have been appreciated via fluoroscopy (for SAW MAKER and WPSC nomenclature purposes for block and RFA procedures, the inferior most is designated as L5). Lumbar RFA procedures with history of efficacy appreciated by patient. The benefit from the most recent procedure has waned 09/04/2022 Spondylosis without myelopathy or radiculopathy, lumbar region (ICD-10 - M47.816) six lumbar-appearing vertebrae have been appreciated via fluoroscopy (for SAW MAKER and WPSC nomenclature purposes for block and [...] patient in the past. Referral to Dr. Choudahry completed. Patient had reported of an order [...] sacral tenderness noted on 02/13/23 exam 02/13/2023 director of neurology (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 of 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 (ICD-10 - [...] L4 as per 07/05/20 x-ray report 08/15/2022 director of neurology (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 of 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 (ICD-10 - [...] the Guide. Patient has received information regarding [facility] recommendations related to concomitant opioid and sedative [...] would be at patient's increased risk 09/19/2022 director of neurology (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 of 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 (ICD-10 - [...] score is 4 - moderate risk 11/21/2022 director of neurology (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 of 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 (ICD-10 - [...] on 07/11/20 that due to the [facility] Government concerns and actions, any suspected [...] score is 4 - moderate risk 09/04/2022 snf (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 of 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 (ICD-10 - [...] on 07/11/20 that due to the [facility] [employer] concerns and actions, any suspected patient misuse, [...] Appt Details Provider Name:Yogesh Haji son, 08/19/2023 10:00:00 AM, [address] [place], [place], [phone], Insurance Providers Payer Name Payer Address Payer Phone Subscriber Number Group Number Insured Name Patient Relationship to Insured Coverage Start Date Coverage End Date [employer] [address] [place] [address] [id number] Cooper [id number] Self - patient is the [...] [place], 01/29/19 L3-4, L4-5 laminectomies, performed at [facility] by Dr. Choudhary, 06/22/21 Removal of ingrown toenail, performed by Dr. Reyes, 12/20/21 Dorsal column / spinal cord stimulator system placement, performed at [facility] by Dr. Tima Choudhary, 11/2022 Hospitalization History Reason Date(Month/Year) Pain control after lumbar spine surgery, treated at [facility], 06/25/21 - 06/27/21 Pneumonia, treated at [facility], 04/10/22- 04/25
[2023-08-08] MEDS: pantoprazole 40 mg SDV IVP (20:51)
[2023-08-08 21:17] LABS: Thyroid Stimulating Hormone 0.95 uIU/mL (0.27-4.20)
[2023-08-08] MEDS: vancomycin 1,750 MG/350 ML PIGGYBACK 200 MG IV (21:45)
[2023-08-08] MEDS: baclofen 10 mg Tablet 40 MG PO (21:55)
[2023-08-08] MEDS: HYDROcodone-acetaminophen 10-325 mg Tablet 2 TAB PO (21:55)
[2023-08-08 22:15] LABS: Adenovirus Not Detected (NOT DETECT); Chlamydia Pneumoniae Not Detected (NOT DETECT); Coronavirus 229E,HKU1,NL63,OC4 Not Detected (NOT DETECT); Human Metapneumovirus Not Detected (NOT DETECT); Human Rhinovirus/Enterovirus Not Detected (NOT DETECT); Influenza A Not Detected (NOT DETECT); Influenza A H1 Not Detected (NOT DETECT); Influenza A H1-2009 Not Detected (NOT DETECT); Influenza A H3 Not Detected (NOT DETECT); Influenza B Not Detected (NOT DETECT); Mycoplasma Pneumoniae Not Detected (NOT DETECT); Parainfluenza Virus Type 1 Not Detected (NOT DETECT); Parainfluenza Virus Type 2 Not Detected (NOT DETECT); Parainfluenza Virus Type 3 Not Detected (NOT DETECT); Parainfluenza Virus Type 4 Not Detected (NOT DETECT); Respiratory Syncytial Virus A Not Detected (NOT DETECT); Respiratory Syncytial Virus B Not Detected (NOT DETECT)
[2023-08-08 22:32] LABS: Add Urine Microscopic? YES; Bilirubin Urine Neg (Negative); Blood Urine 2+ (Negative); Glucose Urine UA Norm (Normal); Ketones Urine Negative (Negative); Leukocyte Esterase Urine Negative (Negative); Nitrate Urine Negative (Negative); Protein Urine Trace (Negative); Specific Gravity, Urine 1.015 (1.005-1.030); Urine Appearance Clear (CLEAR); Urine Color Yellow (Yellow); Urobilinogen Urine Norm (Negative); pH Urine 6.5 (5-7)
[2023-08-08 22:33] LABS: WBC Urine 0-4 /hpf (0-5)
[2023-08-08 22:34] LABS: Bacteria Urine TRACE /hpf; RBC Urine 0-4 /hpf (0-2); Squamous Epithelial Cell Urine 0-4 /hpf (0-5)
[2023-08-08 22:44] LABS: SARS-COV-2 Detected (NOT DETECT)
[2023-08-08] MEDS: zolpidem 5 mg Tablet 10 MG PO (22:48)
[2023-08-08] MEDS: ALPRAZolam 0.5 mg Tablet 0.25 MG PO (22:49)
[2023-08-09 03:27] VITALS: BP 99/66; PULSE 72; RESP 17; TEMP 37.3; O2SAT 97
[2023-08-09 05:34] VITALS: BMI 24.2
[2023-08-09 05:40] LABS: Basophils % 0.3 %; Eosinophils # 0.2 10^3/uL (0.0-0.8); Eosinophils % 1.9 %; Hematocrit 36.2 % (37-53); Lymphocytes # 1.5 10^3/uL (0.8-4.8); Mean Corpuscular Hemoglobin 29.4 pg (27-33); Mean Corpuscular Volume 86.6 fl (82-101); Mean Platelet Volume 9.6 fL (7.4-10.4); Monocytes # 0.9 10^3/uL (0.2-0.9); Monocytes % 10.8 %; Neutrophils # 5.13 10^3/uL (1.8-7.7); Neutrophils % 65.3 %; Nucleated Red Blood Cells % 0 %; Platelet Count 376 10^3/cmm (157-399); Red Blood Count 4.18 10^6/uL (3.85-5.65); Red Cell Distribution Width 13.6 % (12.1-15.1); White Blood Count 7.85 10^3/uL (3.29-11.43)
[2023-08-09 06:05] LABS: Alanine Aminotransferase 16 U/L (0-41); Albumin Level 3.4 g/dL (3.5-5.2); Alkaline Phosphatase 69 U/L (40-130); Anion Gap 16.8 (5-19); Aspartate Amino Transferase 14 U/L (0-40); Blood Urea Nitrogen 16 mg/dL (6-20); Calcium 8.8 mg/dL (8.5-10.5); Carbon Dioxide 25 mmol/L (22-29); Chloride 102 mmol/L (98-107); Globulin 2.4 g/dL (1.3-4.6); Glomerular Filtration Rate 116.7 mL/min (90-130); Glucose 87 mg/dL (65-115); Osmolality Calculated 291 mOsm/kg (285-295); Phosphorus 3.2 mg/dL (2.5-4.5); Potassium 3.8 mmol/L (3.5-5.1); Sodium 140 mmol/L (136-145); Total Bilirubin 0.4 mg/dL (0.15-1.2); Total Protein 5.8 g/dL (6.6-8.7)
[2023-08-09 07:33] VITALS: BP 106/74
--- NOTE | 2023-08-09 08:00 | USCV_ITS ---
ZackBharat dykes Age: 57 Gender: M : 1965 Exam Date: 08/09/2023 15:04 Ordering Phys: Gucci Pisano MD Technologist: Osmani Beck Exam Location: [facility] [place] Indication: eval for veg BP: 99 / 66 HR: 75 Rhythm: Sinus Technical Quality: Adequate MEASUREMENTS (Male / Female) Normal Values 2D ECHO LVOT Diameter 2.1 cm LV Ejection Fraction MOD 2C 63.1 % LV Ejection Fraction 2C AL 66.2 % LA Diameter 3.8 cm LA Width 2.9 cm LA Height 3.5 cm RA Width 2.6 cm RA Height 3.7 cm Aorta at Sinotubular Diameter 2.9 cm IVC Diameter 1.5 cm M-MODE Aortic Annulus Diameter 3.4 cm LA Ao Ratio MM 1.3 MV E Point Septal Separation 0.4 cm DOPPLER AV Peak Velocity 128.0 cm/s LVOT Peak Velocity 123.0 cm/s AV Area Cont Eq vti 3.0 cm squared AV Area Cont Eq pk 3.2 cm squared MV Peak Velocity 86.0 cm/s MV Area PHT 4.0 cm squared Mitral E to A Ratio 1.1 MV E' Velocity 43.0 cm/s Mitral E to MV E' Ratio 10.1 Mitral E to LV E' Lateral Ratio 9.5 Mitral E to LV E' Septal Ratio 11.0 TR Peak Velocity 279.2 cm/s TR Peak Gradient 31.2 mmHg TR Mean Velocity 234.5 cm/s TR Mean Gradient 22.6 mmHg TR Velocity Time Integral 69.5 cm Right Atrial Pressure 3.0 mmHg Pulmonary Artery Systolic Pressu 34.2 mmHg PV Peak Velocity 135.7 cm/s RV Acceleration Time 0.1 s RV Ejection Time 0.3 s RV AcT/ET 0.2 FINDINGS Left Ventricle Left ventricle is normal in size. LV systolic function is normal with EF of 60 to 65%. No regional wall motion abnormalities are seen. Right Ventricle Normal in size and function Right Atrium Normal in size Left Atrium Normal in size Mitral Valve Structurally normal mitral valve. Mild mitral regurgitation. Aortic Valve Structurally normal aortic valve. No significant stenosis or regurgitation. Tricuspid Valve Mild tricuspid regurgitation. Pulmonary artery systolic pressure is normal. Pulmonic Valve Trace pulmonic regurgitation Pericardium Normal Aorta Normal in size IVC Appears to be normal CONCLUSIONS LV systolic function is normal with EF of 60 to 65%. Mild mitral regurgitation. Mild tricuspid regurgitation Trace pulmonic regurgitation No comparison studies are available. Hal Winston MD (Electronically Signed) Final Date: 09 August 2023 16:49 S
[2023-08-09] MEDS: baclofen 10 mg Tablet 40 MG PO ×3 (09:25→21:51)
[2023-08-09] MEDS: pantoprazole 40 mg SDV IVP ×2 (09:25→21:56)
[2023-08-09] MEDS: HYDROcodone-acetaminophen 10-325 mg Tablet 2 TAB PO ×3 (09:25→20:50)
--- NOTE | 2023-08-09 09:25 | PC.NURSE ---
explained to patient that ampyra medication is in a bottle with an expiration date of 2019, and that we can not administer the medication, becuase there is no way for us to determine that the medication is or is not . patient stated that he puts his new medication into the bottle when he gets a refill, and the medication is not . explained that this is not best practice and to keep medications in the bottles that they come in. medication returned to patient per patient request. patient directed not to take any medications that are not administered by nursing staff while in the hospital.
[2023-08-09] MEDS: vancomycin 1,500 MG/300 ML PIGGYBACK 200 MG IV ×2 (09:30→21:52)
[2023-08-09 11:12] VITALS: BP 101/69; PULSE 74; RESP 17; O2SAT 95
--- NOTE | 2023-08-09 15:34 | P.PN_ITS ---
Subjective 2 Subjective: Patient was seen this morning, he has no complaints, no fevers, chills, no cough Vitals/I&O/Wt Last Vital Signs Temp 99.1 F 08/09/23 03:27 Pulse 74 08/09/23 11:12 Resp 17 08/09/23 11:12 BP 101/69 08/09/23 11:12 Pulse Ox 95 08/09/23 11:12 O2 Del Method Room Air 08/09/23 11:12 08/09/23 08/09/23 08/09/23 06:59 14:59 22:59 Intake Total 350 / 350 780 / 780 Balance 350 / 350 780 / 780 Weight last 48 hrs Weight 76.566 kg Weight 76.799 kg Weight 80.286 kg Physical Exam 2 Const: COMMON NORMALS: no acute distress and patient oriented x3 Resp: COMMON NORMALS: normal respiratory effort, No retractions, No use of accessory muscles and clear to auscultation bilaterally AUSCULTATION: clear to auscultation bilaterally Cardio: COMMON NORMALS: regular rate, regular rhythm, S1 normal heart sound present and S2 normal heart sound present RATE: regular rate RHYTHM: r egular rhythm HEART SOUNDS: S1 normal heart sound present and S2 normal heart sound present GI: COMMON NORMALS: Normal to inspection, nondistended, normoactive bowel sounds present and non-tender Extremity: COMMON NORMALS: no pedal edema Neuro: COMMON NORMALS: patient oriented x3 Psych: COMMON NORMALS: mental status grossly normal Data 08/09/23 04:23 08/09/23 04:23 A&P Assessment and plan (1) Staphylococcus epidermidis bacteremia: (2) Failed spinal cord stimulator: Qualifiers: Encounter type: subsequent encounter Qualified Code(s): T85.192D - Other mechanical complication of implanted electronic neurostimulator of spinal cord electrode (lead), subsequent encounter Plan Staphylococcus epidermidis bacteremia ? Concerns for possible real infection versus contamination, next?2 out of 4 blood cultures positive, etc. sensitive to vancomycin, ? Patient did recently have a removval neurostimulator battery and removal of neurostimulator paddle -Lumbar spinal CT CT lumbar spine 1. No sign of discitis or osteomyelitis. 2. Mixed density subcutaneous fluid collection in the lower left flank. Probable seroma or resolving hematoma related to explantation of neurostimulator. Abscess cannot be excluded. 3. Partially imaged fluid collection surrounding the T11 spinous process. Possible seroma or abscess. -ESR 18 -mri spine ordered IMPRESSION: 1. No evidence of spinal or epidural abscess. 2. No high-grade central canal stenosis. 3. Mild to moderate LEFT L3-4 foraminal narrowing with impingement of the exiting LEFT L3 nerve root appears unchanged. 4. No other significant changes compared to previous. thoracic mri IMPRESSION: No acute thoracic spine findings ? Patient is immunocompromised with multiple sclerosis is on galcanezumab Plan -Admit to general medical floors -Repeat blood cultures -Cardiac echo, ? vancomycin, -resume homed mediaction -will consider yemi based on clinical progress ?follow cultures ? Is 6 days into COVID isolation, completed treatment during last hospitalization -lovenox for dvt ppx -full code Attestations 2 Medical Necessity Statement*: Patient requires hospitalization due to Staph epidermidis bacteremia requiring IV vancomycin, monitoring blood cultures Diagnoses Staphylococcus epidermidis bacteremia R78.81; B95.7 Failure of spinal cord stimulator, subsequent encounter T85.192D Encounter type: subsequent encounter
--- NOTE | 2023-08-09 15:48 | PC.CHAP ---
covid not allowed to enter
[2023-08-09 16:00] VITALS: BP 104/2; PULSE 68; RESP 16; TEMP 36.7; O2SAT 96
[2023-08-09 20:00] VITALS: BP 114/79; PULSE 72; RESP 16; TEMP 36.8; O2SAT 98
[2023-08-09] MEDS: zolpidem 5 mg Tablet 10 MG PO (21:52)
[2023-08-09] MEDS: ALPRAZolam 0.5 mg Tablet 0.25 MG PO (21:53)
[2023-08-09 23:31] VITALS: BP 103/70; PULSE 70; RESP 17; TEMP 36.8; O2SAT 94
[2023-08-10] VITALS (7 sets, daily range): BP systolic 96–108; BP diastolic 59–74; PULSE 63–95; RESP 16–20; TEMP 36.2–37; O2SAT 94–98; BMI 24.1
[2023-08-10] MEDS: oxyCODONE 5 mg IR Tab/Cap 10 MG PO (01:37)
[2023-08-10 05:05] LABS: Basophils % 0.6 %; Eosinophils # 0.3 10^3/uL (0.0-0.8); Eosinophils % 3.8 %; Hematocrit 37.4 % (37-53); Lymphocytes # 1.4 10^3/uL (0.8-4.8); Lymphocytes % 21.5 %; Mean Corpuscular HGB Conc 33.2 g/dL (30-55); Mean Corpuscular Hemoglobin 29.4 pg (27-33); Mean Corpuscular Volume 88.6 fl (82-101); Mean Platelet Volume 9.5 fL (7.4-10.4); Monocytes # 0.7 10^3/uL (0.2-0.9); Monocytes % 11.2 %; Neutrophils # 3.98 10^3/uL (1.8-7.7); Neutrophils % 61.1 %; Nucleated Red Blood Cells % 0 %; Platelet Count 385 10^3/cmm (157-399); Red Blood Count 4.22 10^6/uL (3.85-5.65); Red Cell Distribution Width 13.8 % (12.1-15.1); White Blood Count 6.52 10^3/uL (3.29-11.43)
[2023-08-10 05:31] LABS: Alanine Aminotransferase 15 U/L (0-41); Albumin Level 3.4 g/dL (3.5-5.2); Alkaline Phosphatase 67 U/L (40-130); Anion Gap 14.8 (5-19); Aspartate Amino Transferase 14 U/L (0-40); Blood Urea Nitrogen 12 mg/dL (6-20); Calcium 8.7 mg/dL (8.5-10.5); Carbon Dioxide 24 mmol/L (22-29); Chloride 103 mmol/L (98-107); Globulin 2.4 g/dL (1.3-4.6); Glomerular Filtration Rate 116.7 mL/min (90-130); Glucose 93 mg/dL (65-115); Magnesium 1.9 mg/dL (1.7-2.3); Osmolality Calculated 285 mOsm/kg (285-295); Phosphorus 3.3 mg/dL (2.5-4.5); Potassium 3.8 mmol/L (3.5-5.1); Sodium 138 mmol/L (136-145); Total Bilirubin 0.3 mg/dL (0.15-1.2); Total Protein 5.8 g/dL (6.6-8.7)
[2023-08-10] MEDS: baclofen 10 mg Tablet 40 MG PO ×3 (08:16→21:41)
[2023-08-10] MEDS: pantoprazole 40 mg SDV IVP ×2 (08:17→21:42)
[2023-08-10] MEDS: HYDROcodone-acetaminophen 10-325 mg Tablet 2 TAB PO ×3 (08:17→19:34)
[2023-08-10 08:35] LABS: Vancomycin Trough 20.2 ug/mL (10-15)
[2023-08-10] MEDS: vancomycin 1,500 MG/300 ML PIGGYBACK 200 MG IV (09:07)
[2023-08-10] MEDS: acetaminophen 325 mg Tablet 650 MG PO (11:39)
--- NOTE | 2023-08-10 16:16 | P.PN_ITS ---
Subjective 2 Subjective: Patient was seen this morning, he has no complaints, no fevers, no chills, no cough, no abdominal pain Vitals/I&O/Wt Last Vital Signs Temp 97.8 F 08/10/23 12:15 Pulse 66 08/10/23 12:15 Resp 19 H 08/10/23 12:15 BP 96/59 08/10/23 12:15 Pulse Ox 96 08/10/23 12:15 O2 Del Method Room Air 08/10/23 12:15 08/10/23 08/10/23 08/10/23 06:59 14:59 22:59 Intake Total 300 / 1080 1140 / 1140 Balance 300 / 1080 1140 / 1140 Weight last 48 hrs Weight 76.385 kg Weight 76.566 kg Weight 76.799 kg Physical Exam 2 Const: COMMON NORMALS: no acute distress and patient oriented x3 Resp: COMMON NORMALS: normal respiratory effort, No retractions, No use of accessory muscles and clear to auscultation bilaterally AUSCULTATION: clear to auscultation bilaterally Cardio: COMMON NORMALS: regular rate, regular rhythm, S1 normal heart sound present and S2 normal heart sound present RATE: regular rate RHYTHM: r egular rhythm HEART SOUNDS: S1 normal heart sound present and S2 normal heart sound present GI: COMMON NORMALS: Normal to inspection, nondistended, normoactive bowel sounds present and non-tender Extremity: COMMON NORMALS: no pedal edema Neuro: COMMON NORMALS: patient oriented x3 Psych: COMMON NORMALS: mental status grossly normal Data 08/10/23 04:26 08/10/23 04:26 Micro: Microbiology 08/08/23 22:00 Urine Culture - Final Urine Catheterized A&P Assessment and plan (1) Staphylococcus epidermidis bacteremia: (2) Failed spinal cord stimulator: Qualifiers: Encounter type: subsequent encounter Qualified Code(s): T85.192D - Other mechanical complication of implanted electronic neurostimulator of spinal cord electrode (lead), subsequent encounter Plan Staphylococcus epidermidis bacteremia ? Concerns for possible real infection versus contamination ?2 out of 4 blood cultures positive, sensitive to vancomycin, ? Patient did recently have a removval neurostimulator battery and removal of neurostimulator paddle -Lumbar spinal CT CT lumbar spine 1. No sign of discitis or osteomyelitis. 2. Mixed density subcutaneous fluid collection in the lower left flank. Probable seroma or resolving hematoma related to explantation of neurostimulator. Abscess cannot be excluded. 3. Partially imaged fluid collection surrounding the T11 spinous process. Possible seroma or abscess. -ESR 18 -mri spine ordered IMPRESSION: 1. No evidence of spinal or epidural abscess. 2. No high-grade central canal stenosis. 3. Mild to moderate LEFT L3-4 foraminal narrowing with impingement of the exiting LEFT L3 nerve root appears unchanged. 4. No other significant changes compared to previous. thoracic mri IMPRESSION: No acute thoracic spine findings ? Patient is immunocompromised with multiple sclerosis is on galcanezumab Plan -Admit to general medical floors -Repeat blood cultures -Cardiac echo, ? vancomycin, -resume homed mediaction -will consider yemi based on clinical progress ?follow cultures ? Is 6 days into COVID isolation, completed treatment during last hospitalization -lovenox for dvt ppx -full code Attestations 2 Medical Necessity Statement*: Patient requires hospitalization for IV antibiotics, Staph epidermidis bacteremia, awaiting cultures Diagnoses Staphylococcus epidermidis bacteremia R78.81; B95.7 Failure of spinal cord stimulator, subsequent encounter T85.192D Encounter type: subsequent encounter
[2023-08-10] MEDS: ALPRAZolam 0.5 mg Tablet PO (21:41)
[2023-08-10] MEDS: zolpidem 5 mg Tablet 10 MG PO (21:41)
[2023-08-10] MEDS: vancomycin 1,250 MG/250 ML PIGGYBACK 200 MG IV (23:18)
[2023-08-11 04:00] VITALS: BP 102/70; PULSE 74; RESP 17; TEMP 37.2; O2SAT 93
[2023-08-11 04:15] VITALS: BMI 24.2
[2023-08-11 05:06] LABS: Basophils % 0.5 %; Eosinophils # 0.3 10^3/uL (0.0-0.8); Eosinophils % 5.1 %; Hematocrit 40.8 % (37-53); Lymphocytes # 1.7 10^3/uL (0.8-4.8); Lymphocytes % 27.7 %; Mean Corpuscular HGB Conc 32.4 g/dL (30-55); Mean Corpuscular Hemoglobin 29.3 pg (27-33); Mean Corpuscular Volume 90.7 fl (82-101); Mean Platelet Volume 9.6 fL (7.4-10.4); Monocytes # 0.7 10^3/uL (0.2-0.9); Monocytes % 10.7 %; Neutrophils # 3.32 10^3/uL (1.8-7.7); Neutrophils % 54.7 %; Nucleated Red Blood Cells % 0 %; Platelet Count 386 10^3/cmm (157-399); Red Cell Distribution Width 13.6 % (12.1-15.1); White Blood Count 6.07 10^3/uL (3.29-11.43)
[2023-08-11 05:25] LABS: Alanine Aminotransferase 16 U/L (0-41); Albumin Level 3.8 g/dL (3.5-5.2); Alkaline Phosphatase 75 U/L (40-130); Aspartate Amino Transferase 18 U/L (0-40); Blood Urea Nitrogen 12 mg/dL (6-20); Calcium 9.1 mg/dL (8.5-10.5); Carbon Dioxide 24 mmol/L (22-29); Chloride 103 mmol/L (98-107); Globulin 2.2 g/dL (1.3-4.6); Glomerular Filtration Rate 116.7 mL/min (90-130); Glucose 95 mg/dL (65-115); Osmolality Calculated 286 mOsm/kg (285-295); Phosphorus 3.5 mg/dL (2.5-4.5); Sodium 138 mmol/L (136-145); Total Bilirubin 0.4 mg/dL (0.15-1.2)
[2023-08-11 05:27] LABS: Anion Gap 15.6 (5-19); Potassium 4.6 mmol/L (3.5-5.1)
[2023-08-11] MEDS: HYDROcodone-acetaminophen 10-325 mg Tablet 2 TAB PO ×2 (07:08→14:21)
[2023-08-11 07:17] VITALS: BP 85/61; PULSE 67; RESP 17; TEMP 36.4; O2SAT 93
[2023-08-11] MEDS: pantoprazole DR 40 mg Tablet PO (10:03)
[2023-08-11] MEDS: baclofen 10 mg Tablet 40 MG PO ×2 (10:03→14:18)
[2023-08-11 11:11] VITALS: BP 95/64; PULSE 74; RESP 20; TEMP 36.5; O2SAT 96
--- NOTE | 2023-08-11 11:13 | PC.SOCIAL ---
Pg 2 IMM Explained to pt Pg 2 IMM. No questions voiced. Provided pt a copy. Initialed, dated, & timed a copy & placed in chart.
[2023-08-11] MEDS: vancomycin 1,250 MG/250 ML PIGGYBACK 200 MG IV (12:12)
--- NOTE | 2023-08-11 14:03 | PM.DCS ---
Discharge Providers Date of Admission: 08/08/23 18:50 Date of Discharge: August 11, 2023 Attending Provider at Admission: Gucci Pisano MD Attending Provider at Discharge: Gucci Pisano MD Primary Care Provider: Yogesh Crespo DO Diagnoses at Discharge Discharge Diagnosis (1) Staphylococcus epidermidis bacteremia: Status: Acute (2) Failed spinal cord stimulator: Status: Acute Qualifiers: Encounter type: subsequent encounter Qualified Code(s): T85.192D - Other mechanical complication of implanted electronic neurostimulator of spinal cord electrode (lead), subsequent encounter Reason for Visit Reason for Visit: dr called to come back in Hospital Course Hospital Course Bharat Arthur is a 57 year old male with a past medical history of multiple sclerosis, recent history of removal of neurostimulator and removal of neurostimulator paddle by Dr. Choudhary, recent history and admission for generalized weakness associate with COVID-19 pneumonia, requiring hospitalization remdesjovan, who is called back to [facility] due to 2 out of 4 blood cultures positive for Staph epidermidis. Patient tells me that since getting home his weakness has improved but he continues to feel unwell no fevers, chills, no cough no neck pain, he has chronic lower extremity weakness but it is not slightly worse, he denies any other artificial heart rate he has had back surgery but no other artificial hardware in his body. Denies any dysuria, hematuria no episodes of fevers. Staphylococcus epidermidis bacteremia ? Concerns for possible real infection versus contamination ?2 out of 4 blood cultures positive, sensitive to vancomycin, ? Patient did recently have a removval neurostimulator battery and removal of neurostimulator paddle -Lumbar spinal CT CT lumbar spine 1. No sign of discitis or osteomyelitis. 2. Mixed density subcutaneous fluid collection in the lower left flank. Probable seroma or resolving hematoma related to explantation of neurostimulator. Abscess cannot be excluded. 3. Partially imaged fluid collection surrounding the T11 spinous process. Possible seroma or abscess. -ESR 18 -mri spine ordered IMPRESSION: 1. No evidence of spinal or epidural abscess. 2. No high-grade central canal stenosis. 3. Mild to moderate LEFT L3-4 foraminal narrowing with impingement of the exiting LEFT L3 nerve root appears unchanged. 4. No other significant changes compared to previous. thoracic mri IMPRESSION: No acute thoracic spine findings ? Patient is immunocompromised with multiple sclerosis is on galcanezumab -Patient was monitored as inpatient, blood cultures were drawn before antibiotics were given, thereafter started vancomycin -Remained afebrile, normotensive, asymptomatic, ? Blood cultures are gram-negative 72 hours, I spoke to the lab personally, who checked with [facility] -Likely contamination of original blood cultures, that were drawn - I spoke to patient, as I prefer blood cultures to be negative completely for 5 days before he goes, as the last time he was here his culture reports were reported on the fifth day from [facility] as positive, I hate to call them back to the hospital if his blood cultures become positive again, however he is adamant about going home, discussed risk and benefits, shared decision making, he voiced understanding, all questions answered, wants to be discharged home, ? Currently is asymptomatic, no fevers, chills, no cough, no neck pain no back pain, will discharge home, if his culture results are positive we will have to call him back to the hospital Physical Exam Const: COMMON NORMALS: no acute distress and patient oriented x3 Resp: COMMON NORMALS: normal respiratory effort, No retractions, No use of accessory muscles and clear to auscultation bilaterally AUSCULTATION: clear to auscultation bilaterally Cardio: COMMON NORMALS: regular rate, regular rhythm, S1 normal heart sound present and S2 normal heart sound present RATE: regular rate RHYTHM: regular rhythm HEART SOUNDS: S1 normal heart sound present and S2 normal heart sound present GI: COMMON NORMALS: Normal to inspection, nondistended, normoactive bowel sounds present and non-tender Extremity: COMMON NORMALS: no pedal edema Neuro: COMMON NORMALS: patient oriented x3 Psych: COMMON NORMALS: mental status grossly normal Discharge Data Studies Completed and Pending Completed Studies During Hospitalization Category Date Time Status XR chest 1V portable [id number] Stat Exams 08/08/23 15:50 Completed CV. echo complete* [id number] Routine Ultrasound 08/09/23 08:00 Completed Pending at discharge Category Date Time Status Blood Cultures ([facility]) Routine Lab 08/08/23 16:41 Results Blood Cultures ([facility] [facility]) Routine Lab 08/08/23 17:01 Results Radiology Impressions Chest X-Ray 08/08/23 15:50 IMPRESSION: No acute disease. Laboratory Results WBC 6.07 10^3/uL (3.29-11.43) 08/11/23 04:17 RBC 4.50 10^6/uL (3.85-5.65) 08/11/23 04:17 Hgb 13.20 g/dL (11.27-16.99) 08/11/23 04:17 Hct 40.8 % (37-53) 08/11/23 04:17 MCV 90.7 fl (82-101) 08/11/23 04:17 MCH 29.3 pg (27-33) 08/11/23 04:17 MCHC 32.4 g/dL (30-55) 08/11/23 04:17 RDW 13.6 % (12.1-15.1) 08/11/23 04:17 Plt Count 386 10^3/cmm (157-399) 08/11/23 04:17 MPV 9.6 fL (7.4-10.4) 08/11/23 04:17 Neut % (Auto) 54.7 % 08/11/23 04:17 Lymph % (Auto) 27.7 % 08/11/23 04:17 Payne % (Auto) 10.7 % 08/11/23 04:17 Eos % (Auto) 5.1 % 08/11/23 04:17 Baso % (Auto) 0.5 % 08/11/23 04:17 Neut # (Auto) 3.32 10^3/uL (1.8-7.7) 08/11/23 04:17 Lymph # (Auto) 1.7 10^3/uL (0.8-4.8) 08/11/23 04:17 Payne # (Auto) 0.7 10^3/uL (0.2-0.9) 08/11/23 04:17 Eos # (Auto) 0.3 10^3/uL (0.0-0.8) 08/11/23 04:17 Baso # (Auto) 0.0 10^3/uL (0.0-0.1) 08/11/23 04:17 Nucleated RBC % (auto) 0 % 08/11/23 04:17 Nucleated RBCs # 0.0 /100WBC 08/11/23 04:17 ESR 21 mm/hr (0-10) H 08/08/23 16:14 Sodium 138 mmol/L (136-145) 08/11/23 04:17 Potassium 4.6 mmol/L (3.5-5.1) 08/11/23 04:17 Chloride 103 mmol/L (98-107) 08/11/23 04:17 Carbon Dioxide 24 mmol/L (22-29) 08/11/23 04:17 Anion Gap 15.6 (5-19) 08/11/23 04:17 BUN 12 mg/dL (6-20) 08/11/23 04:17 Creatinine 0.7 mg/dL (0.7-1.2) 08/11/23 04:17 GFR Calculation 116.7 mL/min (90-130) 08/11/23 04:17 Glucose 95 mg/dL (65-115) 08/11/23 04:17 Calculated Osmolality 286 mOsm/kg (285-295) 08/11/23 04:17 Lactic Acid 3.1 mmol/L (0.5-2.2) H 08/08/23 16:14 Lactic Acid (Sepsis) 1.7 mmol/L (0.5-2.2) 08/08/23 19:07 Calcium 9.1 mg/dL (8.5-10.5) 08/11/23 04:17 Phosphorus 3.5 mg/dL (2.5-4.5) 08/11/23 04:17 Magnesium 2.0 mg/dL (1.7-2.3) 08/11/23 04:17 Total Bilirubin 0.4 mg/dL (0.15-1.2) 08/11/23 04:17 AST 18 U/L (0-40) 08/11/23 04:17 ALT 16 U/L (0-41) 08/11/23 04:17 Alkaline Phosphatase 75 U/L (40-130) 08/11/23 04:17 C-Reactive Protein 13.0 mg/L (0.0-4.9) H 08/08/23 16:14 Total Protein 6.0 g/dL (6.6-8.7) L 08/11/23 04:17 Albumin 3.8 g/dL (3.5-5.2) 08/11/23 04:17 Globulin 2.2 g/dL (1.3-4.6) 08/11/23 04:17 Procalcitonin 0.20 ng/mL (0-0.5) 08/08/23 16:14 TSH 0.95 uIU/mL (0.27-4.20) 08/08/23 16:14 Urine Color Yellow (Yellow) 08/08/23 22:00 Urine Appearance Clear (CLEAR) 08/08/23 22:00 Urine pH 6.5 (5-7) 08/08/23 22:00 Ur Specific [place] 1.015 (1.005-1.030) 08/08/23 22:00 Urine Protein Trace (Negative) 08/08/23 22:00 Urine Glucose (UA) Norm (Normal) 08/08/23 22:00 Urine Ketones Negative (Negative) 08/08/23 22:00 Urine Blood 2+ (Negative) H 08/08/23 22:00 Urine Nitrate Negative (Negative) 08/08/23 22:00 Urine Bilirubin Neg (Negative) 08/08/23 22:00 Urine Urobilinogen Norm mg/dL (Negative) 08/08/23 22:00 Ur Leukocyte Esterase Negative (Negative) 08/08/23 22:00 Urine RBC 0-4 /hpf (0-2) H 08/08/23 22:00 Urine WBC 0-4 /hpf (0-5) H 08/08/23 22:00 Ur Squamous Epith Cells 0-4 /hpf (0-5) H 08/08/23 22:00 Amorphous Sediment Not Reportable 08/08/23 22:00 Urine Bacteria Trace /hpf (NONE) 08/08/23 22:00 Vancomycin Trough 20.2 ug/mL (10-15) H 08/10/23 07:46 Coronavirus 229E (PCR) Not detected (NOT DETECT) 08/08/23 18:20 SARS-CoV-2 (PCR) Detected (NOT DETECT) A 08/08/23 18:20 Vitals Last Vital Signs Temp 97.7 F 08/11/23 11:11 Pulse 74 08/11/23 11:11 Resp 20 H 08/11/23 11:11 BP 95/64 08/11/23 11:11 Pulse Ox 96 08/11/23 11:11 O2 Del Method Room Air 08/11/23 11:11 Discharge Plan Discharge Patient Disposition: Home Condition: Stable Prescriptions: Continued zolpidem [Ambien] 10 mg tablet 10 mg PO BEDTIME alprazolam [Xanax] 0.25 mg tablet 0.25 mg PO BID PRN (Reason: Anxiety) ketoconazole 2 % shampoo 1 applic topical Q14D ketoconazole 2 % cream 1 applic topical DAILY dalfampridine [Ampyra] 10 mg tablet extended release 12 hr 10 mg PO Q12H Qty: 180 3RF prochlorperazine maleate 5 mg tablet 5 tab PO DIRECTED PRN (Reason: Nausea) pantoprazole 40 mg tablet,delayed release (DR/EC) 40 mg PO BID Emgality Pen 120 mg/mL pen injector See Rx Instructions .ROUTE .COMPLEX Qty: 3 10RF Dose Instruction: INJECT THE CONTENTS OF 1 PEN UNDER THE SKIN ONE TIME MONTHLY FOR MIGRAINE DIRECTED Rx Instructions: INJECT THE CONTENTS OF 1 PEN UNDER THE SKIN ONE TIME MONTHLY FOR MIGRAINE DIRECTED hydrocodone-acetaminophen 10-325 mg tablet 1 tab PO Q4H MDD 7 tabs PRN (Reason: Pain) baclofen 20 mg tablet 40 mg PO TID oxycodone 10 mg tablet 10 mg PO Q4H PRN (Reason: Pain) cholecalciferol (vitamin D3) [Vitamin D3] 125 mcg (5,000 unit) Tablet See Rx Instructions .ROUTE .COMPLEX Rx Instructions: 5,000 unit orally on Sat and Sun Discharge Orders: Discharge Order (Routine); Ordered 08/11/23 Ordered By: Gucci Pisano Referrals: Yogesh Crespo DO [Primary Care Provider] - 08/19/23 1:30 pm (APPOINTMENT AT [facility]) Discharge Diet: Regular Discharge Activity: Resume usual activity Patient Instructions: Bacteremia (DC), Complications of Infection (GEN), Opioid Safety Discharge Attestations Time Spent in Discharge Care*: greater than 30 min Quality Metrics Clinical Quality Measures [ No reported AMI, CVA or VTE this stay] Coding Level of Care Code 17409 Total time (in minutes) for Discharge: 45 Diagnoses Staphylococcus epidermidis bacteremia R78.81; B95.7 Failure of spinal cord stimulator, subsequent encounter T85.192D Encounter type: subsequent encounter
== END 2023-08-11 14:59 | disposition home or self-care (01) | DRG 862 ==
LOC: ER 17:35 → MEDSURG 19:43
PROVIDERS: Admitting Provider Family Medicine; Emergency Provider Family Medicine; PCP Emergency Medicine Emergency Medical Services; Visit Provider Family Medicine
DX: T81.41XA Infection following a procedure, superficial incisional surgical site, initial encounter (principal); U07.1 COVID-19; D84.821 Immunodeficiency due to drugs; B95.7 Other staphylococcus as the cause of diseases classified elsewhere; G35 Multiple sclerosis; T50.995A Adverse effect of other drugs, medicaments and biological substances, initial encounter; Y83.8 Other surgical procedures as the cause of abnormal reaction of the patient, or of later complication, without mention of misadventure at the time of the procedure
CPT/HCPCS: 36415; 71045; 80053; 80202; 81001; 83605; 83735; 84100; 84145; 84443; 85025; 85651; 86140; 87040; 87086; 87635; 93306; 99285; C9113; J1650; J3370; J3372

== ENCOUNTER → 2023-08-27 14:34 | Outpatient (BNVA) | payer OTHER, SELFPAY | PROVIDERS: PCP Emergency Medicine Emergency Medical Services; Referring Provider Emergency Medicine Emergency Medical Services; Visit Provider Nurse Practitioner Family | DX: L21.8 Other seborrheic dermatitis (principal); L57.8 Other skin changes due to chronic exposure to nonionizing radiation; L82.1 Other seborrheic keratosis; L82.0 Inflamed seborrheic keratosis | CPT/HCPCS: 17110; 99214 ==

== ENCOUNTER → 2023-09-08 14:01 | Outpatient (BNVA) | payer OTHER, MEDICAID, SELFPAY | PROVIDERS: PCP Emergency Medicine Emergency Medical Services; Visit Provider Podiatrist Foot & Ankle Surgery | DX: M72.2 Plantar fascial fibromatosis (principal); G35 Multiple sclerosis; M48.061 Spinal stenosis, lumbar region without neurogenic claudication; M21.371 Foot drop, right foot | CPT/HCPCS: 99213 ==

== ENCOUNTER → 2023-09-10 07:47 | Outpatient (BNVA) | payer OTHER, MEDICAID, SELFPAY | PROVIDERS: PCP Emergency Medicine Emergency Medical Services; Visit Provider Specialist | DX: G35 Multiple sclerosis (principal); G56.22 Lesion of ulnar nerve, left upper limb; G43.711 Chronic migraine without aura, intractable, with status migrainosus | CPT/HCPCS: 99213 ==

== ENCOUNTER 2023-09-17 08:00 | Oncology outpatient (recurring) (ONCR) | payer OTHER, MEDICAID, SELFPAY ==
[2023-09-17] MEDS: methylPREDNISolone sod succ 125 mg/2 mL INJ IVP (08:45)
[2023-09-17] MEDS: acetaminophen 500 mg Tablet 1000 MG PO (08:46)
[2023-09-17] MEDS: diphenhydrAMINE 50 mg/mL SDV 1mL 25 MG IVP (08:46)
[2023-09-17] MEDS: sodium chloride 0.9% 250 ML 75 ML IV (08:47)
[2023-09-17 09:30] VITALS: BP 105/76; PULSE 61; RESP 16; TEMP 36.3; O2SAT 97
[2023-09-17] MEDS: ocrelizumab 600 MG in sodium chloride 0.9% 500 ML 100 MG IV (09:32)
[2023-09-17 09:51] VITALS: BP 112/76; PULSE 58; RESP 16; TEMP 36.4; O2SAT 93
[2023-09-17 10:05] VITALS: BP 108/73; PULSE 64; RESP 16; TEMP 36.2; O2SAT 95
[2023-09-17 10:40] VITALS: BP 115/72; PULSE 64; RESP 16; TEMP 36.3; O2SAT 93
[2023-09-17 12:15] VITALS: BP 110/74; PULSE 62; RESP 16; TEMP 36.4; O2SAT 98
== END 2023-09-17 23:59 | disposition home or self-care (01) ==
PROVIDERS: PCP Emergency Medicine Emergency Medical Services; Visit Provider Specialist
DX: G35 Multiple sclerosis (principal)
CPT/HCPCS: 96365; 96366; A4222; J1200; J2350; J2930; J7040; J7050

== ENCOUNTER → 2023-10-23 08:53 | Outpatient (BNVA) | payer OTHER, MEDICAID, SELFPAY | PROVIDERS: PCP Emergency Medicine Emergency Medical Services; Visit Provider Specialist | DX: G43.711 Chronic migraine without aura, intractable, with status migrainosus (principal) | CPT/HCPCS: 64615; J0585 ==

== ENCOUNTER 2023-12-02 12:12 | Outpatient (CLI) | payer OTHER, SELFPAY ==
--- NOTE | 2023-12-02 12:25 | CTR_ITS ---
PROCEDURE INFORMATION: Exam: CT Chest With Contrast; Diagnostic Exam date and time: 12/02/2023 12:43 PM Age: 58 years old Clinical indication: Screening exam; Other screening; Patient HX: Lung cancer screening-per patient TECHNIQUE: Imaging protocol: Diagnostic computed tomography of the chest with contrast. Radiation optimization: All CT scans at this facility use at least one of these dose optimization techniques: automated exposure control; mA and/or kV adjustment per patient size (includes targeted exams where dose is matched to clinical indication); or iterative reconstruction. Contrast material: OMNI 350; Contrast volume: 100 ml; Contrast route: INTRAVENOUS (IV); COMPARISON: CT angio chest PE protcl [id number] 08/02/2023 12:51 PM RADIATION DOSE METRICS: Total DLP (mGy-cm): 355.07 FINDINGS: Lungs: Small right hilar no consolidation. Previously seen airspace opacities have markedly improved, with minimal residual subpleural reticular/ground-glass opacities remaining in both lungs, edazl-[id number]-[id number]-left. Small calcified granuloma noted in the right lower lobe. No new opacity seen. No suspicious lung nodule or mass identified. Mild paraseptal emphysema is present. Pleural spaces: Unremarkable. No pneumothorax. No pleural effusion. Heart: Unremarkable. No cardiomegaly. No pericardial effusion. Lymph nodes: Unremarkable. No enlarged lymph nodes. Vasculature: Unremarkable. No aortic aneurysm. Diaphragm: Small hiatal hernia is present. Spleen: There are tiny calcific densities scattered throughout the spleen, likely sequela of previous granulomatous disease. The spleen is otherwise unremarkable. Kidneys and ureters: There are bilateral nonobstructive kidney stones measuring 3 mm. Stomach and bowel: Duodenal diverticulum is incidentally noted. Bones/joints: Degenerative changes of the spine seen. Soft tissues: Unremarkable. CT/CT chest w con* [id number] IMPRESSION: Markedly improved bilateral airspace opacities. No new opacity. COMMENTS: The presence of pulmonary emphysema on CT is an independent risk factor for lung cancer. In the absence of a history or active diagnosis of lung cancer, it is recommended that this patient with emphysema be evaluated for enrollment in a low dose CT lung cancer screening program.
[2023-12-02] MEDS: iohexol 350 mg/mL 500 mL Btl (per mL) IV (12:55)
== END 2023-12-02 12:13 | disposition home or self-care (01) ==
LOC: RAD 12:12
PROVIDERS: PCP Emergency Medicine Emergency Medical Services; Visit Provider Emergency Medicine Emergency Medical Services
DX: Z12.2 Encounter for screening for malignant neoplasm of respiratory organs (principal); J43.9 Emphysema, unspecified
CPT/HCPCS: 71260; Q9967

== ENCOUNTER → 2024-01-22 08:08 | Outpatient (BNVA) | payer OTHER, SELFPAY | PROVIDERS: PCP Emergency Medicine Emergency Medical Services; Visit Provider Specialist | DX: G43.711 Chronic migraine without aura, intractable, with status migrainosus (principal); M21.371 Foot drop, right foot; M48.061 Spinal stenosis, lumbar region without neurogenic claudication; R26.9 Unspecified abnormalities of gait and mobility; G35 Multiple sclerosis | CPT/HCPCS: 64615; 99214; J0585 ==

== ENCOUNTER → 2024-02-20 08:49 | Outpatient (BNVA) | payer OTHER, SELFPAY | PROVIDERS: PCP Emergency Medicine Emergency Medical Services; Visit Provider Nurse Practitioner Family | DX: D48.5 Neoplasm of uncertain behavior of skin (principal); L21.8 Other seborrheic dermatitis; L57.8 Other skin changes due to chronic exposure to nonionizing radiation; L82.1 Other seborrheic keratosis; D22.5 Melanocytic nevi of trunk | CPT/HCPCS: 11102; 99213 ==

== ENCOUNTER → 2024-03-22 12:45 | Outpatient (BNVA) | payer OTHER, SELFPAY | PROVIDERS: PCP Emergency Medicine Emergency Medical Services; Visit Provider Podiatrist Foot & Ankle Surgery | DX: G35 Multiple sclerosis (principal); M48.061 Spinal stenosis, lumbar region without neurogenic claudication; M21.371 Foot drop, right foot | CPT/HCPCS: 99213 ==

== ENCOUNTER 2024-03-24 12:19 | Oncology outpatient (recurring) (ONCR) | payer OTHER, SELFPAY ==
[2024-03-24 12:25] VITALS: BP 113/77; PULSE 75; TEMP 36.2; O2SAT 96
[2024-03-24] MEDS: sodium chloride 0.9% 250 ML 75 ML IV (12:54)
[2024-03-24] MEDS: diphenhydrAMINE 50 mg/mL SDV 1mL 25 MG IVP (12:57)
[2024-03-24] MEDS: methylPREDNISolone sod succ 125 mg/2 mL INJ IVP (13:01)
[2024-03-24 13:44] VITALS: BP 118/72; PULSE 54; RESP 16; TEMP 36.8; O2SAT 96
[2024-03-24] MEDS: ocrelizumab 600 MG in sodium chloride 0.9% 500 ML 100 MG IV (13:44)
[2024-03-24 13:59] VITALS: BP 105/67; PULSE 67; RESP 16; TEMP 36.7; O2SAT 96
[2024-03-24 14:20] VITALS: BP 120/79; PULSE 67; RESP 18; TEMP 36.6; O2SAT 97
[2024-03-24 14:45] VITALS: BP 102/65; PULSE 74; RESP 16; TEMP 36.4; O2SAT 94
[2024-03-24 16:21] VITALS: BP 115/75; PULSE 67; RESP 16; TEMP 36.3; O2SAT 95
== END 2024-03-24 23:59 | disposition home or self-care (01) ==
PROVIDERS: PCP Emergency Medicine Emergency Medical Services; Visit Provider Internal Medicine Medical Oncology
DX: Z79.899 Other long term (current) drug therapy (principal); G35 Multiple sclerosis
CPT/HCPCS: 96375; 96413; 96415; A4222; J1200; J2350; J2919; J7040; J7050

== ENCOUNTER → 2024-04-01 07:40 | Outpatient (BNVA) | payer OTHER, SELFPAY | PROVIDERS: PCP Emergency Medicine Emergency Medical Services; Visit Provider Specialist | DX: M21.371 Foot drop, right foot (principal); G35 Multiple sclerosis; M48.061 Spinal stenosis, lumbar region without neurogenic claudication; G56.21 Lesion of ulnar nerve, right upper limb; G54.1 Lumbosacral plexus disorders | CPT/HCPCS: 95885; 95909; 95910 ==

== ENCOUNTER → 2024-04-15 12:28 | Outpatient (BNVA) | payer OTHER, SELFPAY | PROVIDERS: PCP Emergency Medicine Emergency Medical Services; Visit Provider Specialist | DX: G54.1 Lumbosacral plexus disorders (principal); G43.711 Chronic migraine without aura, intractable, with status migrainosus | CPT/HCPCS: 64615; 99213; J0585 ==

== ENCOUNTER → 2024-04-28 14:48 | Outpatient (BNVA) | payer OTHER, SELFPAY | PROVIDERS: PCP Emergency Medicine Emergency Medical Services; Visit Provider Physician Assistant | DX: G56.22 Lesion of ulnar nerve, left upper limb | CPT/HCPCS: 73080; 99214 ==

== ENCOUNTER 2024-06-10 07:32 | Day surgery (SDC) | payer OTHER, SELFPAY ==
[2024-06-10] VITALS (11 sets, daily range): BP systolic 111–132; BP diastolic 81–96; PULSE 57–75; RESP 17–20; TEMP 36.1–36.6; O2SAT 92–100; BMI 25.5
--- NOTE | 2024-06-10 08:12 | W.PM.OPSFHP ---
Same Day Surgery H&P Indication for Procedure/HPI DATE OF PROCEDURE: June 10, 2024 CHIEF COMPLAINT/INDICATIONFOR SURGICAL PROCEDURE: Left cubital tunnel syndrome PREOP DIAGNOSIS: Left cubital tunnel syndrome PLANNED PROCEDURE: Operation Date: 06/10/24 09:30 Proposed Procedures p Cubital Tunnel Release(Left) - Avelino St. Bernard, DO s Ulnar Nerve Transposition(Left) - Avelino St. Bernard, DO Medications/Allergies* Home Medications Medication Instructions Recorded Confirmed Type alprazolam 0.25 mg tablet (Xanax) 0.25 mg PO BID PRN Anxiety 09/06/19 06/09/24 History zolpidem 10 mg tablet (Ambien) 10 mg PO BEDTIME 09/06/19 06/09/24 History hydrocodone 10 mg-acetaminophen 1 tab PO Q4H PRN Pain 06/25/21 06/09/24 History 325 mg tablet prochlorperazine maleate 5 mg 5 tab PO DIRECTED PRN Nausea 08/22/22 06/09/24 History tablet ketoconazole 2 % shampoo 1 applic topical Q14D 09/05/22 06/09/24 History baclofen 20 mg tablet 40 mg PO TID 07/24/23 06/09/24 History esomeprazole magnesium 40 mg 40 mg PO DAILY 04/28/24 06/09/24 History capsule,delayed release ciclopirox olamine 1 % topical 1 applic topical DIRECTED 06/09/24 06/09/24 History cream ocrelizumab 30 mg/mL intravenous See Rx Instructions .Route .COMPLEX 06/09/24 06/09/24 History solution (Ocrevus) onabotulinumtoxinA 100 unit unit 06/09/24 History solution for injection (Botox) Allergies/Adverse Reactions Allergy/AdvReac Type Severity Reaction Status Date / Time No Known Drug Allergies Allergy Unknown Verified 06/09/24 16:33 Pertinent History/Comorbid Conditions* Medical History (Updated 04/15/24 @ 13:16 by Tiera Momin MD) Multiple sclerosis Dysphagia Encounter for postoperative care Family history of prostate cancer Father, Arron Urinary retention Occipital neuralgia of right side Ulnar neuropathy at elbow of right upper extremity Lumbar stenosis Onychodystrophy Surgical History (Updated 04/03/22 @ 04:44 by Juan Daniel Bridges MD) Status post lumbar laminectomy S/P matrixectomy of toe Family History (Updated 09/06/19 @ 08:01 by Krystal Kumar RN) Cancer Father Colon Brother Colon Social History Smoking and tobacco/nicotine status: former use of tobacco/nicotine (quit 12 years ago) Alcohol intake: never Substance/Drug Use: never Marital status: Current occupational status: disabled Pertinent Exam Findings alert, oriented x 3, operative site marked and procedure specific exam findings In the preop today positive Tinel's over the elbow negative median nerve compression test at the wrist minimal/mildly positive Tinel's at the wrist. Talked and we will observe the carpal tunnel at this time. Please refer to detailed orthopedic examination on 04/28/2024 listed below: Left Hand exam- Negative Tinel's and negative Phalen's test. No thenar atrophy and no thenar muscle weakness. Full range of motion in fingers and wrist and fingers are warm and well-perfused with normal cap refill under 2 seconds. Radial pulse 2+, intrinsic muscle weakness noted. Left Elbow exam-positive Tinel's test Recommendations Surgery/Procedure today Other Plans: Plan to proceed to the OR today for a left cubital tunnel release with possible ulnar nerve transposition. We detailed the ins and outs of procedure the risk benefits complication alternatives surgery and through shared decision-making elects proceed with surgical intervention. All questions answered at this time. Coding Level of Care Code Acute Code for Valentina Guevara
[2024-06-10] MEDS: acetaminophen 1,000 MG/100 ML PIGGYBACK 400 MG IV (08:20)
[2024-06-10] MEDS: ketorolac 30 mg/mL INJ IVP (08:22)
[2024-06-10] MEDS: scopolamine 1.5 Patch 1 PATCH TRANSDERMA (08:23)
[2024-06-10] MEDS: sodium chloride 0.9% 1,000 ML 30 ML IV (08:40)
--- NOTE | 2024-06-10 08:46 | PC.NURSE ---
0830: left shoulder nerve block performed by RIVERA, time out performed and 30 ml of .5% ropivicaine injected with ultrasound guidance
[2024-06-10] MEDS: ceFAZolin 2,000 MG in sodium chloride 0.9% (plus) 50 ML 100 MG IV (08:56)
--- NOTE | 2024-06-10 08:56 | ANES.PREANE2 ---
Pre-Anesthetic Assessment Height/Weight: Height 1.78 m Weight 80.739 kg Temp Pulse Resp BP Pulse Ox O2 Del Method 97.8 F 75 18 111/81 96 Room Air 06/10/24 08:01 06/10/24 08:01 06/10/24 08:01 06/10/24 08:23 06/10/24 08:01 06/10/24 08:08 Preop Diagnosis: Left cubital tunnel syndrome Operation Date: 06/10/24 09:30 Proposed Procedures p Cubital Tunnel Release(Left) - Avelino Yoan, DO s Ulnar Nerve Transposition(Left) - Avelino Yoan, DO Familial anesthetic complications: none Was Beta Kim taken within 24 hours: N/A Was Clonidine taken within 24 hours: N/A Last intake: Intake Last Liquid Date 06/09/24 Last Liquid Time 20:30 Last Solid Date 06/09/24 Last Solid Time 20:30 Social No alcohol and No tobacco Exam alert, oriented x 3, clear to auscultation bilaterally and regular rate & rhythm Airway Dentition: other (no teeth) GI Gastroesophageal Reflux Disease Neuropsych MS Anesthetic Plan ASA status: 3 Anesthesia: General and Regional (specify below) Risk of > 500 ml blood loss (7ml/kg in children): No Medications/Allergies Home Medications Medication Instructions Recorded Confirmed Last Taken Type alprazolam 0.25 mg tablet (Xanax) 0.25 mg PO BID PRN Anxiety 09/06/19 06/09/24 06/08/24 History zolpidem 10 mg tablet (Ambien) 10 mg PO BEDTIME 09/06/19 06/09/24 06/08/24 History hydrocodone 10 mg-acetaminophen 1 tab PO Q4H PRN Pain 06/25/21 06/09/24 06/10/24 History 325 mg tablet prochlorperazine maleate 5 mg 5 tab PO DIRECTED PRN Nausea 08/22/22 06/09/24 06/10/24 History tablet ketoconazole 2 % shampoo 1 applic topical Q14D 09/05/22 06/09/24 06/09/24 History baclofen 20 mg tablet 40 mg PO TID 07/24/23 06/09/24 06/10/24 History galcanezumab-gnlm 120 mg/mL See Rx Instructions .Route 09/02/23 06/09/24 06/06/24 Rx subcutaneous pen injector .COMPLEX #3 mL (Emgality Pen) dalfampridine 10 mg 10 mg PO Q12H #180 tabs 09/22/23 06/09/24 06/10/24 Rx tablet,extended release,12 hr (Ampyra) esomeprazole magnesium 40 mg 40 mg PO DAILY 04/28/24 06/09/24 06/10/24 History capsule,delayed release ciclopirox olamine 1 % topical 1 applic topical DIRECTED 06/09/24 06/09/24 06/09/24 History cream ocrelizumab 30 mg/mL intravenous See Rx Instructions .Route .COMPLEX 06/09/24 06/09/24 Unknown History solution (Ocrevus) onabotulinumtoxinA 100 unit unit 06/09/24 Unknown History solution for injection (Botox) oxycodone 5 mg tablet 5 mg PO Q6H PRN pain postop 7 days 06/10/24 Unknown Rx #28 tabs Allergies Allergy/AdvReac Type Severity Reaction Status Date / Time No Known Drug Allergies Allergy Unknown Verified 06/09/24 16:33 Current Medications Generic Name Dose Route Start Last Admin Trade Name Freq PRN Reason Stop Dose Admin Sodium Chloride 1,000 mls @ 30 mls/hr 06/10/24 07:45 06/10/24 08:40 Sodium Chloride 0.9% IV 06/11/24 07:44 30 mls/hr .Q24H KEVIN Administration PFSH Anesthesia Medical History Multiple sclerosis Dysphagia Encounter for postoperative care Family history of prostate cancer Father, Arron Urinary retention Occipital neuralgia of right side Ulnar neuropathy at elbow of right upper extremity Lumbar stenosis Onychodystrophy Surgical History Status post lumbar laminectomy S/P matrixectomy of toe Family History Father Cancer Colon Brother Cancer Colon Social History Smoking and tobacco/nicotine status: former use of tobacco/nicotine (quit 12 years ago) Alcohol intake: never Substance/Drug Use: never Marital status: Current occupational status: disabled Data Anesthesia Cardiac Studies: Echocardiogram 08/09/23
--- NOTE | 2024-06-10 08:57 | ANES.PROC ---
Anesthesia Procedures Procedure/Date: 06/10/24 Nerve Block ^: Nerve Block 1: Main Anesthesia: general anesthesia Time Out Performed: Yes Consent: requested by attending/covering physician, from patient, from other, risks and benefits reviewed and patient agrees to proceed Nerve block location: supraclavicular (R) Anesthesia monitors applied: pulse oximetry, EKG, BP cuff and oxygen Nerve block position: semi sitting Anesthetic Used: ropivicaine 0.5% (30 ml) and with decadron (4 mg) Ultrasound used to: recognize landmarks, visualize and ID brachial plexus, in supraclavicular region and visualize and ID interscalene groove Nerve Stimulator Used?: No Interscalene/Femoral BLK: 4 stimuplex 21 g needle used for position and inplane approach, visualize local anesthetic spread and no vascular puncture identified Injection: neg aspiration of heme Patient Tolerated Procedure: well Complications: none
--- NOTE | 2024-06-10 10:02 | P.BOP_ITS ---
Date of Procedure: 06/10/2024 Surgeon: Avelino Milton DO Headliner Installer(s): None Procedure(s) performed: Left cubital tunnel release (ulnar nerve decompression at the elbow) Left ulnar nerve neurolysis Left ulnar nerve transposition Findings of the procedure(s): Patient was found to have severe left cubital tunnel disease as well as a subluxating ulnar nerve underwent left cubital tunnel release with ulnar nerve transposition without issues or complications placed in a 90 degree splint will be seen by OT hand therapy here within the next couple days for drain removal and custom splint made and applied. Patient taken PACU in stable condition patient Toller procedure well without issues or complications Estimated blood loss: 15 mL Specimen(s) removed: None Post-operative diagnosis: Left cubital tunnel syndrome with subluxating ulnar nerve
--- NOTE | 2024-06-10 10:04 | P.OP_ITS ---
Operative Report Date of procedure: June 10, 2024 Surgeon: Avelino Milton DO Procedure: Post-op diagnosis:? Left?cubital?tunnel syndrome and subluxating ulnar nerve Post-op findings: See operative note Procedure done: Left?cubital?tunnel release(ulnar nerve decompression) Left ulnar nerve neurolysis Left ulnar nerve?transposition Surgeon: Avelino Milton DO Estimated blood loss: 15 cc Tourniquet Time: 24 minutes IV fluids: See anesthesia record Complications: None Findings: See operative report narrative Condition: stable Disposition: same day Brief History: Patient is a pleasant 58-year-old Male was seen evaluated in the outpatient setting for Left ulnar nerve neuropathy at the elbow.? Patient had EMG findings consistent with this.? ?On examination in the office patient findings are con sistent with this preoperative diagnosis. We had detailed discussion in office about continued nonoperative intervention versus operative intervention.? Patient understands the risk benefits complications alternatives to surgical and nonsurgical treatment options.? Patient understands the risks include but not limited to make it better, make it worse, infection, permanent injury to nerve, decreased function and sensation to the hand with persistent weakness.? Given these risks patient understands and agrees to proceed with current plan.? Patient elects to proceed with a Left?cubital?tunnel release and possible ulnar nerve?transposition. all questions answered. Procedure: Patient was seen and evaluated in the preoperative holding area.? The consent that was filled out in office was reviewed with patient and confirmed to be appropriate for Left ulnar nerve?cubital?tunnel release and possible ulnar nerve?transposition.? Correct extremity was then marked.? Patient was seen evaluated by the preoperative team as well as anesthesia department.? Patient underwent regional anesthesia per the anesthesia department. Once cleared for surgery patient was then taken to the operative suite and?transported onto the operative table all bony prominences were well-padded and patient was secured to the table.? Left upper extremity was placed on an armboard.? Patient then underwent anesthesia per the anesthesia department. Patient's Left upper extremity was then prepped and draped in standard orthopedic fashion.?This point a final timeout was performed. Patient received appropriate preop antibiotics. Sterile tourniquet was applied to the left upper extremity Esmarch tourniquet was used to exsanguinate the operative extremity and was insufflated to 250 mmHg.? Standard curvilinear incision was made centering over the ulnar nerve between the medial epicondyle and olecranon process.? Sharp scalpel excision through skin and subcutaneous tissue was performed.? Once I encountered subcutaneous tissue I then utilized dissection scissors to spread in the path of the [facility] and care was made to protect any nerve branches throughout this case.? I then utilized a scalpel to complete my dissection directly on over to the flexor pronator mass and elevated this fat tissue directly off of the fascia.? I started my dissection of the ulnar nerve the nerve proximally.? Once identified I then utilized Littler dissection scissors and decompress the nerve completely and proximally and utilized blunt dissection to make sure there was no entrapment proximally..? Once decompressed proximally I then traced the nerve distal through Chao's ligament and as it entered the FCU fascia aponeurosis and completed by decompression and ulnar nerve neurolysis distally.? The nerve was completely released in situ no areas of entrapment I was able to place my finger distally and proximally with no areas entrapment along the nerve.? Was noted patient was significantly narrowed at Chao's ligament as well as swollen just proximal to this consistent with compression of the ulnar nerve. At this point in time by in situ release was completed I then subsequently took the elbow through range of motion and subluxation was noted over the medial epicondyle and plan for ulnar nerve?transposition was made.? ?I thoroughly irrigated the nerve throughout the case to prevent it from drying out. Of note the ulnar nerve had significant irritation and inflammation.? Next while protecting the nerve as well as care to not injure any venous structures I then excised the intermuscular septum proximally with bipolar electrocautery.? This allowed for there to be no entrapment proximally with my?transposition.? Next I then performed my standard Z- flap into the fascia.? This created a large thick fascial band that would be sutured to secure the ulnar nerve when its been?transposed.? Once the incision was made just through the fascia I then mobilized just the fascia and freed the muscle belly off of this.? I then sequentially excised from fascial bands throughout the flexor pronator mass to prevent any type of banded structure irritating the?transposition.? At this point I had only soft tissue and muscle belly with which the ulnar nerve could rest.? I had to do a small excision of the muscle belly distally to create a nice trough for the nerve to lie.? At this point I then mobilized the nerve and this was?transposed into the flexor pronator insertion under the fasica flaps.? There was no evidence of kinking/tethering of the nerve.? this was significantly redundant and lax with no signs of tension or entrapment.? I then utilized a 3-0 Ethibond suture and approximated the fascia flaps that was created and the Left knee okay okay secured with horizontal interrupted mattress stitches.? I was able to place 2 fingers under the repair with no evidence of entrapment and the elbow was taken through range of motion and no areas of entrapment or kinking were noted on the nerve and the nerve was redundant relaxed in all ranges of motion.? This completed my ulnar nerve decompression of the?cubital?tunnel as well as ulnar nerve?transposition.? Wound bed was then thoroughly irrigated.? Tourniquet was deflated.? Maintained exact hemostasis with bipolar electrocautery.? I did place a margie drain to prevent hematoma formation. As result the skin was reapproximated with interrupted Vicryl subcutaneous suture 3-0.? I next utilized a running horizontal mattress stitch with 3-0 nylon.? Extremity was then cleaned and the incision was then covered with Xeroform 4 x 4's ABD Curlex and soft roll and a posterior long-arm splint was then applied with an Saad wrap.? Patient was then awakened from anesthesia and taken to PACU in stable condition. Disposition: Patient taken to PACU in stable condition.? Patient given appropriate discharge instructions as well as pain medication.? We will get Patient in with OT hand therapy for splint takedown dressing change and drain pull in the next 2 days. Patient will see me in office in 2 weeks.? pt understands? if they has any questions they can contact the office.
[2024-06-10] MEDS: oxyCODONE 5 mg IR Tab/Cap PO (11:02)
--- NOTE | 2024-06-10 12:00 | ANE.PACU2 ---
Inpatient post-anesthesia follow up: Airway intact: Yes Vital signs: Temperature 97.2 F Pulse Rate 71 Respiratory Rate 17 Blood Pressure 132/92 Pulse Oximetry 93 Oxygen Delivery Me thod Room Air Oxygen Flow Rate 6 Fraction of Inspir ed Oxygen Hydration adequate: Yes Nausea and vomiting: No Pain level: 1 Mental status: Baseline
== END 2024-06-10 12:02 | disposition home or self-care (01) ==
PROVIDERS: PCP Family Medicine; Visit Provider Student in an Organized Health Care Education/Training Program
PROC: (CPT 64718; principal; 2024-06-10 09:20)
PROC: (CPT 64718; 2024-06-10 09:20)
DX: G56.22 Lesion of ulnar nerve, left upper limb (principal); S63.072A Subluxation of distal end of left ulna, initial encounter; X58.XXXA Exposure to other specified factors, initial encounter; G35 Multiple sclerosis; Z87.891 Personal history of nicotine dependence
CPT/HCPCS: 64718; 64727; J0131; J0690; J1100; J1885; J2405; J2704; J2795; J3010; J7030

== ENCOUNTER 2024-06-11 09:22 | Outpatient (RCR) | payer OTHER, SELFPAY | END 2024-07-03 23:59 | disposition home or self-care (01) | LOC: SOT 09:22 | PROVIDERS: Visit Provider Student in an Organized Health Care Education/Training Program | DX: G56.22 Lesion of ulnar nerve, left upper limb (principal) | CPT/HCPCS: 97760; L3763 ==

== ENCOUNTER → 2024-06-24 13:43 | Outpatient (BNVA) | payer OTHER, SELFPAY | PROVIDERS: Visit Provider Physician Assistant | DX: Z98.890 Other specified postprocedural states (principal) | CPT/HCPCS: 99024 ==

== ENCOUNTER → 2024-07-09 10:00 | Outpatient (BNVA) | payer OTHER, SELFPAY | PROVIDERS: Visit Provider Physician Assistant | DX: Z48.02 Encounter for removal of sutures (principal); Z98.890 Other specified postprocedural states | CPT/HCPCS: 99024 ==

== ENCOUNTER → 2024-07-23 13:02 | Outpatient (BNVA) | payer OTHER, SELFPAY | PROVIDERS: Visit Provider Specialist | DX: G43.711 Chronic migraine without aura, intractable, with status migrainosus (principal); G35 Multiple sclerosis | CPT/HCPCS: 64615; 99212; J0585 ==

== ENCOUNTER → 2024-08-05 14:28 | Outpatient (BNVA) | payer OTHER, SELFPAY | PROVIDERS: Visit Provider Physician Assistant | DX: Z98.890 Other specified postprocedural states (principal) | CPT/HCPCS: 99024 ==

== ENCOUNTER → 2024-08-23 10:01 | Outpatient (BNVA) | payer OTHER, SELFPAY | PROVIDERS: Visit Provider Nurse Practitioner Family | DX: L82.1 Other seborrheic keratosis (principal); L21.8 Other seborrheic dermatitis; G35 Multiple sclerosis; L29.89 Other pruritus; D22.5 Melanocytic nevi of trunk; L57.8 Other skin changes due to chronic exposure to nonionizing radiation; L82.0 Inflamed seborrheic keratosis; R58 Hemorrhage, not elsewhere classified; L53.8 Other specified erythematous conditions; R20.8 Other disturbances of skin sensation | CPT/HCPCS: 17110; 99214 ==

== ENCOUNTER 2024-09-28 07:47 | Oncology outpatient (recurring) (ONCR) | payer OTHER, SELFPAY ==
[2024-09-28] MEDS: sodium chloride 0.9% 250 ML 75 ML IV (10:03)
[2024-09-28] MEDS: acetaminophen 500 mg Tablet 1000 MG PO (10:04)
[2024-09-28] MEDS: diphenhydrAMINE 50 mg/mL SDV 1mL 25 MG IVP (10:04)
[2024-09-28] MEDS: methylPREDNISolone sod succ 125 mg/2 mL INJ IVP (10:09)
[2024-09-28] MEDS: ocrelizumab 600 MG in sodium chloride 0.9% 500 ML 100 MG IV (10:35)
[2024-09-28 13:10] VITALS: BP 106/72; PULSE 68; RESP 18; TEMP 36.6; O2SAT 95
== END 2024-09-28 23:59 | disposition home or self-care (01) ==
LOC: ONCMED 07:48
PROVIDERS: Visit Provider Specialist
DX: G35 Multiple sclerosis (principal); Z79.899 Other long term (current) drug therapy
CPT/HCPCS: 96375; 96413; 96415; A4222; J1200; J2350; J2919; J7040; J7050

== ENCOUNTER → 2024-10-22 12:31 | Outpatient (BNVA) | payer OTHER, SELFPAY | PROVIDERS: PCP Family Medicine; Visit Provider Specialist | DX: G43.711 Chronic migraine without aura, intractable, with status migrainosus (principal); G35 Multiple sclerosis | CPT/HCPCS: 64615; 99212; J0585; J9999 ==

== ENCOUNTER 2024-11-19 15:32 | Outpatient (CLI) | payer OTHER, SELFPAY ==
--- NOTE | 2024-11-19 16:00 | USCV_ITS ---
Bharat Arthur Age: 59 Gender: M : 1965 Exam Date: 11/19/2024 15:46 Ordering Phys: Tiera Momin MD Technologist: [facility] [place]am Location[place] [facility] [place]: edema HISTORY: edema PROCEDURES: Venous duplex imaging was performed in only the right lower extremity. Serial compression, augmentation maneuvers, and spectral Doppler flow evaluation were performed. FINDINGS: Normal 2-D Doppler and augmentation and compressibility throughout the lower extremity venous structures. Additional imaging through the proximal calf veins also reveals no thrombus. Limited evaluation of the greater saphenous vein is patent with no thrombus. CONCLUSIONS No evidence of right lower extremity DVT. Aleksandr Scott MD (Electronically Signed) Final Date: 22 November 2024 09:59 S
== END 2024-11-19 15:33 | disposition home or self-care (01) ==
PROVIDERS: PCP Family Medicine; Visit Provider Specialist
DX: R60.0 Localized edema (principal)
CPT/HCPCS: 93971

== ENCOUNTER → 2025-01-28 13:26 | Outpatient (BNVA) | payer OTHER, SELFPAY | PROVIDERS: Visit Provider Specialist | DX: G43.711 Chronic migraine without aura, intractable, with status migrainosus (principal) | CPT/HCPCS: 64615; 99212; J0585; J9999 ==

== ENCOUNTER → 2025-02-21 10:06 | Outpatient (BNVA) | payer OTHER, SELFPAY | PROVIDERS: PCP Family Medicine; Visit Provider Podiatrist Foot & Ankle Surgery | DX: M79.671 Pain in right foot (principal) | CPT/HCPCS: 73630 ==

== ENCOUNTER 2025-03-29 07:48 | Oncology outpatient (recurring) (ONCR) | payer OTHER, SELFPAY ==
[2025-03-29] MEDS: diphenhydrAMINE 50 mg/mL SDV 1mL 25 MG IVP (08:26)
[2025-03-29] MEDS: methylPREDNISolone sod succ 125 mg/2 mL INJ IVP (08:27)
[2025-03-29 09:05] VITALS: BP 124/79; PULSE 57; RESP 16; TEMP 36.1; O2SAT 97
[2025-03-29 09:20] VITALS: BP 111/75; PULSE 63; RESP 16; TEMP 36.1
[2025-03-29 09:35] VITALS: BP 109/69; PULSE 60; TEMP 36.2; O2SAT 96
[2025-03-29 11:31] VITALS: BP 124/78; PULSE 71; TEMP 36.5; O2SAT 99
== END 2025-03-29 23:59 | disposition home or self-care (01) ==
PROVIDERS: PCP Family Medicine; Visit Provider Specialist
DX: G35 Multiple sclerosis (principal); Z79.899 Other long term (current) drug therapy
CPT/HCPCS: 96375; 96413; A4222; J1200; J2350; J2919; J7040; J7050

== ENCOUNTER 2025-06-28 07:33 | Outpatient (CLI) | payer OTHER, SELFPAY ==
--- NOTE | 2025-06-28 07:49 | MRR_ITS ---
PROCEDURE INFORMATION: Exam: MR Lumbar Spine Without Contrast Exam date and time: 06/28/2025 7:53 AM Age: 59 years old Clinical indication: Low back pain; Additional info: Spondylosis TECHNIQUE: Imaging protocol: Magnetic resonance imaging of the lumbar spine without contrast. COMPARISON: MR lumbar spine wo con* [id number] 08/05/2023 10:40 AM FINDINGS: Bones/joints: There is T1 and T2 hyperintense signal at the L3-L4 endplates compatible with Modic type 2 endplate changes. There is mild dextroscoliosis of the lumbar spine centered at L2-L3. There is anterior marginal osteophytosis at T12-L1, L1-L2, L2-L3, and L3-L4. Lumbar vertebral bodies demonstrate a normal height. There is no acute fracture or bone marrow edema. There is minimal retrolisthesis of L2 on L3 and L3 on L4, similar to the prior exam. Spinal cord: Visualized cord, conus medullaris and cauda equina are unremarkable without compression. Conus medullaris is located at the T12-L1 level and is normal in signal intensity. Disc spaces: There is disc desiccation at L1-L2, L2-L3, and L3-L4. Disc space heights: There is disc space narrowing at L3-L4. L1-L2: Mild disc bulge that does not cause significant spinal canal or neural foraminal stenosis. L2-L3: There is a mild disc bulge. There is mild narrowing of bilateral subarticular recesses. L3-L4: There is a mild disc bulge with mild effacement of the ventral thecal sac. There is a left foraminal disc protrusion causing mild left neural foraminal stenosis. There is no evidence for spinal canal stenosis or right neural foraminal stenosis. There is mild bilateral facet arthrosis. L4-L5: There is a mild disc bulge. There is mild bilateral facet arthrosis. No severe spinal canal stenosis. No significant neural foraminal narrowing. L5-S1: There is a mild disc bulge. There is mild bilateral facet arthrosis. No severe spinal canal stenosis. No significant neural foraminal narrowing. Soft tissues: Unremarkable. MR/MR lumbar spine wo con* [id number] IMPRESSION: 1. Disc desiccation at L1-L2, L2-L3, and L3-L4 with disc space narrowing at L3-L4. 2. Modic type 2 endplate changes at L3-L4. 3. Mild dextroscoliosis of the lumbar spine. 4. Mild degenerative spondylosis as above. 5. Mild disc bulge at L3-L4 with a left foraminal disc protrusion causing mild left neural foraminal stenosis without spinal canal stenosis. Overall, this is unchanged compared with 08/05/2023.
== END 2025-06-28 07:34 | disposition home or self-care (01) ==
LOC: RAD 07:33
PROVIDERS: PCP Family Medicine; Visit Provider Emergency Medicine Emergency Medical Services
DX: M47.817 Spondylosis without myelopathy or radiculopathy, lumbosacral region (principal); M47.9 Spondylosis, unspecified; M51.361 Other intervertebral disc degeneration, lumbar region with lower extremity pain only; M25.78 Osteophyte, vertebrae; M41.85 Other forms of scoliosis, thoracolumbar region; M51.369 Other intervertebral disc degeneration, lumbar region without mention of lumbar back pain or lower extremity pain; M48.061 Spinal stenosis, lumbar region without neurogenic claudication; M51.379 Other intervertebral disc degeneration, lumbosacral region without mention of lumbar back pain or lower extremity pain
CPT/HCPCS: 72148